=== PATIENT | female | born 1950 ===

== ENCOUNTER 2024-11-23 14:30 | Outpatient (REF) | payer SELFPAY ==
--- OUTSIDE RECORDS SUMMARY | 2024-11-23 16:49 | XMS_ITS | Encounter Summary ---
Author Organization [facility] Address [address] [place] [phone] Care Team Providers Care Field Project Manager Name Role Phone Gayathri Cannon MD Primary Care Provider [phone] Encounter Details Date Type Department Care Team (Late st Contact Info) Description 11/06/2024 Lab Requisition [facility] - Main Lab [address] [place] [address] Alvaro Rojas MD [address] [place] [address] MCFP (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 Social History Tobacco Use Types Packs/Day Years Used Date Smoking Tobacco: Never Smokeless Tobacco: Never Alcohol Use Standard Drinks/Week Comments Yes 0 (1 standard drink = 0.6 oz pur e alcohol) Sex and Gender Information Value Date Recorded Sex Assigned at Not on file Gender Identity Not on file Sexual Orientation Not on file documented as of this encounter Plan of Treatment Not on file documented as of this encounter Procedures Procedure Name Priority Date/Time Associated Diagnosis Comments PROTHROMBIN TIME WITH INR Routine 11/06/2024 6:30 AM EST 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 documented in this encounter Results * (ABNORMAL) Prothrombin time with INR (11/06/2024 6:30 AM EST) Protime 36.3(H) 10.6 - 13.9 sec LAB COAGULATION METHOD 11/06/2024 10:45 AM EST [facility] INR 2.9 LAB COAGULATION METHOD 11/06/2024 10:45 AM EST [facility] Blood Venous blood specimen / Unknown Venipuncture / Unknown 11/06/2024 6:30 AM EST 11/06/2024 9:56 AM EST Alvaro Rojas MD LAB BLOOD ORDERABLES [facility] [address] [place] [address], documented in this encounter Visit Diagnoses Diagnosis MCFP (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 Long-term (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 documented in this encounter Care Teams Field Project Manager Relationship Specialty Start Date End Date Gayathri Cannon MD [address] [place] [address] PCP - General 01/04/15 documented as of this encounter
--- OUTSIDE RECORDS SUMMARY | 2024-11-23 16:49 | XMS_ITS | Encounter Summary ---
Author Organization [facility] Address [address] [place] [phone] Care Team Providers Care Pharmacy Sales Assistant Name Role Phone Gayathri Cannon MD Primary Care Provider [phone] Encounter Details Date Type Department Care Team (Late st Contact Info) Description 11/14/2024 Lab Requisition [facility] - Main Lab [address] [facility] [place] [address] Alvaro Rojas MD [address] [place] [address] Other long term care administrator (current) drug therapy; Unspecified atrial fibrillation (CMS/HCC); Chronic kidney disease, stage 3 unspecified (CMS/HCC); Chronic diastolic (congestive) heart failure (CMS/HCC); Essential (primary) hypertension; Longstanding persistent atrial fibrillation (CMS/HCC); Type 2 diabetes mellitus without complications (CMS/HCC) Social History Tobacco Use Types Packs/Day Years [...] Diagnosis Comments PROTHROMBIN TIME WITH INR Routine 11/16/2024 5:13 AM EST Other detention (current) drug therapy Unspecified atrial fibrillation (CMS/HCC) Chronic kidney disease, stage 3 unspecified (CMS/HCC) Chronic diastolic (congestive) heart failure (CMS/HCC) Essential (primary) hypertension Longstanding persistent atrial fibrillation (CMS/HCC) Type 2 diabetes mellitus without complications (CMS/HCC) COMPLETE BLOOD COUNT Routine 11/16/2024 5:13 AM EST Other detention (current) drug therapy Unspecified atrial fibrillation (CMS/HCC) Chronic kidney disease, stage 3 unspecified (CMS/HCC) Chronic diastolic (congestive) heart failure (CMS/HCC) Essential (primary) hypertension Longstanding persistent atrial fibrillation (CMS/HCC) Type 2 diabetes mellitus without complications (CMS/HCC) MAGNESIUM Routine 11/16/2024 5:13 AM EST Other detention (current) drug therapy Unspecified atrial fibrillation (CMS/HCC) Chronic kidney disease, stage 3 unspecified (CMS/HCC) Chronic diastolic (congestive) heart failure (CMS/HCC) Essential (primary) hypertension Longstanding persistent atrial fibrillation (CMS/HCC) Type 2 diabetes mellitus without complications (CMS/HCC) BASIC METABOLIC PANEL Routine 11/16/2024 5:13 AM EST Other detention (current) drug therapy Unspecified atrial fibrillation (CMS/HCC) Chronic kidney disease, stage 3 unspecified (CMS/HCC) Chronic diastolic (congestive) heart failure (CMS/HCC) Essential (primary) hypertension Longstanding persistent atrial fibrillation (CMS/HCC) Type 2 diabetes mellitus without complications (CMS/HCC) documented in this encounter Results * (ABNORMAL) Prothrombin time with INR (11/16/2024 5:13 AM EST) Protime 47.5(H) 10.6 - 13.9 sec LAB COAGULATION METHOD 11/16/2024 12:39 PM EST [facility] INR 3.8 LAB COAGULATION METHOD 11/16/2024 12:39 PM EST [facility] Blood Venous blood specimen / Unknown Venipuncture / Unknown 11/16/2024 5:13 AM EST 11/16/2024 12:02 PM EST Alvaro Rojas MD LAB BLOOD ORDERABLES [facility] LAB [address] [place] [address], * (ABNORMAL) Magnesium (11/16/2024 5:13 AM EST) Magnesium 1.8(L) 1.9 - 2.6 mg/dL LAB CHEMISTRY METHOD 11/16/2024 2:[address] [facility] Blood Venous blood specimen / Unknown Venipuncture / Unknown 11/16/2024 5:13 AM EST 11/16/2024 12:02 PM EST Alvaro Rojas MD LAB BLOOD ORDERABLES [facility] LAB [address] [place] [address], * (ABNORMAL) Basic metabolic panel (11/16/2024 5:13 AM EST) Sodium 135 133 - 145 mmol/L LAB CHEMISTRY METHOD 11/16/2024 2:[address] [facility] Potassium 4.1 3.5 - 5.5 mmol/L LAB CHEMISTRY METHOD 11/16/2024 2:[address] [facility] Chloride 99 96 - 110 mmol/L LAB CHEMISTRY METHOD 11/16/2024 2:[address] [facility] CO2 28 21 - 32 mmol/L LAB CHEMISTRY METHOD 11/16/2024 2:[address] [facility] Anion Gap 8 3 - 11 LAB CHEMISTRY METHOD 11/16/2024 2:[address] [facility] Glucose 125(H) 70 - 100 mg/dL LAB CHEMISTRY METHOD 11/16/2024 2:[address] [facility] BUN 10 5 - 25 mg/dL LAB CHEMISTRY METHOD 11/16/2024 2:[address] [facility] Creatinine 0.85 0.50 - 1.10 mg/dL LAB CHEMISTRY METHOD 11/16/2024 2:[address] [facility] eGFR 72 >=60 mL/min/1. 73m2 LAB CHEMISTRY METHOD 11/16/2024 2:39 PM EST [facility] Comment:Calculation based on the??Chronic Kidney Disease Epidemiology Collaboration (CKD-EPI) equation refit??without adjustment for race. BUN/Creatinine Ratio 11.8 LAB CHEMISTRY METHOD 11/16/2024 2:[address] [facility] Calcium 8.7 8.5 - 10.5 mg/dL LAB CHEMISTRY METHOD 11/16/2024 2:[address] [facility] Blood Venous blood specimen / Unknown Venipuncture / Unknown 11/16/2024 5:13 AM EST 11/16/2024 12:02 PM EST Alvaro Rojas MD LAB BLOOD ORDERABLES [facility] [address] [place] [address], * (ABNORMAL) Complete blood count (11/16/2024 5:13 AM EST) WBC 7.9 4.8 - 10.8 K/mcL LAB HEMETOLOGY METHOD 11/16/2024 1:[address] [facility] RBC 3.40(L) 3.80 - 4.80 M/mcL LAB HEMETOLOGY METHOD 11/16/2024 1:[address] [facility] Hemoglobin 7.9(L) 11.5 - 16.0 g/dL LAB HEMETOLOGY METHOD 11/16/2024 1:[address] [facility] Hematocrit 26.7(L) 35.0 - 47.0 % LAB HEMETOLOGY METHOD 11/16/2024 1:[address] [facility] MCV 78.5(L) 79.0 - 98.0 FL LAB HEMETOLOGY METHOD 11/16/2024 1:[address] [facility] MCH 23.2(L) 27.0 - 32.0 pcg LAB HEMETOLOGY METHOD 11/16/2024 1:28 PM EST [facility] MCHC 29.6(L) 32.0 - 37.0 g/dL LAB HEMETOLOGY METHOD 11/16/2024 1:[address] [facility] RDW 24.9(H) 11.0 - 15.0 % LAB HEMETOLOGY METHOD 11/16/2024 1:[address] [facility] Platelets 586(H) 130 - 400 K/mcL LAB HEMETOLOGY METHOD 11/16/2024 1:28 PM EST [facility] MPV 9.6 7.0 - 11.0 FL LAB HEMETOLOGY METHOD 11/16/2024 1:[address] [facility] NRBC 0.3 <1.0 % LAB HEMETOLOGY METHOD 11/16/2024 1:[address] [facility] NRBC Absolute 0.02 <0.10 K/mcL LAB HEMETOLOGY METHOD 11/16/2024 1:[address] [facility] Blood Venous blood specimen / Unknown Venipuncture / Unknown 11/16/2024 5:13 AM EST 11/16/2024 12:02 PM EST Alvaro Rojas MD LAB BLOOD ORDERABLES [facility] [address] [place], [place] [address] [phone] documented in this encounter Visit Diagnoses Diagnosis Other detention (current) drug therapy Unspecified atrial fibrillation (CMS/HCC) Chronic kidney disease, stage 3 unspecified (CMS/HCC) Chronic diastolic (congestive) heart failure (CMS/HCC) Essential (primary) hypertension Unspecified essential hypertension Longstanding persistent atrial fibrillation (CMS/HCC) Type 2 diabetes mellitus without complications (CMS/HCC) documented in this encounter Care Teams Pharmacy Sales Assistant Relationship Specialty Start Date End Date Gayathri Cannon MD [address] [place] [id number] PCP - General 01/04/15 documented as of this encounter
--- OUTSIDE RECORDS SUMMARY | 2024-11-23 16:49 | XMS_ITS | Encounter Summary ---
Author Organization [facility] Address [address] [place] [phone] Care Team Providers Care Systems Management Consultant Name Role Phone Gayathri Cannon MD Primary Care Provider [phone] Encounter Details Date Type Department Care Team (Late st Contact Info) Description 11/10/2024 Lab Requisition [facility] - Main Lab [address] [facility] [place] [address] Alvaro Rojas MD [address] [place] [address] Unspecified atrial fibrillation (CMS/HCC) Social History Tobacco Use Types Packs/Day [...] Diagnosis Comments PROTHROMBIN TIME WITH INR Routine 11/10/2024 7:42 AM EST Unspecified atrial fibrillation (CMS/HCC) documented in this encounter Results * (ABNORMAL) Prothrombin time with INR (11/10/2024 7:42 AM EST) Protime 19.1(H) 10.6 - 13.9 sec LAB COAGULATION METHOD 11/10/2024 10:49 AM EST [facility] INR 1.5 LAB COAGULATION METHOD 11/10/2024 10:49 AM EST [facility] Blood Venous blood specimen / Unknown Venipuncture / Unknown 11/10/2024 7:42 AM EST 11/10/2024 9:15 AM EST Alvaro Rojas MD LAB BLOOD ORDERABLES [facility] [address] [place] [address], documented in this encounter Visit Diagnoses Diagnosis Unspecified atrial fibrillation (CMS/HCC) documented in this encounter Care Teams Systems Management Consultant Relationship Specialty Start Date End Date Gayathri Cannon MD [address] [place] [id number] PCP - General 01/04/15 documented as of this encounter
--- OUTSIDE RECORDS SUMMARY | 2024-11-23 16:49 | XMS_ITS | Encounter Summary ---
Author Organization [facility] Address [address] [place] [phone] Care Team Providers Care Security Investigator Name Role Phone Gayathri Cannon MD Primary Care Provider [phone] Encounter Details Date Type Department Care Team (Late st Contact Info) Description 11/20/2024 Lab Requisition [facility] - Main Lab [address] [facility] [place] [address] Alvaro Rojas MD [address] [place] [address] Unspecified atrial fibrillation (CMS/HCC); Chronic kidney disease, [...] on file documented as of this encounter Visit Diagnoses Diagnosis Unspecified atrial fibrillation (CMS/HCC) Chronic kidney disease, stage 3 unspecified (CMS/HCC) Chronic diastolic (congestive) heart failure (CMS/HCC) Essential (primary) hypertension Unspecified essential hypertension Longstanding persistent atrial fibrillation (CMS/HCC) Type 2 diabetes mellitus without complications (CMS/HCC) documented in this encounter Care Teams Security Investigator Relationship Specialty Start Date End Date Gayathri Cannon MD [address] [place] [address] PCP - General 01/04/15 documented as of this encounter
--- OUTSIDE RECORDS SUMMARY | 2024-11-23 16:49 | XMS_ITS | Encounter Summary ---
Author Organization [facility] Address [address] [place] [phone] Care Team Providers Care Logging Contractor Name Role Phone Gayathri Cannon MD Primary Care Provider [phone] Encounter Details Date Type Department Care Team (Late st Contact Info) Description 11/18/2024 Lab Requisition [facility] - Main Lab [address] [facility] [place] [address] Alvaro Rojas MD [address] [place] [address] Unspecified atrial fibrillation (CMS/HCC) Social History Tobacco [...] Diagnosis Comments PROTHROMBIN TIME WITH INR Routine 11/19/2024 5:14 AM EST Unspecified atrial fibrillation (CMS/HCC) documented in this encounter Results * (ABNORMAL) Prothrombin time with INR (11/19/2024 5:14 AM EST) Protime 36.4(H) 10.6 - 13.9 sec LAB COAGULATION METHOD 11/19/2024 11:03 AM EST [facility] INR 3.0 LAB COAGULATION METHOD 11/19/2024 11:03 AM EST [facility] Blood Venous blood specimen / Unknown Venipuncture / Unknown 11/19/2024 5:14 AM EST 11/19/2024 10:08 AM EST Alvaro Rojas MD LAB BLOOD ORDERABLES [facility] [address] [place] [address], documented in this encounter Visit Diagnoses Diagnosis Unspecified atrial fibrillation (CMS/HCC) documented in this encounter Care Teams Logging Contractor Relationship Specialty Start Date End Date Gayathri Cannon MD [address] [place] [id number] PCP - General 01/04/15 documented as of this encounter
--- OUTSIDE RECORDS SUMMARY | 2024-11-23 16:49 | XMS_ITS | Continuity of Care Document ---
Author Organization [facility] Lisa zainab Address [address] [place] [address] [place] [address]- Care Team Providers Care Campus Director Name Role Phone Davis SIEGEL, Gayathri Damian Primary Care Physician [phone] Encounter [facility] Date(s): 10/01/24 - 10/31/24 [facility] [address] [place] [address] Drive [address] [place], [place] [address] Attending Physician: AdmAparna root Admitting Physician: AdmtrAparna Referring Physician: Admtr, [id number] Encounter Type: Triage Allergies, Adverse Reactions, Alerts Substance Criticality Severity Reaction Reaction Severity Status furosemide hypomagnesemia Acti ve Immunizations Given and Recorded Vaccine Date Status Refusal Reason SARS-CoV-2 (COVID-19) mRNA BNT-162b2 vac 09/12/21 Given SARS-CoV-2 (COVID-19) mRNA BNT-162b2 vac 02/27/21 Given SARS-CoV-2 (COVID-19) mRNA BNT-162b2 vac 02/06/21 Given influenza virus vaccine, inactivated 08/15/21 Give n influenza virus vaccine, inactivated 07/22/20 Give n influenza virus vaccine, inactivated 12/08/19 Give n influenza virus vaccine, inactivated 11/20/18 Give n influenza virus vaccine, inactivated 1 07/17/17 Gi oleg influenza virus vaccine, inactivated 08/08/16 Give n influenza virus vaccine, inactivated 11/25/14 Give n tetanus/diphtheria/pertussis, acel(Tdap) 08/30/17 Given Zoster Vaccine Live 10/05/16 Given pneumococcal 13-valent vaccine 03/06/16 Given pneumococcal 23-valent vaccine 11/25/14 Given 1Admin Note: [facility] [id number] Medications 4 Pronged Cane 4 Pronged Cane, See Instructions, # 1 each, Refills 0, Tot. Refills 0, Maintenance, Dx: OA of Bilateral Knees (M17), Repeated Falls (R29.6), Reduced Mobility (Z74.0) Duration: Lifetime, 08/08/20 3:06:00 PM EDT, Supply Start Date: 08/08/20 Status: Ordered Quantity: 1.0 Unit: each Repeat number: 1 acetaminophen 325 mg oral capsule 2 capsule = 650 mg, By Mouth, 3 times a day, PRN Pain , Mild, LABEL IN SURINAMESE, # 540 capsule, 3 Refills, Maintenance, 04/02/23 2:21:00 PM EDT, Capsule, [facility] #[id number], Partial fill upon patient request if the prescription is for a schedule II opioid drug., 160, cm, 01/22/23 8:46:00 EDT, Height Start Date: 04/02/23 Status: Ordered Quantity: 540.0 Unit: capsule Repeat number: 4 atorvastatin 40 mg oral tablet 1 tablet, By Mouth, Daily, LABEL IN SURINAMESE, # 90 tablet, 3 Refills, Maintenance, 10/16/24 4:58:00 PM EST, [facility] #[id number], 160, cm, 10/16/24 12:37:00 EST, Height, 73.5, kg, 06/11/23 11:48:00 EDT, Dry Weight Start Date: 10/16/24 Status: Ordered Quantity: 90.0 Unit: tablet Repeat number: 4 dofetilide 250 mcg oral capsule 1 capsule = 250 mcg, By Mouth, 2 times a day, # 60 capsule, 0 Refills, Maintenance, 12/26/17 12:51:14PM EST, Capsule Start Date: 12/26/17 Status: Ordered Quantity: 60.0 Unit: capsule Repeat number: 1 furosemide 20 mg oral tablet 20 mg, 1, tablet, By Mouth, Daily, # 90 tablet, Refills 0, Maintenance, 06/15/24 3:15:00 PM EDT, Partial fill upon patient request if the prescription is for a schedule II opioid drug. Start Date: 06/15/24 Status: Ordered Quantity: 90.0 Unit: tablet Repeat number: 1 lisinopril 20 mg oral tablet 1, tablet, By Mouth, Daily, LABEL IN SURINAMESE, # 90 tablet, Refills 1, Tot. Refills 1, Maintenance, 09/01/24 9:36:00 AM EST, Route to Pharmacy Electronically, [facility] #[id number], 160, cm, 06/15/24 15:14:00 EDT, Height, 73.5, kg, 06/11/23 11:48:00 EDT, Dry Weight Start Date: 09/01/24 Status: Ordered Quantity: 90.0 Unit: tablet Repeat number: 2 loratadine 10 mg oral capsule 1 capsule = 10 mg, By Mouth, Daily, LABEL IN SURINAMESE, # 90 capsule, 3 Refills, Maintenance, :10:00 PM EDT, Capsule, [facility] #[id number], Partial fill upon patient request if the prescription is for a schedule II opioid drug., 160, cm, 06/04/24 15:45:00 EDT, Height, 73.5, kg, 06/11/23 11:48:00 EDT, Dry Weight Start Date: 06/04/24 Status: Ordered Quantity: 90.0 Unit: capsule Repeat number: 4 Lovenox 80 mg/0.8 mL injectable solution = 80 mg, Subcutaneous Infusion, Daily, Inject 1 syringe (80mg) SQ once daily in the morning as directed by coumadin clinic. Do not start until advised to do so by clinic before surgery., # 7 each, 0 Refills, Maintenance, 10/09/24 10:41:00 AM EST, [facility] #[id number], Partial fill upon patient request if the prescription is for a schedule II opioid drug., 160, cm, 10/01/24 14:29:00 EST, Height, 73.5, kg, 06/11/23 11:48:00 EDT, Dry Weight Start Date: 10/09/24 Status: Ordered Quantity: 7.0 Unit: each Repeat number: 1 magnesium oxide 400 mg oral tablet 1 tablet, By Mouth, 2 times a day, FOR LEG CRAMPS AND HYPOMAGNESIMIA; LABELINSPANISH, # 180 tablet,3 Refills, Maintenance, 08/17/24 1:26:00 PM EDT, [facility] #[id number], 160, cm, 06/15/24 15:14:00 EDT, Height, 73.5, kg, 06/11/23 11:48:00 EDT, Dry Weight Start Date: 08/17/24 Status: Ordered Quantity: 180.0 Unit: tablet Repeat number: 1 metFORMIN 1000 mg oral tablet 1 tablet = 1,000 mg, By Mouth, 2 times a day, LABEL IN SURINAMESE, # 180 tablet, 1 Refills, Maintenance, 06/15/24 3:58:00 PM EDT, [facility] #[id number], 160, cm, 06/15/24 15:14:00 EDT, Height, 73.5, kg, 06/11/23 11:48:00 EDT, Dry Weight Start Date: 06/15/24 Status: Ordered Quantity: 180.0 Unit: tablet Repeat number: 2 Metoprolol Tartrate 50 mg oral tablet 1 tablet, By Mouth, 2 times a day, LABELINSPANISH., # 180 tablet, 1 Refills, Maintenance, 07/16/24 12:50:00 PM EDT, [facility] #[id number], 160, cm, 06/15/24 15:14:00 EDT, Height, 73.5, kg, 06/11/23 11:48:00 EDT, Dry Weight Start Date: 07/16/24 Status: Ordered Quantity: 180.0 Unit: tablet Repeat number: 1 ONE TOUCH DELICA PLUS 30G LANCETS ONE TOUCH DELICA PLUS 30G LANCETS, CHECK BLOOD GLUCOSE DAILY AND NEEDED IF NEEDED FOR SWEATS/DIZZINESS/CONFUSION Start Date: 07/19/23 Status: Ordered Repeat number: 1 ONE TOUCH ULTRA 2 KIT ONE TOUCH ULTRA 2 KIT, TEST BLOOD SUGAR DAILY AND NEEDED SWEATS/DIZZINESS/CONFUSION Start Date: 07/19/23 Status: Ordered Repeat number: 1 ONE TOUCH ULTRA BLUE TESTST(NEW)100 ONE TOUCH ULTRA BLUE TESTST(NEW)100, TEST EVERY DAY AND NEEDED FOR SWEATS/DIZZINESS/CONFUSION Start Date: 07/19/23 Status: Ordered Repeat number: 1 pantoprazole 40 mg oral delayed release tablet 1 tablet, By Mouth, 2 times a day, PRN NEEDED FOR GERD, LABEL IN SURINAMESE, # 180 tablet, 3 Refills, Maintenance, 10/16/24 4:58:00 PM EST, 160, cm, 10/16/24 12:37:00 EST, Height, 73.5, kg, 06/11/23 11:48:00 EDT, Dry Weight Start Date: 10/16/24 Status: Ordered Quantity: 180.0 Unit: tablet Repeat number: 4 Ventolin HFA 108 mcg/inh inhalation aerosol with adapter 2 puffs, Inhalation, 4 times a day, PRN for wheezing, LABEL IN SURINAMESE, # 3 each, 3 Refills, Maintenance, 07/23/23 11:49:00 AM EDT, Aerosol, [facility] #[id number], Partial fill upon patient request if the prescription is for a schedule II opioid drug., 160, cm, 07/23/23 11:25:00 EDT, Height, 73.5, kg, 06/11/23 11:48:00 EDT, Dry Weight Start Date: 07/23/23 Status: Ordered Quantity: 3.0 Unit: each Repeat number: 4 warfarin 2.5 mg oral tablet 1 tablet, By Mouth, Daily, DIRECTED BY COUMADIN CLINIC., # 90 tablet, 0 Refills, Maintenance, 07/15/24 3:53:00 PM EDT, [facility] #[id number], 160, cm, 06/15/24 15:14:00 EDT, Height, 73.5, kg,06/11/23 11:48:00 EDT, Dry Weight Start Date: 07/15/24 Status: Ordered Quantity: 90.0 Unit: tablet Repeat number: 1 Problem List Condition Confirmation Course Effective Dates Status H ealth Status Informant Asthma/COPD - gold 2, PFT 12/2017 Confirmed Active Atopic dermatitis Confirmed Active Atrial fibrillation on coumadin (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) Confirmed Active Atypical chest pain - myoview normal 01/2019 - Go Try It On Confirmed Active Choking Confirmed Active COVID-19 virus infection Confirmed Active Leg cramps Confirmed Active Diabetes Confirmed Active Diastolic heart failure Confirmed Active GERD (gastroesophageal reflux disease) Confirmed Active On anticoagulant therapy with Coumadin Confirmed Active Hearing loss Confirmed Active (HFpEF) heart failure with preserved ejection fraction Confirmed Active Hyperlipidemia Confirmed Active Hypertension Confirmed Active Hypomagnesemia Confirmed Active Insomnia Confirmed Active Mitral valve stenosis rheumatologic - severe, dilated left atrium 01/2022 , [facility] Confirmed Active Osteopenia Confirmed Active *[id number] Taxation Economist Gaby Mcdonnell Confirmed Active Bilateral primary osteoarthritis of knee Confirmed Active Trigger finger Confirmed Active Tubular adenoma of colon - 2019 colon polyp x 2 1, 2 Confirmed 04/10/16 Active 1three polyps removed, repeat screening colonoscopy in 2021 2repeat colonoscopy in 2019 Social History Social History Type Response Smoking Status Never smoker; Tobacc o user in household: No entered on: 01/14/15 Sex Female Sex Representation Female (finding) Patient Care team information Care Team Personnel Name: Skylar Turner Position: [facility] Outreach Member Role: Lifetime Consulting Physician Name: Francis Georges RN Position: S RN Member Role: Primary Care Nurse Name: Michael Vega RN Position: [facility] RN Member Role: Primary Care Nurse Name: Anusha Guerra Position: [facility] RN Supefrain Member Role: Primary Care Nurse Name: Margot Valladares Position: [facility] AMB Nurse Member Role: Lifetime Consulting Physician Name: Gayathri Cannon MD Position: [facility] Physician - Primary Care Member Role: PCP Address: [address] [place] [address] Adult Medicine [address] Telecom: Name: Donald Jackson Jr, RN Position: [facility] ED RN W/OE and Tasks Member Role: Primary Care Nurse Name: Jerry Rivera MD Position: [facility] Renal MD Member Role: Lifetime Consulting Physician Address: [address] [place] [address] [address] [facility] [address] Telecom: Name: Alma Capps RN Position: [facility] RN Member Role: Primary Care Nurse Name: Massimo Glynn RN Position: [facility] ED RN W/OE and Tasks Member Role: Primary Care Nurse Name: Jarett Lopez Position: S RN Member Role: Primary Care Nurse Name: Farrah Skelton RN Position: [facility] RN Member Role: Primary Care Nurse Care Team Related Persons Name: LIDA SAUCEDO Insurance Providers Guarantor name: OCTAVIA RODRIGUEZ Health Plan Information #: 1 Payer: NA Member Number: NA Policy Number: NA Group Number: NA
--- OUTSIDE RECORDS SUMMARY | 2024-11-23 16:49 | XMS_ITS | Encounter Summary ---
Author Organization [facility] Address [address] [place] [id number] Care Team Providers Care Printing Film Stripper Name Role Phone Gayathri Cannon MD Primary Care Provider [phone] Encounter Details Date Type Department Care Team (Late st Contact Info) Description 11/05/2024 Lab Requisition [facility] - Main Lab [address] [facility] [place] [address] Alvaro Rojas MD [address] [place] [address] Iron deficiency anemia, unspecified; Hyperlipidemia, unspecified; Gastro-esophageal reflux disease without esophagitis; Essential (primary) hypertension; Chronic kidney disease, stage 3 unspecified (CMS/HCC); Type 2 diabetes mellitus without complications (CMS/HCC); Unspecified atrial fibrillation (CMS/HCC) Social History Tobacco [...] Procedure Name Priority Date/Time Associated Diagnosis Comments VITAMIN B12 AND FOLATE Routine 11/05/2024 5:14 AM EST Iron deficiency anemia, unspecified Hyperlipidemia, unspecified Gastro-esophageal reflux disease without esophagitis Essential (primary) hypertension Chronic kidney disease, stage 3 unspecified (CMS/HCC) Type 2 diabetes mellitus without complications (CMS/HCC) Unspecified atrial fibrillation (CMS/HCC) COMPLETE BLOOD COUNT Routine 11/05/2024 5:14 AM EST Iron deficiency anemia, unspecified Hyperlipidemia, unspecified Gastro-esophageal reflux disease without esophagitis Essential (primary) hypertension Chronic kidney disease, stage 3 unspecified (CMS/HCC) Type 2 diabetes mellitus without complications (CMS/HCC) Unspecified atrial fibrillation (CMS/HCC) THYROID STIMULATING HORMONE Routine 11/05/2024 5:14 AM EST Iron deficiency anemia, unspecified Hyperlipidemia, unspecified Gastro-esophageal reflux disease without esophagitis Essential (primary) hypertension Chronic kidney disease, stage 3 unspecified (CMS/HCC) Type 2 diabetes mellitus without complications (CMS/HCC) Unspecified atrial fibrillation (CMS/HCC) COMPREHENSIVE METABOLIC PANEL Routine 11/05/2024 5:14 AM EST Iron deficiency anemia, unspecified Hyperlipidemia, unspecified Gastro-esophageal reflux disease without esophagitis Essential (primary) hypertension Chronic kidney disease, stage 3 unspecified (CMS/HCC) Type 2 diabetes mellitus without complications (CMS/HCC) Unspecified atrial fibrillation (CMS/HCC) documented in this encounter Results * Vitamin B12 and folate (11/05/2024 5:14 AM EST) Vitamin B-12 282 250 - 900 pcg/mL LAB CHEMISTRY METHOD 11/05/2024 10:41 AM EST [facility] Folate 9.7 2.8 - 17.0 ng/ml LAB CHEMISTRY METHOD 11/05/2024 10:41 AM EST [facility] Blood Venous blood specimen / Unknown Venipuncture / Unknown 11/05/2024 5:14 AM EST 11/05/2024 8:56 AM EST Alvaro Rojas MD LAB BLOOD ORDERABLES [facility] [address] [place] [address], * Thyroid stimulating hormone (11/05/2024 5:14 AM EST) TSH 1.51 0.40 - 4.00 mcIU/mL LAB CHEMISTRY METHOD 11/05/2024 10:09 AM EST [facility] Blood Venous blood specimen / Unknown Venipuncture / Unknown 11/05/2024 5:14 AM EST 11/05/2024 8:56 AM EST Alvaro Rojas MD LAB BLOOD ORDERABLES [facility] [address] [place] [address], * (ABNORMAL) Comprehensive metabolic panel (11/05/2024 5:14 AM EST) Sodium 135 133 - 145 mmol/L LAB CHEMISTRY METHOD 11/05/2024 10:41 AM [facility] Potassium 3.9 3.5 - 5.5 mmol/L LAB CHEMISTRY METHOD 11/05/2024 10:41 AM [facility] Chloride 99 96 - 110 mmol/L LAB CHEMISTRY METHOD 11/05/2024 10:41 AM [facility] CO2 26 21 - 32 mmol/L LAB CHEMISTRY METHOD 11/05/2024 10:41 AM [facility] Anion Gap 10 3 - 11 LAB CHEMISTRY METHOD 11/05/2024 10:41 AM [facility] Glucose 121(H) 70 - 100 mg/dL LAB CHEMISTRY METHOD 11/05/2024 10:41 AM [facility] BUN 13 5 - 25 mg/dL LAB CHEMISTRY METHOD 11/05/2024 10:41 AM [facility] Creatinine 0.78 0.50 - 1.10 mg/dL LAB CHEMISTRY METHOD 11/05/2024 10:41 AM [facility] eGFR 79 >=60 mL/min/1. 73m2 LAB CHEMISTRY METHOD 11/05/2024 10:41 AM [facility] Comment:Calculation based on the??Chronic Kidney Disease Epidemiology Collaboration (CKD-EPI) equation refit??without adjustment for race. BUN/Creatinine Ratio 16.7 LAB CHEMISTRY METHOD 11/05/2024 10:41 AM [facility] Calcium 8.1(L) 8.5 - 10.5 mg/dL LAB CHEMISTRY METHOD 11/05/2024 10:41 AM [facility] AST (SGOT) 19 10 - 42 unit/L LAB CHEMISTRY METHOD 11/05/2024 10:41 AM [facility] ALT (SGPT) 16 10 - 60 unit/L LAB CHEMISTRY METHOD 11/05/2024 10:41 AM [facility] Alkaline Phosphatase 90 42 - 121 unit/L LAB CHEMISTRY METHOD 11/05/2024 10:41 AM [facility] Total Protein 5.0(L) 6.0 - 8.0 g/dL LAB CHEMISTRY METHOD 11/05/2024 10:41 AM [facility] Albumin 1.9(L) 3.2 - 5.0 g/dL LAB CHEMISTRY METHOD 11/05/2024 10:41 AM [facility] Total Bilirubin 0.4 0.0 - 1.4 mg/dL LAB CHEMISTRY METHOD 11/05/2024 10:41 AM [facility] Blood Venous blood specimen / Unknown Venipuncture / Unknown 11/05/2024 5:14 AM EST 11/05/2024 8:56 AM EST Alvaro Rojas MD LAB BLOOD ORDERABLES [facility] [address] [place] [address], * (ABNORMAL) Complete blood count (11/05/2024 5:14 AM EST) WBC 10.6 4.8 - 10.8 K/mcL LAB HEMETOLOGY METHOD 11/05/2024 10:04 AM [facility] RBC 3.20(L) 3.80 - 4.80 M/mcL LAB HEMETOLOGY METHOD 11/05/2024 10:04 AM [facility] Hemoglobin 7.2(L) 11.5 - 16.0 g/dL LAB HEMETOLOGY METHOD 11/05/2024 10:04 AM [facility] Hematocrit 24.1(L) 35.0 - 47.0 % LAB HEMETOLOGY METHOD 11/05/2024 10:04 AM [facility] MCV 75.3(L) 79.0 - 98.0 FL LAB HEMETOLOGY METHOD 11/05/2024 10:04 AM [facility] MCH 22.5(L) 27.0 - 32.0 pcg LAB HEMETOLOGY METHOD 11/05/2024 10:04 AM [facility] MCHC 29.9(L) 32.0 - 37.0 g/dL LAB HEMETOLOGY METHOD 11/05/2024 10:04 AM [facility] RDW 24.6(H) 11.0 - 15.0 % LAB HEMETOLOGY METHOD 11/05/2024 10:04 AM [facility] Platelets 411(H) 130 - 400 K/mcL LAB HEMETOLOGY METHOD 11/05/2024 10:04 AM [facility] MPV 9.9 7.0 - 11.0 FL LAB HEMETOLOGY METHOD 11/05/2024 10:04 AM [facility] NRBC 0.3 <1.0 % LAB HEMETOLOGY METHOD 11/05/2024 10:04 AM [facility] NRBC Absolute 0.03 <0.10 K/mcL LAB HEMETOLOGY METHOD 11/05/2024 10:04 AM [facility] Blood Venous blood specimen / Unknown Venipuncture / Unknown 11/05/2024 5:14 AM EST 11/05/2024 8:56 AM EST Alvaro Rojas MD LAB BLOOD ORDERABLES [facility] [address] [place] [address], documented in this encounter Visit Diagnoses Diagnosis Iron deficiency anemia, unspecified Hyperlipidemia, unspecified Gastro-esophageal reflux disease without esophagitis Essential (primary) hypertension Unspecified essential hypertension Chronic kidney disease, stage 3 unspecified (CMS/HCC) Type 2 diabetes mellitus without complications (CMS/HCC) Unspecified atrial fibrillation (CMS/HCC) documented in this encounter Care Teams Printing Film Stripper Relationship Specialty Start Date End Date Gayathri Cannon MD [address] [place] [address] PCP - General 01/04/15 documented as of this encounter
--- OUTSIDE RECORDS SUMMARY | 2024-11-23 16:49 | XMS_ITS | Encounter Summary ---
Author Organization [facility] Address [address] [place] [id number] Care Team Providers Care Claims Specialist Name Role Phone Gayathri Cannon MD Primary Care Provider [phone] Encounter Details Date Type Department Care Team (Late st Contact Info) Description 11/11/2024 Lab Requisition [facility] - Main Lab [address] [facility] [place] [address] Alvaro Rojas MD [address] [place] [address] Unspecified atrial fibrillation (CMS/HCC) Social History Tobacco [...] Diagnosis Comments PROTHROMBIN TIME WITH INR Routine 11/12/2024 5:29 AM EST Unspecified atrial fibrillation (CMS/HCC) documented in this encounter Results * (ABNORMAL) Prothrombin time with INR (11/12/2024 5:29 AM EST) Protime 27.0(H) 10.6 - 13.9 sec LAB COAGULATION METHOD 11/12/2024 10:30 AM EST [facility] INR 2.1 LAB COAGULATION METHOD 11/12/2024 10:30 AM EST [facility] Blood Venous blood specimen / Unknown Venipuncture / Unknown 11/12/2024 5:29 AM EST 11/12/2024 8:54 AM EST Alvaro Rojas MD LAB BLOOD ORDERABLES [facility] [address] [place] [address], documented in this encounter Visit Diagnoses Diagnosis Unspecified atrial fibrillation (CMS/HCC) documented in this encounter Care Teams Claims Specialist Relationship Specialty Start Date End Date Gayathri Cannon MD [address] [place] [id number] PCP - General 01/04/15 documented as of this encounter
--- OUTSIDE RECORDS SUMMARY | 2024-11-23 16:49 | XMS_ITS | Encounter Summary ---
Author Organization [facility] Address [id number] [place] [id number] Care Team Providers Care Compliance Representative Name Role Phone Gayathri Cannon MD Primary Care Provider [phone] Encounter Details Date Type Department Care Team (Late st Contact Info) Description 11/09/2024 Lab Requisition [facility] - Main Lab [address] [facility] [place] [address] Alvaro Rojas MD [address] [place] [address] Chronic kidney disease, stage 3 unspecified (CMS/HCC); [...] Procedure Name Priority Date/Time Associated Diagnosis Comments COMPLETE BLOOD COUNT Routine 11/09/2024 5:47 AM EST Chronic kidney disease, stage 3 unspecified (CMS/HCC) Chronic diastolic (congestive) heart failure (CMS/HCC) Essential (primary) hypertension Longstanding persistent atrial fibrillation (CMS/HCC) Type 2 diabetes mellitus without complications (CMS/HCC) MAGNESIUM Routine 11/09/2024 5:47 AM EST Chronic kidney disease, stage 3 unspecified (CMS/HCC) Chronic diastolic (congestive) heart failure (CMS/HCC) Essential (primary) hypertension Longstanding persistent atrial fibrillation (CMS/HCC) Type 2 diabetes mellitus without complications (CMS/HCC) BASIC METABOLIC PANEL Routine 11/09/2024 5:47 AM EST Chronic kidney disease, stage 3 unspecified (CMS/HCC) Chronic diastolic (congestive) heart failure (CMS/HCC) Essential (primary) hypertension Longstanding persistent atrial fibrillation (CMS/HCC) Type 2 diabetes mellitus without complications (CMS/HCC) documented in this encounter Results * (ABNORMAL) Magnesium (11/09/2024 5:47 AM EST) Magnesium 1.6(L) 1.9 - 2.6 mg/dL LAB CHEMISTRY METHOD 11/09/2024 3:00 PM [facility] Blood Venous blood specimen / Unknown Venipuncture / Unknown 11/09/2024 5:47 AM EST 11/09/2024 12:00 PM EST Alvaro Rojas MD LAB BLOOD ORDERABLES [facility] [address] [place] [address], * (ABNORMAL) Basic metabolic panel (11/09/2024 5:47 AM EST) Sodium 135 133 - 145 mmol/L LAB CHEMISTRY METHOD 11/09/2024 3:00 PM [facility] Potassium 3.8 3.5 - 5.5 mmol/L LAB CHEMISTRY METHOD 11/09/2024 3:00 PM [facility] Chloride 101 96 - 110 mmol/L LAB CHEMISTRY METHOD 11/09/2024 3:00 PM [facility] CO2 25 21 - 32 mmol/L LAB CHEMISTRY METHOD 11/09/2024 3:00 PM [facility] Anion Gap 9 3 - 11 LAB CHEMISTRY METHOD 11/09/2024 3:00 PM [facility] Glucose 106(H) 70 - 100 mg/dL LAB CHEMISTRY METHOD 11/09/2024 3:00 PM [facility] BUN 9 5 - 25 mg/dL LAB CHEMISTRY METHOD 11/09/2024 3:00 PM [facility] Creatinine 0.92 0.50 - 1.10 mg/dL LAB CHEMISTRY METHOD 11/09/2024 3:00 PM [facility] eGFR 65 >=60 mL/min/1. 73m2 LAB CHEMISTRY METHOD 11/09/2024 3:00 PM [facility] Comment:Calculation based on the??Chronic Kidney Disease Epidemiology Collaboration (CKD-EPI) equation refit??without adjustment for race. BUN/Creatinine Ratio 9.8 LAB CHEMISTRY METHOD 11/09/2024 3:00 PM [facility] Calcium 8.5 8.5 - 10.5 mg/dL LAB CHEMISTRY METHOD 11/09/2024 3:00 PM [facility] Blood Venous blood specimen / Unknown Venipuncture / Unknown 11/09/2024 5:47 AM EST 11/09/2024 12:00 PM EST Alvaro Rojas MD LAB BLOOD ORDERABLES [facility] [address] [place] [address], * (ABNORMAL) Complete blood count (11/09/2024 5:47 AM EST) WBC 9.2 4.8 - 10.8 K/mcL LAB HEMETOLOGY METHOD 11/09/2024 2:16 PM [facility] RBC 3.10(L) 3.80 - 4.80 M/mcL LAB HEMETOLOGY METHOD 11/09/2024 2:16 PM [facility] Hemoglobin 7.2(L) 11.5 - 16.0 g/dL LAB HEMETOLOGY METHOD 11/09/2024 2:16 PM EST [facility] Hematocrit 24.1(L) 35.0 - 47.0 % LAB HEMETOLOGY METHOD 11/09/2024 2:16 PM [facility] MCV 78.0(L) 79.0 - 98.0 FL LAB HEMETOLOGY METHOD 11/09/2024 2:16 PM [facility] MCH 23.3(L) 27.0 - 32.0 pcg LAB HEMETOLOGY METHOD 11/09/2024 2:16 PM EST [facility] MCHC 29.9(L) 32.0 - 37.0 g/dL LAB HEMETOLOGY METHOD 11/09/2024 2:16 PM [facility] RDW 25.2(H) 11.0 - 15.0 % LAB HEMETOLOGY METHOD 11/09/2024 2:16 PM [facility] Platelets 552(H) 130 - 400 K/mcL LAB HEMETOLOGY METHOD 11/09/2024 2:16 PM EST [facility] MPV 9.3 7.0 - 11.0 FL LAB HEMETOLOGY METHOD 11/09/2024 2:16 PM [facility] NRBC 0.0 <1.0 % LAB HEMETOLOGY METHOD 11/09/2024 2:16 PM EST [facility] NRBC Absolute 0.00 <0.10 K/mcL LAB HEMETOLOGY METHOD 11/09/2024 2:16 PM [facility] Blood Venous blood specimen / Unknown Venipuncture / Unknown 11/09/2024 5:47 AM EST 11/09/2024 12:00 PM EST Alvaro Rojas MD LAB BLOOD ORDERABLES [facility] [address] [place] [address], documented in this encounter Visit Diagnoses Diagnosis Chronic kidney disease, stage 3 unspecified (CMS/HCC) Chronic diastolic (congestive) heart failure (CMS/HCC) Essential (primary) hypertension Unspecified essential hypertension Longstanding persistent atrial fibrillation (CMS/HCC) Type 2 diabetes mellitus without complications (CMS/HCC) documented in this encounter Care Teams Compliance Representative Relationship Specialty Start Date End Date Gayathri Cannon MD [address] [place] [address] PCP - General 01/04/15 documented as of this encounter
--- OUTSIDE RECORDS SUMMARY | 2024-11-23 16:49 | XMS_ITS | Continuity of Care Document ---
Author Organization [facility] Cardiac Lisa zainab Address [address] [place] [address] [place] [address]- Care Team Providers Care Olericulture Teacher Name Role Phone Davis SIEGEL, Gayathri Damian Primary Care Physician Encounter [facility] Date(s): 11/13/24 - 11/20/24 [facility] Cardiac Surgery [address] [place] [address] Drive [address] [place], [place] [address] Encounter Diagnosis S/P MVR (mitral valve replacement)(Discharge Diagnosis) - 11/13/24 Attending Physician: Nicholas Saab MD Referring Physician: Esequiel Abbasi MD Encounter Type: Office Visit Allergies, Adverse Reactions, Alerts Substance Criticality Severity [...] 23-valent vaccine 11/25/14 Given 1Admin Note: [facility] [id number] Medications acetaminophen 325 mg oral capsule 2 capsule = 650 mg, By Mouth, 3 times a day, PRN Pain , Mild, LABEL IN KAZAKH, # 540 capsule, 3 Refills, Maintenance, 04/02/23 2:21:00 PM EDT, Capsule, [id number], Partial fill upon patient request if the prescription is for a schedule II opioid drug., 160, cm, 01/22/23 8:46:00 EDT, Height Start Date: 04/02/23 Status: Ordered Quantity: 540.0 Unit: capsule Repeat number: 4 albuterol-ipratropium 3 mg-0.5 mg/3 ml inhalation solution BAND Nebulizer, 4 times a day, PRN Wheezing/Shortness of Breath, 0 Refills, Maintenance, 11/04/24 4:50:00 PM EST, Inhalation Solution, Partial fill upon patient request if the prescription is for a schedule II opioid drug. Start Date: 11/04/24 Status: Ordered Repeat number: 1 amiodarone 200 mg oral tablet 200 mg, 1, tablet, By Mouth, 2 times a day, Take 1 tablet twice a day for 30 days. Once bottle is complete, stop taking medication., # 60 tablet, Refills 0, Maintenance, 11/04/24 4:48:00 PM EST, Partial fill upon patient request if the prescription is for a schedule II opioid drug. Start Date: 11/04/24 Status: Ordered Quantity: 60.0 Unit: tablet Repeat number: 1 amLODIPine 10 mg oral tablet 10 mg, 1, tablet, By Mouth, Daily, # 30 tablet, Refills 0, Maintenance, 11/13/24 11:34:00 AM EST, Partial fill upon patient request if the prescription is for a schedule II opioid drug. Start Date: 11/13/24 Status: Ordered Quantity: 30.0 Unit: tablet Repeat number: 1 Aspirin Tablet 81 mg, By Mouth, Daily, Refills 0, Maintenance, 11/04/24 4:49:00 PM EST, Partial fill upon patient request if the prescription is for a schedule II opioid drug. Start Date: 11/04/24 Status: Ordered Repeat number: 1 atorvastatin 40 mg oral tablet 1 tablet, By Mouth, Daily, LABEL IN KAZAKH, # 90 tablet, 3 Refills, Maintenance, 10/16/24 4:58:00 PM EST, [id number], 160, cm, 10/16/24 12:37:00 EST, Height, 73.5, kg, 06/11/23 11:48:00 EDT, Dry Weight Start Date: 10/16/24 Status: Ordered Quantity: 90.0 Unit: tablet Repeat number: 4 Ferrous Sulfate ER Refills 0, Maintenance, 11/13/24 11:34:00 AM EST, Partial fill upon patient request if the prescription is for a schedule II opioid drug. Start Date: 11/13/24 Status: Ordered Repeat number: 1 furosemide 20 mg oral tablet TAKE 1 TABLET BY MOUTH DAILY Start Date: 11/13/24 Status: Ordered Repeat number: 1 hydrALAZINE 25 mg oral tablet 25 mg, 1, tablet, By Mouth, Daily, # 30 tablet, Refills 0, Maintenance, 11/13/24 11:35:00 AM EST, Partial fill upon patient request if the prescription is for a schedule II opioid drug. Start Date: 11/13/24 Status: Ordered Quantity: 30.0 Unit: tablet Repeat number: 1 lisinopril 10 mg oral tablet 10 mg, By Mouth, Daily, Refills 0, Maintenance, 11/04/24 4:47:00 PM EST, Partial fill upon patient request if the prescription is for a schedule II opioid drug. Start Date: 11/04/24 Status: Ordered Repeat number: 1 loratadine 10 mg oral capsule 1 capsule = 10 mg, By Mouth, Daily, LABEL IN KAZAKH, # 90 capsule, 3 Refills, Maintenance, :10:00 PM EDT, Capsule, [facility] #[id number], Partial fill upon patient request if the prescription is for a schedule II opioid drug., 160, cm, 06/04/24 15:45:00 EDT, Height, 73.5, kg, 06/11/23 11:48:00 EDT, Dry Weight Start Date: 06/04/24 Status: Ordered Quantity: 90.0 Unit: capsule Repeat number: 4 Magnesium Carbonate = 54 mg, By Mouth, Daily, 0 Refills, Maintenance, 11/13/24 11:35:00 AM EST, Partial fill upon patient request if the prescription is for a schedule II opioid drug. Start Date: 11/13/24 Status: Ordered Repeat number: 1 metFORMIN 500 mg oral tablet 1 tablet = 500 mg, By Mouth, Daily, with meals, # 30 tablet, 0 Refills, Maintenance, 11/04/24 4:50:00 PM EST, Tablet, [facility], Partial fill upon patient request if the prescription isfor a schedule II opioid drug., 160, cm, 11/04/24 16:27:00 EST, Height, 74, kg, 10/28/24 14:57:00 EST, Dry Weight Start Date: 11/04/24 Status: Ordered Quantity: 30.0 Unit: tablet Repeat number: 1 Metoprolol Tartrate 50 mg oral tablet 1 tablet, By Mouth, 2 times a day, LABELINSPANISH., # 180 tablet, 1 Refills, Maintenance, 07/16/24 12:50:00 PM EDT, [facility] #[id number], 160, cm, 06/15/24 15:14:00 EDT, Height, 73.5, [...] 40 mg oral delayed release tablet 1 tablet = 40 mg, By Mouth, Daily, # 30 tablet, 0 Refills, Maintenance, 11/13/24 11:33:00 AM EST, ECTablet Start Date: 11/13/24 Status: Ordered Quantity: 30.0 Unit: tablet Repeat number: 1 Robitussin DM Liquid 10 mL, By Mouth, Every 4 hours, PRN Cough, 0 Refills, Maintenance, 11/04/24 4:50:00 PM EST, Syrup, Partial fill upon patient request if the prescription is for a schedule II opioid drug. Start Date: 11/04/24 Status: Ordered Repeat number: 1 Vashe Topical Solution 475 mL, Topically, Every 12 hours, 0 Refills, Maintenance, Solution Start Date: 11/04/24 Status: Ordered Repeat number: 1 Ventolin HFA 108 mcg/inh inhalation aerosol with adapter 2 puffs, Inhalation, 4 times a day, PRN for wheezing, LABEL IN KAZAKH, # 3 each, 3 Refills, Maintenance, 07/23/23 11:49:00 AM EDT, Aerosol, [id number], Partial fill upon patient request if the prescription is for a schedule II opioid drug., 160, cm, 07/23/23 11:25:00 EDT, Height, 73.5, kg, 06/11/23 11:48:00 EDT, Dry Weight Start Date: 07/23/23 Status: Ordered Quantity: 3.0 Unit: each Repeat number: 4 warfarin 3 mg oral tablet 1 tablet = 3 mg, By Mouth, Daily, # 30 tablet, 0 Refills, Maintenance, 11/13/24 11:34:00 AM EST, Tablet, Partial fill upon patient request if the prescription is for a schedule II opioid drug. Start Date: 11/13/24 Status: Ordered Quantity: 30.0 Unit: tablet Repeat number: 1 Problem List Condition Confirmation Course Effective Dates Status H ealth Status Informant Asthma/COPD - gold 2, PFT 12/2017 Confirmed Active Atopic dermatitis Confirmed Active Atrial fibrillation on coumadin (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) Confirmed Active Atypical chest pain - myoview normal 01/2019 - [facility] Confirmed Active Choking Confirmed Active COVID-19 virus infection Confirmed Active Leg cramps Confirmed Active Diabetes Confirmed Active Diastolic heart failure Confirmed Active GERD (gastroesophageal reflux disease) Confirmed Active On anticoagulant therapy with Coumadin Confirmed Active Hearing loss Confirmed Active (HFpEF) heart failure with preserved ejection fraction Confirmed Active S/P Maze operation for atrial fibrillation Confirmed Active S/P MVR (mitral valve replacement) Confirmed Active Mitral valve replaced Confirmed Active Hyperlipidemia Confirmed Active Hypertension Confirmed Active Hypomagnesemia Confirmed Active Insomnia Confirmed Active Mitral valve stenosis rheumatologic - severe, dilated left atrium 01/2022 , [facility] Confirmed Active Osteopenia Confirmed Active *[id number] Animal Eviscerator Gaby Mcdonnell Confirmed Active Bilateral primary osteoarthritis of knee Confirmed Active Trigger finger Confirmed Active Tubular adenoma of colon - 2018 colon polyp x 2 1, 2 Confirmed 04/10/16 Active 1three polyps removed, repeat screening colonoscopy in 2021 2repeat colonoscopy in 2018 Diagnosis Diagnosis Type Effective Dates Health Status Cl inical Service Informant S/P MVR (mitral valve replacement) Discharge Diagnosis 11/13/24 Procedures Procedure Date Related Diagnosis Body Site Status Left atrial maze 10/28/24 Complete d MV replacement 10/28/24 Completed Vital Signs Most recent to oldest [Reference Range]: 1 Height 160 cm (11/13/24 11:28 AM) Weight 70.00 kg (11/13/24 11:28 AM) Oxygen Saturation [94-100 %] 98 % (11/13/24 11:28 AM) Pulse Rate [55-90 bpm] 106 bpm *H* (11/13/24 11:28 AM) Body Mass Index [18.5-24.99 kg/m2] 27.34 kg/m2 *H* (11/13/24 11:28 AM) Blood Pressure [90-138/55-84 mm Hg] 124/ 70mm Hg (11/13/24 11:28 AM) Respiratory Rate [16-30 br/min] 14 br/mi n *L* (11/13/24 11:28 AM) Temperature [96.8-100.4 DegF] 97 DegF (11/13/24 11:28 AM) Mode of Delivery (Oxygen) Room air (11/13/24 11:28 AM) Blood pressure sites Arm, left (11/13/24 11:28 AM) Temperature Route Oral (11/13/24 11:28 AM) Weight Obtained Via Standing scale (11/13/24 11:28 AM) Social History Social History Type Response Smoking Status Never smoker; Tobacc o user in household: No entered on: 01/14/15 Sex Sex Representation Female (finding) EKG study * Event Display: ECG 12-Lead Authored Date: Please click on pdf link to open report * Event Display: ECG 12-Lead Authored Date: Ventricular Rate: 78 BPM Atrial Rate: 93 BPM P-R Interval: 166 ms QRS Duration: 108 ms Q-T Interval: 414 ms QTC Calculation(Bazett): 471 ms P Congers: 94 degrees R Congers: -43 degrees T Congers: 127 degrees Sinus rhythm with marked sinus arrhythmia Left axis deviation Inferior infarct , age undetermined Anteroseptal infarct (cited on or before 28-Oct-2024) ST and T wave abnormality, consider lateral ischemia Abnormal ECG When compared with ECG of 29-Oct-2024 07:24, Serial changes of evolving Anteroseptal infarct Present Confirmed by Carlos Bradley ([id number]) on 11/13/2024 11:13:18 AM [place]: Carlos Bradley Cardiac surgery Outpatient Note * Pascale GUDINO, Eufemia Joya: PERFORM Event Display: Cardiac Surgery Note Office Authored Date: [id number] Patient: ??OCTAVIA ESCOBAR ? Age:??74 Years?Sex:??Female?:??1950?? Chief Complaint Post op visit History of Present Illness PMI:??74-year-old female who is Tanzanian-speaking only with PMHx of atrial fibrillation on Coumadin,T2DM, CKD3 (baseline creatinine of 1.5), and arthritis. She has limited understanding of her healthissues, but it seems as though she has dyspnea on exertion. She has longstanding mitral stenosis, probably from rheumatic disease and we have been following her for getting her ready for mitral valvereplacement surgery.? OR: 10/28??Mitral valve replacement and left atrial maze by??Dr. Saab ?? Post operative hospital course: Started on Coumadin, therapeutic prior to??discharge.?? Afib??restarted??on Coumadin.?Pre-op A1c 7.1% Discharge home POD 7 with [facility] services.??Goal??INR 2.0-3.0 for MVR-t ?? Ms. Escobar presents to the office for her post op check.?? The evaluation today is using the video register of wills.?Octavia states things are ok at??the facility.?She states she is showering daily, then later during the evaluation she states they are sponge bathing her.?? She is using the vashe??and participating in therapy and walking around the halls.?? She is not sure of her recent weight, states she is being told her glucose levels are good, and states she takes whatever medications they are giving her.?? She states she has a lot of discomfort in her chest when she moves and she doesnot like wearing a bra, its too tight, on her chest.?? She is not aware of any anticipated discharge date from the rehab.?? Review of Systems Denies fever, chills, drainage from surgical sites, N/V, CP, SOB, palpitations, [place], dizziness or lightheadedness. All other systems reviewed and negative. Physical Exam Vitals & Measurements T:??97?F?? HR:??106??(Peripheral)?? RR:??14?? BP:??124/70?? SpO2:??98%?? HT:??160??cm?? WT:??70.00??kg?? BMI:??27.34?? General: NAD, WD, WN HEENT: NCAT, no scleral icterus, OP pink moist Lungs: CTAB, no wheezes, rales, rhonchi Heart: RRR, No M/G/R Ext: +3 edema??bilat.??No clubbing/cyanosis?? Neuro: AOx3, no unilateral deficits moves all extremities spontaneously Skin: warm, no rash ?? Wounds:?? Sternum: Stable, incision intact with glue.?? Chest tube suture removed.?? Assessment/Plan 1.??S/P MVR (mitral valve replacement) ??Per ACC/AHA guidelines: ??Aspirin 75 mg to 100 mg per day is reasonable in all patients with a bioprosthetic aortic or mitral valve. ?? Amiodarone started post-op for Afib prophylaxis. Finish as prescribed, then stop. No refills needed.? The following salient points were discussed during our visit ?? D/w with patient that after open chest surgery, it is common to start new medications and stop or adjust the doses of previous medications.?? Wound Care: Re-iterated with patients that??the sternum is reapproximated with stainless steel wires and can still shift until fully healed. * Continue to shower and let water run over surgical wounds.?? Use VASHE 2-3 times per day on incisions until bottle is empty * Recommend wearing compression stocking for the first month daily, remove at night.??Elevate legs (ankle higher than knees, knees higher than hip) to encourage fluid movement.? Wear surgical bra to relieve tension on the sternal incision.? After discharge from the hospital, the patient is usually given instructions about how to care for their chest and/or leg wounds. ?? Specifically, we discussed: Avoid heavy lifting and extremes of shoulder movement (eg, as in tennis, baseball, and golf) for six to eight weeks after surgery to allow for complete healing of the sternum. Prefer not to have patient laying completely on the side for 2 months. ?? It is not unusual to have a poor appetite after undergoing surgery. Proper nutrition is important in promoting healing and getting strength back. Encourage 100 grams of protein daily for healing.?? Goal glucose <180 daily to ensure healing.? Cont AC with Coumadin. Goal INR 2-3 ? PLAN: Return to clinic in 2 weeks for eval F/u with PCP and Cardiology when discharged from rehab Antibiotic prophylaxis 1 hour prior to dental cleaning was discussed 2.??S/P Maze operation for atrial fibrillation ??EKG today ST with PAC's VR 102 bpm SR with SA VR 78 bpm Cont AC with Coumadin.?? Total Time Spent I personally spent a total of??60 minutes, including both [id number] and rru-dijt-la-face time onthe date of the encounter, addressing the above diagnoses. Problem List/Past Medical History Ongoing (HFpEF) heart failure with preserved ejection fraction *[phone] Animal Eviscerator Gaby Mcdonnell Asthma/COPD - gold 2, PFT 12/2017 Atopic dermatitis Atrial fibrillation on coumadin (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) Atypical chest pain - myoview normal 01/2019 - [facility] Bilateral primary osteoarthritis of knee Choking COVID-19 virus infection Diabetes Diastolic heart failure GERD (gastroesophageal reflux disease) Hearing loss Hyperlipidemia Hypertension Hypomagnesemia Insomnia Leg cramps Mitral valve stenosis rheumatologic - severe, dilated left atrium 01/2022 , [facility] On anticoagulant therapy with Coumadin Osteopenia S/P Maze operation for atrial fibrillation S/P MVR (mitral valve replacement) Trigger finger Tubular adenoma of colon - 2019 colon polyp x 2 Procedure/Surgical History ???Left atrial maze (10/28/2024)???MV replacement (10/28/2024)???Colonoscopy (03/27/2019)???Colonoscopy, flexible, proximal to splenic flexure; diagnostic, with or without collection of specimen(s) by brushing or washing, with or without colon decompression (separate procedure) (04/09/2016) Medications acetaminophen 325 mg oral capsule, 650 mg= 2 capsule, By Mouth, 3 times a day, PRN, 3 refills albuterol-ipratropium 3 mg-0.5 mg/3 ml inhalation solution, BAND Nebulizer, 4 times a day, PRN amiodarone 200 mg oral tablet, 200 mg= 1 tablet, By Mouth, 2 times a day amLODIPine 10 mg oral tablet, 10 mg= 1 tablet, By Mouth, Daily Aspirin Tablet, 81 mg, By Mouth, Daily atorvastatin 40 mg oral tablet, 1 tablet, By Mouth, Daily, 3 refills Ferrous Sulfate ER furosemide 20 mg oral tablet hydrALAZINE 25 mg oral tablet, 25 mg= 1 tablet, By Mouth, Daily lisinopril 10 mg oral tablet, 10 mg, By Mouth, Daily loratadine 10 mg oral capsule, 10 mg= 1 capsule, By Mouth, Daily, 3 refills Magnesium Carbonate, 54 mg, By Mouth, Daily metFORMIN 500 mg oral tablet, 500 mg= 1 tablet, By Mouth, Daily Metoprolol Tartrate 50 mg oral tablet, 1 tablet, By Mouth, 2 times a day ONE TOUCH DELICA PLUS 30G LANCETS ONE TOUCH ULTRA 2 KIT ONE TOUCH ULTRA BLUE TESTST(NEW)100 pantoprazole 40 mg oral delayed release tablet, 40 mg= 1 tablet, By Mouth, Daily Robitussin DM Liquid, 10 mL, By Mouth, Every 4 hours, PRN Vashe Topical Solution, 475 mL, Topically, Every 12 hours Ventolin HFA 108 mcg/inh inhalation aerosol with adapter, 2 puffs, Inhalation, 4 times a day, PRN, 3 refills warfarin 3 mg oral tablet, 3 mg= 1 tablet, By Mouth, Daily Allergies furosemide??(hypomagnesemia) Social History Alcohol Use: Never. Employment/School Status: Retired. 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 Exercise Self assessment: Good condition. Other: walking 30 min per day. Home/Environment Living situation: Home/Independent. Lives with: Alone. Other: daughter close by. Nutrition/Health Diet: Diabetic. Other Details: Grandchildren in [place], [place], [facility], [place]; Prayer, [place]. Sexual Other sexual concerns: and divorsed 1974. Substance Abuse Use: Never. Tobacco Never smoker, Tobacco user in household: No. Family History Liver cancer: Mother. Patient Care team information Care Team Personnel Name: Skylar Turner Position: [facility] Outreach Member Role: Lifetime Consulting Physician Name: Francis Georges RN Position: [facility] RN Member Role: Primary Care Nurse Name: Michael Vega RN Position: [facility] RN Member Role: Primary Care Nurse Name: Anusha Guerra Position: [facility] RN Supv Member Role: Primary Care Nurse Name: Afia Rasheed RN Position: [facility] RN Member Role: Primary Care Nurse Name: Margot Valladares Position: [facility] AMB Nurse Member Role: Lifetime Consulting Physician Name: Gayathri Cannon MD Position: [facility] Physician - Primary Care Member Role: PCP Address: [address] [place] [address] Telecom: Name: Donald Jackson Jr, RN Position: [facility] KORI RN W/OE and Tasks Member Role: Primary Care Nurse Name: Jerry Rivera MD Position: [facility] Renal MD Member Role: Lifetime Consulting Physician Address: [address] [place] [address] [id number] [facility] [address] Telecom: Name: Alma Capps RN Position: [facility] RN Member Role: Primary Care Nurse Name: Massimo Glynn RN Position: [facility] ED RN W/OE and Tasks Member Role: Primary Care Nurse Name: Jarett Lopez Position: [facility] RN Member Role: Primary Care Nurse Name: Marilou Lozada RN Position: [facility] RN Member Role: Primary Care Nurse Name: Farrah Skelton RN Position: [facility] RN Member Role: Primary Care Nurse Care Team Related Persons Name: LIDA SAUCEDO Insurance Providers Guarantor name: OCTAVIA ESCOBAR Health Plan Information #: 1 Payer: NA Member Number: [id number] Policy Number: NA Group Number: [id number] Health Plan Information #: 2 Payer: NA Member Number: [id number] Policy Number: NA Group Number: NA
--- OUTSIDE RECORDS SUMMARY | 2024-11-23 16:49 | XMS_ITS | Continuity of Care Document ---
Author Organization [facility] Address [address] [place] [address]- Care Team Providers Care Ortho Nurse Name Role Phone Davis SIEGEL, Gayathri Damian Primary Care Physician [facility] Date(s[facility] 10/16/24 - 11/15/24 [facility] [address] [place], [place] [address] Attending Physician: Aparna Kamara Admitting Physician: AdmtrAparna Referring Physician: Admtr, Ar8 [...] pneumococcal 23-valent vaccine 11/25/14 Given 1Admin Note: [facility] [id number] Medications acetaminophen 325 mg oral capsule 2 capsule = 650 mg, By Mouth, 3 times a day, PRN Pain , Mild, LABEL IN [place], # 540 capsule, 3 Refills, Maintenance, 04/02/23 2:21:00 PM EDT, Capsule, [facility] #[id number], Partial fill upon patient request if the [...] 1 tablet, By Mouth, Daily, LABEL IN [place], # 90 tablet, 3 Refills, Maintenance, 10/16/24 4:58:00 PM EST, [facility] #[id number], 160, cm, 10/16/24 12:37:00 EST, Height, 73.5, [...] 10 mg, By Mouth, Daily, LABEL IN [place], # 90 capsule, 3 Refills, Maintenance, :10:00 PM EDT, Capsule, [facility] #[id number], Partial fill upon patient request if the [...] Refills, Maintenance, 11/04/24 4:50:00 PM EST, Tablet, [facility], Partial fill upon patient request [...] 1 Refills, Maintenance, 07/16/24 12:50:00 PM EDT, [id number], 160, cm, 06/15/24 15:14:00 EDT, Height, 73.5, [...] a day, PRN for wheezing, LABEL IN [place], # 3 each, 3 Refills, Maintenance, 07/23/23 11:49:00 AM EDT, Aerosol, [facility] #[id number], Partial fill upon patient request if the [...] chest pain - myoview normal 01/2019 - [facility] Confirmed Active Choking Confirmed Active COVID-19 virus [...] - severe, dilated left atrium 01/2022 , [facility] Confirmed Active Osteopenia Confirmed Active *[id number] 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 Chair Gaby Kankam Confirmed Active Bilateral primary osteoarthritis of knee Confirmed Active Trigger finger Confirmed Active Tubular adenoma of colon - 2019 colon polyp x 2 1, 2 Confirmed 04/10/16 Active 1three polyps removed, repeat screening colonoscopy in 2021 2repeat colonoscopy in 2018 Social History Social History Type Response Smoking Status Never smoker; Tobacc o user in household: No entered on: 01/14/15 Sex Sex Representation Female (finding) Cardiology * Event Display: Cardiology Office Note, Non-BH Authored Date: * Event Display: Cardiology Office Note, Non-BH Authored Date: * Event Display: Non BH Cardiovascular Results Authored Date: * Event Display: Cardiology Office Note, Non-BH Authored Date: * Event Display: Cardiovascular Result Scanned Authored Date: * Event Display: Non BH Cardiovascular Results Authored Date: Laboratory * Event Display: PT/INR Laboratory Results Scanned Authored Date: * Event Display: PT/INR Laboratory Results Scanned Authored Date: * Event Display: PT/INR Laboratory Results Scanned Authored Date: Radiology * Event Display: X-Ray Chest, Non- BH Authored Date: * Event Display: X-Ray Chest, Non- BH Authored Date: * Event Display: NM Nuclear Medicine, Non-BH Authored Date: Patient Care team information Care Team Personnel Name: Skylar Turner Position: [facility] Outreach Member Role: Lifetime Consulting Physician Name: Francis Georges RN Position: [facility] RN Member Role: Primary Care Nurse Name: Michael Vega RN Position: [facility] RN Member Role: Primary Care Nurse Name: Anusha Guerra Position: [facility] RN Agatha Member Role: Primary Care Nurse Name: Afia Rasheed RN Position: [facility] RN Member Role: Primary Care Nurse Name: Margot Valladares Position: [facility] AMB Nurse Member Role: Lifetime Consulting Physician Name: Gayathri Cannon MD Position: [facility] Physician - Primary Care Member Role: PCP Address: [address] [facility] [place] [address]- [place] Telecom: Name: Donald Jackson Jr, RN Position: [facility] ED RN W/OE and Tasks Member Role: Primary Care Nurse Name: Jerry Rivera MD Position: [facility] Renal MD Member Role: Lifetime Consulting Physician Address: [address] [place] [address] [address] [facility] [place] [address]- [place] Telecom: Name: Alma Capps RN Position: S RN Member Role: Primary Care Nurse Name: Massimo Glynn RN Position: [facility] ED RN W/OE and Tasks Member Role: Primary Care Nurse Name: Jarett Lopez Position: S RN Member Role: Primary Care Nurse Name: Marilou Lozada RN Position: S RN Member Role: Primary Care Nurse Name: Farrah Skelton RN Position: S RN Member Role: Primary Care Nurse Care Team Related Persons Name: LIDA SAUCEDO Insurance Providers Guarantor name: OCTAVIA RODRIGUEZ Health Plan Information #: 1 Payer: NA Member Number: NA Policy Number: NA Group Number: NA
--- OUTSIDE RECORDS SUMMARY | 2024-11-23 16:49 | XMS_ITS | Encounter Summary ---
Author Organization [facility] Address [address] [place] [id number] Care Team Providers Care Slot Floor Supervisor Name Role Phone Gayathri Cannon MD Primary Care Provider [phone] Encounter Details Date Type Department Care Team (Late st Contact Info) Description 11/17/2024 Lab Requisition [facility] [address] [place] [address] Alvaro Rojas MD [address] [place] [address] Unspecified atrial fibrillation (CMS/HCC) Social History Tobacco [...] Diagnosis Comments PROTHROMBIN TIME WITH INR Routine 11/17/2024 5:21 AM EST Unspecified atrial fibrillation (CMS/HCC) documented in this encounter Results * (ABNORMAL) Prothrombin time with INR (11/17/2024 5:21 AM EST) Protime 37.2(H) 10.6 - 13.9 sec LAB COAGULATION METHOD 11/17/2024 9:54 AM EST [facility] INR 2.9 LAB COAGULATION METHOD 11/17/2024 9:54 AM EST [facility] Blood Venous blood specimen / Unknown Venipuncture / Unknown 11/17/2024 5:21 AM EST 11/17/2024 8:46 AM EST Alvaro Rojas MD LAB BLOOD ORDERABLES [facility] ([facility] [address] [place] [address], documented in this encounter Visit Diagnoses Diagnosis Unspecified atrial fibrillation (CMS/HCC) documented in this encounter Care Teams Slot Floor Supervisor Relationship Specialty Start Date End Date Gayathri Cannon MD [address] [place] [id number] PCP - General 01/04/15 documented as of this encounter
--- OUTSIDE RECORDS SUMMARY | 2024-11-23 16:49 | XMS_ITS | Continuity of Care Document ---
Author Organization [facility] Lisa zainab Address [address] [place] [address] [place] [address]- Care Team Providers Care Assembler Unit Name Role Phone Davis SIEGEL, Gayathri Damian Primary Care Physician [facility] Date[facility]s): 10/12/24 - 11/11/24 [facility] [address] [place] [address] Drive [address] [place], [place] [address] Encounter Type: Triage Allergies, Adverse Reactions, Alerts [...] 11/25/14 Given 1Admin Note: [facility] [id number] Medications acetaminophen 325 mg oral capsule 2 capsule = 650 mg, By Mouth, 3 times a day, PRN Pain , Mild, LABEL IN [place], # 540 capsule, 3 Refills, Maintenance, 04/02/23 2:21:00 PM EDT, Capsule, [facility] #[id number], Partial fill upon patient request if the [...] Quantity: 60.0 Unit: tablet Repeat number: 1 Aspirin Tablet 81 mg, By Mouth, Daily, Refills 0, Maintenance, 11/04/24 4:49:00 PM EST, Partial fill upon patient request if the prescription is for a schedule II opioid drug. Start Date: 11/04/24 Status: Ordered Repeat number: 1 atorvastatin 40 mg oral tablet 1 tablet, By Mouth, Daily, LABEL IN [place], # 90 tablet, 3 Refills, Maintenance, 10/16/24 4:58:00 PM EST, [facility] #[id number], 160, cm, 10/16/24 12:37:00 EST, Height, 73.5, kg, 06/11/23 11:48:00 EDT, Dry Weight Start Date: 10/16/24 Status: Ordered Quantity: 90.0 Unit: tablet Repeat number: 4 lisinopril 10 mg oral tablet 10 mg, By Mouth, Daily, Refills 0, Maintenance, 11/04/24 4:47:00 PM EST, Partial fill upon patient request if the prescription is for a schedule II opioid drug. Start Date: 11/04/24 Status: Ordered Repeat number: 1 loratadine 10 mg oral capsule 1 capsule = 10 mg, By Mouth, Daily, LABEL IN [place], # 90 capsule, 3 Refills, Maintenance, :10:00 PM EDT, Capsule, [facility] #[id number], Partial fill upon patient request if the prescription is for a schedule II opioid drug., 160, cm, 06/04/24 15:45:00 EDT, Height, 73.5, kg, 06/11/23 11:48:00 EDT, Dry Weight Start Date: 06/04/24 Status: Ordered Quantity: 90.0 Unit: capsule Repeat number: 4 metFORMIN 500 mg oral tablet 1 tablet = 500 mg, By Mouth, Daily, with meals, # 30 tablet, 0 Refills, Maintenance, 11/04/24 4:50:00 PM EST, Tablet, [facility], Partial fill upon patient request if [...] 1 Refills, Maintenance, 07/16/24 12:50:00 PM EDT, [facility] #[id number], 160, cm, 06/15/24 15:14:00 EDT, Height, 73.5, [...] Date: 07/19/23 Status: Ordered Repeat number: 1 Robitussin DM Liquid 10 [...] Vashe Topical Solution 475 mL, Topically, Every 6 hours, PRN Other, 0 Refills, Maintenance, Solution Start Date: 11/04/24 Status: Ordered Repeat number: 1 Ventolin HFA 108 mcg/inh inhalation aerosol with adapter 2 puffs, Inhalation, 4 times a day, PRN for wheezing, LABEL IN [place], # 3 each, 3 Refills, Maintenance, 07/23/23 11:49:00 AM EDT, Aerosol, [facility] #[id number], Partial fill upon patient request if the prescription is for a schedule II opioid drug., 160, cm, 07/23/23 11:25:00 EDT, Height, 73.5, kg, 06/11/23 11:48:00 EDT, Dry Weight Start Date: 07/23/23 Status: Ordered Quantity: 3.0 Unit: each Repeat number: 4 Problem List Condition Confirmation Course Effective Dates Status H ealth Status Informant Asthma/COPD - gold 2, PFT 12/2017 Confirmed Active Atopic dermatitis Confirmed Active Atrial fibrillation on coumadin (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) Confirmed Active Atypical chest pain - myoview normal 01/2019 - [employer] Confirmed Active Choking Confirmed Active COVID-19 virus [...] - severe, dilated left atrium 01/2022 , [facility] Confirmed Active Osteopenia Confirmed Active *[phone] 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 Bilateral primary osteoarthritis [...] on: 01/14/15 Sex Sex Representation Female (finding) Patient Care team information Care Team Personnel Name: Skylar Turner Position: [facility] Outreach Member Role: Lifetime Consulting Physician Name: Francis Georges RN Position: [facility] RN Member Role: Primary Care Nurse Name: Michael Vega RN Position: [facility] RN Member Role: Primary Care Nurse Name: Anusha Guerra Position: [facility] RN Supv Member Role: Primary Care Nurse Name: Afia Rasheed RN Position: [facility] RN Member Role: Primary Care Nurse Name: Margot Valladares Position: [facility] AMB Nurse Member Role: Lifetime Consulting Physician Name: Gayathri Cannon MD Position: [facility] Physician - Primary Care Member Role: PCP Address: [address] [facility] [place] [address]- Telecom: Name: Donald Jackson Jr, RN Position: [facility] ED RN W/OE and Tasks Member Role: Primary Care Nurse Name: Jerry Rivera MD Position: [facility] Renal MD Member Role: Lifetime Consulting Physician Address: [address] [place] [address] [address] [facility] [address]- Telecom: Name: Alma Capps RN Position: [facility] RN Member Role: Primary Care Nurse Name: Massimo Glynn RN Position: [facility] ED RN W/OE and Tasks Member Role: Primary Care Nurse Name: Jarett Lopez Position: [facility] RN Member Role: Primary Care Nurse Name: Marilou Lozada RN Position: [facility] RN Member Role: Primary Care Nurse Name: Farrah Skelton RN Position: [facility] RN Member Role: Primary Care Nurse Care Team Related Persons Name: LIDA SAUCEDO Insurance Providers Guarantor name: OCTAVIA RODRIGUEZ Health Plan Information #: 1 Payer: NA Member Number: NA Policy Number: NA Group Number: NA
--- OUTSIDE RECORDS SUMMARY | 2024-11-23 16:50 | XMS_ITS | Continuity of Care Document ---
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 Name Role Phone Gayathri Cannon MD Primary Care Physician Encounter [facility] Date(s): 10/28/24 - 11/04/[address] [address]- Discharge Disposition: A-Transfer SNF Attending Physician: Nicholas Saba MD Admitting Physician: Nicholas Saab MD Referring Physician: Nicholas Saab MD Encounter Type: Disch IP Allergies, Adverse Reactions, Alerts Substance Criticality Severity [...] pneumococcal 23-valent vaccine 11/25/14 Given 1Admin Note: NDC [id number] Medications acetaminophen 325 mg oral capsule 2 capsule = 650 mg, By Mouth, 3 times a day, PRN Pain , Mild, LABEL IN ZIMBABWEAN, # 540 capsule, 3 Refills, Maintenance, 04/02/23 2:21:00 PM EDT, Capsule, [facility] #[id number], Partial fill upon patient request if the [...] 1 tablet, By Mouth, Daily, LABEL IN ZIMBABWEAN, # 90 tablet, 3 Refills, Maintenance, 10/16/24 4:58:00 PM EST, [facility] #[id number], 160, cm, 10/16/24 12:37:00 EST, Height, 73.5, [...] Date: 11/04/24 Status: Ordered Repeat number: 1 Lisinopril Tablet 10 mg, Tablet, By Mouth, 11/04/24 9:00:00 AM EST Start Date: 11/04/24 Stop Date: 11/04/24 Status: Completed Repeat number: 1 loratadine 10 mg oral capsule 1 capsule = 10 mg, By Mouth, Daily, LABEL IN ZIMBABWEAN, # 90 capsule, 3 Refills, Maintenance, :10:00 PM EDT, Capsule, [facility] #[id number], Partial fill upon patient request if the [...] Refills, Maintenance, 11/04/24 4:50:00 PM EST, Tablet, [facility] 3, Partial fill upon patient request if the prescription isfor a schedule II opioid drug., 160, cm, 11/04/24 16:27:00 EST, Height, 74, kg, 10/28/24 14:57:00 EST, Dry Weight Start Date: 11/04/24 Status: Ordered Quantity: 30.0 Unit: tablet Repeat number: 1 metoprolol 25 mg oral tablet 50 mg, Tablet, By Mouth, 11/04/24 9:00:00 AM EST Start Date: 11/04/24 Stop Date: 11/04/24 Status: Completed Repeat number: 1 Metoprolol Tartrate 50 mg oral tablet 1 tablet, By Mouth, 2 times a day, LABELINSPANISH., # 180 tablet, 1 Refills, Maintenance, 07/16/24 12:50:00 PM EDT, [facility] #[id number], 160, cm, 06/15/24 15:14:00 EDT, Height, 73.5, [...] a day, PRN for wheezing, LABEL IN ZIMBABWEAN, # 3 each, 3 Refills, Maintenance, 07/23/23 11:49:00 AM EDT, Aerosol, [facility] #[id number], Partial fill upon patient request if the [...] chest pain - myoview normal 01/2019 - [employer] cards Confirmed Active Choking Confirmed Active COVID-19 [...] - severe, dilated left atrium 01/2022 , [employer] Cards Confirmed Active Osteopenia Confirmed Active *[id number] 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 Confirmed Active Bilateral primary osteoarthritis of knee Confirmed Active Trigger finger Confirmed Active Tubular adenoma of colon - 2018 colon polyp x 2 1, 2 Confirmed 04/10/16 Active 1three polyps removed, repeat screening colonoscopy in 2021 2repeat colonoscopy in 2018 Results Radiology Reports * Exam Date Time Procedure Performing Provider Status 10/29/24 1:43 PM Abdomen AP Blake Serrano; Auth (Verif ied) Notes: (Abdomen AP) Reason For Exam: post op;Other: RESULT: XR Abdomen AP XR Abdomen AP 1 view INDICATION/CLINICAL QUESTION: Reason: Other: COMPARISON: None FINDINGS: Nonobstructed bowel gas pattern. The diaphragms are not included on this exam. Monitoring electrodes overlie the abdomen. Scott catheter at the midline pelvis. No acute bone findings. IMPRESSION: Nonobstructive bowel gas pattern. WSN: [id number] Ordering Physician: Hodan Black Dictated By: Nancy Mcqueen MD Dictated Date/Time: 10/29/24 2:08 pm Reviewed By: Nancy Mcqueen MD Signed By: Nancy Mcquene MD Signed Date/Time: 10/29/24 2:08 pm Transcribed By: DONATO Transcribed Date/Time: 10/29/24 2:07 pm * Exam Date Time Procedure Performing Provider Status 10/29/24 6:45 AM Chest Portable Shantanu Serna; Auth (Ve rified) Notes: (Chest Portable) Reason For Exam: S/P Cardiac Surgery RESULT: Chest Portable Chest Portable semiupright at 5:11 AM Reason: S P Cardiac Surgery; Clinical Question(s): Other:; Cardiac Tamponade; Special Instructions:Post Op Day 1 COMPARISON: 10/28/2024 and 10/13/2024 FINDINGS: LINES AND TUBES: Interval extubation and removal of enteric tube. Stable position of the right approach Merced-Selwyn catheter with tip in the right pulmonary artery. Mediastinal drain unchanged. LUNGS AND PLEURA: There has been some further increase in left lower lobe atelectasis with perhaps a small amount of pleural reaction on this side as well. Minor crowding of markings at the right base with overall satisfactory right lung aeration. Little if any right-sided pleural fluid. No pneumothorax. HEART, MEDIASTINUM AND LOGAN: Heart is normal in size. Prosthetic valve in place. Normal mediastinal and hilar contour. BONES AND SOFT TISSUES: No acute abnormality. IMPRESSION: Interval removal of endotracheal tube and enteric tube. Increased left lower lobe atelectasis with perhaps a small amount of pleural reaction at the base. Otherwise satisfactory postoperative chest. WSN: [id number] Ordering Physician: Blake Rocha Dictated By: Ben Zhao MD Dictated Date/Time: 10/29/24 12:45 p Reviewed By: Ben Zhao MD Signed By: Ben Zhao MD Signed Date/Time: 10/29/24 12:45 pm Transcribed By: DONATO Transcribed Date/Time: 10/29/24 12:42 pm * Exam Date Time Procedure Performing Provider Status 10/28/24 3:36 PM Chest Portable Charlie , Lexi; Auth ( Verified) Notes: (Chest Portable) Reason For Exam: S/P Cardiac Surgery RESULT: Chest Portable Chest Portable Reason: S P Cardiac Surgery; Clinical Question(s): Other:; Cardiac Tamponade; Special Instructions:On Admission to [facility] / Other: COMPARISON: 10/13/2014 FINDINGS: LINES AND TUBES: Endotracheal tube is 3.3 cm above the kori. Enteric tube courses below the diaphragm, tip not included in the [id number]. Right internal jugular approach Merced-Selwyn catheter with the tip projecting in the main pulmonary artery. Mediastinal drain in place. LUNGS AND PLEURA: Left basilar atelectasis. No pleural effusion. No pneumothorax. HEART, MEDIASTINUM AND LOGAN: Heart is normal in size. Prosthetic mitral valve in place. BONES AND SOFT TISSUES: Status post median sternotomy. IMPRESSION: Support structures as above. Expected postoperative appearance. WSN: [id number] Ordering Physician: Blake Rocha Dictated By: Jonnie Gaviria MD Dictated Date/Time: 10/28/24 4:50 pm Reviewed By: Jonnie Gaviria MD Signed By: Jonnie Gaviria MD Signed Date/Time: 10/28/24 4:50 pm Transcribed By: DONATO Transcribed Date/Time: 10/28/24 4:49 pm Vital Signs Most recent to oldest [Reference Range]: 1 2 3 4 Height 160 cm (11/04/24 4:27 PM) 160 cm (11/04/24 11:21 AM) 160 cm (11/04/24 7:47 AM) Weight 75.5 kg (11/04/24 3:48 AM) 76.5 kg (11/03/24 8:11 AM) 76.4 kg (11/02/24 2:51 AM) Oxygen Saturation [94-100 %] 99 % (11/04/24 4:27 PM) 99 % (11/04/24 11:21 AM) 100 % (11/04/24 7:47 AM) Pulse Rate [55-90 bpm] 88 bpm (11/04/24 4:27 PM) 80 bpm (11/04/24 11:21 AM) 105 bpm *H* (11/04/24 10:19 AM) Body Mass Index [18.5-24.99 kg/m2] 29.49 kg/m2 *H* (11/04/24 3:48 AM) 29.06 kg/m2 *H* (11/01/24 7:41 AM) 28.91 kg/m2 *H* (10/28/24 2:30 PM) Blood Pressure [90-138/55-84 mm Hg] 175/75mm Hg *H* (11/04/24 4:27 PM) 148/70mm Hg *H* (11/04/24 11:21 AM) 170/97mm Hg *H* (11/04/24 10:19 AM) 170/97mm Hg *H* (11/04/24 10:19 AM) Respiratory Rate [16-30 br/min] 17 br/min (11/04/24 4:27 PM) 17 br/min (11/04/24 11:21 AM) 17 br/min (11/04/24 7:47 AM) Temperature [96.8-100.4 DegF] 98.3 DegF (11/04/24 4:27 PM) 98.0 DegF (11/04/24 11:21 AM) 98.0 DegF (11/04/24 7:47 AM) Liters per Minute 2 L/min (10/30/24 11:41 PM) 4 L/min (10/30/24 7:41 PM) 18 L/min (10/30/24 11:37 AM) Mode of Delivery (Oxygen) Room air (11/04/24 4:27 PM) Room air (11/04/24 11:21 AM) Room air (11/04/24 7:47 AM) Blood pressure sites Arm, left (11/04/24 4:27 PM) Arm, right (11/04/24 11:21 AM) Arm, left (11/04/24 7:47 AM) Temperature Route Oral (11/04/24 4:27 PM) Oral (11/04/24 11:21 AM) Oral (11/04/24 7:47 AM) Dry Weight 74 kg (10/28/24 2:57 PM) 74 kg (10/28/24 2:30 PM) 74 kg (10/28/24 2:30 PM) Weight Obtained Via Bed scale (11/04/24 3:48 AM) Bed scale (11/03/24 8:11 AM) Bed scale (11/03/24 5:11 AM) Social History Social History Type Response Smoking Status Never smoker; Tobacc o user in household: No entered on: 01/14/15 Sex Female Sex Representation Female (finding) History and physical note * Event Display: History and Physical Hospital Authored Date: EKG study * Event Display: ECG 12-Lead Authored Date: Please click on pdf link to open report * Event Display: ECG 12-Lead Authored Date: Ventricular Rate: 77 BPM Atrial Rate: 77 BPM P-R Interval: 176 ms QRS Duration: 104 ms Q-T Interval: 422 ms QTC Calculation(Bazett): 477 ms P Evening Shade: 78 degrees R Evening Shade: 262 degrees T Evening Shade: 13 degrees Normal sinus rhythm Anterolateral infarct (cited on or before 28-Oct-2024) Abnormal ECG When compared with ECG of 28-Oct-2024 15:12, Sinus rhythm has replaced Electronic atrial pacemaker Vent. rate has increased by 28 bpm Confirmed by ELOISE MILLIGAN ([id number]) on 10/29/2024 9:30:12 AM [place]: ELOISE MILLIGAN * Event Display: ECG 12-Lead Authored Date: Please click on pdf link to open report * Event Display: ECG 12-Lead Authored Date: Ventricular Rate: 49 BPM Atrial Rate: 49 BPM P-R Interval: 216 ms QRS Duration: 120 ms Q-T Interval: 460 ms QTC Calculation(Bazett): 415 ms P Evening Shade: 85 degrees R Evening Shade: -68 degrees T Evening Shade: 74 degrees Normal sinus rhythm Left axis deviation Anterolateral infarct , age undetermined Abnormal ECG When compared with ECG of 28-Jan-2018 12:19, Incomplete right bundle branch block is no longer Present Anterior infarct is now Present Anterolateral infarct is now Present Confirmed by ADRIAN EATON MD ([id number]) on 10/28/2024 5:17:04 PM [place]: ADRIAN EATON MD Cardiology * Event Display: Cardiac Rhythm Strips Authored Date: * Event Display: Cardiac Rhythm Strips Authored Date: * Event Display: Cardiac Rhythm Strips Authored Date: Hospital Progress note * Viola Ashraf RN: PERFORM, SIGN, VERIFY Event Display: Progress Note Hospital Authored Date: Patient: OCTAVIA ESCOBAR Age: 74 years Sex: Female : 1950 Associated Diagnoses: None Author: Viola Ashraf RN Findings Problem Related to Alteration in Cardiac Function (new) : Alteration in Cardiac Function/new 11/04/2024 9:00 EST Alteration in Cardiac Status Related to Cardiac Surgery Goals & Outcomes, Cardiac Status Pt will resume/maintain adequate cardiac output, Pt will resume/maintain adequate hemodynamic status Cardiac Interventions Implemented Assess/monitor cardiac status, Assess/monitor neuro status, Assess/monitor respiratory status, Assess for tolerance of IV infusions; verify rate & dose, Call/Report variances in ECG to provider, Document & Monitor O2 Sats; Administer O2 as ordered, Ensure adequate caloric intake, If no bowel movement in 3 days activate bowel regime, Monitor & document daily weight, Monitor anticoagulation values, Monitor ECG w/administration of antiarrhythmics (CO 13.420), Obtain 12 Lead ECG and CXR as ordered, Prep pt for treatments & procedures, Teach/encourage deep breath & cough exercises, Teach/encourage use of incentive spirometer, Team conversation regarding appropriate level of care, Assess wound(s) for signs and symptoms of infection BH Goals/Interventions, Cardiac Yes Cardiac, Problem Start 10/28/2024 17:00 Reviewed Plan with, Cardiac Status Patient Patient Progression, Cardiac Status Patient progressing according to plan . Evaluation Pt is alert and oriented, mostly speaks upper sorbian, but able to make needs known in burkinan also. vss.Up in hallway with minimal assist and walker, steady gait, denies any chest pain or dizziness. Onlycomplaint of discomfort is her bra, unhooked for a time and gauze dressing used to cushion against incision. Midsternal incision open to air clean/dry/intact. Chest tube sites open to air, clean/dry/intact. Plan is to go to [facility] this evening, patient aware. See biophysical for full assessment. stockings on lower bilateral legs. Call [place] within reach and use demonstrated.. Discharge Information Functional Assessment Personal hygiene: assist. Feeding ability: self. Standing ability: with assist. Mobility assistance: ambulate, assist of 1. Chair transfer: with assist. Wheelchair: assist. Elimination: last bowel movement 11/04/2024 12:30:00, urinary elimination bathroom. Nutritional Assessment Appetite: good. Date and time of last meal 11/04/2024 17:45:00. Pain Assessment Level on transfer: 0. Interventions: medication, non-pharmaceutical, repositioning, rest. Acceptable pain relief: yes. Valuables/Belongings Transported with patient. Psycho-Social Assessment Affect/behavior: cooperative. Mental status: alert. Orientation: person, place, time. Case Management Discharge Plan : Case Management Discharge Plan Data 11/04/2024 16:06 EST Discharge Level of Care at Discharge [facility] facility Discharge Nursing Homes/Rehab Facilities [facility] Name of Agency #1 [facility] Service Categories #1 Occupational Therapy, Physical Therapy, Retirement Service Comments #1 We booked a chair van to get you for 6pm. Rehabilitation Discharge : Rehab Discharge Index 11/04/2024 9:40 EST Walker: distance 20-50 11/02/2024 8:41 EST Walker: distance 20-50 10/30/2024 14:52 EST Walker: distance 10-20 * Leyla Guillen: PERFORM, SIGN, VERIFY Event Display: Progress Note Hospital Authored Date: [id number] Patient: OCTAVIA ESCOBAR Age: 74 years Sex: Female : 1950 Associated Diagnoses: None Author: Leyla Guillen Referring Physician: [facility] SIEGEL, Nicholas Friend. Indication for Treatment Atrial Fibrillation MVR-tissue Expected Duration of Therapy Life Long Target Range for INR 2.0-3.0 ORAL ANTICOAGULATION FLOWSHEET 11/04/2024 10:19 EST Aspirin 81 mg mg 11/04/2024 8:16 EST Hct 24.8 % L Hgb 7.8 Gm/dL L Platelet Count 357 k/mm3 11/04/2024 0:21 EST Creatinine-Blood 0.82 mg/dL BUN 16 mg/dL Estimated GFR Creatinine 75 ML/MIN/1.73 M2 11/04/2024 0:19 EST INR 3.8 H 11/03/2024 8:05 EST Aspirin 81 mg mg 11/03/2024 1:19 EST INR 4.6 H Creatinine-Blood 0.87 mg/dL BUN 17 mg/dL Estimated GFR Creatinine 69 ML/MIN/1.73 M2 Hct 23.0 % L Hgb 7.4 Gm/dL L Platelet Count 247 k/mm3 11/02/2024 9:20 EST Aspirin 81 mg mg 11/02/2024 3:09 EST INR 2.9 H Creatinine-Blood 0.84 mg/dL BUN 18 mg/dL Estimated GFR Creatinine 72 ML/MIN/1.73 M2 Hct 24.2 % L Hgb 7.6 Gm/dL L Platelet Count 221 k/mm3 11/01/2024 18:32 EST Warfarin 5 mg mg 11/01/2024 9:08 EST Aspirin 81 mg mg 11/01/2024 0:45 EST INR 1.2 H Creatinine-Blood 1.00 mg/dL BUN 24 mg/dL H Estimated GFR Creatinine 59 ML/MIN/1.73 M2 Hct 22.0 % L Hgb 7.0 Gm/dL L Platelet Count 156 k/mm3 10/31/2024 17:52 EST Warfarin 5 mg mg 10/31/2024 8:20 EST Aspirin 81 mg mg 10/31/2024 0:05 EST INR 1.2 H Creatinine-Blood 1.05 mg/dL H BUN 24 mg/dL H Estimated GFR Creatinine 55 ML/MIN/1.73 M2 Hct 22.4 % L Hgb 7.1 Gm/dL L Platelet Count 134 k/mm3 L 10/30/2024 8:11 EST Aspirin 81 mg mg 10/30/2024 1:55 EST INR 1.3 H Creatinine-Blood 1.43 mg/dL H BUN 25 mg/dL H Estimated GFR Creatinine 38 ML/MIN/1.73 M2 Hct 23.8 % L Hgb 7.7 Gm/dL L Platelet Count 142 k/mm3 L 10/29/2024 8:08 EST Aspirin 81 mg mg 10/29/2024 3:28 EST Hematocrit (POC) POC Cartridge 28 % L 10/29/2024 3:14 EST Hematocrit (POC) POC Cartridge 25 % L 10/29/2024 3:07 EST Creatinine-Blood 1.03 mg/dL H BUN 18 mg/dL Estimated GFR Creatinine 57 ML/MIN/1.73 M2 Hct 24.5 % L Hgb 7.8 Gm/dL L Platelet Count 162 k/mm3 10/29/2024 1:28 EST Hematocrit (POC) POC Cartridge 26 % L 10/29/2024 0:34 EST Hematocrit (POC) POC Cartridge 29 % L 10/29/2024 0:28 EST Hematocrit (POC) POC Cartridge 30 % L 10/28/2024 22:58 EST Hct 28.0 % L Hgb 9.0 Gm/dL L 10/28/2024 22:35 EST Hematocrit (POC) POC Cartridge 28 % L 10/28/2024 22:30 EST Hematocrit (POC) POC Cartridge 22 % L 10/28/2024 21:27 EST Hematocrit (POC) POC Cartridge 28 % L 10/28/2024 21:17 EST Hematocrit (POC) POC Cartridge 29 % L 10/28/2024 18:57 EST Hematocrit (POC) POC Cartridge 30 % L 10/28/2024 18:43 EST Hematocrit (POC) POC Cartridge 30 % L 10/28/2024 18:37 EST Hct 29.7 % L Hgb 9.4 Gm/dL L 10/28/2024 16:36 EST Hematocrit (POC) POC Cartridge 29 % L 10/28/2024 15:20 EST Hematocrit (POC) POC Cartridge 28 % L 10/28/2024 14:55 EST Hematocrit (POC) POC Cartridge 27 % L 10/28/2024 14:35 EST INR 1.4 H Hct 29.2 % L Hgb 9.2 Gm/dL L Platelet Count 203 k/mm3 10/28/2024 13:15 EST Hematocrit (POC) POC Cartridge 20 % L 10/28/2024 13:09 EST Hematocrit (POC) POC Cartridge 20 % L 10/28/2024 12:16 EST Hematocrit (POC) POC Cartridge 18 % C 10/28/2024 12:10 EST Hct 16.8 % C Platelet Count 229 k/mm3 10/28/2024 11:44 EST Hematocrit (POC) POC Cartridge 20 % L 10/28/2024 11:16 EST Hematocrit (POC) POC Cartridge 23 % L 10/28/2024 10:49 EST Hematocrit (POC) POC Cartridge 23 % L 10/28/2024 10:14 EST Hematocrit (POC) POC Cartridge 22 % L 10/28/2024 9:46 EST Hematocrit (POC) POC Cartridge 19 % C 10/28/2024 9:29 EST Hematocrit (POC) POC Cartridge 21 % L 10/28/2024 8:28 EST Hematocrit (POC) POC Cartridge 24 % L 10/28/2024 8:21 EST Hematocrit (POC) POC Cartridge 25 % L 10/28/2024 6:08 EST INR 1.2 H Creatinine-Blood 1.22 mg/dL H Estimated GFR Creatinine 46 ML/MIN/1.73 M2 Discharge Status Discharged Dosing Instructions Warfarin (Coumadin) Holding dose for tonight. Daily dosing based on Coumadin Clinic recommendations. * Anusha Jim RN: PERFORM, SIGN, VERIFY Event Display: Progress Note Hospital Authored Date: Patient: OCTAVIA ESCOBAR Age: 74 years Sex: Female : 1950 Associated Diagnoses: None Author: Hernán BOURGEOIS, Anusha Findings Problem Related to Alteration in Cardiac Function (new) : Alteration in Cardiac Function/new 11/04/2024 0:11 EST Alteration in Cardiac Status Related to Cardiac Surgery Goals & Outcomes, Cardiac Status Pt will resume/maintain adequate cardiac output, Pt will resume/maintain adequate hemodynamic status Cardiac Interventions Implemented Assess/monitor cardiac status, Teach/encourage deep breath & cough exercises, Teach/encourage use of incentive spirometer BH Goals/Interventions, Cardiac Yes Cardiac, Problem Start 10/28/2024 17:00 Reviewed Plan with, Cardiac Status Patient Patient Progression, Cardiac Status Patient progressing according to plan . Evaluation Pt. underwent a tissue MVR, MAZE, and LAAL POD7 today. Pt. A+Ox4, on RA, complains of 4/10 surgicalsite pain managed with scheduled tylenol. This RN cleaned surgical sites with vashe around 20:30. Pt. on PO lasix 40mg daily. Pt. on coumadin, however held during day for INR of 4.6. Pt. one assist with rolling walker. Bed alarm on. Call [place] within reach. See biophysical for further assessment.. Discharge Information Rehabilitation Discharge : Rehab Discharge Index 11/02/2024 8:41 EST Walker: distance 20-50 10/30/2024 14:52 EST Walker: distance 10-20 Note * Den Khan RN: PERFORM, SIGN, VERIFY Event Display: Cardiac Rehab Note Authored Date: Patient: OCTAVIA ESCOBAR Age: 74 years Sex: Female : 1950 Associated Diagnoses: None Author: Dne Khan RN Attended Cardiac Surgery rounds - see progress note for updated plan of care. * Viola Ashraf RN: PERFORM Event Display: Discharge/Transfer Note Hospital Authored Date: Nursing Discharge Note Entered On: 11/04/2024 20:07 EST Performed On: 11/04/2024 20:07 EST by Viola Ashraf RN Nursing Discharge Note 2 Discharge Time : 11/04/2024 20:03 EST Discharge Level of Care at Discharge : [facility] facility Discharge Nursing Homes/Rehab Facilities : [facility] Patient Left Unit Via : Wheelchair Patient Accompanied Off Unit with : Ambulance/Chair Van Personnel Handover Given to Transport Personnel : Yes DC Instructions Provided & Signed by Pt : Yes Patient Understands D/C Instructions : Yes Patient Instructions Discharge Signed : Yes Did Pt have Specialty Bed or Wound Vac : No Viola Ashraf RN - 11/04/2024 20:07 EST * Leyla Guillen: PERFORM Event Display: Discharge/Transfer Note Hospital Authored Date: [id number] Patient: ??MICHAEL, OCTAVIA ? Age:??74 Years?Sex:??Female?:??1950?? 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) Osteopenia (M85.80) Fe deficiency anemia - 2016, tubular adenoma on coumadin (D50.9) Hyperlipidemia (E78.5) Hypertension (I10) GERD (gastroesophageal reflux disease) (K21.9) Atopic dermatitis (L20.9) Mitral valve stenosis, rheumatic (I05.0) S/P mitral valve replacement (Z95.2) S/P Maze operation for atrial fibrillation (Z98.890) S/P left atrial appendage ligation (Z98.890) _ Discharge Medications Acetaminophen (acetaminophen 325 mg oral capsule)?2?capsule?650?Milligram?By Mouth?3 times a day?as needed?Pain , Mild?LABEL IN ZIMBABWEAN Albuterol (Ventolin HFA 108 mcg/inh inhalation aerosol with adapter)?2?puff(s)?Inhalation?4 times a day?as needed?for wheezing?LABEL IN ZIMBABWEAN Albuterol/Ipratropium (albuterol-ipratropium 3 mg-0.5 mg/3 ml inhalation solution)?BAND Nebulizer?4 times a day?as needed?Wheezing/Shortness of Breath amiODARONE (amiodarone 200 mg oral tablet)?200?Milligram?1?tablet?By Mouth?2 times a day?Take 1 tablet twice a day for 30 days. Once bottle is complete, stop taking medication. Aspirin (Aspirin Tablet)?81?Milligram?By Mouth?Daily Atorvastatin (atorvastatin 40 mg oral tablet)?1?tab(s)?By Mouth?Daily?LABEL IN ZIMBABWEAN Emollients, Topical (Vashe Topical Solution)?475?Milliliter?Topically?Every 12 hours Emollients, Topical (Vashe Topical Solution)?475?Milliliter?Topically?Every 6 hours?as needed?Other Guaifenesin/Dextromethorphan (Robitussin DM Liquid)?10?Milliliter?By Mouth?Every 4 hours?as needed?Cough Lisinopril (lisinopril 10 mg oral tablet)?10?Milligram?By Mouth?Daily Loratadine (loratadine 10 mg oral capsule)?1?capsule?10?Milligram?By Mouth?Daily?LABEL IN ZIMBABWEAN Metformin (metFORMIN 500 mg oral tablet)?1?tab(s)?500?Milligram?By Mouth?Daily?with meals Metoprolol (Metoprolol Tartrate 50 mg oral tablet)?1?tab(s)?By Mouth?2 times a day?LABELINSPANISH. Miscellaneous Rx (ONE TOUCH DELICA PLUS 30G LANCETS)?CHECK BLOOD GLUCOSE DAILY AND NEEDED IF NEEDED FOR SWEATS/DIZZINESS/CONFUSION Miscellaneous Rx (ONE TOUCH ULTRA BLUE TESTST(NEW)100)?TEST EVERY DAY AND NEEDED FOR SWEATS/DIZZINESS/CONFUSION Miscellaneous Rx (ONE TOUCH ULTRA 2 KIT)?TEST BLOOD SUGAR DAILY AND NEEDED SWEATS/DIZZINESS/CONFUSION ? Vaccinations and Immunoprophylaxis influenza virus vaccine, inactivated: 0.7 mL (08/15/21 10:23:00) influenza virus vaccine, inactivated: 0.5 mL (07/22/20 14:05:00) influenza virus vaccine, inactivated: 0.5 mL (12/08/19 12:56:00) influenza virus vaccine, inactivated: 0.5 mL (11/20/18 14:01:00) influenza virus vaccine, inactivated: 0.5 mL (07/17/17 11:14:00) influenza virus vaccine, inactivated: 0.5 mL (08/08/16 11:03:00) influenza virus vaccine, inactivated: 0.5 mL (11/25/14 13:17:00) pneumococcal 13-valent vaccine: 0.5 mL (03/06/16 09:34:00) pneumococcal 23-valent vaccine: 0.5 mL (11/25/14 13:13:00) SARS-CoV-2 (COVID-19) mRNA BNT-162b2 vac: 0.3 mL (09/12/21 14:37:00) SARS-CoV-2 (COVID-19) mRNA BNT-162b2 vac: 0.3 mL (02/27/21 13:02:00) SARS-CoV-2 (COVID-19) mRNA BNT-162b2 vac: 0.3 mL (02/06/21 13:29:00) tetanus/diphtheria/pertussis, acel(Tdap): 0.5 mL (08/30/17 11:08:00) Zoster Vaccine Live: 0.65 mL (10/05/16 15:20:00) ?? Future Appointments Saturday 11:00 AM EST ?? With: Gayathri Cannon MD Where: [facility] [address] [place] [address]- Status: Pending Hospital Course Octavia Escobar is a 74-year-old female who is Chadian-speaking only with PMHx of atrial fibrillation onCoumadin, T2DM, CKD3 (baseline creatinine of 1.5), and arthritis. She has limited understanding of her health issues, but it seems as though she has dyspnea on exertion. She has longstanding mitral stenosis, probably from rheumatic disease and we have been following her for getting her ready for mitral valve replacement surgery. She had dental issues, and she was in need of dental work, which hasbeen accomplished and she is now ready for her surgery. She presented electively for tissue Mitral Valve Replacement, left atrial MAZE and left atrial appendage ligation with Dr. Saab on 10/28/2024. ?? Patient was started on Aspirin, statin, betablocker and Amiodarone per cardiac surgery protocol. Her home Lisinopril was resumed for hypertension.??She was started on Coumadin for her tissue mitral valve. She remained inpatient due to supratherapeutic INR which peaked at 4.6. On discharge INR was down trending at a valve of 3.8.??Patient was on Coumadin preoperatively for Atrial fibrillation at the [facility].??She will follow-up with her outpatient provider, who will continue to dose adjust coumadin and follow INR for gal 2-3 for tissue MVR. ?? BIDs evaluated her while inpatient for Pre-operative A1c of 7.1%. They recommended resuming Metformin on discharge which could be adjusted by outpatient provider. ?? She was progressing well on the floors and physical therapy initially recommended discharge to rehab. Patient declined rehab at this time and would rather discharge home with services. She was stablefor discharge on 11/04/2024. ? Objective Assessment and Plan Assessment:??Octavia Escobar is a 74-year-old female who is Chadian-speaking only with PMHx of atrial fibrillation on Coumadin, T2DM, CKD3 (baseline creatinine of 1.5), and arthritis. She has limited understanding of her health issues, but it seems as though she has dyspnea on exertion. She has longstanding mitral stenosis, probably from rheumatic disease and we have been following her for getting herready for mitral valve replacement surgery. She had dental issues, and she was in need of dental work, which has been accomplished and she is now ready for her surgery. She presented electively for tissue Mitral Valve Replacement, left atrial MAZE and left atrial appendage ligation with Dr. Saab on 10/28/2024. ?? Date of Procedure:??10/28/2024 Procedure:??Mitral valve replacement and left atrial maze. Epiaortic echo evaluation of the ascending aorta. Cardiac Surgeon:??Nicholas Saab MD ?? Acute Post-Operative Pain?? - Tylenol PRN on discharge?? - Physical therapy recommended rehab on 11/04 -??Accepted at[facility]??with??Occupational Therapy, Physical Therapy, Retirement. Case coordination arranged chair van for transportation.? S/p??MVR-t, LA??Maze, LAAL Hx Afib on Coumadin, HTN, HLD - Core measures:?- ASA 81mg qd ?- Metoprolol 50 mg Po BID?- Atorvastatin 40mg nightly?? - Amiodarone 200mg twice daily x30 days for atrial fibrillation ppx per cardiac surgery protocol?? - Lisinopril 10 mg PO daily started on day of discharge for HTN in the 160s (patient??previously??taking 20 mg at home)? Hx COPD, asthma, seasonal allergies, atopic dermatitis - On room air - Continue home??Albuterol as ordered? Volume Overload, non-CHF?? Hx CKD3b (follows with [facility] outpatient)?? - Baseline creatinine 1.2-1.4 - Creatinine 0.82 today?? - Lasix discontinued today, at dry weight? Acute post-op anemia Anticoagulation for MVR?? - INR 2.9 -> 4.6 -> 3.8 today?? - Coumadin was started on 10/31. She received 5 mg on 10/31 and 5mg on 11/01?? - Doses held since 11/01. Will hold dose again today.?? - Resumed Coumadin based on Coumadin clinic recommendations - Of note, patient takes 2.5 mg PO daily at home?? - Goal??INR 2.0-3.0 for MVR-t - Daily INR x7 days - Patient will follow-up with outpatient provider for Coumadin (as she was on Coumadin preoperatively for Afib)? Stress hyperglycemia Hx T2DM Pre-op A1c 7.1% - BIDs final recommendations for discharge (on 11/01/2024):?-??Patient is not requiring??a lot of insulin,??0.06 units/kg/day??currently.??Would recommend discharging on low-dose metformin??500 mg once daily.??If needed, it can be titrated up in the outpatient setting.??Patient can follow-up with her PCP for diabetes??care. Measurements?? Height: 160 cm (11/04/24) Weight: 75.5 kg (11/04/24) Dry Weight: 74 kg (10/28/24) Body Mass Index:??29.49 kg/m2??High (11/04/24) ? Vital Signs?? Temperature: 98.3 DegF (11/04/24 16:27:00) Temperature Route: Oral (11/04/24 16:27:00) Pulse Rate: 88 bpm (11/04/24 16:27:00) Respiratory Rate: 17 br/min (11/04/24 16:27:00) Systolic Blood Pressure:??175 mm Hg??High (11/04/24 16:27:00) Diastolic Blood Pressure: 75 mm Hg (11/04/24 16:27:00) Blood pressure sites: Arm, left (11/04/24 16:27:00) Mean Arterial Pressure: 108 mm Hg (11/04/24 16:27:00) Pulse Pressure: 100 mm Hg (11/04/24 16:27:00) Oxygen Saturation: 99 % (11/04/24 16:27:00) Mode of Delivery (Oxygen): Room air (11/04/24 16:27:00) Early Warning Score: 1 (11/04/24 16:27:49) ? Intake/Output? 10/28 05:05 11/04 07:00 11/03 07:00 11/02 07:00 11/01 07:00 ?? 11/04 16:44 11/04 16:44 11/04 06:59 11/03 06:59 11/02 06:59 Intake ? 9462.0 ?0 ? 1070 ?720 ?290 Output ? 7308 ?700 ? 1300 ?600 ? 1175 Net Total ? 2154.0 ? -700 ? -230 ?120 ? -885 ? Urine Count ?4 ?0 ?1 ?1 ?0 ? . Physical Exam General: Sitting comfortably in cardiac chair, NAD Neuro: Alert and Oriented,??nonfocal on exam, KENYON CV: NSR on tele,, no murmurs/rubs/gallops?? Pulm:??Equal rise and chest fall, lung sounds diminished at the bases bilaterally,??on RA GI: Abdomen soft, nontender, nondistended, LBM 11/03 : Scott in place, draining yellow urine EXT: warm and well perfused, no??peripheral edema ?? Sternal incision:??CHRISTINA, c/d/i Surgical Procedures Maze Procedure 10/28/2024 08:40 Replacement Mitral Valve 10/28/2024 08:40 Patient Education Titles WebMD Ignite Patient Education - Cardiac Surgery Discharge Instructions?? Web[employer] Ignite Patient Education - What to Know When Taking??Warfarin?? WebMD Ignite Patient Education - Warfarin?? Web[employer] Ignite Patient Education - Cardiac Surgery Discharge Instructions?? Web[employer] Ignite Patient Education - Consistent Vitamin K Diet for Warfarin Use?? Web[employer] Ignite Patient Education - Cardiac Surgery Nutrition?? Follow-Up Appointments Added Follow Up ?Time Frame ?Comments Elroy SIEGEL, Esequiel?2 to 5 weeks?call office for follow up appointment and bring discharge instructions with you.?? [facility] SIEGEL, Nicholas Friend?1 to 2 weeks?office will call with follow up appointment Gayathri Cannon MD?2 to 5 weeks?call office for follow up appointment and bring discharge instructions with you.?? Patient Instructions -May take shower. do not apply lotions or perfumed soap to surgical wounds; Pat dry, do not rub wounds. -Call Cardiac Surgery Office ([phone]) for signs of infection which include fever, chills, redness, pus like drainage or wound separation. -Call Cardiac Surgery Office at any time for questions or concerns ([phone]). ?? -Weigh yourself daily at the same time of day, preferably in the morning, and record. ??If you gainor lose more than 3 pounds in 1 day or 5 pounds in one week, call the Cardiac Surgery office ([phone]). Results Discharge Labs BLOOD BANK Blood Type O Positive ()?? 11/03/2024 19:07 Antibody Screen Negative ()?? 11/03/2024 19:07 RBC Unit ID [id number] ()?? 10/28/2024 10:12 RBC Available PT ()?? 10/28/2024 10:12 ?? BLOOD COUNT & DIFF WBC 9.1 k/mm3 ()?? 11/04/2024 08:16 RBC 3.42 m/mm3 (Low)?? 11/04/2024 08:16 Hgb 7.8 Gm/dL (Low)?? 11/04/2024 08:16 Hct 24.8 % (Low)?? 11/04/2024 08:16 MCV 72.5 femtoliters (Low)?? 11/04/2024 08:16 MCH 22.8 pg (Low)?? 11/04/2024 08:16 MCHC 31.5 Gm/dL (Low)?? 11/04/2024 08:16 Platelet Count 357 k/mm3 ()?? 11/04/2024 08:16 RDW-SD 64.1 femtoliters (High)?? 11/04/2024 08:16 MPV 9.8 femtoliters ()?? 11/04/2024 08:16 Nucleated RBC (Automated) 0.2 #/100 WBC'S ()?? 11/04/2024 08:16 Abs. NRBC 0.0 k/mm3 ()?? 11/04/2024 08:16 Abs. Neut 6.1 k/mm3 ()?? 11/03/2024 01:19 Abs. Lymph 1.7 k/mm3 ()?? 11/03/2024 01:19 Abs. Jasper 1.2 k/mm3 (High)?? 11/03/2024 01:19 Abs. Eo 0.2 k/mm3 ()?? 11/03/2024 01:19 Abs. Baso 0.0 k/mm3 ()?? 11/03/2024 01:19 Neut % 64.9 % ()?? 11/03/2024 01:19 Lymph % 18.2 % ()?? 11/03/2024 01:19 Jasper % 12.8 % (High)?? 11/03/2024 01:19 Eos % 2.5 % ()?? 11/03/2024 01:19 Baso % 0.2 % ()?? 11/03/2024 01:19 RBC Morphology MODERATE ()?? 10/30/2024 01:55 Platelet Estimate DECREASED ()?? 10/30/2024 01:55 Hemoglobin (POC) POC Cartridge 9.5 Gm/dL (Low)?? 10/29/2024 03:28 Hematocrit (POC) POC Cartridge 28 % (Low)?? 10/29/2024 03:28 Imm Gran 1.4 % ()?? 11/03/2024 01:19 Abs. Imm Gran 0.1 k/mm3 ()?? 11/03/2024 01:19 ?? BLOOD GAS pH (POC) POC Cartridge 7.38 ()?? 10/29/2024 03:14 pCO2 (POC) POC Cartridge 39.9 mm Hg ()?? 10/29/2024 03:14 pO2 (POC) POC Cartridge 120 mm Hg (High)?? 10/29/2024 03:14 Estimated Bicarbonate (POC) POC Cart 23.4 mmol/L ()?? 10/29/2024 03:14 % O2 Sat Arterial (POC) POC Cartridge 99 % ()?? 10/29/2024 03:14 pH Venous (POC) POC Cartridge 7.35 ()?? 10/29/2024 03:28 pCO2 Venous (POC) POC Cartridge 41.0 mm Hg ()?? 10/29/2024 03:28 pO2 Venous (POC) POC Cartridge 34 mm Hg (Low)?? 10/29/2024 03:28 Est Bicarbonate (POC) POC Cartridge 22.6 mmol/L ()?? 10/29/2024 03:28 % O2 Sat Venous (POC) POC Cartridge 63 ()?? 10/29/2024 03:28 Base Excess (POC) POC Cartridge NEGATIVE 3 ()?? 10/29/2024 03:28 Specimen Type - Blood Gas MIXED VENOUS ()?? 10/29/2024 03:28 ?? CHEM GENERAL Sodium 135 mmol/L ()?? 11/04/2024 00:21 Potassium 3.8 mmol/L ()?? 11/04/2024 00:21 Chloride 97 mmol/L (Low)?? 11/04/2024 00:21 Bicarbonate Level 23 mmol/L ()?? 11/04/2024 00:21 Anion Gap 11 ()?? 11/03/2024 01:19 Sodium (POC) POC Cartridge 138 mmol/L ()?? 10/29/2024 03:28 Potassium (POC) POC Cartridge 4.4 mmol/L ()?? 10/29/2024 03:28 Glucose Level 145 mg/dL (High)?? 11/04/2024 00:21 Glucose (POC) POC Cartridge 162 (High)?? 10/29/2024 03:28 Glucose, POC 232 mg/dL (High)?? 11/04/2024 11:20 BUN 16 mg/dL ()?? 11/04/2024 00:21 Creatinine-Blood 0.82 mg/dL ()?? 11/04/2024 00:21 Estimated GFR Creatinine 75 ML/MIN/1.73 M2 ()?? 11/04/2024 00:21 Calcium 8.3 mg/dL (Low)?? 11/04/2024 00:21 Calcium, Ionized pH Corrected 1.30 mmol/L ()?? 10/28/2024 14:35 Ionized Calcium (POC) POC Cartridge 1.16 mmol/L ()?? 10/29/2024 03:28 Magnesium 1.7 mg/dL ()?? 11/03/2024 01:19 ? COAG INR 3.8 (High)?? 11/04/2024 00:19 Protime (PT) 35.6 seconds (High)?? 11/04/2024 00:19 APTT 28.7 seconds ()?? 10/28/2024 14:35 Fibrinogen 169 mg/dL ()?? 10/28/2024 12:10 POC ACT-Plus 107.0 seconds ()?? 10/28/2024 13:14 ? MISC. CHEMISTRY Acute Kidney Injury Risk Score 0.65 ()?? 10/29/2024 03:21 ? URINE OTHER Est Creatinine Clearance 49.02 mL/min ()?? 11/04/2024 00:56 ? VIROLOGY COVID-19 PCR Specimen Source NASAL ()?? 10/28/2024 16:00 COVID-19 PCR Result NEGATIVE ()?? 10/28/2024 16:00 ? Post-Acute Cardiac Surgery Care Guidelines *Please refer to discharge summary for patient specific care needs Vital signs with O2 Sat: ?? -?Done on admission and every shift x 72 hours, then daily & PRN -?Blood pressure and heart rate measured pre and post-administration of cardiac medications -?Daily weight check Activity:?? -?OOB for meals, ambulate 4 x per day?? -?May shower (no tub baths)?? -?PT/OT: evaluation and treatment (done on admission), no lifting greater than 10 pounds x 12 weeks -?Use incentive spirometer 3-4x per day?? -?Apply TEDS before OOB for breakfast and remove at night Diet:?? -?Emphasize vegetables, fruits, and whole grains; including low-fat dairy products, poultry, fish, legumes, non-tropical vegetable oils, and nuts -?Limit/eliminate sweets, sugar-sweetened beverages, and red meats ?? -?Limit dietary sodium to??3000??mg/day??from all food sources -?Protein intake goal: 80-110 grams daily. -?Supplements if indicated or poor appetite noticed Laboratory test: -?Per facility protocol & appropriate per patient condition ? -?Daily INR x7 days for Coumadin patients (or as directed in D/C summary) -?See discharge summary for specific tests requested?? Medications:?? -?As per discharge summary?? Wound care:?? -?Incisions open to air unless draining -?If incisions are draining: Cleanse with chlorhexidine & apply DSD twice daily and PRN -?If dressing is dry, remove and leave wound open to air -?No creams, ointments, or lotions to incisional area -?Women should wear a bra with sterile gauze between bra and incision Assessments (All done every shift): -?OVER CV Assessment; Edema, Heart sounds, peripheral pulses?? -?Pulmonary; Lung sounds, Incentive spirometer use, Cough & Deep Breathe -?Neuro; Mental status, orientation, gait & muscle movement ? Warning signs to call facility physician & Cardiac Surgeon? s Office ([phone]) ? -?Temperature of 101 or above, WBC >12, chills or sweating ? -?Bradycardia <50 / Tachycardia >110 -?Systolic blood pressure < 90 mmHg on repeated measurements or (+) orthostatic vs; check BOTH arms and record always -?If medications are held for two or more doses -?Patient requiring oxygen or increasing dose of oxygen, (O2 Sat <92% on room air)?? -?Crackles, rales, diminished breath sounds, worsening shortness of breath, changes in breathingor increased edema?? -?Chest pain (non-incisional), abdominal pain, dizziness, fainting, change in pulse, i.e. increase in pulse rate or irregular heart rate, nausea or vomiting -?Change in level of consciousness or sudden confusion -?Any bleeding or swelling at the incision site or if a hard lump forms -?Any new drainage, redness, tenderness or edges pulling apart at surgical incision site-CALL ! -?A weight gain of more than 2-3 pounds in one day or 5 pounds in 1 week -?New rash, cough dizziness, leg cramps, frequent urination, or blurred vision -?Abnormal laboratory tests, INR > 4, INR < 2, OR sub therapeutic for 3 consecutive days; or need for blood transfusion Follow-up appointments:?? Ensure follow-up appointments are made with the following providers and services. Please send the following items with patient to appointments:??current & comprehensive medication list, recent vital signs,??recent lab results, and??a??family member. ? -?Cardiac Surgeon 7-10 days from discharge from hospital, Phone #: [phone] -?Primary Care Provider 2-5 weeks -?Primary Weight Control Engineer??2-5??weeks -?Outpatient Cardiac Rehab (Cardiac Surgery Office will arrange) or visiting nurse referral for home care evaluation?? -?Call??[facility] when patient is transitioned to home on Coumadin. Provide the Anticoagulation Clinic with the following information:?? -??Notification of current Coumadin dose -??Fax last 3-4 INR test results (trends) to??Fax #: [phone] -??Inform clinic of D/C date from facility and arrange for an INR check the day after discharge ?from long term [facility] with results sent to [facility] -??See discharge Summary for other required follow-up appointments ? Call [facility] when patient is transitioned to home on Coumadin. Provide the Anticoagulation Clinic with the following information: 1. Current Coumadin dose 2. Fax last 3-4 INR test results (trends) to 3. Inform clinic of D/C date from facility and arrange for an INR check the day after discharge from long term facility with results sent to [facility] ?? 45 minutes spent on discharge * Rober BOURGEOIS, Paola Hurley: PERFORM, SIGN, VERIFY Event Display: Case Management Discharge Plan Authored Date: [id number] Patient: OCTAVIA ESCOBAR Age: 74 years Sex: Female : 1950 Associated Diagnoses: None Author: Rober BOURGEOIS, Paola Hurley Discharge Plan Case Management Discharge Plan : Case Management Discharge Plan Data 11/04/2024 16:06 EST Discharge Level of Care at Discharge [facility] facility Discharge Nursing Homes/Rehab Facilities [facility] Name of Agency #1 [facility] Service Categories #1 Occupational Therapy, Physical Therapy, Retirement Service Comments #1 We booked a chair van to get you for 6pm. * Viola Ashraf RN: PERFORM Event Display: Patient Education/Instruction Authored Date: [id number] Inpatient Adult Discharge Instructions. [address] [address] Name: OCTAVIA ESCOBAR : 1950?? Visit: 10/28/2024 05:05?? Current Date: 11/04/2024 19:35 ?? Account: [id number]?? Inpatient Adult Discharge Instructions We would like to thank you for allowing us to assist you with your healthcare needs. The following includes patient education materials and information regarding your injury/illness. Our entire staffstrives to provide an excellent experience for our patients and their families. PLEASE ENSURE YOU FOLLOW-UP PER THE INSTRUCTIONS BELOW! ?? YOUR OPINION IS IMPORTANT TO US! Please complete the survey you may receive by mail or email. Your feedback will be used to make improvements to the healthcare experiences of our patients and their families. Surveys are administered by [employer] ?? If further treatment with your primary care physician or another doctor is recommended, it is important for you to keep the appointment. Call your primary care physician or return to the Emergency Department immediately if your condition worsens, fails to improve, or new symptoms develop. If you need to find a doctor, you can call [facility] for a referral at [phone] or toll free at [phone] or log in to [email or web address].. ?? [facility], in keeping with [facility] guidance, no longer requires face masks for staff, patientsor visitors in most situations. Similiar to time spent indoors at other locations, there is the chance that you were exposed to repiratory viruses during your time with us (such as flu or COVID-19). If you develop symptoms concerning for a viral respiratory infection, please seek testing (and treatment if indicated) from your medical provider or home test kit. ?? You can view and manage your care through the patient portal or by using a health care skip of your choosing. [employer] is a website that allows you to securely view your medical information including your hospital discharge summary, office visit summaries, medications and follow-up visits. You can also request appointments, renew medications, and request access to your medical information using a health care skip of your choosing, or just ask a question. You can enroll at [email or web address] or register during your next office visit. You have been discharged from [facility], Patient Care Unit: M6??. If you have any questions regarding these instructions, including results of studies pending, afteryou leave, please call us and we will be happy to assist you 13/05. [facility] Your Care Team Attending Physician Nicholas Saab MD?? Consulting Providers Nicholas Saab MD?? Discharging Providers Leyla Guillen Your Diagnosis (HFpEF) heart failure with preserved ejection fraction Asthma/COPD - gold 2, PFT 12/2017 Atopic dermatitis Atrial fibrillation on coumadin (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) Chronic kidney disease stage 3 Diabetes Fe deficiency anemia - 2015, tubular adenoma on coumadin GERD (gastroesophageal reflux disease) Hyperlipidemia Hypertension Mitral stenosis Mitral valve stenosis, rheumatic Osteopenia S/P left atrial appendage ligation S/P Maze operation for atrial fibrillation S/P mitral valve replacement Tests Performed Below is a partial list of the tests performed during your hospitalization. You may have had other tests and procedures not included in this list. Please discuss all test results with your provider. [id number] ABG POC CARTRIDGE BASE EXCESS POC CARTRIDGE BICARBONATE BUN CALCIUM CALCIUM IONIZED POC CART CBC w/ Differential CHLORIDE COVID-19 (2019 Novel Coronavirus) PCR Creatinine Electrolytes FIBRINOGEN Glucose Level GLUCOSE POC GLUCOSE POC CARTRIDGE HEMATOCRIT ONLY HEMATOCRIT POC CARTRIDGE HEMOCHRON ACT-PLUS HEMOGLOBIN POC CARTRIDGE Hgb + Hct INR Ionized Calcium K Level Lytes Nephro Check Platelet Count POTASSIUM POTASSIUM POC CARTRIDGE PTT SODIUM SODIUM POC CARTRIDGE Type and Screen VBG POC CARTRIDGE KUB XR Chest Portable ABG (Lab) POC Cartridge (ABG POC CARTRIDGE)?? Add On Lab Order?? BUN?? Base Excess (Lab) POC Cartridge (BASE EXCESS POC CARTRIDGE)?? Basic Metabolic Panel?? Bicarbonate Level (BICARBONATE)?? CBC?? CBC w/ Differential?? COVID-19 (2019 Novel Coronavirus) PCR?? Calcium Level (CALCIUM)?? Chloride Level (CHLORIDE)?? Creatinine?? Electrolytes?? Fibrinogen?? Glucose (Lab) POC Cartridge (GLUCOSE POC CARTRIDGE)?? Glucose Level?? Glucose POC?? Hematocrit (HEMATOCRIT ONLY)?? Hematocrit (Lab) POC Cartridge (HEMATOCRIT POC CARTRIDGE)?? Hemoglobin (Lab) POC Cartridge (HEMOGLOBIN POC CARTRIDGE)?? Hgb + Hct?? INR?? Ionized Calcium?? Ionized Calcium(POC) POC Cartridge (CALCIUM IONIZED POC CART)?? Magnesium Level?? Nephro Check?? POC ACT-Plus (HEMOCHRON ACT-PLUS)?? PTT?? Pathology Tissue Request ()?? Platelet Count?? Potassium (Lab) POC Cartridge (POTASSIUM POC CARTRIDGE)?? Potassium Level (POTASSIUM)?? Sodium (Lab) POC Cartridge (SODIUM POC CARTRIDGE)?? Sodium Level (SODIUM)?? Type and Screen?? VBG (Lab) POC Cartridge (VBG POC CARTRIDGE)?? XR Abdomen AP (KUB)?? Chest Portable (XR Chest Portable)?? Primary Care Provider Davis SIEGEL, Gayathri Damian? Advance Directive Health Care Proxy on File Yes - Health Care Proxy Discharge Vitals Temperature: 98.3 DegF Height: 160 cm Pulse Rate: 88 bpm Weight: 75.5 kg Respiratory Rate: 17 br/min Body Mass Index:??29.49 kg/m2??High Systolic Blood Pressure:??175 mm Hg??High Body surface area: 1.83 Diastolic Blood Pressure: 75 mm Hg ?? Oxygen Saturation: 99 % ?? Studies Pending All studies ordered during this hospital stay have been completed unless listed below. Please discuss all pending results with your provider listed above in these instructions. ?? Add On Lab Order?? Basic Metabolic Panel?? CBC?? Creatinine?? Glucose Level?? INR?? Magnesium Level?? Type and Screen?? What to do next Instructions From Your Doctor -May take shower. do not apply lotions or perfumed soap to surgical wounds; Pat dry, do not rub wounds. -Call Cardiac Surgery Office ([phone]) for signs of infection which include fever, chills, redness, pus like drainage or wound separation. -Call Cardiac Surgery Office at any time for questions or concerns ([phone]). ?? -Weigh yourself daily at the same time of day, preferably in the morning, and record. ??If you gainor lose more than 3 pounds in 1 day or 5 pounds in one week, call the Cardiac Surgery office ([phone]). ?? Orders? 11/04/24 17:34:00 EST?? Scheduled Follow-Up Appointments Saturday. 2024 11:00 AM EST ?? With: Gayathri Cannon MD Where: [address] [address]- Status: Pending You Need to Schedule the Following Appointments Follow Up with??Esequiel Abbasi MD When:??Within 2 to 5 weeks Why: call office for follow up appointment and bring discharge instructions with you.?? Follow Up with??Nicholas Saab MD When:??Within 1 to 2 weeks Why: office will call with follow up appointment Where: [address] [place] [address] [place] [address]- Follow Up with??Gayathri Cannon MD When:??Within 2 to 5 weeks Why: call office for follow up appointment and bring discharge instructions with you.?? Discharge Medications OCTAVIA ESCOBAR :1950 Visit Date:10/28/2024 Medications: Please continue your medications until treatment is completed or stopped by your provider. Medications not listed below should be discontinued. Discuss any questions related to medications with your provider. What How Much When Instructions Next Dose New Albuterol/ Ipratropium (albuterol- ipratropium 3 mg-0.5 mg/ 3 ml inhalation solution) BAND Nebulizer 4 times a day as needed for Wheezing/Shortness of Breath as needed New amiODARONE (amiodarone 200 mg oral tablet) 1 tab(s) Oral Twice a day Take 1 tablet twice a day for 30 days. Once bottle is complete, stop taking medication. ?? tonight New Aspirin (Aspirin Tablet) 81 Milligram Oral Daily tomorrow New Emollients, Topical (Vashe Topical Solution) 475 Milliliter Topically Every 6 hours as needed for Other tonight New Emollients, Topical (Vashe Topical Solution) 475 Milliliter Topically Every 12 hours New Guaifenesin/ Dextromethorphan (Robitussin DM Liquid) 10 Milliliter Oral Every 4 hours as needed for Cough as needed. last dose 1729 Changed Lisinopril (lisinopril 10 mg oral tablet) 10 Milligram Oral Daily tomorrow Changed Metformin (metFORMIN 500 mg oral tablet) 1 tab(s) Oral Daily with meals ?? [facility] tomorrow Unchanged Acetaminophen (acetaminophen 325 mg oral capsule) 2 capsule Oral 3 times a day as needed for Pain , Mild LABEL IN [place] ?? as needed Unchanged Albuterol (Ventolin HFA 108 mcg/ inh inhalation aerosol with adapter) 2 puff(s) Inhalation 4 times a day as needed for for wheezing LABEL IN [place] ?? as needed Unchanged Atorvastatin (atorvastatin 40 mg oral tablet) 1 tab(s) Oral Daily LABEL IN [place] ?? tomorrow Unchanged Loratadine (loratadine 10 mg oral capsule) 1 capsule Oral Daily LABEL IN [place] ?? tomorrow Unchanged Metoprolol (Metoprolol Tartrate 50 mg oral tablet) 1 tab(s) Oral Twice a day LABELINSPANISH. ?? tonight Unchanged Miscellaneous Rx (ONE TOUCH DELICA PLUS 30G LANCETS) CHECK BLOOD GLUCOSE DAILY AND NEEDED IF NEEDED FOR SWEATS/ DIZZINESS/ CONFUSION ?? Unchanged Miscellaneous Rx (ONE TOUCH ULTRA 2 KIT) TEST BLOOD SUGAR DAILY AND NEEDED SWEATS/ DIZZINESS/ CONFUSION ?? Unchanged Miscellaneous Rx (ONE TOUCH ULTRA BLUE TESTST(NEW)100) TEST EVERY DAY AND NEEDED FOR SWEATS/ DIZZINESS/ CONFUSION ?? [facility] Information [facility]: [address], [place] [id number] [phone] ?? What How Much When Comments Stop Taking Dofetilide (dofetilide 250 mcg oral capsule) 1 capsule Oral Twice a day Stop Taking Durable Medical Equipment (4 Pronged Cane) See instructions Dx: ??OA of Bilateral Knees (M17), Repeated Falls (R29.6), Reduced Mobility (Z74.0) Duration: ??Lifetime ?? Stop Taking Enoxaparin (Lovenox 80 mg/ 0.8 mL injectable solution) 80 Milligram Subcutaneous Infusion Daily Inject 1 syringe (80mg) SQ once daily in the morning as directed by coumadin clinic. Do not start until advised to do so by clinic before surgery. ?? Stop Taking Furosemide (furosemide 20 mg oral tablet) 1 tab(s) Oral Daily Stop Taking Magnesium Oxide (magnesium oxide 400 mg oral tablet) 1 tab(s) Oral Twice a day FOR LEG CRAMPS AND HYPOMAGNESIMIA; LABELINSPANISH ?? Stop Taking Pantoprazole (pantoprazole 40 mg oral delayed release tablet) 1 tab(s) Oral Twice a day as needed for NEEDED FOR GERD LABEL IN [place] ?? Stop Taking Warfarin (warfarin 2.5 mg oral tablet) 1 tab(s) Oral Daily DIRECTED BY COUMADIN CLINIC. ?? Prescription Given During Visit Metformin (metFORMIN 500 mg oral tablet) - 1 tablet = 500 mg, By Mouth, Daily, # 30 tablet, 0 Refills, with meals, [facility] [place] [address] [phone]?? Laboratory Results Below is a partial list of the most recent Laboratory test results done prior to this discharge. You may have had other tests and procedures not included in this list. Please discuss all test resultswith your provider. Est Creatinine Clearance - 49.02 mL/min (11/04/2024) RBC Available - PT (10/28/2024) RBC Unit ID - [id number] (10/28/2024) [id number] (10/28/2024) ? ?Surgical Pathology - Patient Name: OCTAVIA ESCOBAR
Lab Acc ession #: [id number]
Patient : 1950 (Age: 74)
Collection Date: 10/28/2024
Accession Date: 10/28/2024
Sign Out Date: 11/03/2024

Tissue Source:
1:LEFT ATRIAL APPENDAGE
2:MITRAL VALVE LEAFLETS

Final Marta gnosis:
1. Left atrial appendage, excision:
- A trial appendage, without significant change.

2. Mitral valve leaflets, excision:
- Heart valve tissue with fibromyxoid degenerative change.

Primary Pathologist:Mikki Cervantes M.D.
electronically signed out by: Mikki Cervantes M.D. / SAKSHI

Gross Description:
Part 1. Labeled left atrial appendage . Received in formalin is a 5 x 2.8 x 1.4 cm portion of cardiac muscle with attached adipose. The external surface is smooth with focal petechia and the inner surface is hirsch-white and smooth to trabeculated. Upon sectioning the atrial appendage ranges in thickness from 0.3 to0.1 cm with focal pinpoint areas of congestion noted within the cardiac muscle. Checkout Operator sections to include petechial hemorrhage and focal thinning are submitted in 1 cassette.
1&ndash;3 pieces. (MN)*
Part 2. Labeled mitral valve leaflets . Received in formalin are 2 mitral valve fragments with attached chordae tendon a measuring 2.5 x 2.4 x 0.6 cm and 3 x 1.5 x 0.6 cm. Both fragments display diffuse yellow atheromatous deposits with thickened, fibrotic areas. No calcification or vegetations are identified. A personal banking representative section from each valve leaflet is submitted in 1 cassette.
1&ndash;2 pieces. (MN)*

As of December 28, 2023, the specimen processing and staining is performed at [facility], [address] [place] [address] (CLIA#[id number]). Its performance characteristics determined by [facility]. Luis Alfredo Ramirez M.D. Metal Fabricator of Surgical Pathology, Kayce De Leon M.D. Metal Fabricator Cy topathology

Phone #: [phone], On-Call Pathologist: [phone] ABG POC CARTRIDGE (10/29/2024) ???pH (POC) POC Cartridge - 7.38???pCO2 (POC) POC Cartridge - 39.9 mm Hg???pO2 (POC) POC Cartridge - 120 mm Hg???Estimated Bicarbonate (POC) POC Cart - 23.4 mmol/L???% O2 Sat Arterial (POC) POC Cartridge - 99 %???Specimen Type - Blood Gas - ARTERIAL BASE EXCESS POC CARTRIDGE (10/29/2024) ???Base Excess (POC) POC Cartridge - NEGATIVE 3 BICARBONATE (11/04/2024) ???Bicarbonate Level - 23 mmol/L BUN (11/04/2024) ???BUN - 16 mg/dL CALCIUM (11/04/2024) ???Calcium - 8.3 mg/dL CALCIUM IONIZED POC CART (10/29/2024) ???Ionized Calcium (POC) POC Cartridge - 1.16 mmol/L CBC w/ Differential (11/03/2024) ???WBC - 9.4 k/mm3???RBC - 3.17 m/mm3???Hgb - 7.4 Gm/dL???Hct - 23.0 %???MCV - 72.6 femtoliters???MCH - 23.3 pg???MCHC - 32.2 Gm/dL???Platelet Count - 247 k/mm3???RDW-SD - 61.6 femtoliters???MPV - 9.8 femtoliters???Nucleated RBC (Automated) - 0.4 #/100 WBC'S???Abs. NRBC - 0.0 k/mm3???Abs. Neut - 6.1 k/mm3???Abs. Lymph - 1.7 k/mm3???Abs. Jasper - 1.2 k/mm3???Abs. Eo - 0.2 k/mm3???Abs. Baso - 0.0 k/mm3???Neut % - 64.9 %???Lymph % - 18.2 %???Jasper % - 12.8 %???Eos % - 2.5 %???Baso % - 0.2 %???Imm Gran - 1.4 %???Abs. Imm Gran - 0.1 k/mm3 CHLORIDE (11/04/2024) ???Chloride - 97 mmol/L COVID-19 (2019 Novel Coronavirus) PCR (10/28/2024) ???COVID-19 PCR Specimen Source - NASAL???COVID-19 PCR Result - NEGATIVE Creatinine (11/04/2024) ???Creatinine-Blood - 0.82 mg/dL???Estimated GFR Creatinine - 75 ML/MIN/1.73 M2 Electrolytes (11/03/2024) ???Sodium - 134 mmol/L???Potassium - 3.6 mmol/L???Chloride - 97 mmol/L???Bicarbonate Level - 26 mmol/L???Anion Gap - 11 FIBRINOGEN (10/28/2024) ???Fibrinogen - 169 mg/dL Glucose Level (11/04/2024) ???Glucose Level - 145 mg/dL GLUCOSE POC (11/04/2024) ???Glucose, POC - 144 mg/dL GLUCOSE POC CARTRIDGE (10/29/2024) ???Glucose (POC) POC Cartridge - 162 HEMATOCRIT ONLY (10/28/2024) ???Hct - 16.8 % HEMATOCRIT POC CARTRIDGE (10/29/2024) ???Hematocrit (POC) POC Cartridge - 28 % HEMOCHRON ACT-PLUS (10/28/2024) ???POC ACT-Plus - 107.0 seconds HEMOGLOBIN POC CARTRIDGE (10/29/2024) ???Hemoglobin (POC) POC Cartridge - 9.5 Gm/dL Hgb + Hct (10/28/2024) ???Hgb - 9.0 Gm/dL???Hct - 28.0 % INR (11/04/2024) ???INR - 3.8???Protime (PT) - 35.6 seconds Ionized Calcium (10/28/2024) ???Calcium, Ionized pH Corrected - 1.30 mmol/L K Level (10/29/2024) ???Potassium - 4.6 mmol/L Lytes (10/29/2024) ???Sodium - 132 mmol/L???Potassium - 4.3 mmol/L???Chloride - 100 mmol/L???Bicarbonate Level - 21 mmol/L???Anion Gap - 11 Nephro Check (10/29/2024) ???Acute Kidney Injury Risk Score - 0.65 Platelet Count (10/28/2024) ???Platelet Count - 203 k/mm3 POTASSIUM (11/04/2024) ???Potassium - 3.8 mmol/L POTASSIUM POC CARTRIDGE (10/29/2024) ???Potassium (POC) POC Cartridge - 4.4 mmol/L PTT (10/28/2024) ???APTT - 28.7 seconds SODIUM (11/04/2024) ???Sodium - 135 mmol/L SODIUM POC CARTRIDGE (10/29/2024) ???Sodium (POC) POC Cartridge - 138 mmol/L Type and Screen (11/03/2024) ???Blood Type - O Positive???Antibody Screen - Negative VBG POC CARTRIDGE (10/29/2024) ???pH Venous (POC) POC Cartridge - 7.35???pCO2 Venous (POC) POC Cartridge - 41.0 mm Hg???pO2 Venous(POC) POC Cartridge - 34 mm Hg???Est Bicarbonate (POC) POC Cartridge - 22.6 mmol/L???% O2 Sat Venous (POC) POC Cartridge - 63???Specimen Type - Blood Gas - MIXED VENOUS You will be contacted within 72 hours with your results. Allergies (NKA means No Known Allergies) furosemide??(hypomagnesemia) Problems Active Problems??(23) (HFpEF) heart failure with preserved ejection fraction?? 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 Asthma/COPD - gold 2, PFT 12/2017?? Atopic dermatitis?? Atrial fibrillation on coumadin (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)?? Atypical chest pain - myoview normal 01/2019 - [facility]?? Bilateral primary osteoarthritis of knee?? Choking?? COVID-19 virus infection?? Diabetes?? Diastolic heart failure?? GERD (gastroesophageal reflux disease)?? Hearing loss?? Hyperlipidemia?? Hypertension?? Hypomagnesemia?? Insomnia?? Leg cramps?? Mitral valve stenosis rheumatologic - severe, dilated left atrium 01/2022 , [facility]?? On anticoagulant therapy with Coumadin?? Osteopenia?? Trigger finger?? Tubular adenoma of colon - 2019 colon polyp x 2?? Education Materials Below is the list of Educational Leaflet Providered with your Discharge Instructions. WebMD Ignite Patient Education - Cardiac Surgery Discharge Instructions?? Web[employer] Ignite Patient Education - What to Know When Taking??Warfarin?? WebMD Ignite Patient Education - Warfarin?? WebMD Ignite Patient Education - Cardiac Surgery Discharge Instructions?? WebMD Ignite Patient Education - Consistent Vitamin K Diet for Warfarin Use?? WebMD Ignite Patient Education - Cardiac Surgery Nutrition?? Valuables and Belongings I fully understand and agree that [facility] accepts no responsibility for all my personal property including clothing, toilet articles, radios, jewelry, dentures, hearing aids, rings, money, or any other property that is in my possession or is brought to me after admission. I understand certain valuables may be placed in a hospital safe for a short period of time. I understand that the hospital is not liable for loss or damage due to accident, fire, or other natural occurrence while said property is in the safe. I accept full responsibility for any personal property that I keep with me, and will not hold the hospital responsible in case of loss or disappearance. I acknowledge that i have been encouraged to send valuables and belongings home. ?? Review of Valuable and Belonging List: With patient, With family Date for Pt to Sign Valuables/Belongings: 10/29/24 22:51:00 ?? Other Discharge Information ? Case Management Discharge Plan?? Discharge Plan?? Discharge Agency Information?? Discharge Level of Care at Discharge: [facility] facility Name of Agency #1: [facility] Discharge Nursing Homes/Rehab Facilities: [facility] Service Categories #1: Occupational Therapy, Physical Therapy, Retirement ?? Service Comments #1: We booked a chair van to get you for 6pm. ?? Pulmonary Rehab Status?? Pulmonary Rehab Discharge Status?? CPAP/BiPAP Mask Type: Full CPAP/BiPAP Mask Size: Medium Respiratory Rate: 17 br/min PEEP: 5 ?? Psychiatric Discharge Plan?? Other Agency?? Other Comments: IDDM ?? Cardiac Rehab Assessment?? Cardiac Rehab Inpatient Assessment?? Comments-Education: post op guidelines, MITT education Comments-Exercise Activity: activity recommendations and restrictions Comments-Other plan of care: recommend phase 2 cardiac rehab Common Emergency Awareness Tips IS IT A STROKE? Act FAST and Check for these signs: FACE Does the face look uneven? ARM Does one arm drift down? SPEECH Does their speech sound strange? TIME Call at any sign of stroke ?? Heart Attack Signs Chest discomfort: Most heart attacks involve discomfort in the center of the chest and lasts more than a few minutes, or goes away and comes back. It can feel like uncomfortable pressure, squeezing, fullness or pain. Discomfort in upper body: Symptoms can include pain or discomfort in one or both arms, back, neck, jaw or stomach. Shortness of breath: With or without discomfort. Other signs: Breaking out in a cold sweat, nausea, or lightheaded. Remember, MINUTES DO MATTER. If you experience any of these heart attack warning signs, call to get immediate medical attention! ?? Smoking can increase your chances of developing chronic health problems and can cause harmful effects to other family members in your house. If you smoke, you are strongly encouraged to quit. Please call [facility] [employer] Link at [phone] or [phone] ([phone]) or log in to [email or web address] for referrals to smoking cessation programs. ?? 383 Suicide & Crisis Lifeline is available 13/05 if you or someone you know needs to find a reason to keep living. By calling 233 you'll be connected to a skilled, trained counselor at a crisis center in your area. INPATIENT DISCHARGE INSTRUCTIONS SIGNATURE OCTAVIA JOYNER Location:[facility] Registration Date and Time:10/28/2024 05:05 EST Primary Care Physician: Davis SIEGEL, Gayathri Damian, Attending Physician: Nicholas Saab MD, OCTAVIA PISANO, have received the above patient education materials/instructions and have verbalizedunderstanding. If ambulance or transport services are being used I further acknowledge being given a choice of service. ?? If you need to contact me, please call me at this number: . Patient/Checkout Operator Name: Patient/Checkout Operator Signature: Relationship to Patient: Witness Name/Signature: Date: * Leyla Guillen: PERFORM Event Display: Patient Education Leaflets Authored Date: [id number] Cardiac Surgery Discharge Instructions ?? 605 Patient Education Materials Cardiac Surgery Discharge Instructions ?? Here is information related to your condition to help you when you get home. ?? Call the Cardiac Surgery office if you experience any of the following: ??? Temperature of 101?? or above, chills, and or sweating. ??? Low grade fever of 99?? - 100?? lasting for a week. ??? Changes in breathing, chest pain, abnormal pain, dizziness, change in pulse, pulse rate or palpitations. ??? Worsening shortness of breath. ??? New onset nausea, vomiting or diarrhea. ??? New rash, cough, dizziness, leg cramps, or blurred vision. ??? Any bleeding or swelling at the incision site or if a hard lump forms. ??? Any drainage, redness, tenderness, or edges pulling apart at your surgical incision site. ??? A weight gain of more than 2-3 pounds in one day or 5 pounds in 1 week. ??? Worsening ankle swelling or leg pain ??? Pain in calf that becomes worse when pointing toe up to head ??? Sharp pain when taking a deep breath ??? Urinary tract infection: frequent urination, burning with urination, or urgency to urinate. ??? Extreme Fatigue ?? Call 911 if: ??? You develop a new onset of weakness, numbness, loss of vision, slurred speech or any concern for a stroke or mini stroke. ??? If you develop numbness, tingling, loss of sensation, and or coolnessto your arms or legs. ??? Fainting, confusion, or disorientation. ??? Sudden, severe headache. ??? If you develop chest pain or discomfort that is not relieved with rest ??? If profuse bleeding (doesnot stop in 30 minutes) occurs, hold pressure to the site and call 911, do not drive yourself to the nearest hospital. ??? Bright red color in your stool. ??? Coughing or vomiting up bright red blood. ??? Heart rate faster than 150 beasts/minute with shortness of breath or new palpitations. ??? Severe abdominal pain ? ? Extreme weakness and/or chills often associated with fever >101??. ?? Follow Up: ?? A follow up appointment should be made with your doctors. If you do not have appointments scheduled, make them when you get home from the hospital. Follow up care is important; it is strongly encouraged that you to keep your appointments. ??? Cardiac Surgery Health Care Provider in 7 to 14 days or as directed. ??? Primary Care Provider in 2-5 weeks or as directed. ??? Primary Weight Control Engineer in 2-5 weeks or as directed. ??? Cardiac Rehabilitation: Arrangements for cardiac rehabilitation enrollment will be made during your 1???2-week follow-up appointment with your cardiac surgery health care provider if an appointment was not made for you prior to discharge. If you have any questions, please call the Cardiac Surgery office at [phone]. ? Bathing: ??? Shower daily with a gentle soap allowing shower water to rinse soap off. ??? Gently pat incisions dry with a clean towel. ??? You may need assistance with showering the first few days. ??? If youare unsteady on your feet use a shower chair. ??? Do not take a tub bath until all scabs have healed on all incisions. ??? Do not use creams, lotions, or ointments on your incisions. ??? Wear clean clothing every day. ??? Avoid holding pets and children close to your bare chest. ??? Women: Wear a clean bra daily that you can put on without reaching your arms behind your back. ?? Incision Care: It is normal to see bruising and areas of hardness in your leg incisions (a camera was used to remove the vein there); you can elevate the leg, wear the compression stockings given to you or ОЛЕГ bandages to help reduce swelling. ? ? Look at your incision sites (chest wall, legs, arms & groins) every day until they are completely healed. ??? Check your incisions daily for drainage, redness, increased tenderness, or edges pulling apart. ??? Keep your incisions clean and dry. ?? Activity ??? Imagine there is a tube around your upper body. You can lift, push, and raise your arms if you remain in the tube. ??? Move arms freely if not holding items. ??? Use both arms, keeping them closeto the body with elbows in when lifting pushing, pulling, getting out of bed, or standing from a chair. ??? Stop an activity if you experience discomfort or hear a clicking/popping sound. ??? When reaching behind with one arm for self-care such as toileting rotate from the waist keeping elbows close to the body. ??? Hug your chest with a clean pillow when coughing, laughing, or sneezing. ??? Gradually increase your activity. This will promote wound healing. Remember to alternate periods of activity with periods of rest. ??? It is important to continue to do the coughing and deep breathing exercises to help prevent breathing complications. ??? Use incentive spirometer 8 to 10 times hourly while awake for the first two weeks you are home. ??? Take your temperature every day. ??? Weigh yourself at the same time every morning. ??? Wear elastic stockings for four weeks after you return home.??? Put elastic stocking on in the morning and remove them at bedtime. ??? Female patients should wear a soft supportive bra without under wires to prevent breast from pulling on incision. ?? Driving ??? Do not drive for at least 3 weeks after surgery or until your surgeon approves driving during the postoperative visit. ??? Once approved to drive, start with short distances, and have a passengerwith you. ??? Do not drive if you are still taking any prescribed medication for pain or a muscle relaxer. ??? 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 ??? DO NOT disable airbags. ??? Position the passenger seat as far back as possible.?Diet ??? Use healthy cooking methods: Bake, Boil, Steam, Broil. ??? Eat mostly plant- based diet; fruits and vegetables, whole grains and legumes (beans, peas and lentils). Include nuts and seeds in moderation. ??? Choose lean meats: skinless chicken/turkey breast, red meats with minimal marbling, greater than 90% lean ground meats. ??? Enjoy fish and seafood prepared healthfully twice a week or more. ??? Choose low fat dairy products. ??? Enjoy sweets in moderation. ??? Reduce sodium and salt intake: Avoid adding salt and choose products with less than 140 mg sodium per serving. Use herbs and spices to flavor your food. Daily sodium intake should be less than 3000mg. ??? Avoid processed foods, fried foods and foods that contain trans-fat. ??? Daily protein intake goal is 80-110 grams. ?? Smoking If you have a history of smoking , it is advised that you quit. smoking is a major risk factor for coronary artery disease and heart attack. Smoking cessation is essential for recovery and long-term health . ?? We can offer smoking cessation resources, including nicotine replacement therapy, medication therapy, and referral to behavioral counseling or support groups. ?? Lowering your cholesterol Diet and exercise may not lower your cholesterol enough. Cholesterol medicines may help prevent further cholesterol build up in the arteries. Talk to your healthcare provider about taking medicine for high cholesterol. ? High blood pressure and diabetes ?? If you have high blood pressure or diabetes, continue with your prescribed treatments. These healthproblems, if not controlled can put you at risk for having a heart attack, stroke, or other vascular events. ?? Stress Learn to manage stress with ways that fit your needs. Some stress relieving activities include meditation, deep breathing techniques and exercise. Stress that isn???t managed can prolong healing and cause other health problems. Talk to your healthcare provider if you need additional resources to manage stress. ?? Feelings?? You may also be impatient to return to your regular activities and may feel frustrated with your recovery. Remember that your body needs time to heal. In fact, healing takes energy and depletes your strength. You will have good days and bad days, and you may feel depressed and angry about how long your recovery seems to take. Talk to your family or friends about your feelings and try to remember that you will get better. As you get stronger and more rested, you will feel more positive about your progress. One way to avoid feeling depressed is to maintain as normal a routine as possible. Get up at your usual time and bathe or shower. Get dressed; don???t stay in your nightclothes all day. Take a rest in the morning and afternoon, and when you feel tired. Get a good night???s sleep. If yourdepression doesn???t improve, talk to your doctor. Feelings ?? Valve Surgery Instructions ?? You will receive a booklet and card specific to the valve you received. This card should be always carried with you. Your doctor may prescribe an anticoagulant medication to prevent blood clots that could lead to a stroke. Your doctor may prescribe an antibiotic.?? This helps prevent infection that could scar and destroy your heart valve. Your will be instructed when to take this medication, suchas before dental work, surgery, or medical procedures. ?? Please refer to the Understanding & Preparing for Heart Surgery booklet. ?? If you are being discharged on Coumadin ??/warfarin, please refer to the H&V Anticoagulation Patient Education booklet. ?? Discharge Instruction Video ? * Den Khan RN: VERIFY, PERFORM, SIGN Event Display: Cardiac Rehab Note Authored Date: Patient: OCTAVIA ESCOBAR Age: 74 years Sex: Female : 1950 Associated Diagnoses: None Author: Den Khan RN Attended Cardiac Surgery rounds - see progress note for updated plan of care. * Bev Michel: VERIFY, PERFORM, SIGN Event Display: Cardiac Rehab Note Authored Date: Patient: OCTAVIA ESCOBAR Age: 74 years Sex: Female : 1950 Associated Diagnoses: None Author: Bev Michel Diagnosis Cardiac Rehab Diagnosis: s/p MVR. Seen with certified orthotist/pedorthist. Pre-exercise Vitals Vital Signs Comment: Reviewed in [facility]. Pre-exercise Physical Examination Neurologic: alert & oriented. Activity Symptoms with Cardiac Rehab Symptoms: sternal soreness. Activity Transfers: independent. Ambulate: assist x 1 , assistive device, distance ambulated 160 feet, stand by assist. Assistive Devices Assistive Device: Walker. Post-exercise Vitals Vital Signs: post efforts VSS. Patient Education Education: Patient alone, Delivery Driver/Customer Service present. Education topic Teachback comprehension 75% Topic: Pathophysiology, Medication education, Role of exercise, Home activity guidelines/limits, Post operative recovery guidelines. Recommendation and Plan Ambulate: 4-6 times/day. Outpatient follow up recommended: [facility]. Cardiac Rehab: Will sign off at this time, Plan is home tomorrow. * Deidra MONTOYA, Merle Hurley: PERFORM Event Display: Patient Education Leaflets Authored Date: What to Know When Taking??Warfarin ?? 12376 Lo que debe saber cuando natalie warfarina La warfarina es un medicamento que controla la coagulaci??n de la montez. Se utiliza para prevenir los co??gulos de montez que pueden causar problemas de shawna graves. Es posible que tome warfarina para reducir el riesgo de derrame cerebral o ataque al coraz??n. O puede tomarla para evitar que un co??gulo de montez llegue al pulm??n. Joleen la warfarina tambi??n puede aumentar el riesgo de sufrir hemorragias. [place] puede ser peligroso. Debido a esto, deber?? robina medidas importantes cuando tome warfarina. Antes de comenzar a robina warfarina Inf??rmele a tejada proveedor de atenci??n m??dica si alguna vez tuvo algo de lo siguiente: ?lcera estomacal ??? V??mitos con montez o heces de color cassidy o martin ??? Cualquier enfermedad del coraz??n o los vasos sangu??neos ??? Un trastorno de la montez ??? Un derrame cerebral o un ataque isqu??volodymyr transitorio (AIT) ??? Enfermedad renal o hep??zaina ??? Lupus u otra enfermedad vascular del col??becky Adem??s, avise al proveedor de atenci??n m??dica si le sucede algo de lo siguiente: ??? Si est?? embarazada o amantando ??? Si tiene menos de 18??a??os de edad ??? Si se realiz?? un procedimiento dental o cirug??a recientemente ??? Si le realizar??n un procedimiento dental o maira cirug??a pr??ximamente ??? Si le realizaron maira punci??n en la m??dula huang o maira cirug??a huang osi le administraron anestesia huang recientemente Muchos medicamentos causan problemas si los natalie mientras est?? en tratamiento con warfarina. Informe a tejada proveedor de atenci??n m??dica sobre todos los medicamentos que natalie. Puede resultar peligroso para usted robina algunos medicamentos y suplementos lino los siguientes: ??? Medicamentos que diluyen la montez, lino aspirina, clopidogrel, ticagrelor o prasugrel ??? Antibi??ticos ??? Medicamentos para el coraz??n ??? Cimetidina ??? Ibuprofeno ??? Naproxeno, ketoprofenou otros medicamentos para la artritis ??? Medicamentos antidepresivos, para tratamiento del c??ncer, el VIH, la diabetes, las convulsiones, la gota, el colesterol alto, o la tiroides ??? Vitaminas que contengan vitamina K ??? Productos a base de hierbas, lino ginkgo, Q10, ajo o hierba de [place] Esta lista no incluye todos los medicamentos y los suplementos que pueden afectar el funcionamientodel medicamento. Hable con tejada proveedor de atenci??n m??dica y farmac??utico. Es posible que tejada proveedor de atenci??n m??dica le indique que cambie o deje de robina algunos de estos medicamentos antes de robina warfarina. ?? Jenkins la warfarina seg??n las indicaciones Deber?? hacerlo exactamente lino se lo indique el proveedor de atenci??n m??dica. Marybel lo siguiente: ??? T??dusty a la misma hora todos los d??as. ??? T??dusty con un vaso lleno de agua. Puede tomarla junto con la comida o no. ??? Use un pastillero para ayudarlo a recordar las dosis que debe robina. ??? Si se saltea maira dosis, llame a tejada proveedor de atenci??n m??dica de inmediato para saber cu??ntodebe robina. ??? Nunca tome maira dosis doble. Si natalie demasiada cantidad junta, puede producirse maira hemorragia tanto dentro lino fuera del cuerpo. ?? C??mo mantener determinados alimentos constantes en tejada dieta Algunos alimentos pueden afectar el funcionamiento de la warfarina. Muchos alimentos contienen vitamina K. Esta es maira sustancia que ayuda en la coagulaci??n del cuerpo. Por lo tanto, consumir alimentos con vitamina K puede afectar el funcionamiento de la warfarina. No es necesario que evite los alimentos que tienen vitamina??K. Joleen s?? debe ser norm la cantidad que come de esos alimentos (alrededor de la misma cantidad d??a tras d??a). Los alimentos que contienen vitamina K incluyen los siguientes: ??? Marck??rragos ??? Aguac[place] ??? Br??coli ??? Repollo ??? Col rizada ??? Espinaca ??? Algunas otras verduras de hojas verdes ??? Aceites tales lino el de soja, canola y yeh. Otros alimentos y bebidas que pueden afectar la coagulaci??n de la montez. Tambi??n deber?? mantener maira cantidad norm de estos alimentos en tejada dieta. Por ejemplo: ??? Ar??ndanos y jugo de ar??ndano ??? Suplementos con aceite de pescado ??? [place], jengibre, regalizy c??rcuma ??? Hierbas que se usan en t??s o suplementos a base de hierbas ??? Alcohol Si cambia tejada dieta por la kim??n que fuese, por ejemplo, debido a maira enfermedad o para bajar de peso, inf??rmeselo al proveedor de atenci??n m??dica. ?? Prevenga lesiones Maira vez que comienza a robina warfarina, deber?? tener cuidado adicional. Dado que hace que montez m??s, deber?? protegerse para no lastimarse la piel. C??mo hacerlo: ??? No myrna descalzo. Siempre use calzado. ??? No se recorte los callos usted mismo. ??? Use maira rasuradora el??ctrica en lugar de usar maira manual. ??? Use un cepillo de dientes suave e hilo dental encerado. Tambi??n deber?? evitar cualquier tipo de actividad que pueda causarle alguna lesi??n. Si tiene unaca??da o maira lesi??n de importancia, llame a tejada proveedor de atenci??n m??dica de inmediato. Podr??a tener maira hemorragia interna y ni siquiera notarlo. Aseg??rese de buscar atenci??n m??dica de inmediato si tiene lo siguiente: ??? Maira ca??da grave ??? Un golpe en la jenna ??? Cualquier otro tipo de lesi??n ?? H??gase an??lisis de montez Deber?? realizarse an??lisis de montez de manera regular. Tejada proveedor de atenci??n m??dica le indicar?? con qu?? frecuencia deber?? hacerlo. [place] se hace para asegurarse de que natalie la cantidad correcta de warfarina. Maira cantidad muy helio puede causar maira hemorragia excesiva, lo que puede ser muy grave. Maira cantidad muy baja puede ser insuficiente para prevenir los da??os por co??gulos. Los an??lisis de montez controlan el ??ndice internacional normalizado (INR, por tejada sigla en ingl??s) y el tiempo de protrombina (TP). Estos determinan la rapidez con la que coagula la montez. El conjunto de ambos an??lisis se denomina TP/INR. Quiz??s deba ir a un hospital o a maira cl??maryellen para que le mary lou los an??lisis de montez. O un enfermero puede ir hasta tejada casa y hacerle el an??lisis de montez en tejada domicilio. En algunos casos, es posible que usted mismo pueda analizarse la montez en tejada casa con maira m??quina orestes??a. Hable con tejada proveedor de atenci??n m??dica para saber cu??l es la mejor opci??n para usted. No omita las citasen las que le analizan la montez. Si se hace un an??lisis de montez fuera del consultorio del proveedor de atenci??n m??dica, aseg??rese de llamarlo apenas tenga los resultados. Despu??s del an??lisis de montez, tejada proveedor de atenci??n m??dica puede indicarle que cambie la dosis de warfarina. Jenkins el medicamento exactamente lino le indicaron. No deje de tomarlo, a menos que tejada proveedor de atenci??n m??dica se lo indique. ?? Recomendaciones importantes Mientras tome warfarina, marybel lo siguiente: ??? Aseg??rese de informar al equipo que administra tejada warfarina todo medicamento nuevo recetado por cualquiera de josephine proveedores. Deber??n hacerle controles con mayor frecuencia luego de comenzar a robina un medicamento nuevo, cambiar maira dosis o dejar de robina un medicamento. ??? No deje de robina los medicamentos sin antes consultar con tejada proveedor de atenci??n m??dica. Si tiene maira cirug??a o un procedimiento programado, el cirujano y el proveedorde atenci??n m??dica le jordan??n instrucciones espec??ficas sobre c??mo cambiar la dosis para prevenir un sangrado excesivo noemi el procedimiento o la cirug??a. ??? Informe a todos josephine proveedores de atenci??n m??dica que natalie warfarina. [place] incluye odont??logos, quiropr??cticos, enfermeros, fisioterapeutas, y enfermeros domiciliarios. ??? Utilice tejada brazalete de alerta m??dica o lleve maira tarjeta de identificaci??n en tejada billetera que diga que natalie warfarina. ??? Asista a todas josephine citas m??dicas para los an??lisis de montez. ??? Hable con tejada proveedor de atenci??n m??dica antes de robina cualquier medicamento nuevo. [place] incluye cualquier medicamento de venta rosie. Tambi??n incluye suplementos, medicamentos a base de hierbas o vitaminas. ??? Informe al proveedor de atenci??n m??dica que le administra la warfarina si cambia tejada informaci??n de contacto. ?? Cu??ndo llamar al?? 911 La warfarina aumenta el riesgo de sangrado. Llame al 911 y al proveedor de atenci??n m??dica de inmediato antes de robina la pr??xima dosis de warfarina si tiene cualquiera de los siguientes problemas: ??? Sangrado que no se detiene ??? Tos con montez ??? V??akin con montez o un material similar al caf?? molido ??? N??useas, hinchaz??n o diarrea ??? Orina de color martin oscuro o michael??n ??? Heces alquitranadas de color martin o cassidy ??? Mareos, dolor de jenna, confusi??n, debilidad o fatiga ??? Dolor de pecho o dificultad para respirar ??? Maira ca??da grave o un golpe en la jenna ??? Signos os??ntomas de un ataque cerebral (ca??da facial, dificultades para hablar, debilidad en un solo ladodel cuerpo) ??? Signos de maira reacci??n al??rgica, lino hinchaz??n de la boca, los labios, la garganta, la lengua o la phu; sarpullido; ronquera o dificultad para respirar o hablar ??? Dolor intenso, p??rdida de la sensibilidad, cambios de color en la piel y cambios de temperatura en maira parte de la piel o en maira extremidad, lino el brazo o la pierna; esto puede indicar un efecto secundario de la warfarina poco frecuente joleen grave, en el que la piel y los tejidos no reciben la circulaci??n joel montez ?? Cu??ndo llamar al proveedor de atenci??n m??dica Otros signos urgentes o importantes por los cuales debe llamar a tejada proveedor incluyen los siguientes: ??? Hinchaz??n o dolor despu??s de maira lesi??n ??? Inflamaci??n o dolor en el lugar de la inyecci??n ??? Sangrado de las enc??as despu??s de cepillarse los dientes ??? Fiebre o maira enfermedad que empeora ??? Sangrado de hemorroides ??? Per??odo menstrual m??s abundante que lo normal o sangrado entre per??odo y per??odo ??? Marcas de color rojizo o cassidy azulado en la piel (moretones), que aumentan de vincent??o [NOTA: Es posible que cate sara informativo no contenga todas las indicaciones, las precauciones, las afecciones m??dicas, las interacciones con medicamentos/alimentos y las advertencias relacionadascon el medicamento. Consulte al proveedor de atenci??n m??dica, al enfermero o al farmac??utico si t iene alguna pregunta]. ?? Last Reviewed Date: 2022 ?? [id number] [employer]. Todos los derechos reservados. Esta informaci??n no pretende sustituir la atenci??n m??dica profesional. S??lo tejada m??dico puede diagnosticar y tratar un problema de shawna. ?? * Ieraci Merle MONTOYA: PERFORM Event Display: Patient Education Leaflets Authored Date: [id number] Warfarin ?? [id number] Warfarina Nombres comercial(es): Coumadin??, Jantoven??; tambi??n disponibles gen??ricamente ?? ADVERTENCIA: La warfarina puede causar sangrado profuso que puede ser potencialmente mortal e incluso causar la muerte. Informe a tejada m??dico si sufre o herzog sufrido un trastorno de la montez o sangrado; problemas de sangrado, especialmente en el est??mikel o es??fago (tubo que va desde la garganta hacia el est??mikel), intestinos, tracto urinario o vejiga, o pulmones; presi??n arterial helio; infarto; angina (dolor o presi??n en el pecho); enfermedad del coraz??n; pericarditis (inflamaci??n del recubrimiento (saco) alrededor del coraz??n); endocarditis (infecci??n de maira o m??s v??lvulas del coraz??n); un derrame cerebral o mini derrame cerebral; aneurisma (debilitamiento o desgarre de maira arteria o vena); anemia (conteo bajo de gl??bulos rojos en la montez); c??ncer; diarrea cr??maryellen o enfermedad renal o del h??gado. Tambi??n informe a tejada m??dico si se con frecuencia o si tiene alguna lesi??n o cirug??a reciente. El sangrado es m??s probable noemi el tratamiento con warfarina en personas de m??distribution analyst 65 a??os, y tambi??n es m??s probable noemi el primer mes del tratamiento con warfarina. El sangrado tambi??n es m??s probable en personas que carlita dosis altas de warfarina, o que la carlita por un tiempo prolongado. El riesgo de sangrado noemi el tratamiento con warfarina tambi??n es m??s alto para las personas que participan en maira actividad o deporte que puede ocasionar lesiones graves. Informe a tejada m??dico y farmac??utico si est?? tomando o piensa robina cualquier medicamento con o sinreceta m??dica, vitaminas, suplementos nutricionales y productos de hierbas (consulte PRECAUCIONES ESPECIALES), pues algunos de estos productos pueden aumentar el riesgo de sangrado el tiempo que tome warfarina. Si experimenta alguno de los s??ntomas siguientes, llame a tejada m??dico inmediatamente: dolor, hinchaz??n o incomodidad, sangrado de maira cortada que no se detiene en la cantidad de tiempo usual, sangrado de nariz o de las enc??as, toser o vomitar montez o material que se ve lino caf?? molido, moretones o sangrado inusuales, sangrado vaginal o flujo menstrual m??s que lo normal, orina decolor ruiz, martin o caf?? oscuro, evacuaciones de color martin o cassidy alquitranado, dolor de jenna, mareos o debilidad. Algunas personas pueden responder de manera diferente al warfarina bas??ndose en tejada herencia o composici??n gen??zaina. Tejada m??dico puede ordenar un an??lisis de montez para ayudarle a determinar la dosis de warfarina que se adapte mejor a lo que usted necesita. La warfarina hope que la montez se coagule normalmente, por lo que puede tardar m??s de lo habitual en detener el sangrado si se corta o se lesiona. Evite realizar actividades o practicar deportes que tienen un alto riesgo de provocar maira lesi??n. Llame a tejada m??dico si el sangrado es inusual o si se y lastima, especialmente si se golpea la jenna. Asista a todas las citas con tejada m??dico y a las de laboratorio. El m??dico ordenar?? un an??lisis de montez (PT [examen de protrombina] expresado lino un valor de INR [kim??n internacional normalizada]) regularmente para controlar la respuesta de tejada cuerpo a la warfarina. Si el m??dico le dice que debe dejar de robina la warfarina, los efectos de cate medicamento pueden durar de 2 a 5 d??as despu??s de que deje de tomarla. Tejada m??dico o farmac??utico le jordan?? la hoja de informaci??n del fabricante para el paciente (Gu??a del medicamento) cuando inicie tejada tratamiento con warfarina y cada vez que vuelva a surtir tejada recetam??dica. Lexi detenidamente la informaci??n y p??dales a tejada m??dico o a tejada farmac??utico que le aclaren cualquier gin. Tambi??n puede visitar el sitio web de la Administraci??n de Alimentos y Medicamentos (FDA) (https://www.fda.gov/downloads/Drugs/DrugSafety/mfi445652.pdf), o el sitio web del fabricante para obtener la Gu??a del medicamento. Consulte a tejada m??dico sobre el(los) riesgo(s) de robina warfarina. ??PARA CU? LES condiciones o enfermedades se prescribe cate medicamento? La warfarina se utiliza para prevenir que se formen co??gulos de montez o que crezcan m??s grandes en la montez o los vasos sangu??neos. Se receta para personas con ciertos tipos de ritmo card??aco irregular, personas con v??lvulas cardiacas artificiales (de reemplazo o mec??nicas) y personas que atkinson sufrido un infarto. La warfarina tambi??n se usa para tratar o prevenir la trombosis venosa (hinchaz??n y co??gulo de montez en maira vena) y embolia pulmonar (un co??gulo de montez en el pulm??n). La warfarina pertenece a maira clase de medicamentos llamados anticoagulantes ('diluyentes de la montez'). Act??a al disminuir la capacidad de coagulaci??n de la montez. ??C??MO se debe usar cate medicamento? La presentaci??n de la warfarina es en tabletas para robina por v??a oral. Por lo general, se natalie maira vez al d??a con o sin alimentos. Jenkins la warfarina aproximadamente a la misma hora todos los d??as. Siga cuidadosamente las instrucciones en la etiqueta del medicamento y preg??ntele a tejada m??dico o farmac??utico cualquier cosa que no comprenda. Jenkins la warfarina exactamente lino se lo indicaron. No tome maira cantidad mayor ni gudelia del medicamento ni lo tome con m??s frecuencia de lo que indica la receta de tejada m??dico. Llame a tejada m??dico inmediatamente si natalie m??s de tejada dosis recetada de warfarina. Tejada m??dico probablemente le indicar?? que inicie con maira dosis baja de warfarina y que la aumente gradualmente con base en los resultados de los an??lisis de montez. Aseg??rese de entender cualquier instrucci??n nueva de dosificaci??n de tejada m??dico. Contin??e pipe??ndola aunque se sienta pretty. No deje de robina cate medicamento sin consultarlo antescon tejada m??dico. ??Qu?? OTRO USO se le da a cate medicamento? A veces se receta cate medicamento para otros usos; p??dales m??s informaci??n a tejada m??dico o a tejada farmac??utico. ??Cu??les son las PRECAUCIONES ESPECIALES que nick seguir? Antes de robina warfarina, ??? informe a tejada m??dico y farmac??utico si es al??rgico a la warfarina, a cualquier otro medicamento o a alguno de los ingredientes de las tabletas de warfarina. Preg??ntele a tejada farmac??utico o consulte la Gu??a del medicamento para obtener maira lista de los ingredientes. ??? no tome al mismo tiempo dos o m??s medicamentos que contengan warfarina. Aseg??rese de consultar a tejada m??dico o farmac??utico si no est?? seguro de si un medicamento contiene warfarina o warfarina s??dica. ??? informe a tejada m??dico y farmac??utico qu?? medicamentos con y sin receta m??dica, vitaminas y suplementos nutricionales natalie o tiene planificado robina mientras est?? en tratamiento con warfarina. Es posible que tejada m??dico deba cambiar la dosis de josephine medicamentos o mantenerlo bajo maira cuidadosa supervisi??n en belen de que presente efectos secundarios. ??? los siguientes productos de venta rosie o a base de plantas pueden interactuar con la warfarina: coenzima Q10 (Ubidecarenona), Equin??cea, ajo, Ginkgo biloba, ginseng, sello dorado y hierba de [place]; omeprazol (Prilosec); famotidina (Pepcid AC); aspirina y medicamentos antiinflamatorios no esteroideos (CHRISTINA) lino ibuprofeno (Advil, Motrin, otros) y naproxeno (Aleve). Aseg??rese de informar a tejada m??dico y farmac??utico que est?? tomando estos medicamentos antes de empezar a robina warfarina. No empiece a robina ninguno de estos medicamentos mientras est?? tomando warfarina sin consultarlo antes con tejada m??dico. ??? Informe a tejada m??dico si padece oalguna vez herzog padecido diabetes, Informe tambi??n a tejada m??dico si padece maira infecci??n, maira enfermedad gastrointestinal lino diarrea o espr??e (maira reacci??n al??rgica a maira prote??na presente en los cereales que provoca diarrea), o si tiene un cat??ter permanente (un tubo de pl??stico flexible que se coloca en la vejiga para permitir la salida de la orina). ??? Informe a tejada m??dico si est?? embarazada, kendrick que podr??a estarlo o planea quedar embarazada mientras natalie warfarina. Las mujeres embarazadas no deben robina warfarina a menos que tengan maira v??lvula card??tanya mec??maryellen. Hable con sum??dico sobre el uso de anticonceptivos mientras natalie warfarina. Llame a tejada m??dico de inmediato siqueda embarazada mientras natalie warfarina . La warfarina puede da??ar al feto. ??? informe a tejada m??dico si est?? amamantando. ??? si se someter?? a maira cirug??a, incluida maira cirug??a dental, o a cualquier tipo de procedimiento m??dico o dental, informe a tejada m??dico o dentista de que est?? tomando warfarina. Tejada m??dico puede indicarle que deje de robina warfarina antes de la cirug??a o que cambie la dosis de cate medicamento antes del procedimiento o cirug??a. Siga atentamente las instrucciones de tejada m??dico y acuda a todas las citas con el laboratorio si tejada m??dico le ordena an??lisis de montez para encontrar la mejor dosis de warfarina para usted. ??? preg??ntele a tejada m??dico acerca del consumo seguro de bebidas alcoh??licas mientras est?? tomando warfarina. ??? informe a tejada m??dico si usa productos de tabaco. Fumar cigarrillos puede reducir la eficacia de cate medicamento. ??Qu?? DIETA ESPECIAL nick seguir mientras martin cate medicamento? Siga maira dieta normal y saludable. Algunos alimentos y bebidas, particularmente aquellos que contienen vitamina K, pueden afectar la forma en que la warfarina funciona para usted. Pida a tejada m??dico ofarmac??utico maira lista de los alimentos que contienen vitamina K. Consuma cantidades adecuadas de alimentos que contienen vitamina K cada semana. No coma grandes cantidades de hortalizas de hojas verdes ni ciertos aceites vegetales que contienen grandes cantidades de vitamina K. Aseg??rese de hablar con tejada m??dico antes de hacer cualquier cambio en tejada dieta. Preg??ntele a tejada m??dico si puede comer toronja (pomelo) o beber jugo de toronja mientras est?? tomando cate medicamento. ??Qu?? tengo que hacer SI ME OLVIDO de robina maira dosis? Jenkins la dosis que omiti?? hirsch pronto lino lo recuerde, si es el mismo d??a en el que deber??a habertomado la dosis. No tome maira dosis doble al d??a siguiente para compensar la que omiti??. Llame a tejada m??dico si olvida maira dosis de warfarina. ??Cu??les son los EFECTOS SECUNDARIOS que podr??a provocar cate medicamento? Si experimenta alguno de los s??ntomas siguientes, o de los enumerados en la secci??n ADVERTENCIA IMPORTANTE, llame a tejada m??dico inmediatamente: ??? urticaria ??? sarpullido ??? picaz??n ??? dificultad para respirar o tragar ??? inflamaci??n del fannie, garganta, lengua, labios u ojos ??? ronquera ??? dolor o presi??n en el pecho ??? hinchaz??n de las vickie, pies, tobillos o pantorrillas ??? fiebre ??? infecciones ??? n??useas ??? v??mitos ??? diarrea ??? cansancio extremo ??? falta de energ??a ??? p??rdida de apetito ??? dolor en la parte superior derecha del est??mikel ??? coloraci??n amarillenta en la piel y los ojos ??? s??ntomas similares a los de la gripe Es importante que sepa que la warfarina puede provocar necrosis o gangrena (muerte de la piel o de otros tejidos del cuerpo). Llame a tejada m??dico de inmediato si observa un color bella u oscuro en supiel, cambios en la piel, ??lceras o un problema inusual en cualquier ??josefina de la piel o el cuerpo,o si tiene un dolor repentino muy jeanie, o cambio de color o temperatura en cualquier jes del cuerpo. Llame a tejada m??dico de inmediato si le duelen los dedos de los pies o si cambian a un color bella u oscuro. Es posible que necesite atenci??n m??dica inmediata para prevenir la amputaci??n (extirpaci??n) de la parte afectada del cuerpo. La warfarina puede ocasionar otros efectos secundarios. Llame a tejada m??dico si experimenta alg??n problema inusual mientras natalie cate medicamento. ??C??mo nick ALMACENAR o DISPONER de acte medicamento? Mantenga cate medicamento en tejada empaque original, pretty cerrado y fuera del alcance de los ni??os. Gu??rdelo a temperatura ambiente y lejos del calor excesivo y la humedad (no en el cuarto de ba??o) yde la roxanne. Los medicamentos que ya no son necesarios se deben desechar de maira manera apropiada para asegurarsede que las mascotas, los ni??os y otras personas no puedan consumirlos. Sin embargo, no debe desechar estos medicamentos por el inodoro. En tejada lugar, la mejor manera de deshacerse de josephine medicamentoses a fern??s de un programa de devoluci??n de medicamentos. Hable con tejada farmac??utico o p??ngase en contacto con tejada departamento de basura/reciclaje local para conocer acerca de los programas de devoluci??n de medicamentos de tejada comunidad. Consulte el sitio web de la Administraci??n de Medicamentos y Alimentos (FDA), (https://goo.gl/xRXbPn) para obtener m??s informaci??n de c??mo desechar de forma giles los medicamentos, si no tiene acceso al programa de devoluci??n de medicamentos. Es importante que mantenga todos los medicamentos fuera de la vista y el alcance de los ni??os, debido a que muchos envases (tales lino los pastilleros de uso semanal, y aquellos que contienen gotas oft??lmicas, cremas, parches e inhaladores) no son a prueba de ni??os orestes??os, quienes pueden abrirlos f??cilmente. Con el fin de protegerlos de maira intoxicaci??n, siempre use tapaderas de seguridade inmediatamente coloque los medicamentos en un lugar seguro, vivi que se encuentre arriba y lejos de tejada vista y alcance. https://www.upandaway.org/es/ ??Qu?? nick hacer en belen de maira SOBREDOSIS? En belen de sobredosis, llame a la l??mile de ayuda de control de envenenamiento al . La informaci??n tambi??n est?? disponible en l??mile en https://www.poisonhelp.org/help. Si la v??ctima se herzog derrumbado, herzog tenido maira convulsi??n, tiene dificultad para respirar, o no puede despertarse, llame inmediamente a los servicios de emergencia al 911. Los s??ntomas de maira sobredosis pueden incluir los siguientes: ??? evacuaciones con montez o le, o negras alquitranadas ??? escupir o toser montez ??? sangradoprofuso con el per??odo menstrual ??? orina de color ruiz, martin o caf?? oscuro ??? toser o vomitar material que se ve lino caf?? molido ??? manchas le, orestes??as, etelvina, redondas debajo de la piel ??? sangrado o moretones inusuales ??? exudaci??n o sangrado continuos de heridas leves ??Qu?? OTRA INFORMACI??N de importancia deber??a saber? Lleve consigo maira tarjeta de identificaci??n o un brazalete que indique que usted natalie warfarina. Pregunte a tejada farmac??utico o m??dico c??mo obtener esta tarjeta o brazalete. Indique en la tarjeta tejada nombre, problemas m??dicos, medicamentos y dosis, as?? lino el nombre y n??diana de tel??fono del m??dico. Informe a los proveedores de atenci??n m??dica que usted natalie warfarina. No deje que otras personas usen tejada medicamento. Preg??ntele a tejada farmac??utico cualquier gin que tenga sobre c??mo volver a surtir tejada receta m??dica. Es importante que Ud. mantenga maira lista escrita de todas las medicinas que Ud. est?? tomando, incluyendo las que recibi?? con receta m??dica y las que Ud. compr?? sin receta, incluyendo vitaminas y suplementos de dieta. Ud. debe tener la lista cada vez que visita tejada m??dico o cuando es admitido a un hospital. Tambi??n es maira informaci??n importante en casos de emergencia. Cate informe sobre medicamentos es solo para tejada informaci??n, y no se considera lino un consejo para el paciente. Debido a la naturaleza de informaci??n sobre drogas, por favor consulte tejada medico o farmac??utico sobre el uso cl??jazmin espec??fico. La Sociedad Americana de Farmac??uticos Instit[employer]ionales SA., afirma que la informaci??n proporcionada a continuaci??n fue formulada con razonable est??ndar de asistencia, y en conformidad con el iqugmiut profesional. La Sociedad Americana de Farmac??uticos Institucionales, SA. no provee representaciones o garant??as, expresas o implicadas, incluyendo, joleen no limitado a, cualquiera garant??a de comercializaci??n y/o apropiado para maira funci??n particular, con respecto a alessio informaci??n y niega espec??ficamente tales garant??as. Se avisa a los usuarios que las decisiones con respecto a terapia de drogas son decisiones m??dicas complejas requiriendo decisiones independientes e informadas de un profesional de shawna y que la informaci??n se da para prop??sitos de informaci??n solamente. La entera monograf??a de maira droga debe ser revisada considerando un comprensivo entendimiento de las acciones, usos, y efectos secundarios de la droga. La [employer]iedad Americana de Farm[employer]ut[employer]ionales, [place]. no endosa o recomienda el uso de ninguna medicina. La informaci??n no es un sustituto de asistencia m??dica. AHFS?? Patient Medication Information???. ?? Derechos reservados, 2023. Documento actualizado 15 Dicie2022, [place] [employer]System [employer]?? [address] [facility], [address], [address] Todos los derechos reservados. La duplicaci??n de cate documento para tejada uso comercial, deber?? ser autorizada por ASHP. AHFS?? Patient Medication Information???. ?? Copyright, 2024 ?? Consult note * Hosea GUDINO, Rebekah Delgado: PERFORM Event Display: Consultation Note Authored Date: [id number] Patient: ??OCTAVIA ESCOBAR ? Age:??74 Years?Sex:??Female?:??1950?? History of Present Illness 74 y.o. 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 Saab. BIDS consulted to assist with glycemic management. ?? General DM hx ?? Type??2??DM Follow up with??PCP??. ?? A1c: Sep 2024 A1C 7.1% H/o DKA? HHS? ICU admission:??none. ?? Home DM Regimen: metformin 1000 mg twice daily ?? Inpatient DM Regimen:?? Insulin drip ordered per CTS protocol Diet: NPO. Card, 60 gm CHO once extubated. ?? Steroid, D5 fluid, D5 containing fluid: none currently. ?? Hypoglycemia risks: CKD, NPO. ?? BG Review:??since admission, blood sugars ranged between 102 to 176 mg/dL. AM??blood sugar 176 mg/dL. ?? Assessment/Plan Diabetes (E11.9):??Sep 2024 A1C 7.1% DM Outpatient Management: PCP ?? Patient s/p cardiac surgery today. We will do full consult tomorrow.??Per cardiac surgery protocol,patient to remain on the insulin drip postop 48 hours.??As long as he remains extubated, hemodynamically stable off vasopressors and tolerating oral intake he will be??due for transition 10/30. ?? Plan: - Insulin drip, per CTS protocol ?? BIDS will continue to monitor glycemic trends. ?? 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 Asthma/COPD - gold 2, PFT 12/2017 Atopic dermatitis Atrial fibrillation on coumadin (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) Atypical chest pain - myoview normal 01/2019 - [facility] Bilateral primary osteoarthritis of knee Choking COVID-19 virus infection Diabetes Diastolic heart failure GERD (gastroesophageal reflux disease) Hearing loss Hyperlipidemia Hypertension Hypomagnesemia Insomnia Leg cramps Mitral valve stenosis rheumatologic - severe, dilated left atrium 01/2022 , [employer] On anticoagulant therapy with Coumadin Osteopenia Trigger finger Tubular adenoma of colon - 2018 colon polyp x 2 Procedure/Surgical History ???Colonoscopy (03/27/2019)???Colonoscopy, flexible, proximal to splenic flexure; diagnostic, with or without collection of specimen(s) by brushing or washing, with or without colon decompression (separate procedure) (04/09/2016) Medications Inpatient Acetaminophen IVPB, 1000 mg= 100 mL, IVPB, Every 6 hours Acetaminophen Tablet, 975 mg, By Mouth, Every 6 hours amiODARONE Tablet, 200 mg, By Mouth, 2 times a day Aspirin Tablet, 81 mg, By Mouth, Daily atorvastatin 40 mg oral tablet, 40 mg, By Mouth, Daily Bisacodyl Supp, 10 mg= 1 supp, Rectally, Daily, PRN Bisacodyl Tablet, 10 mg, By Mouth, Daily, PRN Calcium Gluconate 9.2mEq/100mLNaCL (2Gm), 9.2 mEq= 100 mL, IVPB, Every hour, PRN Calcium Gluconate 9.2mEq/100mLNaCL (2Gm), 9.2 mEq= 100 mL, IVPB, Every 2 hours, PRN ceFAZolin Inj, 1 Gm, IV Push, Every 8 hours Dextrose 50% Inj Syringe (25Gm), 12.5 Gm, IV Push Slowly, Every hour, PRN Dextrose 50% Inj Syringe (25Gm), 25 Gm, IV Push Slowly, Every hour, PRN Docusate Sodium Capsule, 200 mg= 2 capsule, By Mouth, Daily Enoxaparin Inj, 40 mg= 0.4 mL, Subcutaneous Injection, Daily EPINEPHrine 2 mg / D5W 250 mL 2 mg, 2 mg= 250 mL, IV Infusion FENTanyl Inj, 50 mcg= 1 mL, IV Push Slowly, Every 5 minutes, PRN Flush NaCl 0.9%, 3 mL, IV Push, Every 8 hours, PRN Flush NaCl 0.9%, 3 mL, IV Push, Every 8 hours, PRN HYDROmorphone Inj, 0.5 mg= 0.5 mL, IV Push Slowly, Every hour, PRN Insulin R 100 units in 100 mL Premix 100 units [1 units/hr] + NaCL 0.9% Premixed IV 100 mL Insulin REGULAR Human Sliding Scale, 2-8 units, IV Push, Every hour, PRN Insulin REGULAR Inj, 10 units= 0.1 mL, IV Push Slowly, Every hour, PRN Insulin REGULAR Inj, 20 units= 0.2 mL, IV Push Slowly, Every hour, PRN Lactulose Syrup, 20 Gm= 30 mL, By Mouth, Daily Levophed 4 mg / D5W 250 mL 4 mg, 4 mg= 250 mL, IV Infusion LR Bolus 500 mL, 500 mL, IV Infusion, Once LR Bolus 500 mL, 500 mL, IV Infusion, Once LR Bolus 500 mL, 500 mL, IV Infusion, Once LR Bolus 500 mL, 500 mL, IV Infusion, Once Magnesium Sulfate IVPB, 2 Gm= 50 mL, IVPB, Every 4 hours, PRN MiraLax Powder, 17 Gm= 1 pack/packet, By Mouth, Daily NaCL 0.45% 1,000 mL, 1000 mL, IV Infusion NaCL 0.45% 1,000 mL, 1000 mL, IV Infusion NaCL 0.45% 500 mL, 500 mL, IV Infusion NaCL 0.45% 500 mL, 500 mL, IV Infusion NaCL 0.9% 500 mL, 500 mL, Intra-arterial NaCL 0.9% 500 mL, 500 mL, IV Infusion Ondansetron Inj, 4 mg, IV Push, Every 6 hours, PRN OxyCODONE IR Tablet, 2.5 mg, By Mouth, Every 4 hours, PRN OxyCODONE IR Tablet, 5 mg, By Mouth, Every 4 hours, PRN Pantoprazole Tablet, 40 mg, By Mouth, Daily PHENYLephrine Syringe, 100 mcg= 1.25 mL, IV Push, Once, PRN Potassium Chloride 40 mEq/100 mL IVPB, 40 mEq= 100 mL, IVPB, Every 4 hours, PRN Potassium Chloride Packet, 40 mEq, By Mouth, Every 4 hours, PRN Potassium Chloride Tablet, 40 mEq, By Mouth, Every 4 hours, PRN Precedex 400 mcg / 100 mL NaCl (Titrate) 400 mcg, 400 mcg= 100 mL, IV Infusion Senna Tablet, 17.2 mg= 2 tablet, By Mouth, Daily Sodium Bicarb 8.4% Syringe 50 mL, 50 mEq= 50 mL, IV Push, Every 15 minutes, PRN Sodium Bicarb 8.4% Syringe 50 mL, 50 mEq= 50 mL, IV Push, Every hour, PRN Vashe Topical Solution, 475 mL, Topically, Every 12 hours Vashe Topical Solution, 475 mL, Topically, Every 6 hours, PRN Vasopressin 20 units / NaCL 100 mL 20 units, 20 units= 100 mL, IV Infusion Home 4 Pronged Cane, See Instructions acetaminophen 325 mg oral capsule, 650 mg= 2 capsule, By Mouth, 3 times a day, PRN, 3 refills atorvastatin 40 mg oral tablet, 1 tablet, By Mouth, Daily, 3 refills dofetilide 250 mcg oral capsule, 250 mcg= 1 capsule, By Mouth, 2 times a day furosemide 20 mg oral tablet, 20 mg= 1 tablet, By Mouth, Daily lisinopril 20 mg oral tablet, 1 tablet, By Mouth, Daily, 1 refills loratadine 10 mg oral capsule, 10 mg= 1 capsule, By Mouth, Daily, 3 refills Lovenox 80 mg/0.8 mL injectable solution, 80 mg, Subcutaneous Infusion, Daily magnesium oxide 400 mg oral tablet, 1 tablet, By Mouth, 2 times a day metFORMIN 1000 mg oral tablet, 1000 mg= 1 tablet, By Mouth, 2 times a day, 1 refills Metoprolol Tartrate 50 mg oral tablet, 1 tablet, By Mouth, 2 times a day ONE TOUCH DELICA PLUS 30G LANCETS ONE TOUCH ULTRA 2 KIT ONE TOUCH ULTRA BLUE TESTST(NEW)100 pantoprazole 40 mg oral delayed release tablet, 1 tablet, By Mouth, 2 times a day, PRN, 3 refills Ventolin HFA 108 mcg/inh inhalation aerosol with adapter, 2 puffs, Inhalation, 4 times a day, PRN, 3 refills warfarin 2.5 mg oral tablet, 1 tablet, By Mouth, Daily Allergies furosemide??(hypomagnesemia) Social History Alcohol Use: Never. Employment/School Status: Retired. 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 Exercise Self assessment: Good condition. Other: walking 30 min per day. Home/Environment Living situation: Home/Independent. Lives with: Alone. Other: daughter close by. Nutrition/Health Diet: Diabetic. Other Details: Grandchildren in [place], [place], [place], [place]; Prayer, [employer]. Sexual Other sexual concerns: and divorsed 1974. Substance Abuse Use: Never. Tobacco Never smoker, Tobacco user in household: No. Family History Liver cancer: Mother. Immunizations Vaccine Date Status SARS-CoV-2 (COVID-19) mRNA BNT-162b2 vac 09/12/2021 Given influenza virus vaccine, inactivated 08/15/2021 Given SARS-CoV-2 (COVID-19) mRNA BNT-162b2 vac 02/27/2021 Given SARS-CoV-2 (COVID-19) mRNA BNT-162b2 vac 02/06/2021 Given influenza virus vaccine, inactivated 07/22/2020 Given influenza virus vaccine, inactivated 12/08/2019 Given influenza virus vaccine, inactivated 11/20/2018 Given tetanus/diphtheria/pertussis, acel(Tdap) 08/30/2017 Given influenza virus vaccine, inactivated 07/17/2017 Given Comments : [facility] [id number] Zoster Vaccine Live 10/05/2016 Given influenza virus vaccine, inactivated 08/08/2016 Given pneumococcal 13-valent vaccine 03/06/2016 Given influenza virus vaccine, inactivated 11/25/2014 Given pneumococcal 23-valent vaccine 11/25/2014 Given Patient Care team information Care Team Personnel Name: Skylar Turner Position: [facility] Outreach Member Role: Lifetime Consulting Physician Name: Francis Georges RN Position: [facility] RN Member Role: Primary Care Nurse Name: Michael Vega RN Position: [facility] RN Member Role: Primary Care Nurse Name: Anusha Guerra Position: [facility] RN Supv Member Role: Primary Care Nurse Name: Afia Rasheed RN Position: [facility] RN Member Role: Primary Care Nurse Name: Margot Valladares Position: [facility] AMB Nurse Member Role: Lifetime Consulting Physician Name: Gayathri Cannon MD Position: [facility] Physician - Primary Care Member Role: PCP Address: [address] [place] [address] Adult Medicine [address] Telecom: Name: Donald Jackson Jr, RN Position: [facility] ED RN W/OE and Tasks Member Role: Primary Care Nurse Name: Jerry Rivera MD Position: [facility] Renal MD Member Role: Lifetime Consulting Physician Address: [address] [facility] [address] [facility] [address] Telecom: Name: Alma Capps RN Position: S RN Member Role: Primary Care Nurse Name: Massimo Glynn RN Position: [facility] ED RN W/OE and Tasks Member Role: Primary Care Nurse Name: Jaertt Lopez Position: S RN Member Role: Primary Care Nurse Name: Marilou Lozada RN Position: [facility] RN Member Role: Primary Care Nurse Name: Farrah Skelton RN Position: [facility] RN Member Role: Primary Care Nurse Care Team Related Persons Name: LIDA SAUCEDO Insurance Providers Guarantor name: OCTAVIA ESCOBAR Health Plan Information #: 1 Payer: NA Member Number: [id number] Policy Number: NA [place] [facility] [place] #: 2 Payer: NA Member Number: [id number] Policy Number: NA Group Number: NA
--- OUTSIDE RECORDS SUMMARY | 2024-11-23 16:50 | XMS_ITS | Continuity of Care Document ---
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 Name Role Phone Davis SIEGEL, Gayathri Damian Primary Care Physician [phone] Encounter [facility] Date(s): 10/07/24 - 11/06/24 [facility] [address] [place] [address] Drive [address] [place], [place] [address] Encounter Type: Triage Allergies, Adverse Reactions, [...] Note: [facility] 94199-496-39 Medications acetaminophen 325 mg oral capsule 2 capsule = 650 mg, By Mouth, 3 times a day, PRN Pain , Mild, LABEL IN IVORIAN, # 540 capsule, 3 Refills, Maintenance, 04/02/23 2:21:00 PM EDT, Capsule, [facility] #[id number], Partial fill upon patient request if the [...] 1 tablet, By Mouth, Daily, LABEL IN IVORIAN, # 90 tablet, 3 Refills, Maintenance, 10/16/24 4:58:00 PM EST, [facility] #[id number], 160, cm, 10/16/24 12:37:00 EST, Height, 73.5, [...] 10 mg, By Mouth, Daily, LABEL IN IVORIAN, # 90 capsule, 3 Refills, Maintenance, :10:00 PM EDT, Capsule, [facility] #[id number], Partial fill upon patient request if the [...] Refills, Maintenance, 11/04/24 4:50:00 PM EST, Tablet, [facility], Partial fill upon patient request [...] 1 Refills, Maintenance, 07/16/24 12:50:00 PM EDT, [facility] #[id number], 160, cm, 06/15/24 15:14:00 EDT, Height, 73.5, [...] a day, PRN for wheezing, LABEL IN IVORIAN, # 3 each, 3 Refills, Maintenance, 07/23/23 11:49:00 AM EDT, Aerosol, [facility] #[id number], Partial fill upon patient request if the [...] chest pain - myoview normal 01/2019 - [facility] [facility] Confirmed Active Choking Confirmed Active COVID-19 [...] - severe, dilated left atrium 01/2022 , [employer] [facility] Confirmed Active Osteopenia Confirmed Active *[id number] 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 Confirmed Active Bilateral primary osteoarthritis [...] Care Team Personnel Name: Skylar Turner Position: [facility] Outreach Member Role: Lifetime Consulting Physician Name: Francis Georges RN Position: [facility] RN Member Role: Primary Care Nurse Name: Michael Vega RN Position: [facility] RN Member Role: Primary Care Nurse Name: Anusha Guerra Position: [facility] RN Supv Member Role: Primary Care Nurse Name: Afia Rasheed RN Position: [facility] RN Member Role: Primary Care Nurse Name: Margot Valladares Position: [facility] AMB Nurse Member Role: Lifetime Consulting Physician Name: Gayathri Cannon MD Position: [facility] Physician - Primary Care Member Role: PCP Address: [address] [facility] [place] [address]- Telecom: Name: Donald Jackson Jr, RN Position: [facility] ED RN W/OE and Tasks Member Role: Primary Care Nurse Name: Jerry Rivera MD Position: [facility] Renal MD Member Role: Lifetime Consulting Physician Address: [address] [place] [address] [address] [facility] [place] [address]- Telecom: Name: Alma Capps RN Position: [facility] RN Member Role: Primary Care Nurse Name: Massimo Glynn RN Position: [facility] ED RN W/OE and Tasks Member Role: Primary Care Nurse Name: Jarett Lopez Position: [facility] RN Member Role: Primary Care Nurse Name: Marilou Lozada RN Position: [facility] RN Member Role: Primary Care Nurse Name: Farrah Skelton RN Position: [facility] RN Member Role: Primary Care Nurse Care Team Related Persons Name: LIDA SAUCEDO Insurance Providers Guarantor name: OCTAVIA RODRIGUEZ Health Plan Information #: 1 Payer: NA Member Number: NA Policy Number: NA Group Number: NA
--- OUTSIDE RECORDS SUMMARY | 2024-11-23 16:50 | XMS_ITS | Clinical Summary ---
Author Organization [address] Address [address] [place] [phone] Phone Care Team Providers Care Quality Checker Name Role Phone Gayathri Cannon MD Primary Care Provider [phone] Encounters Date Type Department Care Team Description 11/20/2024 Lab Requisition [facility] [address] [place] [phone] Alvaro Rojas MD Unspecified atrial fibrillation (CMS/HCC); Chronic kidney disease, stage 3 unspecified (CMS/HCC); Chronic diastolic (congestive) heart failure (CMS/HCC); Essential (primary) hypertension; Longstanding persistent atrial fibrillation (CMS/HCC); Type 2 diabetes mellitus without complications (CMS/HCC) 11/18/2024 Lab Requisition [facility] Lab [address] [place] [phone] Alvaro Rojas MD Unspecified atrial fibrillation (CMS/HCC) 11/17/2024 Lab Requisition [facility] [address] [place] [phone] Alvaro Rojas MD Unspecified atrial fibrillation (CMS/HCC) 11/14/2024 Lab Requisition [facility] [address] [place] [phone] Alvaro Rojas MD 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 [employer] (current) drug therapy; Unspecified atrial fibrillation (CMS/HCC); Chronic kidney disease, stage 3 unspecified (CMS/HCC); Chronic diastolic (congestive) heart failure (CMS/HCC); Essential (primary) hypertension; Longstanding persistent atrial fibrillation (CMS/HCC); Type 2 diabetes mellitus without complications (CMS/HCC) 11/11/2024 Lab Requisition [facility] [address] [place] [phone] Alvaro Rojas MD Unspecified atrial fibrillation (CMS/HCC) 11/10/2024 Lab Requisition [facility] [address] [place] [phone] Alvaro Rojas MD Unspecified atrial fibrillation (CMS/HCC) 11/09/2024 Lab Requisition [facility] [address] [place] [phone] Alvaro Rojas MD Chronic kidney disease, stage 3 unspecified (CMS/HCC); Chronic diastolic (congestive) heart failure (CMS/HCC); Essential (primary) hypertension; Longstanding persistent atrial fibrillation (CMS/HCC); Type 2 diabetes mellitus without complications (CMS/HCC) 11/06/2024 Lab Requisition [facility] [address] [place] [phone] Alvaro Rojas MD FDC (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 11/05/2024 Lab Requisition [facility] [address] [place] [phone] Alvaro Rojas MD Iron deficiency anemia, unspecified; Hyperlipidemia, unspecified; Gastro-esophageal reflux disease without esophagitis; Essential (primary) hypertension; Chronic kidney disease, stage 3 unspecified (CMS/HCC); Type 2 diabetes mellitus without complications ([facility]/HCC); Unspecified atrial fibrillation ([facility]/HCC) from Last 3 Months Social History Tobacco Use Types Packs/Day Years Used Date Smoking Tobacco: Never Smokeless Tobacco: Never Alcohol Use Standard Drinks/Week Comments Yes 0 (1 standard drink = 0.6 oz pur e alcohol) Sex and Gender Information Value Date Recorded Sex Assigned at Not on file Gender Identity Not on file Sexual Orientation Not on file Obstetrics History Last Filed Vital Signs Vital Sign Reading Time Taken Comments Blood Pressure 140/60 03/24/2024 11:29 AM EDT Pulse 68 03/24/2024 11:29 AM EDT Temperature - - Respiratory Rate - - Oxygen Saturation - - Inhaled Oxygen Concentration - - Weight 73 kg (161 lb) 03/24/2024 11:29 AM EDT Height 157.5 cm (5' 2 ) 03/24/2024 11:29 AM EDT Body Mass Index 29.45 03/24/2024 11:29 AM EDT Plan of Treatment Health Maintenance Due Date Last Done Comments Diabetes: Annual Foot Exam 1959 Diabetes: Annual Retina Eye Exam 1959 Zoster Vaccines (2 of 3) 11/30/2016 10/05/2016 Cholesterol Screening (Lipid Panel) 09/22/2022 Depression Screening 09/22/2022 Falls Risk Assessment 09/22/2022 Hepatitis C Screening 09/22/2022 Osteoporosis Screening (Bone Density Screening) 09/22/2022 Social Influencers of Health Screening 09/22/2022 RSV Immunization Patients 60+ Years Old (1 - 1-dose 75+ series) 2024 COVID-19 Vaccine ( season) 2024 09/12/2021, 02/27/2021, 02/06/2021 Influenza Vaccine (#1) 2024 , 07/22/2020, 12/08/2019, Additional history exists Diabetes: Blood Sugar Control Test (HGBA1C) 11/05/2024 12/11/2018 Diabetes: Annual Urine Albumin-Creatinine Ratio (uACR) 08/19/2025 08/19/2024 Diabetes: Annual GFR (Glomerular Filtration Rate) 11/16/2025 11/16/2024, 11/09/2024, 11/05/2024, Additional history exists Hypertension/CHF/CAD Annual BMP Blood Test 11/16/2025 11/16/2024, 11/09/2024, 11/05/2024, Additional history exists Colorectal Cancer Screening: FIT-DNA (Cologuard) 08/06/2026 08/06/2023, 08/06/2023 DTaP,Tdap,and Td Vaccines (2 - Td or Tdap) 08/30/2027 08/30/2017 Pneumococcal Vaccine: 65+ Years Completed 03/06/2016, 11/25/2014 HIB Vaccines Aged Out No longer eligi ble based on patient's age to complete this topic HPV Vaccines Aged Out No longer eligi ble based on patient's age to complete this topic Hepatitis A Vaccines Aged Out No long er eligible based on patient's age to complete this topic Hepatitis B Vaccines Aged Out No long er eligible based on patient's age to complete this topic IPV Vaccines Aged Out No longer eligi ble based on patient's age to complete this topic MMR Vaccines Aged Out No longer eligi ble based on patient's age to complete this topic Meningococcal ACWY Vaccine Aged Out N o longer eligible based on patient's age to complete this topic RSV Immunization Patients Under 20 months Aged Out No longer eligible based on patient's age to complete this topic Varicella Vaccines Aged Out No longer eligible based on patient's age to complete this topic Procedures Procedure Name Priority Date/Time Associated Diagnosis Comments PROTHROMBIN TIME WITH INR Routine 11/19/2024 5:14 AM EST Unspecified atrial fibrillation (CMS/HCC) PROTHROMBIN TIME WITH INR Routine 11/17/2024 5:21 AM EST Unspecified atrial fibrillation (CMS/HCC) PROTHROMBIN TIME WITH INR Routine 11/16/2024 5:13 AM EST 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 [employer] goods (current) drug therapy Unspecified atrial fibrillation (CMS/HCC) Chronic kidney disease, stage 3 unspecified (CMS/HCC) Chronic diastolic (congestive) heart failure (CMS/HCC) Essential (primary) hypertension Longstanding persistent atrial fibrillation (CMS/HCC) Type 2 diabetes mellitus without complications (CMS/HCC) MAGNESIUM Routine 11/16/2024 5:13 AM EST 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 [employer] (current) drug therapy Unspecified atrial fibrillation (CMS/HCC) Chronic kidney disease, stage 3 unspecified (CMS/HCC) Chronic diastolic (congestive) heart failure (CMS/HCC) Essential (primary) hypertension Longstanding persistent atrial fibrillation (CMS/HCC) Type 2 diabetes mellitus without complications (CMS/HCC) BASIC METABOLIC PANEL Routine 11/16/2024 5:13 AM EST Other custodial (current) drug therapy Unspecified atrial fibrillation (CMS/HCC) Chronic kidney disease, stage 3 unspecified (CMS/HCC) Chronic diastolic (congestive) heart failure (CMS/HCC) Essential (primary) hypertension Longstanding persistent atrial fibrillation (CMS/HCC) Type 2 diabetes mellitus without complications (CMS/HCC) COMPLETE BLOOD COUNT Routine 11/16/2024 5:13 AM EST 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 [employer] (current) drug therapy Unspecified atrial fibrillation (CMS/HCC) Chronic kidney disease, stage 3 unspecified (CMS/HCC) Chronic diastolic (congestive) heart failure (CMS/HCC) Essential (primary) hypertension Longstanding persistent atrial fibrillation (CMS/HCC) Type 2 diabetes mellitus without complications (CMS/HCC) PROTHROMBIN TIME WITH INR Routine 11/12/2024 5:29 AM EST Unspecified atrial fibrillation (CMS/HCC) PROTHROMBIN TIME WITH INR Routine 11/10/2024 7:42 AM EST Unspecified atrial fibrillation (CMS/HCC) MAGNESIUM Routine 11/09/2024 5:47 AM EST [...] without complications (CMS/HCC) COMPLETE BLOOD COUNT Routine 11/09/2024 5:47 AM EST Chronic kidney disease, stage 3 unspecified (CMS/HCC) Chronic diastolic (congestive) heart failure (CMS/HCC) Essential (primary) hypertension Longstanding persistent atrial fibrillation (CMS/HCC) Type 2 diabetes mellitus without complications (CMS/HCC) PROTHROMBIN TIME WITH INR Routine 11/06/2024 6:30 AM EST FDC (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 VITAMIN B12 AND FOLATE Routine 11/05/2024 5:14 [...] without complications (CMS/HCC) Unspecified atrial fibrillation (CMS/HCC) from Last 3 Months Results * (ABNORMAL) Prothrombin time with INR (11/19/2024 5:14 AM EST) Only the most recent of6 resultswithin the time period is included. Protime 36.4(H) 10.6 - 13.9 sec LAB COAGULATION METHOD 11/19/2024 11:03 AM EST [facility] INR 3.0 LAB COAGULATION METHOD 11/19/2024 11:03 AM EST [facility] Blood Venous blood specimen / Unknown Venipuncture / Unknown 11/19/2024 5:14 AM EST 11/19/2024 10:08 AM EST Alvaro Rojas MD LAB BLOOD ORDERABLES [facility] [address] [place] [address], [place] [phone] * (ABNORMAL) Complete blood count (11/16/2024 5:13 AM EST) Only the most recent of3 resultswithin the time period is included. WBC 7.9 4.8 - 10.8 K/mcL LAB HEMETOLOGY METHOD 11/16/2024 1:28 PM [facility] RBC 3.40(L) 3.80 - 4.80 M/mcL LAB HEMETOLOGY METHOD 11/16/2024 1:28 PM [facility] Hemoglobin 7.9(L) 11.5 - 16.0 g/dL LAB HEMETOLOGY METHOD 11/16/2024 1:28 PM [facility] Hematocrit 26.7(L) 35.0 - 47.0 % LAB HEMETOLOGY METHOD 11/16/2024 1:28 PM [facility] MCV 78.5(L) 79.0 - 98.0 FL LAB HEMETOLOGY METHOD 11/16/2024 1:28 PM [facility] MCH 23.2(L) 27.0 - 32.0 pcg LAB HEMETOLOGY METHOD 11/16/2024 1:28 PM [facility] MCHC 29.6(L) 32.0 - 37.0 g/dL LAB HEMETOLOGY METHOD 11/16/2024 1:28 PM [facility] RDW 24.9(H) 11.0 - 15.0 % LAB HEMETOLOGY METHOD 11/16/2024 1:28 PM [facility] Platelets 586(H) 130 - 400 K/mcL LAB HEMETOLOGY METHOD 11/16/2024 1:28 PM [facility] MPV 9.6 7.0 - 11.0 FL LAB HEMETOLOGY METHOD 11/16/2024 1:28 PM [facility] NRBC 0.3 <1.0 % LAB HEMETOLOGY METHOD 11/16/2024 1:28 PM EST [facility] NRBC Absolute 0.02 <0.10 K/mcL LAB HEMETOLOGY METHOD 11/16/2024 1:28 PM EST [facility] Blood Venous blood specimen / Unknown Venipuncture / Unknown 11/16/2024 5:13 AM EST 11/16/2024 12:02 PM EST Alvaro Rojas MD LAB BLOOD ORDERABLES Performing Organization Address City/[facility]/ZIP Co de Phone Number [facility] [address] [place] [address], [place] [phone] * (ABNORMAL) Magnesium (11/16/2024 5:13 AM EST) Only the most recent of2 resultswithin the time period is included. Magnesium 1.8(L) 1.9 - 2.6 mg/dL LAB CHEMISTRY METHOD 11/16/2024 2:39 PM EST [facility] Blood Venous blood specimen / Unknown Venipuncture / Unknown 11/16/2024 5:13 AM EST 11/16/2024 12:02 PM EST Alvaro Rojas MD LAB BLOOD ORDERABLES Performing Organization Address City/[facility]/ZIP Co de Phone Number [facility] [address] [place] [address], [place] [phone] * (ABNORMAL) Basic metabolic panel (11/16/2024 5:13 AM EST) Only the most recent of2 resultswithin the time period is included. Sodium 135 133 - 145 mmol/L LAB CHEMISTRY METHOD 11/16/2024 2:39 PM EST [facility] Potassium 4.1 3.5 - 5.5 mmol/L LAB CHEMISTRY METHOD 11/16/2024 2:39 PM EST [facility] Chloride 99 96 - 110 mmol/L LAB CHEMISTRY METHOD 11/16/2024 2:39 PM [facility] CO2 28 21 - 32 mmol/L LAB CHEMISTRY METHOD 11/16/2024 2:39 PM [facility] Anion Gap 8 3 - 11 LAB CHEMISTRY METHOD 11/16/2024 2:39 PM [facility] Glucose 125(H) 70 - 100 mg/dL LAB CHEMISTRY METHOD 11/16/2024 2:39 PM [facility] BUN 10 5 - 25 mg/dL LAB CHEMISTRY METHOD 11/16/2024 2:39 PM [facility] Creatinine 0.85 0.50 - 1.10 mg/dL LAB CHEMISTRY METHOD 11/16/2024 2:39 PM [facility] eGFR 72 >=60 mL/min/1. 73m2 LAB CHEMISTRY METHOD 11/16/2024 2:39 PM [facility] Comment:Calculation based on the??Chronic Kidney Disease Epidemiology Collaboration (CKD-EPI) equation refit??without adjustment for race. BUN/Creatinine Ratio 11.8 LAB CHEMISTRY METHOD 11/16/2024 2:39 PM [facility] Calcium 8.7 8.5 - 10.5 mg/dL LAB CHEMISTRY METHOD 11/16/2024 2:39 PM [facility] Blood Venous blood specimen / Unknown Venipuncture / Unknown 11/16/2024 5:13 AM EST 11/16/2024 12:02 PM EST Alvaro Rojas MD LAB BLOOD ORDERABLES [facility] [address] [place] [address], * Vitamin B12 and folate (11/05/2024 5:14 AM EST) Pathologist [facility] Vitamin B-12 282 250 - 900 pcg/mL LAB CHEMISTRY METHOD 11/05/2024 10:41 AM EST [facility] Folate 9.7 2.8 - 17.0 ng/ml LAB CHEMISTRY METHOD 11/05/2024 10:41 AM EST [facility] Blood Venous blood specimen / Unknown Venipuncture / Unknown 11/05/2024 5:14 AM EST 11/05/2024 8:56 AM EST Alvaro Rojas MD LAB BLOOD ORDERABLES Performing Organization Address City/[facility]/ZIP Co de Phone Number [facility] [address] [place] [address], [place] [phone] * Thyroid stimulating hormone (11/05/2024 5:14 AM EST) TSH 1.51 0.40 - 4.00 mcIU/mL LAB CHEMISTRY METHOD 11/05/2024 10:09 AM EST [facility] Blood Venous blood specimen / Unknown Venipuncture / Unknown 11/05/2024 5:14 AM EST 11/05/2024 8:56 AM EST Alvaro Rojas MD LAB BLOOD ORDERABLES Performing Organization Address City/[facility]/ZIP Co de Phone Number [facility] [address] [place] [address], [place] [phone] * (ABNORMAL) Comprehensive metabolic panel (11/05/2024 5:14 AM EST) Sodium 135 133 - 145 mmol/L LAB CHEMISTRY METHOD 11/05/2024 10:41 AM EST [facility] Potassium 3.9 3.5 - 5.5 mmol/L LAB CHEMISTRY METHOD 11/05/2024 10:41 AM EST [facility] Chloride 99 96 - 110 mmol/L LAB CHEMISTRY METHOD 11/05/2024 10:41 AM EST [facility] CO2 26 21 - 32 mmol/L LAB CHEMISTRY METHOD 11/05/2024 10:41 AM [facility] Anion Gap 10 3 - 11 LAB CHEMISTRY METHOD 11/05/2024 10:41 AM [facility] Glucose 121(H) 70 - 100 mg/dL LAB CHEMISTRY METHOD 11/05/2024 10:41 AM [facility] BUN 13 5 - 25 mg/dL LAB CHEMISTRY METHOD 11/05/2024 10:41 AM [facility] Creatinine 0.78 0.50 - 1.10 mg/dL LAB CHEMISTRY METHOD 11/05/2024 10:41 AM [facility] eGFR 79 >=60 mL/min/1. 73m2 LAB CHEMISTRY METHOD 11/05/2024 10:41 AM [facility] Comment:Calculation based on the??Chronic Kidney Disease Epidemiology Collaboration (CKD-EPI) equation refit??without adjustment for race. BUN/Creatinine Ratio 16.7 LAB CHEMISTRY METHOD 11/05/2024 10:41 AM [facility] Calcium 8.1(L) 8.5 - 10.5 mg/dL LAB CHEMISTRY METHOD 11/05/2024 10:41 AM [facility] AST (SGOT) 19 10 - 42 unit/L LAB CHEMISTRY METHOD 11/05/2024 10:41 AM [facility] ALT (SGPT) 16 10 - 60 unit/L LAB CHEMISTRY METHOD 11/05/2024 10:41 AM [facility] Alkaline Phosphatase 90 42 - 121 unit/L LAB CHEMISTRY METHOD 11/05/2024 10:41 AM [facility] Total Protein 5.0(L) 6.0 - 8.0 g/dL LAB CHEMISTRY METHOD 11/05/2024 10:41 AM [facility] Albumin 1.9(L) 3.2 - 5.0 g/dL LAB CHEMISTRY METHOD 11/05/2024 10:41 AM [facility] Total Bilirubin 0.4 0.0 - 1.4 mg/dL LAB CHEMISTRY METHOD 11/05/2024 10:41 AM EST [facility] Blood Venous blood specimen / Unknown Venipuncture / Unknown 11/05/2024 5:14 AM EST 11/05/2024 8:56 AM EST Alvaro Rojas MD LAB BLOOD ORDERABLES [facility] [address] [place] [address], from Last 3 Months Care Teams Quality Checker Relationship Specialty Start Date End Date Gayathri Cannon MD [address] [place] [address] PCP - General 01/04/15
--- OUTSIDE RECORDS SUMMARY | 2024-11-23 16:50 | XMS_ITS | Clinical Summary ---
Author Organization [facility] Address [address] [place] [phone] Phone Care Team Providers Care Ditch Tender Name Role Phone Gayathri Cannon MD Primary Care Provider [phone] Allergies No known active allergies Medications acetaminophen (PHARBETOL) 325 MG tablet Comments: Filled Date: May 08 2017 12:00AM Patient Notes: TK 1 T PO QID Duration: 05/08/2017 Active atorvastatin (LIPITOR) 40 MG tablet Comments: Filled Date: May 02 2017 12:00AM Patient Notes: TK 1 T PO D Duration: 12/31/2016 Active cyclobenzaprine (FLEXERIL) 5 MG tablet Comments: Filled Date: May 14 2017 12:00AM Patient Notes: TK 1 T PO TID Duration: 05/10/2017 Active dofetilide (TIKOSYN) 250 MCG capsule Take 250 mcg by mouth in the morning and 250 mcg in the evening. 10/01/2016 Active furosemide (LASIX) 20 MG tablet Comments: Filled Date: Apr 27 2017 12:00AM Patient Notes: TK 1 T PO D Duration: 08/07/2016 Active lisinopril (PRINIVIL,ZESTR IL) 10 MG tablet Comments: Filled Date: Apr 27 2017 12:00AM Patient Notes: TK 1 T PO D Duration: 11/07/2016 Active loratadine (CLARITIN) 10 MG tablet Comments: Filled Date: May 02 2017 12:00AM Patient Notes: TK 1 T PO D Duration: 03/05/2017 Active metFORMIN (GLUCOPHAGE) 1000 MG tablet Comments: Filled Date: Apr 27 2017 12:00AM Patient Notes: TK 1 T PO BID Duration: 12/31/2016 Active warfarin (COUMADIN) 2.5 MG tablet Comments: Filled Date: Mar 28 2017 12:00AM Patient Notes: TK 2 TS PO ON SATURDAY AND 1 T PO ALL OTHER DAYS. Duration: 07/13/2016 Active Omeprazole 20 MG tablet delayed-release Take 20 mg by mouth in the morning and 20 mg in the evening. 05/08/2017 Active Magnesium 250 MG tablet Comments: Filled Date: Apr 27 2017 12:00AM Patient Notes: TK 1 T PO QD Duration: 12/26/2016 Active Calcium-Vitamin A-Vitamin D 200-275-60 MG-UNT-UNT capsule Comments: Filled Date: Apr 27 2017 12:00AM Patient Notes: TK 1 T PO BID Duration: 01/28/2017 Active metoprolol tartrate (LOPRESSOR) 50 MG tablet Comments: Filled Date: Apr 27 2017 12:00AM Patient Notes: TK 1 T PO BID Duration: 10/30/2016 Active albuterol HFA (ProAir HFA) 108 (90 Base) MCG/ACT inhaler Inhale 2 puffs Active pantoprazole (PROTONIX) 40 MG EC tablet Take 40 mg by mouth in the morning and 40 mg in the evening. Active Active Problems Problem Noted Date Diagnosed Date Hearing loss 08/11/2024 Insomnia 08/11/2024 Osteopenia 08/11/2024 Gastroesophageal reflux disease 08/11/2024 Stage 3b chronic kidney disease 08/11/2024 Renal osteodystrophy 08/11/2024 Atrial fibrillation 10/07/2019 Chronic kidney disease stage 3 10/07/2019 Diabetes mellitus 10/07/2019 Diastolic heart failure 10/07/2019 Diverticular disease 10/07/2019 Essential hypertension 10/07/2019 Hyperlipidemia 10/07/2019 Hypertensive heart disease without congestive he art failure 10/07/2019 Migraine 10/07/2019 Osteoarthritis 10/07/2019 Palpitations 10/07/2019 Renal disorder due to type 2 diabetes mellitus 1 12/08/2018 Tubular adenoma of colon 04/10/2016 Overview (08/11/2024): three polyps removed, repeat screening colonoscopy in 2021 repeat colonoscopy in 2019 Encounters Date Type Department Care Team Description 08/25/2024 Orders Only [facility] [address] [phone] Jerry Rivera MD Renal disorder due to type 2 diabetes mellitus <Diabetic nephropathy> (HCC); Stage 3b chronic kidney disease (HCC); Renal osteodystrophy; Essential hypertension from Last 3 Months Family History Medical History Relation Comments Cancer Mother Liver, uterine C A Relation Status Comments Father Mother Social History Tobacco Use Types Packs/Day Years Used Date Smoking Tobacco: Never Smokeless Tobacco: Never Tobacco Cessation:Counseling Given: No Alcohol Use Standard Drinks/Week Comments Yes 0 (1 standard drink = 0.6 oz pur e alcohol) wine occasinally Comments Unknown Sex and Gender Information Value Date Recorded Sex Assigned at Not on file Legal Sex Female 4:35 PM EST Gender Identity Not on file Sexual Orientation Not on file Last Filed Vital Signs Vital Sign Reading Time Taken Comments Blood Pressure 124/60 08/11/2024 1:12 PM EDT Pulse 68 08/11/2024 1:12 PM EDT Temperature - - Respiratory Rate 16 10/08/2019 1:51 PM EST Oxygen Saturation 98% 08/11/2024 1:12 PM EDT Inhaled Oxygen Concentration - - Weight 69.9 kg (154 lb) 08/11/2024 1:12 PM EDT Height 154.9 cm (5' 1 ) 10/08/2019 1:51 PM EST Body Mass Index 29.1 10/08/2019 1:51 PM EST Plan of Treatment Health Maintenance Due Date Last Done Comments Breast Cancer Screening 1950 Colorectal Cancer Screening: Annual FOBT 1998 Colorectal Cancer Screening: Colonoscopy 1998 Colorectal Cancer Screening: Sigmoidoscopy 1998 Diabetes: Hemoglobin A1C 10/07/201912/11/ 019, 02/27/2018 Diabetes: Ophthalmology Exam 10/07/2019 Diabetes: Pedal Pulse Checked 10/07/2019 Diabetes: Sensory Foot Exam 10/07/2019 Diabetes: Visual Foot Exam 10/07/2019 Influenza Vaccine (#1) 2024 0, 12/08/2019, 07/05/2015 Pneumococcal Vaccine: 65+ Years Completed 03/06/2016, 11/25/2014 Hepatitis B Vaccine Aged Out No longe r eligible based on patient's age to complete this topic Procedures Procedure Name Priority Date/Time Associated Diagnosis Comments HEMOGLOBIN A1C Routine 12/11/2018 2:07 PM EST from Last 3 Months or Most Recently Relevant to Health Maintenance Results * (ABNORMAL) Hemoglobin A1c (12/11/2018 2:07 PM EST) Hemoglobin A1C 7.6(H) (4-6) % [place] [id number] Comment: HEMOGLOBIN A1C(%) ?? GLUCOSE CONTROL INDEX ?<6% ? EXCELLENT ?6-7% ?VERY GOOD ?7-8% ?GOOD ?8-10% ? FAIR ?>10% ?POOR Hemoglobin (Hb) A1c testing is performed by David Nilsa-quant immunoassay. Any cause of shortened erythrocyte survival will reduce exposure of erythrocytes to glucose with a consequent decrease in Hb A1c (%). Testing performed or reported by ~[facility], ~a Service of [facility], ~[address] [place] [id number]~ 12/11/2018 2:07 PM EST us John Spicer MD LAB BLOOD ORDERABLES Final Resul t Performing Organization Address City/State/[facility] Co de Phone Number [facility] from Last 3 Months or Most Recently Relevant to Health Maintenance Insurance [facility] [id number] Care Teams Ditch Tender Relationship Specialty Start Date End Date Gayathri Cannon MD [address] [place] [id number] PCP - General Internal Medicine 06/17/24
--- OUTSIDE RECORDS SUMMARY | 2024-11-23 16:50 | XMS_ITS | Continuity of Care Document ---
Author Organization [facility] Cardiac Lisa zainab Address [address] [place] [address] [place] [address]- Care Team Providers Care Pharmacy General Manager Name Role Phone Davis SIEGEL, Gayathri Damian Primary Care Physician [phone] Encounter [facility] Date(s): 10/19/24 - 11/18/24 [facility] Cardiac Surgery [address] [place] [address] Drive [address] [place], [place] [address] Encounter Type: Triage Allergies, Adverse Reactions, Alerts [...] pneumococcal 23-valent vaccine 11/25/14 Given 1Admin Note: [facility] [place] 10225-806-28 Medications acetaminophen 325 mg oral capsule 2 capsule = 650 mg, By Mouth, 3 times a day, PRN Pain , Mild, LABEL IN [place], # 540 capsule, 3 Refills, Maintenance, 04/02/23 2:21:00 PM EDT, Capsule, [facility] #[id number], Partial fill upon patient request if the [...] 3 Refills, Maintenance, 10/16/24 4:58:00 PM EST, [facility] #[id number], 160, cm, 10/16/24 12:37:00 EST, Height, 73.5, [...] 3 Refills, Maintenance, :10:00 PM EDT, Capsule, [facility] #[id number], Partial fill upon patient request if the [...] Refills, Maintenance, 11/04/24 4:50:00 PM EST, Tablet, [facility], Partial fill upon patient request [...] 1 Refills, Maintenance, 07/16/24 12:50:00 PM EDT, [facility] #[id number], 160, cm, 06/15/24 15:14:00 EDT, Height, 73.5, [...] Refills, Maintenance, 07/23/23 11:49:00 AM EDT, Aerosol, [facility] #[id number], Partial fill upon patient request if the [...] chest pain - myoview normal 01/2019 - [facility] Confirmed Active Choking Confirmed Active COVID-19 virus [...] - severe, dilated left atrium 01/2022 , [employer] Confirmed Active Osteopenia Confirmed Active [phone] 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 Confirmed Active Bilateral primary [...] Care Team Personnel Name: Skylar Turner Position: [facility] Outreach Member Role: Lifetime Consulting Physician Name: Francis Georges RN Position: [facility] RN Member Role: Primary Care Nurse Name: Michael Vega RN Position: [facility] RN Member Role: Primary Care Nurse Name: Anusha Guerra Position: [facility] RN Supv Member Role: Primary Care Nurse Name: Afia Rasheed RN Position: [facility] RN Member Role: Primary Care Nurse Name: Margot Valladares Position: [facility] AMB Nurse Member Role: Lifetime Consulting Physician Name: Gayathri Cannon MD Position: [facility] Physician - Primary Care Member Role: PCP Address: [address] [place] [address] Adult Medicine [place], [place] [address] Telecom: Name: Donald Jackson Jr, RN Position: [facility] ED RN W/OE and Tasks Member Role: Primary Care Nurse Name: Jerry Rivera MD Position: [facility] Renal MD Member Role: Lifetime Consulting Physician Address: [address] [place] [address] [address] [facility] [place], [place] [address] Telecom: Name: Alma Capps RN Position: [facility] RN Member Role: Primary Care Nurse Name: Massimo Glynn RN Position: [facility] ED RN W/OE and Tasks Member Role: Primary Care Nurse Name: Jarett Lopez Position: [facility] RN Member Role: Primary Care Nurse Name: Marilou Lozada RN Position: [facility] RN Member Role: Primary Care Nurse Name: Farrah Skelton RN Position: [facility] RN Member Role: Primary Care Nurse Care Team Related Persons Name: LIDA SAUCEDO Insurance Providers Guarantor name: OCTAVIA RODRIGUEZ Health Plan Information #: 1 Payer: NA Member Number: NA Policy Number: NA Group Number: NA
== END 2024-11-23 14:31 | disposition home or self-care (01) ==
LOC: HO.HVNA 14:30
PROVIDERS: Visit Provider Internal Medicine
DX: Z13.89 Encounter for screening for other disorder (principal)
CPT/HCPCS: 85610

== ENCOUNTER 2024-11-24 13:30 | Outpatient (REF) | payer SELFPAY ==
--- OUTSIDE RECORDS SUMMARY | 2024-11-24 14:12 | XMS_ITS | Encounter Summary ---
Author Organization [facility] Address [address] [place] [phone] Care Team Providers Care Middle School Counselor Name Role Phone Gayathri Cannon MD Primary Care Provider [phone] Encounter Details Date Type Department Care Team (Late st Contact Info) Description 11/11/2024 Lab Requisition [facility] - Main Lab 299 [facility] [place] [address] Alvaro Rojas MD [address] [place] [address] Unspecified atrial fibrillation (CMS/HCC) Social History Tobacco [...] LAB COAGULATION METHOD 11/12/2024 10:[address] [facility] INR 2.1 LAB COAGULATION METHOD 11/12/2024 10:[address] [facility] Blood Venous blood specimen / Unknown Venipuncture / Unknown 11/12/2024 5:29 AM EST 11/12/2024 8:54 AM EST Alvaro Rojas MD LAB BLOOD ORDERABLES [facility] ([facility]) [facility] [address] [place] [address], documented in this encounter Visit Diagnoses Diagnosis Unspecified atrial fibrillation (CMS/HCC) documented in this encounter Care Teams Middle School Counselor Relationship Specialty Start Date End Date Gayathri Cannon MD [address] [place] [id number] PCP - General 01/04/15 documented as of this encounter
--- OUTSIDE RECORDS SUMMARY | 2024-11-24 14:12 | XMS_ITS | Encounter Summary ---
Author Organization [facility] Address [address] [place] [phone] Care Team Providers Care Merchandise Manager Name Role Phone Gayathri Cannon MD Primary Care Provider Encounter Details Date Type Department Care Team (Late st Contact Info) Description 11/17/2024 Lab Requisition [facility] - Main Lab 299 [facility] [place] [address] Alvaro Rojas MD [address] [place] [address] Unspecified atrial fibrillation (CMS/HCC) Social History Tobacco [...] LAB COAGULATION METHOD 11/17/2024 9:54 AM EST [facility] INR 2.9 LAB COAGULATION METHOD 11/17/2024 9:54 AM EST [facility] Blood Venous blood specimen / Unknown Venipuncture / Unknown 11/17/2024 5:21 AM EST 11/17/2024 8:46 AM EST Alvaro Rojas MD LAB BLOOD ORDERABLES [facility] ([facility]) [facility] [address] [place] [address], documented in this encounter Visit Diagnoses Diagnosis Unspecified atrial fibrillation (CMS/HCC) documented in this encounter Care Teams Merchandise Manager Relationship Specialty Start Date End Date Gayathri Cannon MD [address] [place] [id number] PCP - General 01/04/15 documented as of this encounter
--- OUTSIDE RECORDS SUMMARY | 2024-11-24 14:12 | XMS_ITS | Encounter Summary ---
Author Organization [facility] Address [address] [place] [phone] Care Team Providers Care Entry Level Installation Technician Name Role Phone Gayathri Cannon MD Primary Care Provider [phone] Encounter Details Date Type Department Care Team (Late st Contact Info) Description 11/14/2024 Lab Requisition [facility] - Main Lab 299 [facility] [place] [address] Alvaro Rojas MD [address] [place] [address] Other long term care pharmacist (current) drug therapy; Unspecified atrial fibrillation (CMS/HCC); [...] INR Routine 11/16/2024 5:13 AM EST Other snf (current) drug therapy Unspecified atrial fibrillation (CMS/HCC) Chronic kidney disease, stage 3 unspecified (CMS/HCC) Chronic diastolic (congestive) heart failure (CMS/HCC) Essential (primary) hypertension Longstanding persistent atrial fibrillation (CMS/HCC) Type 2 diabetes mellitus without complications (CMS/HCC) COMPLETE BLOOD COUNT Routine 11/16/2024 5:13 AM EST Other snf (current) drug therapy Unspecified atrial fibrillation (CMS/HCC) Chronic kidney disease, stage 3 unspecified (CMS/HCC) Chronic diastolic (congestive) heart failure (CMS/HCC) Essential (primary) hypertension Longstanding persistent atrial fibrillation (CMS/HCC) Type 2 diabetes mellitus without complications (CMS/HCC) MAGNESIUM Routine 11/16/2024 5:13 AM EST Other snf (current) drug therapy Unspecified atrial fibrillation (CMS/HCC) Chronic kidney disease, stage 3 unspecified (CMS/HCC) Chronic diastolic (congestive) heart failure (CMS/HCC) Essential (primary) hypertension Longstanding persistent atrial fibrillation (CMS/HCC) Type 2 diabetes mellitus without complications (CMS/HCC) BASIC METABOLIC PANEL Routine 11/16/2024 5:13 AM EST Other snf (current) drug therapy Unspecified atrial fibrillation (CMS/HCC) Chronic kidney disease, stage 3 unspecified (CMS/HCC) Chronic diastolic (congestive) heart failure (CMS/HCC) Essential (primary) hypertension Longstanding persistent atrial fibrillation (CMS/HCC) Type 2 diabetes mellitus without complications (CMS/HCC) documented in this encounter Results * (ABNORMAL) Prothrombin time with INR (11/16/2024 5:13 AM EST) Protime 47.5(H) 10.6 - 13.9 sec LAB COAGULATION METHOD 11/16/2024 12:39 PM EST [facility] INR 3.8 LAB COAGULATION METHOD 11/16/2024 12:39 PM EST [facility] Blood Venous blood specimen / Unknown Venipuncture / Unknown 11/16/2024 5:13 AM EST 11/16/2024 12:02 PM EST Alvaro Rojas MD LAB BLOOD ORDERABLES [facility] [address] [place] [address], * (ABNORMAL) Magnesium (11/16/2024 5:13 AM EST) Magnesium 1.8(L) 1.9 - 2.6 mg/dL LAB CHEMISTRY METHOD 11/16/2024 2:39 PM [facility] Blood Venous blood specimen / Unknown Venipuncture / Unknown 11/16/2024 5:13 AM EST 11/16/2024 12:02 PM EST Alvaro Rojas MD LAB BLOOD ORDERABLES [facility] [address] [place] [address], * (ABNORMAL) Basic metabolic panel (11/16/2024 5:13 AM EST) Sodium 135 133 - 145 mmol/L LAB CHEMISTRY METHOD 11/16/2024 2:39 PM [facility] Potassium 4.1 3.5 - 5.5 mmol/L LAB CHEMISTRY METHOD 11/16/2024 2:39 PM [facility] Chloride 99 96 - 110 mmol/L LAB CHEMISTRY METHOD 11/16/2024 2:39 PM [facility] CO2 28 21 - 32 mmol/L LAB CHEMISTRY METHOD 11/16/2024 2:39 PM [facility] Anion Gap 8 3 - 11 LAB CHEMISTRY METHOD 11/16/2024 2:39 PM [facility] Glucose 125(H) 70 - 100 mg/dL LAB CHEMISTRY METHOD 11/16/2024 2:39 PM [facility] BUN 10 5 - 25 mg/dL LAB CHEMISTRY METHOD 11/16/2024 2:39 PM [facility] Creatinine 0.85 0.50 - 1.10 mg/dL LAB CHEMISTRY METHOD 11/16/2024 2:39 PM [facility] eGFR 72 >=60 mL/min/1. 73m2 LAB CHEMISTRY METHOD 11/16/2024 2:39 PM EST [facility] Comment:Calculation based on the??Chronic Kidney Disease Epidemiology Collaboration (CKD-EPI) equation refit??without adjustment for race. BUN/Creatinine Ratio 11.8 LAB CHEMISTRY METHOD 11/16/2024 2:39 PM [facility] Calcium 8.7 8.5 - 10.5 mg/dL LAB CHEMISTRY METHOD 11/16/2024 2:39 PM [facility] Blood Venous blood specimen / Unknown Venipuncture / Unknown 11/16/2024 5:13 AM EST 11/16/2024 12:02 PM EST Alvaro Rojas MD LAB BLOOD ORDERABLES [facility] [address] [place] [address], * (ABNORMAL) Complete blood count (11/16/2024 5:13 AM EST) WBC 7.9 4.8 - 10.8 K/mcL LAB HEMETOLOGY METHOD 11/16/2024 1:28 PM [facility] RBC 3.40(L) 3.80 - 4.80 M/mcL LAB HEMETOLOGY METHOD 11/16/2024 1:28 PM [facility] Hemoglobin 7.9(L) 11.5 - 16.0 g/dL LAB HEMETOLOGY METHOD 11/16/2024 1:28 PM [facility] Hematocrit 26.7(L) 35.0 - 47.0 % LAB HEMETOLOGY METHOD 11/16/2024 1:28 PM [facility] MCV 78.5(L) 79.0 - 98.0 FL LAB HEMETOLOGY METHOD 11/16/2024 1:28 PM [facility] MCH 23.2(L) 27.0 - 32.0 pcg LAB HEMETOLOGY METHOD 11/16/2024 1:28 PM EST [facility] MCHC 29.6(L) 32.0 - 37.0 g/dL LAB HEMETOLOGY METHOD 11/16/2024 1:28 PM [facility] RDW 24.9(H) 11.0 - 15.0 % LAB HEMETOLOGY METHOD 11/16/2024 1:28 PM [facility] Platelets 586(H) 130 - 400 K/mcL LAB HEMETOLOGY METHOD 11/16/2024 1:28 PM EST [facility] MPV 9.6 7.0 - 11.0 FL LAB HEMETOLOGY METHOD 11/16/2024 1:28 PM [facility] NRBC 0.3 <1.0 % LAB HEMETOLOGY METHOD 11/16/2024 1:28 PM [facility] NRBC Absolute 0.02 <0.10 K/mcL LAB HEMETOLOGY METHOD 11/16/2024 1:28 PM [facility] Blood Venous blood specimen / Unknown Venipuncture / Unknown 11/16/2024 5:13 AM EST 11/16/2024 12:02 PM EST Alvaro Rojas MD LAB BLOOD ORDERABLES [facility] [address] [place], [place] [address] [phone] documented in this encounter Visit Diagnoses Diagnosis Other snf (current) drug therapy Unspecified atrial fibrillation (CMS/HCC) Chronic kidney disease, stage 3 unspecified (CMS/HCC) Chronic diastolic (congestive) heart failure (CMS/HCC) Essential (primary) hypertension Unspecified essential hypertension Longstanding persistent atrial fibrillation (CMS/HCC) Type 2 diabetes mellitus without complications (CMS/HCC) documented in this encounter Care Teams Entry Level Installation Technician Relationship Specialty Start Date End Date Gayathri Cannon MD [address] [place] [id number] PCP - General 01/04/15 documented as of this encounter
--- OUTSIDE RECORDS SUMMARY | 2024-11-24 14:12 | XMS_ITS | Encounter Summary ---
Author Organization [facility] Address [address] [place] [phone] Care Team Providers Care Cst Name Role Phone Gayathri Cannon MD Primary Care Provider [phone] Encounter Details Date Type Department Care Team (Late st Contact Info) Description 11/18/[address] [facility] - Main Lab 299 [facility] [place] [address] Alvaro Rojas MD [address] [place] [address] Unspecified atrial fibrillation (CMS/HCC) Social History Tobacco [...] LAB COAGULATION METHOD 11/19/2024 11:03 AM EST [facility] INR 3.0 LAB COAGULATION METHOD 11/19/2024 11:03 AM EST [facility] Blood Venous blood specimen / Unknown Venipuncture / Unknown 11/19/2024 5:14 AM EST 11/19/2024 10:08 AM EST Alvaro Rojas MD LAB BLOOD ORDERABLES [facility] LAB [address] [place] [address], documented in this encounter Visit Diagnoses Diagnosis Unspecified atrial fibrillation (CMS/HCC) documented in this encounter Care Teams Cst Relationship Specialty Start Date End Date Gayathri Cannon MD [address] [place] [address] PCP - General 01/04/15 documented as of this encounter
--- OUTSIDE RECORDS SUMMARY | 2024-11-24 14:12 | XMS_ITS | Encounter Summary ---
Author Organization [facility] Address [address] [place] [phone] Care Team Providers Care Hot Plate Plywood Press Laborer Name Role Phone Gayathri Cannon MD Primary Care Provider [phone] Encounter Details Date Type Department Care Team (Late st Contact Info) Description 11/05/2024 Lab Requisition [facility] - Main Lab 299 [facility] [place] [address] Alvaro Rojas MD [address] [place] [address] Iron deficiency anemia, unspecified; Hyperlipidemia, unspecified; Gastro-esophageal [...] LAB CHEMISTRY METHOD 11/05/2024 10:41 AM EST [facility] Folate 9.7 2.8 - 17.0 ng/ml LAB CHEMISTRY METHOD 11/05/2024 10:41 AM EST [facility] Blood Venous blood specimen / Unknown Venipuncture / Unknown 11/05/2024 5:14 AM EST 11/05/2024 8:56 AM EST Alvaro Rojas MD LAB BLOOD ORDERABLES [facility] [address] [place] [address], * Thyroid stimulating hormone (11/05/2024 5:14 AM EST) TSH 1.51 0.40 - 4.00 mcIU/mL LAB CHEMISTRY METHOD 11/05/2024 10:09 AM EST [facility] Blood Venous blood specimen / Unknown Venipuncture / Unknown 11/05/2024 5:14 AM EST 11/05/2024 8:56 AM EST Alvaro Rojas MD LAB BLOOD ORDERABLES [facility] [address] [place] [address], * (ABNORMAL) Comprehensive metabolic panel (11/05/2024 5:14 AM EST) Sodium 135 133 - 145 mmol/L LAB CHEMISTRY METHOD 11/05/2024 10:41 AM [facility] Potassium 3.9 3.5 - 5.5 mmol/L LAB CHEMISTRY METHOD 11/05/2024 10:41 AM [facility] Chloride 99 96 - 110 mmol/L LAB CHEMISTRY METHOD 11/05/2024 10:41 AM [facility] CO2 26 21 - 32 mmol/L LAB CHEMISTRY METHOD 11/05/2024 10:41 AM [facility] Anion Gap 10 3 - 11 LAB CHEMISTRY METHOD 11/05/2024 10:41 AM [facility] Glucose 121(H) 70 - 100 mg/dL LAB CHEMISTRY METHOD 11/05/2024 10:41 AM [facility] BUN 13 5 - 25 mg/dL LAB CHEMISTRY METHOD 11/05/2024 10:41 AM [facility] Creatinine 0.78 0.50 - 1.10 mg/dL LAB CHEMISTRY METHOD 11/05/2024 10:41 AM [facility] eGFR 79 >=60 mL/min/1. 73m2 LAB CHEMISTRY METHOD 11/05/2024 10:41 AM [facility] Comment:Calculation based on the??Chronic Kidney Disease Epidemiology Collaboration (CKD-EPI) equation refit??without adjustment for race. BUN/Creatinine Ratio 16.7 LAB CHEMISTRY METHOD 11/05/2024 10:41 AM [facility] Calcium 8.1(L) 8.5 - 10.5 mg/dL LAB CHEMISTRY METHOD 11/05/2024 10:41 AM [facility] AST (SGOT) 19 10 - 42 unit/L LAB CHEMISTRY METHOD 11/05/2024 10:41 AM [facility] ALT (SGPT) 16 10 - 60 unit/L LAB CHEMISTRY METHOD 11/05/2024 10:41 AM [facility] Alkaline Phosphatase 90 42 - 121 unit/L LAB CHEMISTRY METHOD 11/05/2024 10:41 AM [facility] Total Protein 5.0(L) 6.0 - 8.0 g/dL LAB CHEMISTRY METHOD 11/05/2024 10:41 AM [facility] Albumin 1.9(L) 3.2 - 5.0 g/dL LAB CHEMISTRY METHOD 11/05/2024 10:41 AM [facility] Total Bilirubin 0.4 0.0 - 1.4 mg/dL LAB CHEMISTRY METHOD 11/05/2024 10:41 AM [facility] Blood Venous blood specimen / Unknown Venipuncture / Unknown 11/05/2024 5:14 AM EST 11/05/2024 8:56 AM EST Alvaro Rojas MD LAB BLOOD ORDERABLES [facility] [address] [place] [address], * (ABNORMAL) Complete blood count (11/05/2024 5:14 AM EST) WBC 10.6 4.8 - 10.8 K/mcL LAB HEMETOLOGY METHOD 11/05/2024 10:04 AM [facility] RBC 3.20(L) 3.80 - 4.80 M/mcL LAB HEMETOLOGY METHOD 11/05/2024 10:04 AM [facility] Hemoglobin 7.2(L) 11.5 - 16.0 g/dL LAB HEMETOLOGY METHOD 11/05/2024 10:04 AM [facility] Hematocrit 24.1(L) 35.0 - 47.0 % LAB HEMETOLOGY METHOD 11/05/2024 10:04 AM [facility] MCV 75.3(L) 79.0 - 98.0 FL LAB HEMETOLOGY METHOD 11/05/2024 10:04 AM [facility] MCH 22.5(L) 27.0 - 32.0 pcg LAB HEMETOLOGY METHOD 11/05/2024 10:04 AM [facility] MCHC 29.9(L) 32.0 - 37.0 g/dL LAB HEMETOLOGY METHOD 11/05/2024 10:04 AM [facility] RDW 24.6(H) 11.0 - 15.0 % LAB HEMETOLOGY METHOD 11/05/2024 10:04 AM [facility] Platelets 411(H) 130 - 400 K/mcL LAB HEMETOLOGY METHOD 11/05/2024 10:04 AM [facility] MPV 9.9 7.0 - 11.0 FL LAB HEMETOLOGY METHOD 11/05/2024 10:04 AM [facility] NRBC 0.3 <1.0 % LAB HEMETOLOGY METHOD 11/05/2024 10:04 AM [facility] NRBC Absolute 0.03 <0.10 K/mcL LAB HEMETOLOGY METHOD 11/05/2024 10:04 AM [facility] Blood Venous blood specimen / Unknown Venipuncture / Unknown 11/05/2024 5:14 AM EST 11/05/2024 8:56 AM EST Alvaro Rojas MD LAB BLOOD ORDERABLES [facility] HOSPITAL LAB [address] [place] [address], documented in this encounter Visit Diagnoses Diagnosis Iron deficiency anemia, unspecified Hyperlipidemia, unspecified Gastro-esophageal reflux disease without esophagitis Essential (primary) hypertension Unspecified essential hypertension Chronic kidney disease, stage 3 unspecified (CMS/HCC) Type 2 diabetes mellitus without complications (CMS/HCC) Unspecified atrial fibrillation (CMS/HCC) documented in this encounter Care Teams Hot Plate Plywood Press Laborer Relationship Specialty Start Date End Date Gayathri Cannon MD [address] [place] [address] PCP - General 01/04/15 documented as of this encounter
--- OUTSIDE RECORDS SUMMARY | 2024-11-24 14:12 | XMS_ITS | Clinical Summary ---
Author Organization [address] Address [address] [place] [phone] Phone Care Team Providers Care Blood Bank Technologist Name Role Phone Gayathri Cannon MD Primary Care Provider [phone] Encounters Date Type Department Care Team Description 11/20/2024 Lab Requisition [facility] Lab [address] [place] [phone] Alvaro Rojas MD Unspecified atrial fibrillation (CMS/HCC); Chronic kidney disease, stage 3 unspecified (CMS/HCC); Chronic diastolic (congestive) heart failure (CMS/HCC); Essential (primary) hypertension; Longstanding persistent atrial fibrillation (CMS/HCC); Type 2 diabetes mellitus without complications (CMS/HCC) 11/18/2024 Lab Requisition [facility] - Main Lab [address] [place] [phone] Alvaro Rojas MD Unspecified atrial fibrillation (CMS/HCC) 11/17/2024 Lab Requisition [facility] Lab [address] [place] [phone] Alvaro Rojas MD Unspecified atrial fibrillation (CMS/HCC) 11/14/2024 Lab Requisition [facility] Lab [address] [place] [phone] Alvaro Rojas MD 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; Unspecified atrial fibrillation (CMS/HCC); Chronic kidney disease, stage 3 unspecified (CMS/HCC); Chronic diastolic (congestive) heart failure (CMS/HCC); Essential (primary) hypertension; Longstanding persistent atrial fibrillation (CMS/HCC); Type 2 diabetes mellitus without complications (CMS/HCC) 11/11/2024 Lab Requisition [facility] Lab [address] [place] [phone] Alvaro Rojas MD Unspecified atrial fibrillation (CMS/HCC) 11/10/2024 Lab Requisition [facility] [address] [place] [phone] Alvaro Rojas MD Unspecified atrial fibrillation (CMS/HCC) 11/09/2024 Lab Requisition [facility] [address] [place] [phone] Alvaro Rojas MD Chronic kidney disease, stage 3 unspecified (CMS/HCC); Chronic diastolic (congestive) heart failure (CMS/HCC); Essential (primary) hypertension; Longstanding persistent atrial fibrillation (CMS/HCC); Type 2 diabetes mellitus without complications (CMS/HCC) 11/06/2024 Lab Requisition [facility] Lab [address] [place] [phone] Alvaro Rojas MD prison (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 11/05/2024 Lab Requisition [facility] Lab [address] [place] [phone] Alvaro Rojas MD Iron deficiency anemia, unspecified; Hyperlipidemia, unspecified; Gastro-esophageal reflux disease without esophagitis; Essential (primary) hypertension; Chronic kidney disease, stage 3 unspecified (CMS/HCC); Type 2 diabetes mellitus without complications ([facility]/HCC); Unspecified atrial fibrillation ([facility]/HCC) from Last 3 Months Social History [...] INR Routine 11/16/2024 5:13 AM EST 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 Unspecified atrial fibrillation (CMS/HCC) Chronic kidney disease, stage 3 unspecified (CMS/HCC) Chronic diastolic (congestive) heart failure (CMS/HCC) Essential (primary) hypertension Longstanding persistent atrial fibrillation (CMS/HCC) Type 2 diabetes mellitus without complications (CMS/HCC) MAGNESIUM Routine 11/16/2024 5:13 AM EST 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 Unspecified atrial fibrillation (CMS/HCC) Chronic kidney disease, stage 3 unspecified (CMS/HCC) Chronic diastolic (congestive) heart failure (CMS/HCC) Essential (primary) hypertension Longstanding persistent atrial fibrillation (CMS/HCC) Type 2 diabetes mellitus without complications (CMS/HCC) BASIC METABOLIC PANEL Routine 11/16/2024 5:13 AM EST Other nursing home (current) drug therapy Unspecified atrial fibrillation (CMS/HCC) Chronic kidney disease, stage 3 unspecified (CMS/HCC) Chronic diastolic (congestive) heart failure (CMS/HCC) Essential (primary) hypertension Longstanding persistent atrial fibrillation (CMS/HCC) Type 2 diabetes mellitus without complications (CMS/HCC) COMPLETE BLOOD COUNT Routine 11/16/2024 5:13 AM EST 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 Unspecified atrial fibrillation (CMS/HCC) [...] WITH INR Routine 11/06/2024 6:30 AM EST prison (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 VITAMIN B12 AND [...] LAB COAGULATION METHOD 11/19/2024 11:03 AM EST [facility] INR 3.0 LAB COAGULATION METHOD 11/19/2024 11:03 AM EST [facility] Blood Venous blood specimen / Unknown Venipuncture / Unknown 11/19/2024 5:14 AM EST 11/19/2024 10:08 AM EST Alvaro Rojas MD LAB BLOOD ORDERABLES [facility] [address] [place] [address], [place] [phone] * (ABNORMAL) Complete blood count (11/16/2024 5:13 AM EST) Only the most recent of3 resultswithin the time period is included. WBC 7.9 4.8 - 10.8 K/mcL LAB HEMETOLOGY METHOD 11/16/2024 1:28 PM [facility] RBC 3.40(L) 3.80 - 4.80 M/mcL LAB HEMETOLOGY METHOD 11/16/2024 1:28 PM [facility] Hemoglobin 7.9(L) 11.5 - 16.0 g/dL LAB HEMETOLOGY METHOD 11/16/2024 1:28 PM [facility] Hematocrit 26.7(L) 35.0 - 47.0 % LAB HEMETOLOGY METHOD 11/16/2024 1:28 PM [facility] MCV 78.5(L) 79.0 - 98.0 FL LAB HEMETOLOGY METHOD 11/16/2024 1:28 PM [facility] MCH 23.2(L) 27.0 - 32.0 pcg LAB HEMETOLOGY METHOD 11/16/2024 1:28 PM [facility] MCHC 29.6(L) 32.0 - 37.0 g/dL LAB HEMETOLOGY METHOD 11/16/2024 1:28 PM [facility] RDW 24.9(H) 11.0 - 15.0 % LAB HEMETOLOGY METHOD 11/16/2024 1:28 PM [facility] Platelets 586(H) 130 - 400 K/mcL LAB HEMETOLOGY METHOD 11/16/2024 1:28 PM [facility] MPV 9.6 7.0 - 11.0 FL LAB HEMETOLOGY METHOD 11/16/2024 1:28 PM [facility] NRBC 0.3 <1.0 % LAB HEMETOLOGY METHOD 11/16/2024 1:28 PM EST [facility] NRBC Absolute 0.02 <0.10 K/mcL LAB HEMETOLOGY METHOD 11/16/2024 1:28 PM EST [facility] Blood Venous blood specimen / Unknown Venipuncture / Unknown 11/16/2024 5:13 AM EST 11/16/2024 12:02 PM EST Alvaro Rojas MD LAB BLOOD ORDERABLES Performing Organization Address City/[facility]/ZIP Co de Phone Number [facility] [address] [place] [address], [place] [phone] * (ABNORMAL) Magnesium (11/16/2024 5:13 AM EST) Only the most recent of2 resultswithin the time period is included. Magnesium 1.8(L) 1.9 - 2.6 mg/dL LAB CHEMISTRY METHOD 11/16/2024 2:39 PM EST [facility] Blood Venous blood specimen / Unknown Venipuncture / Unknown 11/16/2024 5:13 AM EST 11/16/2024 12:02 PM EST Alvaro Rojas MD LAB BLOOD ORDERABLES Performing Organization Address City/[facility]/ZIP Co de Phone Number [facility] [address] [place] [address], [place] [phone] * (ABNORMAL) Basic metabolic panel (11/16/2024 5:13 AM EST) Only the most recent of2 resultswithin the time period is included. Sodium 135 133 - 145 mmol/L LAB CHEMISTRY METHOD 11/16/2024 2:39 PM EST [facility] Potassium 4.1 3.5 - 5.5 mmol/L LAB CHEMISTRY METHOD 11/16/2024 2:39 PM EST [facility] Chloride 99 96 - 110 mmol/L LAB CHEMISTRY METHOD 11/16/2024 2:39 PM [facility] CO2 28 21 - 32 mmol/L LAB CHEMISTRY METHOD 11/16/2024 2:39 PM [facility] Anion Gap 8 3 - 11 LAB CHEMISTRY METHOD 11/16/2024 2:39 PM [facility] Glucose 125(H) 70 - 100 mg/dL LAB CHEMISTRY METHOD 11/16/2024 2:39 PM [facility] BUN 10 5 - 25 mg/dL LAB CHEMISTRY METHOD 11/16/2024 2:39 PM [facility] Creatinine 0.85 0.50 - 1.10 mg/dL LAB CHEMISTRY METHOD 11/16/2024 2:39 PM [facility] eGFR 72 >=60 mL/min/1. 73m2 LAB CHEMISTRY METHOD 11/16/2024 2:39 PM [facility] Comment:Calculation based on the??Chronic Kidney Disease Epidemiology Collaboration (CKD-EPI) equation refit??without adjustment for race. BUN/Creatinine Ratio 11.8 LAB CHEMISTRY METHOD 11/16/2024 2:39 PM [facility] Calcium 8.7 8.5 - 10.5 mg/dL LAB CHEMISTRY METHOD 11/16/2024 2:39 PM [facility] Blood Venous blood specimen / Unknown Venipuncture / Unknown 11/16/2024 5:13 AM EST 11/16/2024 12:02 PM EST Alvaro Rojas MD LAB BLOOD ORDERABLES [facility] [address] [place] [address], * Vitamin B12 and folate (11/05/2024 5:14 AM EST) Pathologist [facility] Vitamin B-12 282 250 - 900 pcg/mL LAB CHEMISTRY METHOD 11/05/2024 10:41 AM EST [facility] Folate 9.7 2.8 - 17.0 ng/ml LAB CHEMISTRY METHOD 11/05/2024 10:41 AM EST [facility] Blood Venous blood specimen / Unknown Venipuncture / Unknown 11/05/2024 5:14 AM EST 11/05/2024 8:56 AM EST Alvaro Rojas MD LAB BLOOD ORDERABLES Performing Organization Address City/[facility]/ZIP Co de Phone Number [facility] [address] [place] [address], [place] [phone] * Thyroid stimulating hormone (11/05/2024 5:14 AM EST) TSH 1.51 0.40 - 4.00 mcIU/mL LAB CHEMISTRY METHOD 11/05/2024 10:09 AM EST [facility] Blood Venous blood specimen / Unknown Venipuncture / Unknown 11/05/2024 5:14 AM EST 11/05/2024 8:56 AM EST Alvaro Rojas MD LAB BLOOD ORDERABLES Performing Organization Address City/[facility]/ZIP Co de Phone Number [facility] [address] [place] [address], [place] [phone] * (ABNORMAL) Comprehensive metabolic panel (11/05/2024 5:14 AM EST) Sodium 135 133 - 145 mmol/L LAB CHEMISTRY METHOD 11/05/2024 10:41 AM EST [facility] Potassium 3.9 3.5 - 5.5 mmol/L LAB CHEMISTRY METHOD 11/05/2024 10:41 AM EST [facility] Chloride 99 96 - 110 mmol/L LAB CHEMISTRY METHOD 11/05/2024 10:41 AM EST [facility] CO2 26 21 - 32 mmol/L LAB CHEMISTRY METHOD 11/05/2024 10:41 AM [facility] Anion Gap 10 3 - 11 LAB CHEMISTRY METHOD 11/05/2024 10:41 AM [facility] Glucose 121(H) 70 - 100 mg/dL LAB CHEMISTRY METHOD 11/05/2024 10:41 AM [facility] BUN 13 5 - 25 mg/dL LAB CHEMISTRY METHOD 11/05/2024 10:41 AM [facility] Creatinine 0.78 0.50 - 1.10 mg/dL LAB CHEMISTRY METHOD 11/05/2024 10:41 AM [facility] eGFR 79 >=60 mL/min/1. 73m2 LAB CHEMISTRY METHOD 11/05/2024 10:41 AM [facility] Comment:Calculation based on the??Chronic Kidney Disease Epidemiology Collaboration (CKD-EPI) equation refit??without adjustment for race. BUN/Creatinine Ratio 16.7 LAB CHEMISTRY METHOD 11/05/2024 10:41 AM [facility] Calcium 8.1(L) 8.5 - 10.5 mg/dL LAB CHEMISTRY METHOD 11/05/2024 10:41 AM [facility] AST (SGOT) 19 10 - 42 unit/L LAB CHEMISTRY METHOD 11/05/2024 10:41 AM [facility] ALT (SGPT) 16 10 - 60 unit/L LAB CHEMISTRY METHOD 11/05/2024 10:41 AM [facility] Alkaline Phosphatase 90 42 - 121 unit/L LAB CHEMISTRY METHOD 11/05/2024 10:41 AM [facility] Total Protein 5.0(L) 6.0 - 8.0 g/dL LAB CHEMISTRY METHOD 11/05/2024 10:41 AM [facility] Albumin 1.9(L) 3.2 - 5.0 g/dL LAB CHEMISTRY METHOD 11/05/2024 10:41 AM [facility] Total Bilirubin 0.4 0.0 - 1.4 mg/dL LAB CHEMISTRY METHOD 11/05/2024 10:41 AM EST [facility] Blood Venous blood specimen / Unknown Venipuncture / Unknown 11/05/2024 5:14 AM EST 11/05/2024 8:56 AM EST Alvaro Rojas MD LAB BLOOD ORDERABLES [facility] [address] [place] [address], from Last 3 Months Care Teams Blood Bank Technologist Relationship Specialty Start Date End Date Gayathri Cannon MD [address] [place] [address] PCP - General 01/04/15
--- OUTSIDE RECORDS SUMMARY | 2024-11-24 14:12 | XMS_ITS | Encounter Summary ---
Author Organization [facility] Address [address] [place] [phone] Care Team Providers Care Automotive Glazier Name Role Phone Gayathri Cannon MD Primary Care Provider [phone] Encounter Details Date Type Department Care Team (Late st Contact Info) Description 11/10/2024 Lab Requisition [facility] - Main Lab [address] [facility] [place] [place] [address] Alvaro Rojas MD [address] [place] [address] Unspecified atrial fibrillation (CMS/HCC) Social History Tobacco [...] LAB COAGULATION METHOD 11/10/2024 10:49 AM EST [facility] INR 1.5 LAB COAGULATION METHOD 11/10/2024 10:49 AM EST [facility] Blood Venous blood specimen / Unknown Venipuncture / Unknown 11/10/2024 7:42 AM EST 11/10/2024 9:15 AM EST Alvaro Rojas MD LAB BLOOD ORDERABLES [facility] [address] [place] [address], documented in this encounter Visit Diagnoses Diagnosis Unspecified atrial fibrillation (CMS/HCC) documented in this encounter Care Teams Automotive Glazier Relationship Specialty Start Date End Date Gayathri Cannon MD [address] [place] [id number] PCP - General 01/04/15 documented as of this encounter
--- OUTSIDE RECORDS SUMMARY | 2024-11-24 14:12 | XMS_ITS | Encounter Summary ---
Author Organization [facility] Address [address] [place] [phone] Care Team Providers Care Construction Job Titles Name Role Phone Gayathri Cannon MD Primary Care Provider [phone] Encounter Details Date Type Department Care Team (Late st Contact Info) Description 11/09/2024 Lab Requisition [facility] - Main Lab 299 [facility] [place] [address] Alvaro Rojas MD [address] [place] [address] Chronic kidney disease, stage 3 unspecified (CMS/HCC); [...] mg/dL LAB CHEMISTRY METHOD 11/09/2024 3:00 PM [facility] LAB Blood Venous blood specimen / Unknown Venipuncture / Unknown 11/09/2024 5:47 AM EST 11/09/2024 12:00 PM EST Alvaro Rojas MD LAB BLOOD ORDERABLES [facility] [address] [place] [address], * (ABNORMAL) Basic metabolic panel (11/09/2024 5:47 AM EST) Sodium 135 133 - 145 mmol/L LAB CHEMISTRY METHOD 11/09/2024 3:00 PM [facility] Potassium 3.8 3.5 - 5.5 mmol/L LAB CHEMISTRY METHOD 11/09/2024 3:00 PM [facility] Chloride 101 96 - 110 mmol/L LAB CHEMISTRY METHOD 11/09/2024 3:00 PM [facility] LAB CO2 25 21 - 32 mmol/L LAB CHEMISTRY METHOD 11/09/2024 3:00 PM [facility] LAB Anion Gap 9 3 - 11 LAB CHEMISTRY METHOD 11/09/2024 3:00 PM [facility] LAB Glucose 106(H) 70 - 100 mg/dL LAB CHEMISTRY METHOD 11/09/2024 3:00 PM [facility] BUN 9 5 - 25 mg/dL LAB CHEMISTRY METHOD 11/09/2024 3:00 PM [facility] Creatinine 0.92 0.50 - 1.10 mg/dL LAB CHEMISTRY METHOD 11/09/2024 3:00 PM [facility] LAB eGFR 65 >=60 mL/min/1. 73m2 LAB CHEMISTRY METHOD 11/09/2024 3:00 PM [facility] Comment:Calculation based on the??Chronic Kidney Disease Epidemiology Collaboration (CKD-EPI) equation refit??without adjustment for race. BUN/Creatinine Ratio 9.8 LAB CHEMISTRY METHOD 11/09/2024 3:00 PM [facility] Calcium 8.5 8.5 - 10.5 mg/dL LAB CHEMISTRY METHOD 11/09/2024 3:00 PM [facility] Blood Venous blood specimen / Unknown Venipuncture / Unknown 11/09/2024 5:47 AM EST 11/09/2024 12:00 PM EST Alvaro Rojas MD LAB BLOOD ORDERABLES [facility] [address] [place] [address], * (ABNORMAL) Complete blood count (11/09/2024 5:47 AM EST) WBC 9.2 4.8 - 10.8 K/mcL LAB HEMETOLOGY METHOD 11/09/2024 2:16 PM [facility] RBC 3.10(L) 3.80 - 4.80 M/mcL LAB HEMETOLOGY METHOD 11/09/2024 2:16 PM [facility] Hemoglobin 7.2(L) 11.5 - 16.0 g/dL LAB HEMETOLOGY METHOD 11/09/2024 2:16 PM EST [facility] Hematocrit 24.1(L) 35.0 - 47.0 % LAB HEMETOLOGY METHOD 11/09/2024 2:16 PM [facility] LAB MCV 78.0(L) 79.0 - 98.0 FL LAB HEMETOLOGY METHOD 11/09/2024 2:16 PM [facility] LAB MCH 23.3(L) 27.0 - 32.0 pcg LAB HEMETOLOGY METHOD 11/09/2024 2:16 PM EST [facility] MCHC 29.9(L) 32.0 - 37.0 g/dL LAB HEMETOLOGY METHOD 11/09/2024 2:16 PM [facility] LAB RDW 25.2(H) 11.0 - 15.0 % LAB HEMETOLOGY METHOD 11/09/2024 2:16 PM [facility] LAB Platelets 552(H) 130 - 400 K/mcL LAB HEMETOLOGY METHOD 11/09/2024 2:16 PM EST [facility] MPV 9.3 7.0 - 11.0 FL LAB HEMETOLOGY METHOD 11/09/2024 2:16 PM [facility] LAB NRBC 0.0 <1.0 % LAB HEMETOLOGY METHOD 11/09/2024 2:16 PM EST [facility] NRBC Absolute 0.00 <0.10 K/mcL LAB HEMETOLOGY METHOD 11/09/2024 2:16 PM [facility] LAB Blood Venous blood specimen / Unknown Venipuncture / Unknown 11/09/2024 5:47 AM EST 11/09/2024 12:00 PM EST Alvaro Rojas MD LAB BLOOD ORDERABLES [facility] [address] [place] [address], documented in this encounter Visit Diagnoses Diagnosis Chronic kidney disease, stage 3 unspecified (CMS/HCC) Chronic diastolic (congestive) heart failure (CMS/HCC) Essential (primary) hypertension Unspecified essential hypertension Longstanding persistent atrial fibrillation (CMS/HCC) Type 2 diabetes mellitus without complications (CMS/HCC) documented in this encounter Care Teams Construction Job Titles Relationship Specialty Start Date End Date Gayathri Cannon MD [address] [place] [address] PCP - General 01/04/15 documented as of this encounter
--- OUTSIDE RECORDS SUMMARY | 2024-11-24 14:12 | XMS_ITS | Encounter Summary ---
Author Organization [facility] Address [address] [place] [phone] Care Team Providers Care Hardwood Floor Refinisher Name Role Phone Gayathri Cannon MD Primary Care Provider [phone] Encounter Details Date Type Department Care Team (Late st Contact Info) Description 11/20/2024 Lab Requisition [facility] - Main Lab 299 [facility] [place] [address] Alvaro Rojas MD [address] [place] [address] Unspecified atrial fibrillation (CMS/HCC); Chronic kidney disease, [...] (CMS/HCC) documented in this encounter Care Teams Hardwood Floor Refinisher Relationship Specialty Start Date End Date Gayathri Cannon MD [address] [place] [address] PCP - General 01/04/15 documented as of this encounter
--- OUTSIDE RECORDS SUMMARY | 2024-11-24 14:12 | XMS_ITS | Encounter Summary ---
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 documented in this encounter Results * (ABNORMAL) Prothrombin time with INR (11/06/2024 6:30 AM EST) Protime 36.3(H) 10.6 - 13.9 sec LAB COAGULATION METHOD 11/06/2024 10:45 AM EST [facility] INR 2.9 LAB COAGULATION METHOD 11/06/2024 10:45 AM EST [facility] LAB Blood Venous blood specimen / Unknown Venipuncture / Unknown 11/06/2024 6:30 AM EST 11/06/2024 9:56 AM EST Alvaro Rojas MD LAB BLOOD ORDERABLES [facility] ([facility] [address] [place] [address], documented in this encounter Visit Diagnoses Diagnosis penitentiary (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 Long-term (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 documented in this encounter Care Teams Caterpillar Driver Relationship Specialty Start Date End Date Gayathri Cannon MD [address] [place] [address] PCP - General 01/04/15 documented as of this encounter
--- OUTSIDE RECORDS SUMMARY | 2024-11-24 14:12 | XMS_ITS | Clinical Summary ---
Author Organization [facility] Address [address] [place] [phone] Phone Care Team Providers Care Glue Maker Bone Name Role Phone Gayathri Cannon MD Primary Care Provider [phone] Allergies No known active allergies Medications acetaminophen [...] Only [facility] [address] [phone] Jerry Rivera MD Renal disorder due to [...] PM EST) Hemoglobin A1C 7.6(H) (4-6) % [place] [address] Comment: HEMOGLOBIN A1C(%) ?? GLUCOSE CONTROL INDEX ?<6% ? EXCELLENT ?6-7% ?VERY GOOD ?7-8% ?GOOD ?8-10% ? FAIR ?>10% ?POOR Hemoglobin (Hb) A1c testing is performed by David Nilsa-quant immunoassay. Any cause of shortened erythrocyte survival will reduce exposure of erythrocytes to glucose with a consequent decrease in Hb A1c (%). Testing performed or reported by ~[facility], ~a Service of [facility], ~[address] [place] [id number]~ 12/11/2018 2:07 PM EST us John Spicer MD LAB BLOOD ORDERABLES Final Resul t Performing Organization Address City/State/[facility] Co de Phone Number [facility] from Last 3 Months or Most Recently Relevant to Health Maintenance Insurance [facility] [id number] Care Teams Glue Maker Bone Relationship Specialty Start Date End Date Gayathri Cannon MD [address] [place] [id number] PCP - General Internal Medicine 06/17/24
[2024-11-24 14:33] LABS: Prothrombin Time 131.5 SEC (10.9-12.4)
[2024-11-24 14:45] LABS: INTERNATIONAL NORM RATIO 11.2 (0.9-1.1)
== END 2024-11-24 13:31 | disposition home or self-care (01) ==
LOC: HO.HVNA 13:30
PROVIDERS: Visit Provider Internal Medicine
DX: Z79.01 Long term (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 (principal)
CPT/HCPCS: 36415; 85610

== ENCOUNTER 2024-11-29 18:53 | Outpatient (REF) | payer SELFPAY ==
[2024-11-29 19:15] LABS: Anion Gap 16 (12-20); Blood Urea Nitrogen 15 mg/dL (9-16); Calcium 8.7 mg/dL (8.4-10.2); Carbon Dioxide 25 mmol/L (22-29); Chloride 103 mmol/L (96-108); Estimated Glomerular Filt Rate 53; Glucose Random 116 mg/dL (60-115); Potassium 3.9 mmol/L (3.3-5.1); Sodium 140 mmol/L (135-145)
== END 2024-11-29 18:54 | disposition home or self-care (01) ==
LOC: HO.HVNA 18:53
PROVIDERS: Visit Provider Internal Medicine
DX: Z48.812 Encounter for surgical aftercare following surgery on the circulatory system (principal)
CPT/HCPCS: 36415; 80048

== ENCOUNTER 2025-03-08 15:03 | Outpatient (REF) | payer OTHER, SELFPAY ==
--- OUTSIDE RECORDS SUMMARY | 2025-03-08 15:07 | XMS_ITS | Encounter Summary ---
Author Organization [facility] Address [address] [place] [phone] Care Team Providers Care Top Lift Cutter Name Role Phone Gayathri Cannon MD Primary Care Provider [phone] Encounter Details Date Type Department Care Team (Late st Contact Info) Description 11/05/2024 Lab Requisition [facility] - Main Lab 299 [facility] [place] [address] Alvaro Rojas MD [address] [place], [place] [id number] Iron deficiency anemia, unspecified; Hyperlipidemia, unspecified; Gastro-esophageal reflux disease without esophagitis; Essential (primary) hypertension; Chronic kidney disease, stage 3 unspecified ([facility]/HCC V24, CMS/HCC V28); Type 2 diabetes mellitus without complications (CMS/HCC V24, CMS/HCC V28); Unspecified atrial fibrillation ([facility] V24, [facility] V28) Social History Tobacco Use Types Packs/Day Years Used Date Smoking Tobacco: Never Smokeless Tobacco: Never Alcohol Use Standard Drinks/Week Comments Yes 0 (1 standard drink = 0.6 oz pur e alcohol) Comments Unknown Sex and Gender Information Value Date Recorded Sex Assigned at Not on file Legal Sex Female 5:41 PM EST Gender Identity Not on file Sexual Orientation Not on file documented as of this encounter Plan of Treatment Upcoming Encounters Date Type Department Care Team (Late st Contact Info) Description 03/24/2025 2:10 PM EDT Office Visit [facility] - [address] 300 [facility] [address] [place] [phone] Abby Link NP [address] [place] [address] documented as of this encounter Procedures Procedure [...] LAB CHEMISTRY METHOD 11/05/2024 10:41 AM EST [facility] Folate 9.7 2.8 - 17.0 ng/ml LAB CHEMISTRY METHOD 11/05/2024 10:41 AM EST [facility] Blood Venous blood specimen / Unknown Venipuncture / Unknown 11/05/2024 5:14 AM EST 11/05/2024 8:56 AM EST us Alvaro Rojas MD LAB BLOOD ORDERABLES Final Resul t Performing Organization Address City/[facility]/ZIP Co de Phone Number [facility] [address] [place] [address], [place] [phone] * Thyroid stimulating hormone (11/05/2024 5:14 AM EST) Pathologist [facility] TSH 1.51 0.40 - 4.00 mcIU/mL LAB CHEMISTRY METHOD 11/05/2024 10:09 AM EST [facility] Blood Venous blood specimen / Unknown Venipuncture / Unknown 11/05/2024 5:14 AM EST 11/05/2024 8:56 AM EST us Alvaro Rojas MD LAB BLOOD ORDERABLES Final Resul t Performing Organization Address [facility] Co de Phone Number [facility] [address] [place] [address], [place] [phone] * (ABNORMAL) Comprehensive metabolic panel (11/05/2024 5:14 AM EST) [facility] Sodium 135 133 - 145 mmol/L LAB CHEMISTRY METHOD 11/05/2024 10:41 AM [facility] Potassium 3.9 3.5 - 5.5 mmol/L LAB CHEMISTRY METHOD 11/05/2024 10:41 AM [facility] Chloride 99 96 - 110 mmol/L LAB CHEMISTRY METHOD 11/05/2024 10:41 AM [facility] CO2 26 21 - 32 mmol/L LAB CHEMISTRY METHOD 11/05/2024 10:41 AM [facility] Anion Gap 10 3 - 11 LAB CHEMISTRY METHOD 11/05/2024 10:41 AM [facility] Glucose 121(H) 70 - 100 mg/dL LAB CHEMISTRY METHOD 11/05/2024 10:41 AM [facility] BUN 13 5 - 25 mg/dL LAB CHEMISTRY METHOD 11/05/2024 10:41 AM [facility] Creatinine 0.78 0.50 - 1.10 mg/dL LAB CHEMISTRY METHOD 11/05/2024 10:41 AM [facility] eGFR 79 >=60 mL/min/1. 73m2 LAB CHEMISTRY METHOD 11/05/2024 10:41 AM [facility] Comment:Calculation based on the??Chronic Kidney Disease Epidemiology Collaboration (CKD-EPI) equation refit??without adjustment for race. BUN/Creatinine Ratio 16.7 LAB CHEMISTRY METHOD 11/05/2024 10:41 AM [facility] Calcium 8.1(L) 8.5 - 10.5 mg/dL LAB CHEMISTRY METHOD 11/05/2024 10:41 AM [facility] AST (SGOT) 19 10 - 42 unit/L LAB CHEMISTRY METHOD 11/05/2024 10:41 AM [facility] ALT (SGPT) 16 10 - 60 unit/L LAB CHEMISTRY METHOD 11/05/2024 10:41 AM [facility] Alkaline Phosphatase 90 42 - 121 unit/L LAB CHEMISTRY METHOD 11/05/2024 10:41 AM [facility] Total Protein 5.0(L) 6.0 - 8.0 g/dL LAB CHEMISTRY METHOD 11/05/2024 10:41 AM [facility] Albumin 1.9(L) 3.2 - 5.0 g/dL LAB CHEMISTRY METHOD 11/05/2024 10:41 AM [facility] Total Bilirubin 0.4 0.0 - 1.4 mg/dL LAB CHEMISTRY METHOD 11/05/2024 10:41 AM [facility] Blood Venous blood specimen / Unknown Venipuncture / Unknown 11/05/2024 5:14 AM EST 11/05/2024 8:56 AM EST us Fahim A Crystal MD LAB BLOOD ORDERABLES Final Resul t [facility] [address] [place] [address], * (ABNORMAL) Complete blood count (11/05/2024 5:14 AM EST) WBC 10.6 4.8 - 10.8 K/mcL LAB HEMETOLOGY METHOD 11/05/2024 10:04 AM [facility] RBC 3.20(L) 3.80 - 4.80 M/mcL LAB HEMETOLOGY METHOD 11/05/2024 10:04 AM [facility] Hemoglobin 7.2(L) 11.5 - 16.0 g/dL LAB HEMETOLOGY METHOD 11/05/2024 10:04 AM [facility] Hematocrit 24.1(L) 35.0 - 47.0 % LAB HEMETOLOGY METHOD 11/05/2024 10:04 AM [facility] MCV 75.3(L) 79.0 - 98.0 FL LAB HEMETOLOGY METHOD 11/05/2024 10:04 AM [facility] MCH 22.5(L) 27.0 - 32.0 pcg LAB HEMETOLOGY METHOD 11/05/2024 10:04 AM [facility] MCHC 29.9(L) 32.0 - 37.0 g/dL LAB HEMETOLOGY METHOD 11/05/2024 10:04 AM [facility] RDW 24.6(H) 11.0 - 15.0 % LAB HEMETOLOGY METHOD 11/05/2024 10:04 AM [facility] Platelets 411(H) 130 - 400 K/mcL LAB HEMETOLOGY METHOD 11/05/2024 10:04 AM [facility] MPV 9.9 7.0 - 11.0 FL LAB HEMETOLOGY METHOD 11/05/2024 10:04 AM EST [facility] NRBC 0.3 <1.0 % LAB HEMETOLOGY METHOD 11/05/2024 10:04 AM EST [facility] NRBC Absolute 0.03 <0.10 K/mcL LAB HEMETOLOGY METHOD 11/05/2024 10:04 AM EST [facility] Blood Venous blood specimen / Unknown Venipuncture / Unknown 11/05/2024 5:14 AM EST 11/05/2024 8:56 AM EST Alvaro Rojas MD LAB BLOOD ORDERABLES Final Resul t [facility] [address] [place] [address], documented in this encounter Visit Diagnoses Diagnosis Iron deficiency anemia, unspecified Hyperlipidemia, unspecified Gastro-esophageal reflux disease without esophagitis Essential (primary) hypertension Unspecified essential hypertension Chronic kidney disease, stage 3 unspecified (CMS/HCC V24, CMS/HCC V28) Type 2 diabetes mellitus without complications (CMS/HCC V24, CMS/HCC V28) Unspecified atrial fibrillation ([facility]/HCC V24, [facility]/HCC V28) documented in this encounter Care Teams Top Lift Cutter Relationship Specialty Start Date End Date Gayathri Cannon MD PCP - General 01/04/15 documented as of this encounter
--- OUTSIDE RECORDS SUMMARY | 2025-03-08 15:07 | XMS_ITS | Encounter Summary ---
Author Organization [facility] Address [address] [place] [phone] Care Team Providers Care Mental Health Tech Name Role Phone Gayathri Cannon MD Primary Care Provider [phone] Encounter Details Date Type Department Care Team (Late st Contact Info) Description 12/21/2024 Lab Requisition [facility] - Main Lab 299 [facility] [place] [address] Avlaro Rojas MD [address] [place] [address] 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; FCI (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 Social History Tobacco [...] Description 03/24/2025 2:10 PM EDT Office Visit [facility] - [facility] [address] [facility] [address] [place] [phone] Abby Link NP [address] [place] [address] documented as of this encounter Procedures Procedure Name Priority Date/Time Associated Diagnosis Comments PROTHROMBIN TIME WITH INR Routine 12/21/2024 7:40 AM EST 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 COMPLETE BLOOD COUNT Routine 12/21/2024 7:40 AM EST 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 [facility]CI (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 MAGNESIUM Routine 12/21/2024 7:40 AM EST 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 BASIC METABOLIC PANEL Routine 12/21/2024 7:40 AM EST 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 documented in this encounter Results * (ABNORMAL) Magnesium (12/21/2024 7:40 AM EST) Magnesium 1.7(L) 1.9 - 2.6 mg/dL LAB CHEMISTRY METHOD 12/21/2024 12:16 PM [facility] Blood Venous blood specimen / Unknown Venipuncture / Unknown 12/21/2024 7:40 AM EST 12/21/2024 11:19 AM EST Alvaro Rojas MD LAB BLOOD ORDERABLES Final Resul t [facility] [address] [place] [address], * (ABNORMAL) Basic metabolic panel (12/21/2024 7:40 AM EST) Sodium 136 133 - 145 mmol/L LAB CHEMISTRY METHOD 12/21/2024 12:16 PM [facility] Potassium 3.8 3.5 - 5.5 mmol/L LAB CHEMISTRY METHOD 12/21/2024 12:16 PM [facility] Chloride 100 96 - 110 mmol/L LAB CHEMISTRY METHOD 12/21/2024 12:16 PM [facility] CO2 28 21 - 32 mmol/L LAB CHEMISTRY METHOD 12/21/2024 12:16 PM [facility] Anion Gap 8 3 - 11 LAB CHEMISTRY METHOD 12/21/2024 12:16 PM EST [facility] Glucose 109(H) 70 - 100 mg/dL LAB CHEMISTRY METHOD 12/21/2024 12:16 PM EST [facility] BUN 14 5 - 25 mg/dL LAB CHEMISTRY METHOD 12/21/2024 12:16 PM [facility] Creatinine 0.72 0.50 - 1.10 mg/dL LAB CHEMISTRY METHOD 12/21/2024 12:16 PM EST [facility] eGFR 87 >=60 mL/min/1. 73m2 LAB CHEMISTRY METHOD 12/21/2024 12:16 PM EST [facility] Comment:Calculation based on the??Chronic Kidney Disease Epidemiology Collaboration (CKD-EPI) equation refit??without adjustment for race. BUN/Creatinine Ratio 19.4 LAB CHEMISTRY METHOD 12/21/2024 12:16 PM [facility] Calcium 8.3(L) 8.5 - 10.5 mg/dL LAB CHEMISTRY METHOD 12/21/2024 12:16 PM EST [facility] Blood Venous blood specimen / Unknown Venipuncture / Unknown 12/21/2024 7:40 AM EST 12/21/2024 11:19 AM EST us Alvaro Rojas MD LAB BLOOD ORDERABLES Final Resul t [facility] [address] [place] [address], * (ABNORMAL) Prothrombin time with INR (12/21/2024 7:40 AM EST) Protime 36.4(H) 10.6 - 13.9 sec LAB COAGULATION METHOD 12/21/2024 11:47 AM EST [facility] INR 3.0 LAB COAGULATION METHOD 12/21/2024 11:47 AM EST [facility] Blood Venous blood specimen / Unknown Venipuncture / Unknown 12/21/2024 7:40 AM EST 12/21/2024 11:19 AM EST us Alvrao Rojas MD LAB BLOOD ORDERABLES Final Resul t [facility] [address] [place] [address], [place] [phone] * (ABNORMAL) Complete blood count (12/21/2024 7:40 AM EST) WBC 10.0 4.8 - 10.8 K/mcL LAB HEMETOLOGY METHOD 12/21/2024 12:44 PM [facility] RBC 3.00(L) 3.80 - 4.80 M/mcL LAB HEMETOLOGY METHOD 12/21/2024 12:44 PM [facility] Hemoglobin 7.0(L) 11.5 - 16.0 g/dL LAB HEMETOLOGY METHOD 12/21/2024 12:44 PM [facility] Hematocrit 23.5(L) 35.0 - 47.0 % LAB HEMETOLOGY METHOD 12/21/2024 12:44 PM [facility] MCV 77.8(L) 79.0 - 98.0 FL LAB HEMETOLOGY METHOD 12/21/2024 12:44 PM [facility] MCH 23.2(L) 27.0 - 32.0 pcg LAB HEMETOLOGY METHOD 12/21/2024 12:44 PM [facility] MCHC 29.8(L) 32.0 - 37.0 g/dL LAB HEMETOLOGY METHOD 12/21/2024 12:44 PM [facility] RDW 23.3(H) 11.0 - 15.0 % LAB HEMETOLOGY METHOD 12/21/2024 12:44 PM [facility] Platelets 463(H) 130 - 400 K/mcL LAB HEMETOLOGY METHOD 12/21/2024 12:44 PM [facility] MPV 9.7 7.0 - 11.0 FL LAB HEMETOLOGY METHOD 12/21/2024 12:44 PM EST [facility] NRBC 0.2 <1.0 % LAB HEMETOLOG METHOD 12/21/2024 12:44 PM EST [facility] NRBC Absolute 0.02 <0.10 K/mcL LAB HEMETOLOGY METHOD 12/21/2024 12:44 PM EST [facility] Blood Venous blood specimen / Unknown Venipuncture / Unknown 12/21/2024 7:40 AM EST 12/21/2024 11:19 AM EST Alvaro Rojas MD LAB BLOOD ORDERABLES Final Resul t [facility] [address] [place] [address], documented in this encounter Visit Diagnoses Diagnosis 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
--- OUTSIDE RECORDS SUMMARY | 2025-03-08 15:07 | XMS_ITS | Encounter Summary ---
Author Organization [facility] Address [address] [place] [phone] Care Team Providers Care Manager Resort Name Role Phone Gayathri Canonn MD Primary Care Provider [phone] Encounter Details Date Type Department Care Team (Late st Contact Info) Description 11/18/2024 Lab Requisition [facility] - Main Lab 299 [facility] [place] [address] Alvaro Rojas MD [address] [place] [address] Unspecified atrial fibrillation (CMS/HCC V24, CMS/HCC V28) Social History Tobacco Use Types Packs/Day [...] Description 03/24/2025 2:10 PM EDT Office Visit [facility] - [address] 300 [facility] [address] [place] [address] Abby Link NP [address] [place] [address] documented as of this encounter Procedures Procedure Name Priority Date/Time Associated Diagnosis Comments PROTHROMBIN TIME WITH INR Routine 11/19/2024 5:14 AM EST Unspecified atrial fibrillation (CMS/HCC) documented in this encounter Results * (ABNORMAL) Prothrombin time with INR (11/19/2024 5:14 AM EST) Protime 36.4(H) 10.6 - 13.9 sec LAB COAGULATION METHOD 11/19/2024 11:03 AM EST [facility] INR 3.0 LAB COAGULATION METHOD 11/19/2024 11:03 AM EST [facility] Blood Venous blood specimen / Unknown Venipuncture / Unknown 11/19/2024 5:14 AM EST 11/19/2024 10:08 AM EST us Alvaro Rojas MD LAB BLOOD ORDERABLES Final Resul t [facility] [address] [place] [address], documented in this encounter Visit Diagnoses Diagnosis Unspecified atrial fibrillation (CMS/HCC V24, CMS/HCC V28) documented in this encounter Care Teams Manager Resort Relationship Specialty Start Date End Date Gayathri Cannon MD PCP - General 01/04/15 documented as of this encounter
--- OUTSIDE RECORDS SUMMARY | 2025-03-08 15:07 | XMS_ITS | Encounter Summary ---
Author Organization [facility] Address [address] [place] [phone] Care Team Providers Care Technical Clerk Name Role Phone Gayathri Cannon MD Primary Care Provider [phone] Encounter Details Date Type Department Care Team (Late st Contact Info) Description 12/22/2024 Lab Requisition [facility] - Main Lab 299 [facility] [place] [address] Alvaro Rojas MD [address] [place] [address] Unspecified atrial fibrillation (CMS/HCC V24, CMS/HCC V28) [...] Description 03/24/2025 2:10 PM EDT Office Visit [facility] - [facility] [address] [facility] [address] [place] [phone] Abby Link NP [address] [place] [address] documented as of this encounter Visit Diagnoses Diagnosis Unspecified atrial fibrillation (CMS/HCC V24, CMS/HCC V28) documented in this encounter Care Teams Technical Clerk Relationship Specialty Start Date End Date Gayathri Cannon MD PCP - General 01/04/15 documented as of this encounter
--- OUTSIDE RECORDS SUMMARY | 2025-03-08 15:07 | XMS_ITS | Encounter Summary ---
Author Organization [facility] Address [address] [place] [phone] Care Team Providers Care Air Hammer Stripper Name Role Phone Gayathri Cannon MD Primary Care Provider [phone] Encounter Details Date Type Department Care Team (Late st Contact Info) Description 11/10/2024 Lab Requisition [facility] - Main Lab 299 [facility] [place] [address] Alvaro Rojas MD [address] [place] [address] Unspecified atrial fibrillation (CMS/HCC V24, CMS/HCC V28) [...] Description 03/24/2025 2:10 PM EDT Office Visit [facility] - [address] [facility] [address] [place] [address] Abby Link NP [address] [place] [address] documented as of this encounter Procedures Procedure Name Priority Date/Time Associated Diagnosis Comments PROTHROMBIN TIME WITH INR Routine 11/10/2024 7:42 AM EST Unspecified atrial fibrillation (CMS/HCC) documented in this encounter Results * (ABNORMAL) Prothrombin time with INR (11/10/2024 7:42 AM EST) Protime 19.1(H) 10.6 - 13.9 sec LAB COAGULATION METHOD 11/10/2024 10:49 AM EST [facility] INR 1.5 LAB COAGULATION METHOD 11/10/2024 10:49 AM EST [facility] Blood Venous blood specimen / Unknown Venipuncture / Unknown 11/10/2024 7:42 AM EST 11/10/2024 9:15 AM EST us Alvaro Rojas MD LAB BLOOD ORDERABLES Final Resul t [facility] [address] [place] [address], documented in this encounter Visit Diagnoses Diagnosis Unspecified atrial fibrillation (CMS/HCC V24, CMS/HCC V28) documented in this encounter Care Teams Air Hammer Stripper Relationship Specialty Start Date End Date Gayathri Cannon MD PCP - General 01/04/15 documented as of this encounter
--- OUTSIDE RECORDS SUMMARY | 2025-03-08 15:07 | XMS_ITS | Clinical Summary ---
Author Organization [address] Address [address] [place] [phone] Phone Care Team Providers Care Project Engineering Manager Name Role Phone Gayathri Cannon MD Primary Care Provider [phone] Encounters Date Type Department Care Team Description 03/02/2025 Telephone [facility] - [address] [place] [address] Melony Madrid NP Hospital Follow-up 01/17/2025 Lab Requisition [facility] [address] [place] [phone] Alvaro Rojas MD Unspecified atrial fibrillation (CMS/HCC V24, CMS/HCC V28); 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; 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 01/13/2025 Lab Requisition [facility] [address] [place] [phone] Alvaro Rojas MD Unspecified atrial fibrillation (CMS/HCC V24, CMS/HCC V28) 01/10/2025 Lab Requisition [facility] [address] [place] [phone] Alvaro Rojas MD Unspecified atrial fibrillation (CMS/HCC V24, CMS/HCC V28); 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; 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 01/10/2025 Lab Requisition [facility] [address] [place] [phone] Alvaro Rojas MD Unspecified atrial fibrillation (CMS/HCC V24, CMS/HCC V28); 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; 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 01/06/2025 Lab Requisition [facility] [address] [place] [phone] Alvaro Rojas MD Unspecified atrial fibrillation ([facility] V24, [facility] V28) 01/01/2025 Lab Requisition [facility] [address] [place] [phone] Alvaro Rojas MD Unspecified atrial fibrillation ([facility] V24, CMS/[facility] V28); 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; 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 12/30/2024 Lab Requisition [facility] [address] [place] [phone] Alvaro Rojas MD Unspecified atrial fibrillation ([facility]/HCC V24, CMS/[facility] V28) 12/29/2024 Lab Requisition [facility] [address] [place] [phone] Alvaro Rojas MD Unspecified atrial fibrillation ([facility] V24, [facility] V28) 12/27/2024 Lab Requisition [facility] [address] [place] [phone] Alvaro Rojas MD 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; 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; Unspecified atrial fibrillation ([facility] V24, [facility] V28) 12/23/2024 Lab Requisition [facility] [address] [place] [phone] Alvaro Rojas MD Essential (primary) hypertension; 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 12/23/2024 Lab Requisition [facility] [address] [place] [phone] 12/22/2024 Lab Requisition [facility] [address] [place] [phone] Alvaro Rojas MD Unspecified atrial fibrillation ([facility] V24, [facility] V28) 12/21/2024 Lab Requisition [facility] [address] [place] [phone] Alvaro Rojas MD 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; 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 12/20/2024 Lab Requisition [facility] [address] [place] [phone] Alvaro Rojas MD Unspecified atrial fibrillation ([facility] V24, [facility] V28) 12/19/2024 Lab Requisition [facility] [address] [place] [phone] Jere Pollack PA Unspecified atrial fibrillation ([facility] V24, [facility] V28) 12/18/2024 Lab Requisition [facility] [address] [place] [phone] Alvaro Rojas MD Type 2 diabetes mellitus without complications ([facility] V24, [facility] V28); Heart failure, unspecified ([facility] V24, [facility] V28) from Last 3 Months Social History Tobacco [...] 03/24/2024 11:29 AM EDT Plan of Treatment Upcoming Encounters Date Type Department Care Team (Late st Contact Info) Description 03/24/2025 2:10 PM EDT Office Visit [facility] - [facility] [address] [facility] [address] [place] [address] Abby Link NP [address] [place] [address] Health Maintenance Due Date Last Done Comments Diabetes: Annual Foot Exam 1960 Diabetes: Annual Retina Eye Exam 1960 Zoster Vaccines (2 of 3) 11/30/2016 10/05/2016 Cholesterol Screening (Lipid Panel) 09/22/2022 Depression Screening 09/22/2022 Falls Risk Assessment 09/22/2022 Hepatitis C Screening 09/22/2022 Medicare Annual Wellness Visit 09/22/2022 Osteoporosis Screening (Bone Density Screening) 09/22/2022 Social Influencers of Health Screening 09/22/2022 RSV Immunization Adult Patients (1 - 1-dose 75+ series) 2024 COVID-19 Vaccine ( season) 2024 09/12/2021, 02/27/2021, 02/06/2021 Diabetes: Blood Sugar Control Test (HGBA1C) 11/05/2024 12/11/2018 Influenza Vaccine (Season Ended) 2025 08/15/2021, 07/22/2020, 12/08/2019, Additional history exists Diabetes: Annual Urine Albumin-Creatinine Ratio (uACR) 08/19/2025 08/19/2024 Diabetes: Annual GFR (Glomerular Filtration Rate) 01/11/2026 01/11/2025, 01/04/2025, 12/28/2024, Additional history exists Hypertension/CHF/CAD Annual BMP Blood Test 01/11/2026 01/11/2025, 01/04/2025, 12/28/2024, Additional history exists Colorectal Cancer Screening: FIT-DNA (Cologuard) 08/06/2026 08/06/2023, 08/06/2023 DTaP,Tdap,and Td Vaccines (2 - Td or Tdap) 08/30/2027 08/30/2017 Pneumococcal Vaccine: 50+ Years Completed 03/06/2016, 11/25/2014 HIB Vaccines Aged [...] patient's age to complete this topic Meningococcal B Vaccine Aged Out No l onger eligible based on patient's age to complete this topic RSV Immunization Patients Under 20 months Aged Out No longer eligible based on patient's age to complete this topic Varicella Vaccines Aged Out No longer eligible based on patient's age to complete this topic Procedures Procedure Name Priority Date/Time Associated Diagnosis Comments PROTHROMBIN TIME WITH INR Routine 01/14/2025 9:58 AM EDT Unspecified atrial fibrillation (CMS/HCC) CBC WITH AUTO DIFFERENTIAL Routine 01/11/2025 6:57 AM EDT Unspecified atrial fibrillation (CMS/HCC) 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 BASIC METABOLIC PANEL Routine 01/11/2025 6:57 AM EDT Unspecified atrial fibrillation (CMS/HCC) 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 CBC AND DIFFERENTIAL Routine 01/11/2025 6:57 AM EDT Unspecified atrial fibrillation (CMS/HCC) 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 PROTHROMBIN TIME WITH INR Routine 01/11/2025 6:57 AM EDT Unspecified atrial fibrillation (CMS/HCC) 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 PROTHROMBIN TIME WITH INR Routine 01/07/2025 6:18 AM EDT Unspecified atrial fibrillation (CMS/HCC) BASIC METABOLIC PANEL Routine 01/04/2025 7:46 AM EDT Unspecified atrial fibrillation (CMS/HCC) 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 COMPLETE BLOOD COUNT Routine 01/04/2025 7:46 AM EDT Unspecified atrial fibrillation (CMS/HCC) 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 PROTHROMBIN TIME WITH INR Routine 01/04/2025 7:46 AM EDT Unspecified atrial fibrillation (CMS/HCC) 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 PROTHROMBIN TIME WITH INR Routine 12/31/2024 6:37 AM EDT Unspecified atrial fibrillation (CMS/HCC) PROTHROMBIN TIME WITH INR Routine 12/29/2024 5:49 AM EDT Unspecified atrial fibrillation (CMS/HCC) PROTHROMBIN TIME WITH INR Routine 12/28/2024 7:34 AM EDT 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 Unspecified atrial fibrillation (CMS/HCC) BASIC METABOLIC PANEL Routine 12/28/2024 7:34 AM EDT 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 Unspecified atrial fibrillation (CMS/HCC) COMPLETE BLOOD COUNT Routine 12/28/2024 7:34 AM EDT 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 Unspecified atrial fibrillation (CMS/HCC) PROTHROMBIN TIME WITH INR Routine 12/24/2024 6:27 AM EST Essential (primary) hypertension 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 COMPLETE BLOOD COUNT Routine 12/24/2024 6:27 AM EST Essential (primary) hypertension 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 MAGNESIUM Routine 12/21/2024 7:40 AM EST 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 BASIC METABOLIC PANEL Routine 12/21/2024 7:40 AM EST 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 PROTHROMBIN TIME WITH INR Routine 12/21/2024 7:40 AM EST 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 COMPLETE BLOOD COUNT Routine 12/21/2024 7:40 AM EST 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 PROTHROMBIN TIME WITH INR Routine 12/20/2024 7:41 AM EST Unspecified atrial fibrillation (CMS/HCC) PROTHROMBIN TIME WITH INR Routine 12/19/2024 9:35 AM EST Unspecified atrial fibrillation (CMS/HCC) PROTHROMBIN TIME WITH INR Routine 12/18/2024 8:37 AM EST Type 2 diabetes mellitus without complications (CMS/HCC) Heart failure, unspecified (CMS/HCC) COMPREHENSIVE METABOLIC PANEL Routine 12/18/2024 8:37 AM EST Type 2 diabetes mellitus without complications (CMS/HCC) Heart failure, unspecified (CMS/HCC) COMPLETE BLOOD COUNT Routine 12/18/2024 8:37 AM EST Type 2 diabetes mellitus without complications (CMS/HCC) Heart failure, unspecified (CMS/HCC) from Last 3 Months Results * (ABNORMAL) Prothrombin time with INR (01/14/2025 9:58 AM EDT) Only the most recent of12 resultswithin the time period is included. Protime 15.5(H) 10.6 - 13.9 sec LAB COAGULATION METHOD 01/14/2025 11:10 AM EDT [facility] INR 1.2 LAB COAGULATION METHOD 01/14/2025 11:10 AM EDT [facility] Blood Venous blood specimen / Unknown Venipuncture / Unknown 01/14/2025 9:58 AM EDT 01/14/2025 10:58 AM EDT Alvaro Rojas MD LAB BLOOD ORDERABLES Final Resul t [facility] [address] [place] [address], * (ABNORMAL) CBC auto differential (01/11/2025 6:57 AM EDT) WBC 4.6(L) 4.8 - 10.8 K/mcL LAB HEMETOLOGY METHOD 01/11/2025 11:51 AM EDT [facility] RBC 3.30(L) 3.80 - 4.80 M/mcL LAB HEMETOLOGY METHOD 01/11/2025 11:51 AM [facility] Hemoglobin 8.2(L) 11.5 - 16.0 g/dL LAB HEMETOLOGY METHOD 01/11/2025 11:51 AM [facility] Hematocrit 26.5(L) 35.0 - 47.0 % LAB HEMETOLOGY METHOD 01/11/2025 11:51 AM [facility] MCV 79.3 79.0 - 98.0 FL LAB HEMETOLOGY METHOD 01/11/2025 11:51 AM [facility] MCH 24.6(L) 27.0 - 32.0 pcg LAB HEMETOLOGY METHOD 01/11/2025 11:51 AM [facility] MCHC 30.9(L) 32.0 - 37.0 g/dL LAB HEMETOLOGY METHOD 01/11/2025 11:51 AM [facility] RDW 23.6(H) 11.0 - 15.0 % LAB HEMETOLOGY METHOD 01/11/2025 11:51 AM [facility] Platelets 399 130 - 400 K/mcL LAB HEMETOLOGY METHOD 01/11/2025 11:51 AM [facility] MPV 9.5 7.0 - 11.0 FL LAB HEMETOLOGY METHOD 01/11/2025 11:51 AM [facility] NRBC 0.0 <1.0 % LAB HEMETOLOGY METHOD 01/11/2025 11:51 AM [facility] NRBC Absolute 0.00 <0.10 K/mcL LAB HEMETOLOGY METHOD 01/11/2025 11:51 AM [facility] Neutrophils Relative 55.3 % LAB HEMETOLOGY METHOD 01/11/2025 11:51 AM [facility] Lymphocytes Relative 29.4 % LAB HEMETOLOGY METHOD 01/11/2025 11:51 AM [facility] Monocytes Relative 12.1 % LAB HEMETOLOGY METHOD 01/11/2025 11:51 AM [facility] Eosinophils Relative 2.4 % LAB HEMETOLOGY METHOD 01/11/2025 11:51 AM [facility] Basophils Relative 0.6 % LAB HEMETOLOGY METHOD 01/11/2025 11:51 AM [facility] Immature Granulocytes Relative 0.2 % LAB HEMETOLOGY METHOD 01/11/2025 11:51 AM [facility] Neutrophils Absolute 2.56 1.50 - 7.00 K/mcL LAB HEMETOLOGY METHOD 01/11/2025 11:51 AM [facility] Lymphocytes Absolute 1.36 1.00 - 5.00 K/mcL LAB HEMETOLOGY METHOD 01/11/2025 11:51 AM [facility] Monocytes Absolute 0.56 0.20 - 1.00 K/mcL LAB HEMETOLOGY METHOD 01/11/2025 11:51 AM [facility] Eosinophils Absolute 0.11 0.00 - 0.50 K/mcL LAB HEMETOLOGY METHOD 01/11/2025 11:51 AM [facility] Basophils Absolute 0.03 0.00 - 0.20 K/mcL LAB HEMETOLOGY METHOD 01/11/2025 11:51 AM EDT [facility] Immature Granulocytes Absolute 0.01 0.00 - 0.03 K/[facility] LAB HEMETOLOGY METHOD 01/11/2025 11:51 AM EDT [facility] Blood Venous blood specimen / Unknown Venipuncture / Unknown 01/11/2025 6:57 AM EDT 01/11/2025 10:41 AM EDT us Alvaro Rojas MD LAB BLOOD ORDERABLES Final Resul t [facility] [address] [place] [address], [place] [phone] * (ABNORMAL) Basic metabolic panel (01/11/2025 6:57 AM EDT) Only the most recent of4 resultswithin the time period is included. Sodium 138 133 - 145 mmol/L LAB CHEMISTRY METHOD 01/11/2025 12:13 PM [facility] Potassium 3.6 3.5 - 5.5 mmol/L LAB CHEMISTRY METHOD 01/11/2025 12:13 PM [facility] Chloride 103 96 - 110 mmol/L LAB CHEMISTRY METHOD 01/11/2025 12:13 PM [facility] CO2 27 21 - 32 mmol/L LAB CHEMISTRY METHOD 01/11/2025 12:13 PM [facility] Anion Gap 8 3 - 11 LAB CHEMISTRY METHOD 01/11/2025 12:13 PM [facility] Glucose 90 70 - 100 mg/dL LAB CHEMISTRY METHOD 01/11/2025 12:13 PM [facility] BUN 9 5 - 25 mg/dL LAB CHEMISTRY METHOD 01/11/2025 12:13 PM [facility] Creatinine 0.69 0.50 - 1.10 mg/dL LAB CHEMISTRY METHOD 01/11/2025 12:13 PM EDT [facility] eGFR 91 >=60 mL/min/1. 73m2 LAB CHEMISTRY METHOD 01/11/2025 12:13 PM EDT [facility] Comment:Calculation based on the??Chronic Kidney Disease Epidemiology Collaboration (CKD-EPI) equation refit??without adjustment for race. BUN/Creatinine Ratio 13.0 LAB CHEMISTRY METHOD 01/11/2025 12:13 PM EDT [facility] Calcium 8.4(L) 8.5 - 10.5 mg/dL LAB CHEMISTRY METHOD 01/11/2025 12:13 PM EDT [facility] Blood Venous blood specimen / Unknown Venipuncture / Unknown 01/11/2025 6:57 AM EDT 01/11/2025 10:41 AM EDT us Alvaro Rojas MD LAB BLOOD ORDERABLES Final Resul t [facility] [address] [place] [address], * (ABNORMAL) Complete blood count (01/04/2025 7:46 AM EDT) Only the most recent of5 resultswithin the time period is included. WBC 5.4 4.8 - 10.8 K/mcL LAB HEMETOLOGY METHOD 01/04/2025 10:37 AM EDT [facility] RBC 3.20(L) 3.80 - 4.80 M/mcL LAB HEMETOLOGY METHOD 01/04/2025 10:37 AM EDT [facility] Hemoglobin 7.8(L) 11.5 - 16.0 g/dL LAB HEMETOLOGY METHOD 01/04/2025 10:37 AM EDT [facility] Hematocrit 25.6(L) 35.0 - 47.0 % LAB HEMETOLOGY METHOD 01/04/2025 10:37 AM EDT [facility] MCV 80.8 79.0 - 98.0 FL LAB HEMETOLOGY METHOD 01/04/2025 10:37 AM EDT [facility] MCH 24.6(L) 27.0 - 32.0 pcg LAB HEMETOLOGY METHOD 01/04/2025 10:37 AM EDT [facility] MCHC 30.5(L) 32.0 - 37.0 g/dL LAB HEMETOLOGY METHOD 01/04/2025 10:37 AM EDT [facility] RDW 23.9(H) 11.0 - 15.0 % LAB HEMETOLOGY METHOD 01/04/2025 10:37 AM EDT [facility] Platelets 418(H) 130 - 400 K/mcL LAB HEMETOLOGY METHOD 01/04/2025 10:37 AM EDT [facility] MPV 9.4 7.0 - 11.0 FL LAB HEMETOLOGY METHOD 01/04/2025 10:37 AM EDT [facility] NRBC 0.0 <1.0 % LAB HEMETOLOGY METHOD 01/04/2025 10:37 AM EDT [facility] NRBC Absolute 0.00 <0.10 K/mcL LAB HEMETOLOGY METHOD 01/04/2025 10:37 AM EDT [facility] Blood Venous blood specimen / Unknown Venipuncture / Unknown 01/04/2025 7:46 AM EDT 01/04/2025 10:13 AM EDT us Alvaro Rojas MD LAB BLOOD ORDERABLES Final Resul t [facility] [address] [place] [address], * (ABNORMAL) Magnesium (12/21/2024 7:40 AM EST) Magnesium 1.7(L) 1.9 - 2.6 mg/dL LAB CHEMISTRY METHOD 12/21/2024 12:16 PM [facility] Blood Venous blood specimen / Unknown Venipuncture / Unknown 12/21/2024 7:40 AM EST 12/21/2024 11:19 AM EST us Alvaro Rojas MD LAB BLOOD ORDERABLES Final Resul t [facility] [address] [place] [address], * (ABNORMAL) Comprehensive metabolic panel (12/18/2024 8:37 AM EST) Pathologist [facility] Sodium 137 133 - 145 mmol/L LAB CHEMISTRY METHOD 12/18/2024 11:32 AM [facility] Potassium 4.3 3.5 - 5.5 mmol/L LAB CHEMISTRY METHOD 12/18/2024 11:32 AM [facility] Chloride 101 96 - 110 mmol/L LAB CHEMISTRY METHOD 12/18/2024 11:32 AM [facility] CO2 27 21 - 32 mmol/L LAB CHEMISTRY METHOD 12/18/2024 11:32 AM [facility] Anion Gap 9 3 - 11 LAB CHEMISTRY METHOD 12/18/2024 11:32 AM [facility] Glucose 134(H) 70 - 100 mg/dL LAB CHEMISTRY METHOD 12/18/2024 11:32 AM [facility] BUN 19 5 - 25 mg/dL LAB CHEMISTRY METHOD 12/18/2024 11:32 AM [facility] Creatinine 0.83 0.50 - 1.10 mg/dL LAB CHEMISTRY METHOD 12/18/2024 11:32 AM [facility] eGFR 74 >=60 mL/min/1. 73m2 LAB CHEMISTRY METHOD 12/18/2024 11:32 AM [facility] Comment:Calculation based on the??Chronic Kidney Disease Epidemiology Collaboration (CKD-EPI) equation refit??without adjustment for race. BUN/Creatinine Ratio 22.9 LAB CHEMISTRY METHOD 12/18/2024 11:32 AM [facility] Calcium 8.4(L) 8.5 - 10.5 mg/dL LAB CHEMISTRY METHOD 12/18/2024 11:32 AM [facility] AST (SGOT) 32 10 - 42 unit/L LAB CHEMISTRY METHOD 12/18/2024 11:32 AM [facility] ALT (SGPT) 14 10 - 60 unit/L LAB CHEMISTRY METHOD 12/18/2024 11:32 AM [facility] Alkaline Phosphatase 155(H) 42 - 121 unit/L LAB CHEMISTRY METHOD 12/18/2024 11:32 AM [facility] Total Protein 5.6(L) 6.0 - 8.0 g/dL LAB CHEMISTRY METHOD 12/18/2024 11:32 AM [facility] Albumin 1.9(L) 3.2 - 5.0 g/dL LAB CHEMISTRY METHOD 12/18/2024 11:32 AM [facility] Total Bilirubin 0.5 0.0 - 1.4 mg/dL LAB CHEMISTRY METHOD 12/18/2024 11:32 AM [facility] Blood Venous blood specimen / Unknown Venipuncture / Unknown 12/18/2024 8:37 AM EST 12/18/2024 10:08 AM EST us Alvaro Rojas MD LAB BLOOD ORDERABLES Final Resul t [facility] [address] [place] [address], [place] [phone] from Last 3 Months Insurance [employer] Member Subscriber Plan / Payer (Ef fective 2015-Present) Name:Magi Escobar Ector Relation to Subscriber:Self Name:Shawn Magi Barney Payer ID:[id number] Group ID:[id number] Type:Not on file Address: [place] [address] [address] [phone] Care Teams Project Engineering Manager Relationship Specialty Start Date End Date Gayathri Cannon MD PCP - General 01/04/15
--- OUTSIDE RECORDS SUMMARY | 2025-03-08 15:07 | XMS_ITS | Encounter Summary ---
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 - [address] [place] [address] Abby Link NP [address] [place] [address] documented as of this encounter Procedures Procedure Name Priority Date/Time Associated Diagnosis Comments PROTHROMBIN TIME WITH INR Routine 11/16/2024 5:13 AM EST Other usp (current) drug therapy Unspecified atrial fibrillation (CMS/HCC) Chronic kidney disease, stage 3 unspecified (CMS/HCC) Chronic diastolic (congestive) heart failure (CMS/HCC) Essential (primary) hypertension Longstanding persistent atrial fibrillation (CMS/HCC) Type 2 diabetes mellitus without complications (CMS/HCC) COMPLETE BLOOD COUNT Routine 11/16/2024 5:13 AM EST Other usp (current) drug therapy Unspecified atrial fibrillation (CMS/HCC) Chronic kidney disease, stage 3 unspecified (CMS/HCC) Chronic diastolic (congestive) heart failure (CMS/HCC) Essential (primary) hypertension Longstanding persistent atrial fibrillation (CMS/HCC) Type 2 diabetes mellitus without complications (CMS/HCC) MAGNESIUM Routine 11/16/2024 5:13 AM EST Other usp (current) drug therapy Unspecified atrial fibrillation (CMS/HCC) Chronic kidney disease, stage 3 unspecified (CMS/HCC) Chronic diastolic (congestive) heart failure (CMS/HCC) Essential (primary) hypertension Longstanding persistent atrial fibrillation (CMS/HCC) Type 2 diabetes mellitus without complications (CMS/HCC) BASIC METABOLIC PANEL Routine 11/16/2024 5:13 AM EST 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 Unspecified atrial fibrillation (CMS/HCC) Chronic kidney disease, stage 3 unspecified (CMS/HCC) Chronic diastolic (congestive) heart failure (CMS/HCC) Essential (primary) hypertension Longstanding persistent atrial fibrillation (CMS/HCC) Type 2 diabetes mellitus without complications (CMS/HCC) documented in this encounter Results * (ABNORMAL) Prothrombin time with INR (11/16/2024 5:13 AM EST) Protime 47.5(H) 10.6 - 13.9 sec LAB COAGULATION METHOD 11/16/2024 12:39 PM EST [facility] INR 3.8 LAB COAGULATION METHOD 11/16/2024 12:39 PM EST [facility] Blood Venous blood specimen / Unknown Venipuncture / Unknown 11/16/2024 5:13 AM EST 11/16/2024 12:02 PM EST us Alvaro Rojas MD LAB BLOOD ORDERABLES Final Resul t Performing Organization Address City/[facility]/ZIP Co de Phone Number [facility] [address] [place] [address], [place] [phone] * (ABNORMAL) Magnesium (11/16/2024 5:13 AM EST) Magnesium 1.8(L) 1.9 - 2.6 mg/dL LAB CHEMISTRY METHOD 11/16/2024 2:39 PM EST [facility] Blood Venous blood specimen / Unknown Venipuncture / Unknown 11/16/2024 5:13 AM EST 11/16/2024 12:02 PM EST us Alvaro Rojas MD LAB BLOOD ORDERABLES Final Resul t Performing Organization Address [facility] Co de Phone Number [facility] [address] [place] [address], [place] [phone] * (ABNORMAL) Basic metabolic panel (11/16/2024 5:13 AM EST) Sodium 135 133 - 145 mmol/L LAB CHEMISTRY METHOD 11/16/2024 2:39 PM EST [facility] Potassium 4.1 3.5 - 5.5 mmol/L LAB CHEMISTRY METHOD 11/16/2024 2:39 PM [facility] Chloride 99 96 - 110 mmol/L LAB CHEMISTRY METHOD 11/16/2024 2:39 PM EST [facility] CO2 28 21 - [...] 73m2 LAB CHEMISTRY METHOD 11/16/2024 2:39 PM [facility] Comment:Calculation based on the??Chronic Kidney Disease Epidemiology Collaboration (CKD-EPI) equation refit??without adjustment for race. BUN/Creatinine Ratio 11.8 LAB CHEMISTRY METHOD 11/16/2024 2:39 PM [facility] Calcium 8.7 8.5 - 10.5 mg/dL LAB CHEMISTRY METHOD 11/16/2024 2:39 PM [facility] Blood Venous blood specimen / Unknown Venipuncture / Unknown 11/16/2024 5:13 AM EST 11/16/2024 12:02 PM EST us Alvaro Rojas MD LAB BLOOD ORDERABLES Final Resul t [facility] [address] [place] [address], [place] [phone] * (ABNORMAL) Complete blood count (11/16/2024 5:13 [...] pcg LAB HEMETOLOGY METHOD 11/16/2024 1:28 PM [facility] MCHC 29.6(L) 32.0 - 37.0 g/dL LAB HEMETOLOGY METHOD 11/16/2024 1:28 PM [facility] RDW 24.9(H) 11.0 - 15.0 % LAB HEMETOLOGY METHOD 11/16/2024 1:28 PM [facility] Platelets 586(H) 130 - 400 K/mcL LAB HEMETOLOGY METHOD 11/16/2024 1:28 PM [facility] MPV 9.6 7.0 - 11.0 FL LAB HEMETOLOGY METHOD 11/16/2024 1:28 PM [facility] NRBC 0.3 <1.0 % LAB HEMETOLOGY METHOD 11/16/2024 1:28 PM [facility] NRBC Absolute 0.02 <0.10 K/mcL LAB HEMETOLOGY METHOD 11/16/2024 1:28 PM [facility] Blood Venous blood specimen / Unknown Venipuncture / Unknown 11/16/2024 5:13 AM EST 11/16/2024 12:02 PM EST us Fahim A Crystal MD LAB BLOOD ORDERABLES Final Resul t [facility] ([facility] H[facility] [address] [place] [address], documented in this encounter Visit Diagnoses Diagnosis Other usp (current) drug therapy Unspecified atrial fibrillation ([facility] V24, [facility] V28) Chronic kidney disease, stage 3 unspecified ([facility] [place], [facility] V28) Chronic diastolic (congestive) heart failure ([facility] [place]24, [facility] V28) Essential (primary) hypertension Unspecified essential hypertension Longstanding persistent atrial fibrillation ([facility] [place], [facility] V28) Type 2 diabetes mellitus without complications ([facility] [place]24, [facility] V28) documented in this encounter Care Teams Business Division Chair Relationship Specialty Start Date End Date Gayathri Cannon MD PCP - General 01/04/15 documented as of this encounter
--- OUTSIDE RECORDS SUMMARY | 2025-03-08 15:07 | XMS_ITS | Encounter Summary ---
Author Organization [facility] Address [address] [place] [address] Care Team Providers Care Front Man Name Role Phone Gayathri Cannon MD Primary Care Provider Reason for Visit * Reason Onset Date Comments Hospital Follow-up 03/02/2025 Encounter Details Date Type Department Care Team (Late st Contact Info) Description 03/02/2025 Telephone [facility] - [facility] [address] [facility] [address] [place] [phone] Melony Madrid NP [address] [phone] Hospital Follow-up Social History Tobacco Use Types Packs/Day Years [...] on file documented as of this encounter Progress Notes * Janette Solomon - 03/05/2025 1:47 PM EDT Spoke with the patient daughter and scheduled for 03/24/25 with Abby Link. * Janette Solomon - 03/03/2025 10:53 AM EDT The patient did not need end up being discharged on 03/02/25. I will continue to monitor. * Turner Zaragoza - 03/02/2025 1:21 PM EDT Hospital Follow Up Diagnosis: HFpEF Hospital: [facility] Consulted by: REYNALDO 03/01/25 Discharged on: 03/02/25 Care team: SHERYL/ABBY SAUCEDO 03/24/24 dx diastolic CHF Patient is french speaking I can call to book for you if you need. * Melony Madrid NP - 03/02/2025 1:14 PM EDT Pls arrange HFU with Abby SAUCEDO or Melony in 2ish weeks (3 weeks at most). OK to use 11 or 11:20 forLC if no other spots S/p [facility], prolonged QT, CHF, s/p MVR in 10/2024 Home today Pls call pt to make apt. Mostly french speaking Thank you BMP ordered to follow her lytes documented in this encounter Plan of Treatment Upcoming Encounters Date Type Department Care Team (Late st Contact Info) Description 03/24/2025 2:10 PM EDT Office Visit [facility] - [address] [place] [phone] Abby Link NP [address] [place] [address] Scheduled Orders Name Type Priority Associated Diagnoses Orde r Schedule Basic metabolic panel Lab Routine Congestive heart failure, unspecified HF chronicity, unspecified heart failure type (CMS/HCC V24, CMS/HCC V28) 1 Occurrences starting 03/02/2025 until 03/02/2026 documented as of this encounter Visit Diagnoses Diagnosis Congestive heart failure, unspecified HF chronicity, unspecified heart failure type (CMS/HCC V24, CMS/HCC V28)- Primary documented in this encounter Care Teams Front Man Relationship Specialty Start Date End Date Gayathri Cannon MD PCP - General 01/04/15 documented as of this encounter
--- OUTSIDE RECORDS SUMMARY | 2025-03-08 15:07 | XMS_ITS | Encounter Summary ---
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 documented in this encounter Results * (ABNORMAL) Prothrombin time with INR (11/06/2024 6:30 AM EST) Protime 36.3(H) 10.6 - 13.9 sec LAB COAGULATION METHOD 11/06/2024 10:45 AM EST [facility] INR 2.9 LAB COAGULATION METHOD 11/06/2024 10:45 AM EST [facility] Blood Venous blood specimen / Unknown Venipuncture / Unknown 11/06/2024 6:30 AM EST 11/06/2024 9:56 AM EST us Alvaro Rojas MD LAB BLOOD ORDERABLES Final Resul t [facility]) [facility] [address] [place] [address], documented in this encounter Visit Diagnoses Diagnosis 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
--- OUTSIDE RECORDS SUMMARY | 2025-03-08 15:07 | XMS_ITS | Encounter Summary ---
Author Organization [facility] Address [address] [place] [phone] Care Team Providers Care Applications Project Manager Name Role Phone Gayathri Cannon MD Primary Care Provider [phone] Encounter Details Date Type Department Care Team (Late st Contact Info) Description 11/17/2024 Lab Requisition [facility] - Main Lab [address] [facility] [place] [address] Alvaro Rojas MD [address] [place] [address] Unspecified atrial fibrillation (CMS/HCC V24, CMS/HCC V28) [...] Description 03/24/2025 2:10 PM EDT Office Visit [facility] - [address] [facility] [address] [place] [address] Abby Link NP [address] [place] [address] documented as of this encounter Procedures Procedure Name Priority Date/Time Associated Diagnosis Comments PROTHROMBIN TIME WITH INR Routine 11/17/2024 5:21 AM EST Unspecified atrial fibrillation (CMS/HCC) documented in this encounter Results * (ABNORMAL) Prothrombin time with INR (11/17/2024 5:21 AM EST) Protime 37.2(H) 10.6 - 13.9 sec LAB COAGULATION METHOD 11/17/2024 9:54 AM EST [facility] INR 2.9 LAB COAGULATION METHOD 11/17/2024 9:54 AM EST [facility] Blood Venous blood specimen / Unknown Venipuncture / Unknown 11/17/2024 5:21 AM EST 11/17/2024 8:46 AM EST us Alvaro Rojas MD LAB BLOOD ORDERABLES Final Resul t [facility] ([facility]) [facility] [address] [place] [address], documented in this encounter Visit Diagnoses Diagnosis Unspecified atrial fibrillation (CMS/HCC V24, CMS/HCC V28) documented in this encounter Care Teams Applications Project Manager Relationship Specialty Start Date End Date Gayathri Cannon MD PCP - General 01/04/15 documented as of this encounter
--- OUTSIDE RECORDS SUMMARY | 2025-03-08 15:07 | XMS_ITS | Encounter Summary ---
Author Organization [facility] Address [address] [place] [phone] Care Team Providers Care Assistant At Surgery Name Role Phone Gayathri Cannon MD Primary Care Provider [phone] Encounter Details Date Type Department Care Team (Late st Contact Info) Description 01/13/2025 Lab Requisition [facility] - Main Lab [address] [facility] [place] [address] Alvaro Rojas MD [address] [place] [address] Unspecified atrial fibrillation (CMS/HCC V24, CMS/HCC V28) [...] Description 03/24/2025 2:10 PM EDT Office Visit [facility] - [facility] [address] [facility] [address] [place] [address] Abby Link NP [address] [place] [address] documented as of this encounter Procedures Procedure Name Priority Date/Time Associated Diagnosis Comments PROTHROMBIN TIME WITH INR Routine 01/14/2025 9:58 AM EDT Unspecified atrial fibrillation (CMS/HCC) documented in this encounter Results * (ABNORMAL) Prothrombin time with INR (01/14/2025 9:58 AM EDT) Protime 15.5(H) 10.6 - 13.9 sec LAB COAGULATION METHOD 01/14/2025 11:10 AM EDT [facility] INR 1.2 LAB COAGULATION METHOD 01/14/2025 11:10 AM EDT [facility] Blood Venous blood specimen / Unknown Venipuncture / Unknown 01/14/2025 9:58 AM EDT 01/14/2025 10:58 AM EDT us Alvaro Rojas MD LAB BLOOD ORDERABLES Final Resul t [facility] [address] [place] [address], documented in this encounter Visit Diagnoses Diagnosis Unspecified atrial fibrillation (CMS/HCC V24, CMS/HCC V28) documented in this encounter Care Teams Assistant At Surgery Relationship Specialty Start Date End Date Gayathri Cannon MD PCP - General 01/04/15 documented as of this encounter
--- OUTSIDE RECORDS SUMMARY | 2025-03-08 15:07 | XMS_ITS | Encounter Summary ---
Author Organization [facility] Address [address] [place] [phone] Care Team Providers Care Bingo Checker Name Role Phone Gayathri Cannon MD Primary Care Provider [phone] Encounter Details Date Type Department Care Team (Late st Contact Info) Description 11/11/2024 Lab Requisition [facility] - Main Lab [address] [facility] [place] [address] Alvaro Rojas MD [address] [place] [address] Unspecified atrial fibrillation (CMS/HCC V24, CMS/HCC V28) [...] Description 03/24/2025 2:10 PM EDT Office Visit [facility] - [address] [facility] [address] [place] [address] Abby Link NP [address] [place] [address] documented as of this encounter Procedures Procedure Name Priority Date/Time Associated Diagnosis Comments PROTHROMBIN TIME WITH INR Routine 11/12/2024 5:29 AM EST Unspecified atrial fibrillation (CMS/HCC) documented in this encounter Results * (ABNORMAL) Prothrombin time with INR (11/12/2024 5:29 AM EST) Protime 27.0(H) 10.6 - 13.9 sec LAB COAGULATION METHOD 11/12/2024 10:30 AM EST [facility] INR 2.1 LAB COAGULATION METHOD 11/12/2024 10:30 AM EST [facility] Blood Venous blood specimen / Unknown Venipuncture / Unknown 11/12/2024 5:29 AM EST 11/12/2024 8:54 AM EST us Alvaro Rojas MD LAB BLOOD ORDERABLES Final Resul t [facility] ([facility] [address] [place] [address], documented in this encounter Visit Diagnoses Diagnosis Unspecified atrial fibrillation (CMS/HCC V24, CMS/HCC V28) documented in this encounter Care Teams Bingo Checker Relationship Specialty Start Date End Date Gayathri Cannon MD PCP - General 01/04/15 documented as of this encounter
--- OUTSIDE RECORDS SUMMARY | 2025-03-08 15:07 | XMS_ITS | Encounter Summary ---
Author Organization [facility] Address [address] [place] [phone] Care Team Providers Care Intern Name Role Phone Gayathri Cannon MD Primary Care Provider [phone] Encounter Details Date Type Department Care Team (Late st Contact Info) Description 11/09/2024 Lab Requisition [facility] - Main Lab [address] [facility] [place] [address] Alvaro Rojas MD [address] [place], [place] [phone] Chronic kidney disease, stage 3 unspecified (CMS/HCC [...] Description 03/24/2025 2:10 PM EDT Office Visit [facility] - [address] [place] [phone] Abby Link NP [address] [place] [address] documented as of this encounter Procedures Procedure [...] * (ABNORMAL) Magnesium (11/09/2024 5:47 AM EST) Pathologist [facility] Magnesium 1.6(L) 1.9 - 2.6 mg/dL LAB CHEMISTRY METHOD 11/09/2024 3:00 PM EST [facility] Blood Venous blood specimen / Unknown Venipuncture / Unknown 11/09/2024 5:47 AM EST 11/09/2024 12:00 PM EST us Alvaro Rojas MD LAB BLOOD ORDERABLES Final Resul t [facility] [address] [place] [address], * (ABNORMAL) Basic metabolic panel (11/09/2024 5:47 AM EST) Sodium 135 133 - 145 mmol/L LAB CHEMISTRY METHOD 11/09/2024 3:00 PM [facility] Potassium 3.8 3.5 - 5.5 mmol/L LAB CHEMISTRY METHOD 11/09/2024 3:00 PM [facility] Chloride 101 96 - 110 mmol/L LAB CHEMISTRY METHOD 11/09/2024 3:00 PM [facility] CO2 25 21 - 32 mmol/L LAB CHEMISTRY METHOD 11/09/2024 3:00 PM [facility] Anion Gap 9 3 - 11 LAB CHEMISTRY METHOD 11/09/2024 3:00 PM [facility] Glucose 106(H) 70 - 100 mg/dL LAB CHEMISTRY METHOD 11/09/2024 3:00 PM [facility] BUN 9 5 - 25 mg/dL LAB CHEMISTRY METHOD 11/09/2024 3:00 PM [facility] Creatinine 0.92 0.50 - 1.10 mg/dL LAB CHEMISTRY METHOD 11/09/2024 3:00 PM [facility] eGFR 65 >=60 mL/min/1. 73m2 LAB CHEMISTRY METHOD 11/09/2024 3:00 PM [facility] Comment:Calculation based on the??Chronic Kidney Disease Epidemiology Collaboration (CKD-EPI) equation refit??without adjustment for race. BUN/Creatinine Ratio 9.8 LAB CHEMISTRY METHOD 11/09/2024 3:00 PM [facility] Calcium 8.5 8.5 - 10.5 mg/dL LAB CHEMISTRY METHOD 11/09/2024 3:00 PM [facility] Blood Venous blood specimen / Unknown Venipuncture / Unknown 11/09/2024 5:47 AM EST 11/09/2024 12:00 PM EST us Alvaro Rojas MD LAB BLOOD ORDERABLES Final Resul t [facility] [address] [place] [address], [place] [phone] * (ABNORMAL) Complete blood count (11/09/2024 5:47 AM EST) [facility] WBC 9.2 4.8 - 10.8 K/mcL LAB HEMETOLOGY METHOD 11/09/2024 2:16 PM [facility] RBC 3.10(L) 3.80 - 4.80 M/mcL LAB HEMETOLOGY METHOD 11/09/2024 2:16 PM [facility] Hemoglobin 7.2(L) 11.5 - 16.0 g/dL LAB HEMETOLOGY METHOD 11/09/2024 2:16 PM [facility] Hematocrit 24.1(L) 35.0 - 47.0 % LAB HEMETOLOGY METHOD 11/09/2024 2:16 PM [facility] MCV 78.0(L) 79.0 - 98.0 FL LAB HEMETOLOGY METHOD 11/09/2024 2:16 PM [facility] MCH 23.3(L) 27.0 - 32.0 pcg LAB HEMETOLOGY METHOD 11/09/2024 2:16 PM [facility] MCHC 29.9(L) 32.0 - 37.0 g/dL LAB HEMETOLOGY METHOD 11/09/2024 2:16 PM [facility] RDW 25.2(H) 11.0 - 15.0 % LAB HEMETOLOGY METHOD 11/09/2024 2:16 PM [facility] Platelets 552(H) 130 - 400 K/mcL LAB HEMETOLOGY METHOD 11/09/2024 2:16 PM [facility] MPV 9.3 7.0 - 11.0 FL LAB HEMETOLOGY METHOD 11/09/2024 2:16 PM [facility] NRBC 0.0 <1.0 % LAB HEMETOLOGY METHOD 11/09/2024 2:16 PM EST [facility] NRBC Absolute 0.00 <0.10 K/[facility] LAB HEMETOLOGY METHOD 11/09/2024 2:16 PM EST [facility] Blood Venous blood specimen / Unknown Venipuncture / Unknown 11/09/2024 5:47 AM EST 11/09/2024 12:00 PM EST us Alvaro Rojas MD LAB BLOOD ORDERABLES Final Resul t [facility] [address] [place] [address], documented in this encounter Visit Diagnoses Diagnosis Chronic kidney disease, stage 3 unspecified ([facility] V24, [facility] V28) Chronic diastolic (congestive) heart failure ([facility] V24, [facility] V28) Essential (primary) hypertension Unspecified essential hypertension Longstanding persistent atrial fibrillation ([facility] V24, [facility] V28) Type 2 diabetes mellitus without complications ([facility] V24, [facility] V28) documented in this encounter Care Teams Intern Relationship Specialty Start Date End Date Gayathri Cannon MD PCP - General 01/04/15 documented as of this encounter
--- OUTSIDE RECORDS SUMMARY | 2025-03-08 15:07 | XMS_ITS | Continuity of Care Document ---
Author Organization [facility] ter Address [address] [place] [id number]- Care Team Providers Care Urgent Care Physician Name Role Phone Davis SIEGEL, Gayathri Damian Primary Care Physician Encounter [facility] Date(s): 02/26/25 - 03/04/[address] [address] Encounter Diagnosis Dizziness(Final) - 02/26/25 Shortness of breath(Final) - 02/26/25 Asthma(Final) - 02/26/25 Pleural effusion(Final) - 02/26/25 Pneumonia(Final) - 02/26/25 Discharge Disposition: A-Transfer VNA/Home Health Attending Physician: Melyssa Partida MD Admitting Physician: Tomy Savage MD Referring Physician: Not on Staff, Referring MD Encounter Type: Disch IP Allergies, Adverse [...] pneumococcal 23-valent vaccine 11/25/14 Given 1Admin Note: [facility] [id number] Medications acetaminophen 325 mg oral tablet 650 mg, 2, tablet, By Mouth, 3 times a day, # 540 tablet, Refills 3, Tot. Refills 3, Maintenance, 02/25/25 8:30:00 PM EDT, Route to Pharmacy Electronically, [facility]/pharmacy #[id number], Partial fill upon patient request if the prescription is for a schedule II opioid drug., 158, cm, 12/17/24 6:35:00 EST, Height, 65.7, kg, 12/12/24 12:41:00 EST, Dry Weight Start Date: 02/25/25 Status: Ordered Quantity: 540.0 Unit: tablet Repeat number: 4 amiodarone 200 mg oral tablet See Instructions, Take 400 mg By Mouth 2 times a day x 7 days then 400 mg daily x 7 days then 200 mg daily thereafter, # 60 tablet, Refills 0, Tot. Refills 0, Maintenance, 03/02/25 1:33:00 PM EDT, Instructions Replace Required Details, Route to Pharmacy Electronically, [facility], Partial fill upon patient request if the prescription is for a schedule II opioid drug., 158, cm, 03/02/25 7:18:00 EDT, Height, 63.5, kg, 02/26/25 14:43:00 EDT, Dry Weight Start Date: 03/02/25 Status: Ordered Quantity: 60.0 Unit: tablet Repeat number: 1 amLODIPine 10 mg oral tablet 10 mg, Tablet, By Mouth, 03/04/25 9:00:00 AM EDT Start Date: 03/04/25 Stop Date: 03/04/25 Status: Completed Repeat number: 1 amLODIPine 10 mg oral tablet 10 mg, 1, tablet, By Mouth, Daily, # 90 tablet, Refills 3, Tot. Refills 3, Maintenance, 02/25/25 8:26:00 PM EDT, Route to Pharmacy Electronically, [facility]/pharmacy #[id number], Partial fill upon patient request if the prescription is for a schedule II opioid drug., 158, cm, 12/17/24 6:35:00 EST, Height, 65.7, kg, 12/12/24 12:41:00 EST, Dry Weight Start Date: 02/25/25 Status: Ordered Quantity: 90.0 Unit: tablet Repeat number: 4 atorvastatin 40 mg oral tablet 1 tablet, By Mouth, Daily, LABEL IN RWANDAN, # 90 tablet, 3 Refills, Maintenance, 10/16/24 4:58:00 PM EST, [facility] #[id number], 160, cm, 10/16/24 12:37:00 EST, Height, 73.5, kg, 06/11/23 11:48:00 EDT, Dry Weight Start Date: 10/16/24 Status: Ordered Quantity: 90.0 Unit: tablet Repeat number: 4 budesonide-formoterol 80 mcg-4.5 mcg/inh inhalation aerosol with adapter 2, inhalation, Inhalation, 2 times a day, in the morning and the evening, # 3 each, Refills 3, Tot.Refills 3, Maintenance, 02/25/25 8:26:00 PM EDT, Inhaler, Route to Pharmacy Electronically, [id number], [facility]/pharmacy #[id number], 158, cm, 12/17/24 6:35:00 EST, Height, 65.7, kg, 12/12/24 12:41:00 EST, Dry Weight Start Date: 02/25/25 Status: Ordered Quantity: 3.0 Unit: each Repeat number: 4 enoxaparin 100 mg/mL injectable solution = 100 mg, Subcutaneous Injection, Every 24 hours, for 2 days, to discontinue once INR > 2, # 2 each, 0 Refills, Acute 03/06/25 9:32:00 AM EDT, 03/04/25 9:32:00 AM EDT, Injection, [facility], Partial fill upon patient request if the prescription is for a schedule II opioid drug., 158,cm, 03/04/25 7:23:00 EDT, Height, 63.5, kg, 02/26/25 14:43:00 EDT, Dry Weight Start Date: 03/04/25 Stop Date: 03/06/25 Status: Ordered Quantity: 2.0 Unit: each Repeat number: 1 furosemide 20 mg oral tablet 20 mg, 1, tablet, By Mouth, Daily, # 30 tablet, Refills 4, Tot. Refills 4, Maintenance, 02/25/25 8:27:00 PM EDT, Route to Pharmacy Electronically, [facility]/pharmacy #[id number], Partial fill upon patient request if the prescription is for a schedule II opioid drug., 158, cm, 12/17/24 6:35:00 EST, Height, 65.7, kg, 12/12/24 12:41:00 EST, Dry Weight Start Date: 02/25/25 Status: Ordered Quantity: 30.0 Unit: tablet Repeat number: 5 Home Blood Pressure Monitor with Cuff Home Blood Pressure Monitor with Cuff, See Instructions, # 1 each, Refills 0, Tot. Refills 0, Maintenance, Directions: Use as needed to monitor BP at home. Dx: I10 Duration Lifetime, 11/24/24 12:49:00 PM EST, Supply Start Date: 11/24/24 Status: Ordered Quantity: 1.0 Unit: each Repeat number: 1 loratadine 10 mg oral capsule 1 capsule = 10 mg, By Mouth, Daily, LABEL IN RWANDAN, # 90 capsule, 3 Refills, Maintenance, 02/25/25 8:33:00 PM EDT, Capsule, [facility]/pharmacy #[id number], Partial fill upon patient request if the prescription is for a schedule II opioid drug., 158, cm, 12/17/24 6:35:00 EST, Height, 65.7, kg, 12/12/24 12:41:00EST, Dry Weight Start Date: 02/25/25 Status: Ordered Quantity: 90.0 Unit: capsule Repeat number: 4 magnesium oxide 400 mg oral capsule 1 capsule = 400 mg, By Mouth, Daily, for 3 days, # 3 capsule, 0 Refills, Acute 03/05/25 1:38:00 PM EDT, 03/02/25 1:38:00 PM EDT, Capsule, [facility], Partial fill upon patient request if the prescription is for a schedule II opioid drug., 158, cm, 03/02/25 13:37:00 EDT, Height, 63.5, kg, 02/26/25 14:43:00 EDT, Dry Weight Start Date: 03/02/25 Stop Date: 03/05/25 Status: Ordered Quantity: 3.0 Unit: capsule Repeat number: 1 magnesium oxide 400 mg oral tablet 1 tablet = 400 mg, By Mouth, 2 times a day, FOR LEG CRAMPS AND LOW MAGNESIUM, # 180 tablet, 3 Refills, Maintenance, 02/25/25 8:27:00 PM EDT, Tablet, [facility]/pharmacy #[id number], Partial fill upon patient request if the prescription is for a schedule II opioid drug., 158, cm, 12/17/24 6:35:00 EST, Height, 65.7, kg, 12/12/24 12:41:00 EST, Dry Weight Start Date: 02/25/25 Status: Ordered Quantity: 180.0 Unit: tablet Repeat number: 4 melatonin 3 mg oral tablet = 3 mg, By Mouth, Daily at bedtime, PRN Insomnia, # 90 tablet, 3 Refills, Maintenance, 02/25/25 8:27:00 PM EDT, Tablet, [facility]/pharmacy #[id number], Partial fill upon patient request if the prescription is for a schedule II opioid drug., 158, cm, 12/17/24 6:35:00 EST, Height, 65.7, kg, 12/12/24 12:41:00 EST, Dry Weight Start Date: 02/25/25 Stop Date: 02/20/26 Status: Ordered Quantity: 90.0 Unit: tablet Repeat number: 4 metFORMIN 500 mg oral tablet 1 tablet = 500 mg, By Mouth, Daily, with meals, # 30 tablet, 0 Refills, Maintenance, 11/04/24 4:50:00 PM EST, Tablet, [facility], Partial fill upon patient request [...] 1 Refills, Maintenance, 07/16/24 12:50:00 PM EDT, [facility] #[id number], 160, cm, 06/15/24 15:14:00 EDT, Height, 73.5, [...] 1 tablet = 40 mg, By Mouth, 2 times a day, # 180 tablet, 3 Refills, Maintenance, 02/25/25 8:27:00 PM EDT, EC Tablet, 158, cm, 12/17/24 6:35:00 EST, Height, 65.7, kg, 12/12/24 12:41:00 EST, Dry Weight Start Date: 02/25/25 Status: Ordered Quantity: 180.0 Unit: tablet Repeat number: 4 senna 187 mg oral tablet 1 tablet = 8.6 mg, By Mouth, 2 times a day, PRN Constipation, # 180 tablet, 3 Refills, Maintenance,02/25/25 8:27:00 PM EDT, Tablet, [facility]/pharmacy #[id number], Partial fill upon patient request if the prescription is for a schedule II opioid drug., 158, cm, 12/17/24 6:35:00 EST, Height, 65.7, kg, 12/12/24 12:41:00 EST, Dry Weight Start Date: 02/25/25 Status: Ordered Quantity: 180.0 Unit: tablet Repeat number: 4 Vashe Topical Solution 475 mL, Topically, Every 12 hours, 0 Refills, Maintenance, Solution Start Date: 11/04/24 Status: Ordered Repeat number: 1 Ventolin HFA 108 mcg/inh inhalation aerosol with adapter 2 puffs, Inhalation, 4 times a day, PRN for wheezing, LABEL IN RWANDAN, # 3 each, 3 Refills, Maintenance, 07/23/23 11:49:00 AM EDT, Aerosol, [facility] #[id number], Partial fill upon patient request if the prescription is for a schedule II opioid drug., 160, cm, 07/23/23 11:25:00 EDT, Height, 73.5, kg, 06/11/23 11:48:00 EDT, Dry Weight Start Date: 07/23/23 Status: Ordered Quantity: 3.0 Unit: each Repeat number: 4 warfarin 1 mg oral tablet See Instructions, 2.5 tablet ( 2.5mg ) - tonight and then 2 tabs daily - to be adjusted based on INR, # 100 tablet, 1 Refills, Maintenance, 03/04/25 10:22:00 AM EDT, Tablet, [facility], Partial fill upon patient request if the prescription is for a schedule II opioid drug., 158, cm, 03/04/25 7:23:00 EDT, Height, 63.5, kg, 02/26/25 14:43:00 EDT, Dry Weight Start Date: 03/04/25 Status: Ordered Quantity: 100.0 Unit: tablet Repeat number: 2 Problem List Condition Confirmation Course Effective Dates Status H ealth Status Informant Asthma/COPD - gold 2, PFT 12/2017 Confirmed Active Atopic dermatitis Confirmed Active Atrial fibrillation on coumadin (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) Confirmed Active Atypical chest pain - myoview normal 01/2019 - [place] Confirmed Active Choking Confirmed Active COVID-19 virus infection Confirmed Active Leg cramps Confirmed Active Diabetes Confirmed Active Diastolic heart failure Confirmed Active Hip fracture, right; ORIF, 11/2024 Confirmed Active GERD (gastroesophageal reflux disease) Confirmed Active On anticoagulant therapy with Coumadin Confirmed Active Hearing loss Confirmed Active (HFpEF) heart failure with preserved ejection fraction Confirmed Active S/P Maze operation for atrial fibrillation Confirmed Active S/P MVR (mitral valve replacement) Confirmed Active Mitral valve replaced Confirmed Active Hyperlipidemia Confirmed Active Hypertension Confirmed Active Hypomagnesemia Confirmed Active Insomnia Confirmed Active Supratherapeutic INR Confirmed Active Mitral valve stenosis rheumatologic - severe, dilated left atrium 01/2022 , [facility] Confirmed Active Osteopenia Confirmed Active *[id number] 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 SOB, to evaluate for PNA/pleural effusion;Other: RESULT: CT Chest W/O Contrast CT Chest W/O Contrast INDICATION: Reason: Other:; Pt with mitral valve replacement. SOB, to evaluate for PNA pleural effusion; Clinical Question(s): Other:; Order Comment: TECHNIQUE: Helical CT scan of the chest without IV contrast, formatted in 3 planes. Weight-based protocol was performed using automatic exposure control. CTDIvol Body: 4.60 mGy, DLP Body: 172 mGy*cm. COMPARISON: CTA chest 11/25/2024. FINDINGS: Manager Assurance view findings, lines and tubes: None. Trachea and airways: Patent without evidence of tracheal or endobronchial lesion. Lungs and pleura: Unchanged mosaic attenuation of the lungs with relative lucency of the periphery,right more so than left, possibly related to air trapping there. Ill-defined tree-in-bud opacity ofthe superolateral right upper lobe is unchanged and likely chronic. The largest nodule measures up to 5 mm (29/201). There are small bilateral pleural effusions, right greater than left. The volume of the right pleural effusion is slightly increased from 11/25/2024 with decreased volume of the left pleural effusion. There is associated passive atelectasis of both lower lobes. Trace fluid in the right major fissure. Dependent right middle lobe atelectasis. No pneumothorax. Mediastinum and renetta: Postsurgical changes in the anterior mediastinum. Mediastinal lymph nodes areprominent in number, though not enlarged by size criteria. No esophageal abnormality. Unchanged thyroid nodules. Heart: Heart is normal in size. No pericardial effusion. Mild coronary artery calcification. Patient is status post mitral valve replacement. Aorta: Mild vascular calcification but no aneurysm. Pulmonary arteries: Normal caliber. Chest wall soft tissues: No acute abnormality. Diaphragm: Intact. Upper abdomen: No acute process. No adrenal nodule. Bones: No acute abnormality. Status post recent median sternotomy with ongoing healing. Unchanged sclerotic focus at T8, likely a bone island. IMPRESSION: Small bilateral pleural effusions with adjacent passive atelectasis of both lower lobes. The volumeof the right pleural effusion is slightly increased from the prior examination on 11/25/2024 with slight interval decrease in volume of the left pleural effusion. Ill-defined tree-in-bud opacities in the periphery of the right upper lobe are unchanged and likelychronic. No significant interval change in appearance of bilateral thyroid nodules. These would be better assessed with ultrasound. WSN: [id number] Ordering Physician: Brown Jackson Dictated By: Juan Rodrigues MD Dictated Date/Time: 02/26/25 1:01 pm Reviewed By: Juan Rodrigues MD Signed By: Juan Rodrigues MD Signed Date/Time: 02/26/25 1:01 pm Transcribed By: DONATO Transcribed Date/Time: 02/26/25 12:50 pm * Exam Date Time Procedure Performing Provider Status 02/26/25 3:[address] Angio Neck Stupak , Derrick; Auth (Veri fied) Notes: (CT Angio Neck) Reason For Exam: Aneurysm, neck vessel(s);Other: RESULT: CT Angio Neck CT Angio Head, CT Angio Neck Hx of Present Illness: Dizziness x 1 day and feels like the room is spinning. Pt is on blood thinners for hx of valve replacement. Denies any trauma, falls or headstrikes. Pt also wants to get burn checked out to [facility] Reason: Other:; Neuro deficit, acute, stroke suspected; Clinical Question(s):Other:; Hematoma Aneurysm; Order Comment: / Other: TECHNIQUE: CT angiogram of the head and neck was performed after bolus administration of intravenous contrast. 100 mL of Isovue 300 was administered intravenously. Coronal and sagittal MIP reformatted images were obtained. Additional 3-D images were created on a separate workstation under concurrent supervision by the attending radiologist. All stenoses are measured using NASCET criteria. Weight-based protocol using automatic tube modulation was used to optimize exposure parameters. RADIATION DOSE PARAMETERS: CTDIvol Body: 11.73 mGy, DLP Body: 296 mGy*cm. CTDIvol Head: 47.00 mGy, DLP Head: 773 mGy*cm. COMPARISON: Noncontrast CT head performed concurrently. CT scan of the chest 11/25/2024. FINDINGS: CTA OF THE NECK: Arch: There is a four vessel aortic arch, with direct origin of the left vertebral artery from the aorta. There is mild atherosclerotic plaque of the aortic arch, but origins of the supra aortic vessels are patent. Right carotid system: The common carotid and cervical internal carotid arteries are patent. There is calcified atherosclerotic plaque at the carotid bifurcation, but no ICA stenosis (0%) by NASCET criteria. Left carotid system: The common carotid and cervical internal carotid arteries are patent. There iscalcified atherosclerotic plaque at the carotid bifurcation, but no ICA stenosis (0%) by NASCET criteria. There is a right-dominant vertebral artery system. Right vertebral: Patent. Left vertebral: Patent. Other: Soft tissues and bones: No evidence of lymphadenopathy or mass. The right lobe of the thyroid glandis asymmetrically enlarged. Nodular foci are present within both lobes with right-sided nodules measuring up to at least mm in size. Sternotomy wires are present. Bilateral pleural effusions are partially within the [id number]. A cluster of nodules within the right upper lobe in association withfocal bronchiectasis is similar. Degenerative changes of the cervical spine. CTA OF THE HEAD: Anterior circulation: The intracranial internal carotid arteries are patent. ICA calcifications arepresent, and there is mild stenosis of the paraclinoid right ICA. Left posterior communicating artery is present. The ICA termini are maintained. The A1 and A2 segments of the anterior cerebral arteries are patent. The M1 segments of the middle cerebral arteries and M2 branch origins are patent. Posterior circulation: Bilateral intracranial vertebral arteries, the basilar artery, and bilateralsuperior cerebellar and posterior cerebral artery branches are patent. The basilar artery is partially duplicated or fenestrated. Veins: Major dural venous sinuses are patent. Other: Soft tissues and bones: No midline shift or effacement of the basal cisterns. No space-occupying hemorrhage. No acute territorial loss of llanes-white matter differentiation. There have been lens extractions bilaterally. No significant opacification in the paranasal sinusesor mastoid air cells. IMPRESSION: 1. No acute intracranial large vessel occlusion. 2. No hemodynamically-significant stenoses of the extracranial internal carotid and vertebral arteries. 3. A cluster of nodules within the right upper lobe is similar in size and distribution. This couldrepresent the sequela of an inflammatory process, but no significant change is noted from the CT scan of the chest at 11/25/2024. A 3 month interval follow-up CT scan of the chest and pulmonary consultation are recommended. A Critical Result message will be sent. A preliminary report was issued to the emergency room by the [facility] service 02/26/2025 at 3:54 AM. An actionable message ([place]) has been communicated via the [employer] system on 02/26/2025 10:03 AM, Message ID [id number]. WSN: [id number] Ordering Physician: Gabby Richter Dictated By: Familia Trinidad MD Dictated Date/Time: 02/26/25 10:04 a Reviewed By: Familia Trinidad MD Signed By: Familia Trinidad MD Signed Date/Time: 02/26/25 10:04 am Transcribed By: DONATO Transcribed Date/Time: 02/26/25 9:48 am * Exam Date Time Procedure Performing Provider Status 02/26/25 3:[address] Angio Head Stupak , Derrick; Auth (Veri fijuliane) Notes: (CT Angio Head) Reason For Exam: Neuro deficit, acute, stroke suspected;Other: RESULT: CT Angio Head CT Angio Head, CT Angio Neck Hx of Present Illness: Dizziness x 1 day and feels like the room is spinning. Pt is on blood thinners for hx of valve replacement. Denies any trauma, falls or headstrikes. Pt also wants to get burn checked out to [facility] Reason: Other:; Neuro deficit, acute, stroke suspected; Clinical Question(s):Other:; Hematoma Aneurysm; Order Comment: / Other: TECHNIQUE: CT angiogram of the head and neck was performed after bolus administration of intravenous contrast. 100 mL of Isovue 300 was administered intravenously. Coronal and sagittal MIP reformatted images were obtained. Additional 3-D images were created on a separate workstation under concurrent supervision by the attending radiologist. All stenoses are measured using NASCET criteria. Weight-based protocol using automatic tube modulation was used to optimize exposure parameters. RADIATION DOSE PARAMETERS: CTDIvol Body: 11.73 mGy, DLP Body: 296 mGy*cm. CTDIvol Head: 47.00 mGy, DLP Head: 773 mGy*cm. COMPARISON: Noncontrast CT head performed concurrently. CT scan of the chest 11/25/2024. FINDINGS: CTA OF THE NECK: Arch: There is a four vessel aortic arch, with direct origin of the left vertebral artery from the aorta. There is mild atherosclerotic plaque of the aortic arch, but origins of the supra aortic vessels are patent. Right carotid system: The common carotid and cervical internal carotid arteries are patent. There is calcified atherosclerotic plaque at the carotid bifurcation, but no ICA stenosis (0%) by NASCET criteria. Left carotid system: The common carotid and cervical internal carotid arteries are patent. There iscalcified atherosclerotic plaque at the carotid bifurcation, but no ICA stenosis (0%) by NASCET criteria. There is a right-dominant vertebral artery system. Right vertebral: Patent. Left vertebral: Patent. Other: Soft tissues and bones: No evidence of lymphadenopathy or mass. The right lobe of the thyroid glandis asymmetrically enlarged. Nodular foci are present within both lobes with right-sided nodules measuring up to at least mm in size. Sternotomy wires are present. Bilateral pleural effusions are partially within the [id number]. A cluster of nodules within the right upper lobe in association withfocal bronchiectasis is similar. Degenerative changes of the cervical spine. CTA OF THE HEAD: Anterior circulation: The intracranial internal carotid arteries are patent. ICA calcifications arepresent, and there is mild stenosis of the paraclinoid right ICA. Left posterior communicating artery is present. The ICA termini are maintained. The A1 and A2 segments of the anterior cerebral arteries are patent. The M1 segments of the middle cerebral arteries and M2 branch origins are patent. Posterior circulation: Bilateral intracranial vertebral arteries, the basilar artery, and bilateralsuperior cerebellar and posterior cerebral artery branches are patent. The basilar artery is partially duplicated or fenestrated. Veins: Major dural venous sinuses are patent. Other: Soft tissues and bones: No midline shift or effacement of the basal cisterns. No space-occupying hemorrhage. No acute territorial loss of lalnes-white matter differentiation. There have been lens extractions bilaterally. No significant opacification in the paranasal sinusesor mastoid air cells. IMPRESSION: 1. No acute intracranial large vessel occlusion. 2. No hemodynamically-significant stenoses of the extracranial internal carotid and vertebral arteries. 3. A cluster of nodules within the right upper lobe is similar in size and distribution. This couldrepresent the sequela of an inflammatory process, but no significant change is noted from the CT scan of the chest at 11/25/2024. A 3 month interval follow-up CT scan of the chest and pulmonary consultation are recommended. A Critical Result message will be sent. A preliminary report was issued to the emergency room by the [facility] service 02/26/2025 at 3:54 AM. An actionable message ([place]) has been communicated via the [employer] system on 02/26/2025 10:03 AM, Message ID [id number]. WSN: [id number] Ordering Physician: Gabby Richter Dictated By: Familia Trinidad MD Dictated Date/Time: 02/26/25 10:04 a Reviewed By: Familia Trinidad MD Signed By: Familia Trinidad MD Signed Date/Time: 02/26/25 10:04 am Transcribed By: DONATO Transcribed Date/Time: 02/26/25 9:48 am * Exam Date Time Procedure Performing Provider Status 02/26/25 12:30 AM Chest 2 Views Frontal and Lat Maurisio Rao; Auth (Verified) Notes: (Chest 2 Views Frontal and Lat) Reason For Exam: Shortness of Breath RESULT: Chest 2 Views Frontal and Lat Chest 2 Views Frontal and Lat COMPARISON: 12/12/2024 most recent INDICATION / CLINICAL QUESTION: Dizziness, shortness of breath FINDINGS: LINES AND TUBES: None. LUNGS AND PLEURA: Bilateral moderate pleural effusions and bibasilar consolidation, right slightly worse than left. Clear upper lungs without Palma B lines. No pneumothorax. HEART, MEDIASTINUM AND RENETTA: Partially obscured. Probably enlarged heart. BONES AND SOFT TISSUES: No acute abnormality. IMPRESSION: Moderate bilateral pleural effusions and adjacent basilar opacity could be due to CHF or pneumonia. WSN: [id number] Ordering Physician: Jennifer Gil Dictated By: Fawad Sosa MD Dictated Date/Time: 02/26/25 7:22 am Reviewed By: Fawad Sosa MD Signed By: Fawad Sosa MD Signed Date/Time: 02/26/25 7:22 am Transcribed By: DONATO Transcribed Date/Time: 02/26/25 7:19 am * Exam Date Time Procedure Performing Provider Status 02/26/25 3:[address] Head/Brain W/O Contrast Stupak , Ole g; Auth (Verified) Notes: (CT Head/Brain W/O Contrast) Reason For Exam: Neuro deficit, acute, stroke suspected;Other: RESULT: CT Head/Brain W/O Contrast CT Head/Brain W/O Contrast Hx of Present Illness: Dizziness x 1 day and feels like the room is spinning. Pt is on blood thinners for hx of valve replacement. Denies any trauma, falls or headstrikes. Pt also wants to get burn checked out to [facility] Reason: Other:; Neuro deficit, acute, stroke suspected; Clinical Question(s):Other:; Hematoma Infarction. TECHNIQUE: Noncontrast head CT using axial technique and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 Metapneumovirus by PCR?NEGATIVE () ??02/26/2025 05:56 Influenza A by PCR?NEGATIVE ()?02/26/2025 05:56 Influenza B by PCR?NEGATIVE ()?02/26/2025 05:56 Influenza A PCR?NEGATIVE ()?02/26/2025 05:56 Influenza B PCR?NEGATIVE ()?02/26/2025 05:56 Mycoplasma Pneumoniae by PCR?NEGATIVE () ??02/26/2025 05:56 Parainfluenza 1 by PCR?NEGATIVE ()?02/26/2025 05:56 Parainfluenza 2 by PCR?NEGATIVE ()?02/26/2025 05:56 Parainfluenza 3 by PCR?NEGATIVE ()?02/26/2025 05:56 Parainfluenza 4 by PCR?NEGATIVE ()?02/26/2025 05:56 RSV PCR?NEGATIVE ()?02/26/2025 05:56 RSV by PCR?NEGATIVE ()?02/26/2025 05:56 Rhinovirus/Enterovirus by PCR?NEGATIVE ()?02/26/2025 05:56 ?? Note: Critical results are displayed in red. ? Blood Glucose Trend Glucose Level:??124 mg/dL??High (02/26/25 10:31:00) Glucose Level:??138 mg/dL??High (02/25/25 22:31:00) Glucose, POC:??210 mg/dL??High (02/26/25 11:17:00) Glucose, POC:??137 mg/dL??High (02/25/25 22:35:00) ? Coagulation Profile INR:??3.5??High (10:30) Protime (PT):??32.8 seconds??High (10:30) ?? LFT Protime (PT):??32.8 seconds??High (10:30) ?? Urinalysis Est Creatinine Clearance: 45.65 mL/min (11:25) Est Creatinine Clearance: 37.31 mL/min (23:20) ?? Microbiology ?? Respiratory Pathogen PCR with COVID-19?? Collected?? Source: Nasal Body Site: Nose Collected Dt/Tm: 02/26/2025 07:33 Last Updated Dt/Tm: 02/26/2025 07:33 ?? COVID-19, RSV, and Flu A/B, Rapid PCR?? Completed?? Source: Nasal Body Site: Nose Collected Dt/Tm: 02/26/2025 05:33 Last Updated Dt/Tm: 02/26/2025 06:54 ? Cardiology Labs Nt-Probnp:??96714 pg/mL??High (02/26/25 10:31:00) High Sensitivity Troponin (HSTnT):??44 ng/L??High (02/26/25 10:31:00) High Sensitivity Troponin (HSTnT):??44 ng/L??High (02/26/25 02:22:00) High Sensitivity Troponin (HSTnT):??48 ng/L??High (02/25/25 22:31:00) ?? Blood Gases?? No qualifying data available. ? EKG study * Event Display: EKG Authored Date: * Event Display: EKG Authored Date: * Event Display: ECG 12-Lead Authored Date: Please click on pdf link to open report * Event Display: ECG 12-Lead Authored Date: Ventricular Rate: 76 BPM Atrial Rate: 76 BPM P-R Interval: 162 ms QRS Duration: 106 ms Q-T Interval: 422 ms QTC Calculation(Bazett): 474 ms P [place]: 77 degrees R [place]: -64 degrees T [place]: 147 degrees Normal sinus rhythm Left axis deviation Left ventricular hypertrophy ( Amish product , Romhilt-Pina ) Anteroseptal infarct , age undetermined ST and T wave abnormality, consider lateral ischemia Abnormal ECG When compared with ECG of 28-Feb-2025 10:42, No significant change Confirmed by ANDI JACKSON MD ([id number]) on 03/01/2025 9:56:07 AM [place]: ANDI JACKSON MD * Event Display: ECG 12-Lead Authored Date: Please click on pdf link to open report * Event Display: ECG 12-Lead Authored Date: Ventricular Rate: 68 BPM Atrial Rate: 68 BPM P-R Interval: 164 ms QRS Duration: 106 ms Q-T Interval: 452 ms QTC Calculation(Bazett): 480 ms P [place]: 67 degrees R [place]: -74 degrees T [place]: 130 degrees Normal sinus rhythm Left axis deviation Left ventricular hypertrophy ( Disney product , Romhilt-Pina ) Anteroseptal infarct , age undetermined ST and T wave abnormality, consider lateral ischemia Abnormal ECG When compared with ECG of 27-Feb-2025 09:57, No significant change was found Confirmed by SHANDA GRAJEDA MD ([id number]) on 03/01/2025 8:58:02 AM [place]: SHANDA GRAJEDA MD * Event Display: ECG 12-Lead Authored Date: Please click on pdf link to open report * Event Display: ECG 12-Lead Authored Date: Ventricular Rate: 73 BPM Atrial Rate: 73 BPM P-R Interval: 150 ms QRS Duration: 110 ms Q-T Interval: 450 ms QTC Calculation(Bazett): 495 ms P [place]: 86 degrees R [place]: -71 degrees T [place]: 142 degrees Normal sinus rhythm Left axis deviation Minimal voltage criteria for LVH, may be normal variant ( Amish product ) Anteroseptal infarct (cited on or before 28-Oct-2024) ST and T wave abnormality, consider lateral ischemia Abnormal ECG When compared with ECG of 26-Feb-2025 11:17, Nonspecific T wave abnormality no longer evident in Inferior leads QT has shortened Confirmed by Carlos Bradley ([id number]) on 03/01/2025 8:10:32 AM [place]: Carlos Bradley Heart * Event Display: Echocardiogram - Complete Authored Date: Transthoracic Echocardiography Report (TTE) Patient Demographics Patient Name OCTAVIA RODRIGUEZ Date of Study 02/28/2025 Corporate Gender Female Facility Race .[id number] Ethnicity or Date of 1950 Height: 62.2 inches Age 74 year(s) Weight: 141.32 pounds Accession Number [id number] BSA: 1.65 m2 Room Number [id number] BMI: 25.68 kg/m2 Referring Manuel Dasilva MD Interpreting Rene Silverio MD Physician Physician Supervisor Contact Lens Kamala GUERRERO Rick Indications Heart failure. Clinical History Congestive heart failure. H/O MVR AF. HTN. T2DM. STEMI. Study Data Type of Study TTE procedure:Echo Complete-(Doppler, Colorflow) with Contrast. Procedure Information:Definity was administered by Hog Dropper . Study Date02/28/2025 Start Time: 10:01 AM Study Location: [facility] [place] Study Status: Bedside Patient Status: Routine Technical Quality: Adequate Blood Pressure:145/76 mmHg HR: 71 bpm Contrast Medium: Definity. Amount - 2 ml 2D Measurements LV Diastolic Dimension: 4.4 cm LV Systolic Dimension: 2.8 cm LV Septum Diastolic: 0.9 cm LV PW Diastolic: 0.8 cm AO Root Dimension: 3.1 cm LVOT Stroke Volume: 43.41 ml LVOT: 1.6 cm Stroke Volume Index26.31 ml/m2 Cardiac Index:1.87 l/min/m2 Doppler Measurements LVOT Peak Velocity: 101 cm/s MV Mean Gradient: 6 mmHg LVOT VTI21.6 cm MV Area (continuity): 0.95 cm2 Cardiac Anatomy Left Ventricle/Interventricular Septum Normal left ventricular wall thickness. Moderately increased left ventricular size (LVEDVi 78 mL/m2 using echo enhancement agent). Mildly reduced left ventricular systolic function. Left ventricular ejection fraction is 51 % by biplane Walker's estimation. There is mild global hypokinesis without regional wall motion abnormalities. There is paradoxical septal motion consistent with prior cardiac surgery . Unable to assess diastolic function due to mitral valve prosthesis . Left Atrium/Interatrial Septum The left atrium could not be accurately measured but appears dilated. Aortic Valve The aortic valve is poorly visualized. There is an unidentifiable number of aortic valve leaflets. No aortic stenosis or regurgitation. Mitral Valve There is a normally functioning bioprosthetic valve in the mitral position. No intravalvular or paravalvular regurgitation. The peak and mean diastolic gradients are 17 and 6 mmHg, respectively, at 73 bpm. Aorta The aortic root is normal in size. The ascending aorta is not well visualized. Right Ventricle Right ventricular systolic function is normal. Right ventricular systolic function is reduced. Right Atrium The right atrium is normal in size. Pulmonic Valve The pulmonic valve is poorly visualized. There is trace pulmonic regurgitation. Tricuspid Valve The tricuspid valve is not well visualized. There is trace tricuspid valve regurgitation. Pumonary Artery The tricuspid regurgitation jet is inadequate to assess the PASP. Venous Structures The inferior vena cava size is normal (<= 2.1 cm) with normal inspiratory collapse (>50%), consistent with a right atrial pressure of approximately 3 mmHg. Pericardium/Extracardiac There is no significant pericardial effusion. Summary 1. Normal left ventricular wall thickness. Moderately increased left ventricular size (LVEDVi 78 mL/m2 using echo enhancement agent). Mildly reduced left ventricular systolic function. Left ventricular ejection fraction is 51 % by biplane Walker's estimation. There is mild global hypokinesis without regional wall motion abnormalities. There is paradoxical septal motion consistent with prior cardiac surgery . Unable to assess diastolic function due to mitral valve prosthesis . 2. Right ventricular systolic function is normal. Right ventricular systolic function is reduced. 3. The atria are suboptimally visualized. THe left atrium appears dilated. 4. There is a normally functioning bioprosthetic valve in the mitral position. No intravalvular or paravalvular regurgitation. The peak and mean diastolic gradients are 17 and 6 mmHg, respectively, at 73 bpm. 5. No other significant valvular abnormalities. 6. The inferior vena cava size is normal (<= 2.1 cm) with normal inspiratory collapse (>50%), consistent with a right atrial pressure of approximately 3 mmHg. 7. There is no significant pericardial effusion. 8. The aortic root is normal in size. The ascending aorta is not well visualized. Comparison Comparison is made to the external study of November 25, 2024. Study quality limitations preclude direct comparisons. The previously observed left pleural effusion is not well seen on this exam. Signature * Event Display: Echocardiogram - Complete Authored Date: Cardiology * Event Display: Cardiac Rhythm Strips Authored Date: Hospital Progress note * Lillian BOURGEOIS, Carrie: PERFORM, SIGN, VERIFY Event Display: Progress Note Hospital Authored Date: Patient: OCTAVIA RODRIGUEZ Age: 74 years Sex: Female : 1950 Associated Diagnoses: None Author: Lillian BOURGEOIS, Carrie Findings Problem Related to Alteration in Cardiac Function (new) : Alteration in Cardiac Function/new 03/04/2025 1:00 EDT Alteration in Cardiac Status Related to Heart failure Goals & Outcomes, Cardiac Status Pt will resume/maintain adequate cardiac output, Pt will resume/maintain adequate hemodynamic status, Pt will resume/maintain adequate respiratory function, Pt will resume/maintain intact neuro function, Pt will maintain adequate GI/ function appropriate for pt, Pt will maintain adequate nutrition status, Pt/caregiver will state understanding of diagnosis, Pt/caregiver will state strategies to reduce risk factors Cardiac Interventions Implemented Assess/monitor cardiac status, Assess/monitor neuro status, Assess/monitor respiratory status BH Goals/Interventions, Cardiac Yes Cardiac, Problem Start 02/26/2025 18:48 Reviewed Plan with, Cardiac Status Patient Patient Progression, Cardiac Status Patient progressing according to plan . Narrative/Incidental patient alert and orientedx4 stratus used for translation. no tele. sating wnl on ra respirations even and unlabored. on Lovenox. bm 14th. voiding in bathroom. independent in room with a steady gait.educated on plan of care and Lovenox to warfarin bridge with director of state. patient declined wound care as wound dressing chested late yesterday evening. vs stable call [place] in reach able to ring appropriately.... Discharge Information Case Management Discharge Plan : Case Management Discharge Plan Data 03/02/2025 14:59 EDT Discharge Level of Care at Discharge Homehealth/VNA Discharge VNA/Hospice/Home Care [facility] [phone] Name of Agency #1 [facility] Research Physicist #1 intake Service Categories #1 Physical Therapy, Retirement Service Comments #1 you are being discharged home with [facility] and [facility]- if you do not hear from them within 24 hours of discharge please reach out to agency * Melyssa Partida MD: PERFORM Event Display: Progress Note Hospital Authored Date: Patient: ??OCTAVIA RODRIGUEZ ? Age:??74 Years?Sex:??Female?:??1950?? Subjective ?? Prior notes reviewed Was planned for discharge yesterday however patient and family did not feel comfortable with the Lovenox at discharge was held ?? Patient seen with interpreter translator???no new complaint, ambulating in the floor however says thatshe is not comfortable with??Lovenox injection. ??Does not have any family was able to??do it for her Discussed with heel caser and at this time VNA can do daily and hopefully will not??need too long ?? At this time change therapeutic Lovenox to daily dosing???increase dose of??warfarin to 5 mg ?? Review of Systems Rest of the review of system negative Objective Measurements?? Height: 158 cm (03/03/25) Weight: 57.1 kg (03/03/25) Dry Weight: 63.5 kg (02/26/25) Body Mass Index: 24.76 kg/m2 (02/26/25) ? Vital Signs?? Temperature: 98 DegF (03/03/25 13:30:00) Temperature Route: Oral (03/03/25 13:30:00) Pulse Rate: 79 bpm (03/03/25 13:30:00) Respiratory Rate: 17 br/min (03/03/25 13:30:00) Systolic Blood Pressure: 114 mm Hg (03/03/25 13:30:00) Diastolic Blood Pressure: 61 mm Hg (03/03/25 13:30:00) Blood pressure sites: Arm, left (03/03/25 13:30:00) Mean Arterial Pressure: 79 mm Hg (03/03/25 13:30:00) Pulse Pressure: 53 mm Hg (03/03/25 13:30:00) Oxygen Saturation: 99 % (03/03/25 13:30:00) Mode of Delivery (Oxygen): Room air (03/03/25 13:30:00) Early Warning Score: 0 (03/03/25 16:35:50) ? Physical Exam Results Abnormal Labs ?? CHEM GENERAL Glucose, POC?179 mg/dL (High)?03/03/2025 16:32 ?? COAG INR?1.5 (High)?03/03/2025 03:12 Protime (PT)?15.6 seconds (High)?03/03/2025 03:12 ?? Note: Critical results are displayed in red. ? Assessment/Plan ?? 74 years female with a past medical history significant for asthma, A-fib on Coumadin, type 2 diabetes mellitus, heart failure, GERD, hyperlipidemia, hypertension, presented??to our hospital with a chief complaint of shortness of breath and dizziness. ?? Acute on chronic diastolic heart failure ??(I50.33) Hx of mitral valve replacement ??(Z95.2) ST elevation (STEMI) myocardial infarction ??(I21.3) ruled out Paroxysmal atrial fibrillation Troponin mildly elevated at 40s, flat EKG was concerning for ST elevation and T wave depression - Per ??Kash from cardiology who initially??read the??EKG, reviewed previous and current EKG.There was concern for worsening ??ST depression. ??Repeat EKG was obtained??next day??morning,??ST depression seems worse.?However patient denied any??chest pain??throughout this.?? And her troponin??has been??mildly elevated but??flat mostly.Also reviewed her echocardiogram from November of this year,??it was a limited??study and??did not have??much information. Seen by Cardiology - PVC - no plan for cath Updated echocardiogram showed low normal LVEF 51%, mild global hypokinesis without wall motion abnormalities, paradoxical septal motion consistent with prior cardiac surgery dilated left atrium normally functioning bioprosthetic MVR with mean gradient of 6 at 73 bpm, normal RV size though RV function is reduced Given prolonged QTc??? Dofetilide??was discontinued and started on amiodarone Plan Amiodarone Lasix 20 mg daily Continue with warfarin???goal INR between 2-3. ??Currently being bridged with Lovenox ?? YIMI on CKD (chronic kidney disease), stage III (N18.30): Baseline 0.8???0.9, cr down to 1.2 and downtrending Was seen by renal team Plan Continue to hold lisinopril until repeat labs with??creatinine??improving close to baseline Labs in 1 week ?? Dizziness Patient underwent CT head and CT angio head and neck,??no any??acute findings PT recs home ?? Hypokalemia Hypomagnesemia Resolved. ?? Asthma Cont home meds. ?? Left superficial burn open Apply silver sulphadizene cream ?? Type 2 diabetes mellitus (E11.9):??cont home??meds??A1c 6.3 ?? Hypertension (I10):??amlodipine. ??Lisinopril??on hold ?? Hx of mitral valve replacement (Z95.2):??on Coumadin and Lovenox.? VTE prophylaxis as planned anticoagulation ?? Plan is for discharge home tomorrow??with VNA * Saima Jane RN: PERFORM, SIGN, VERIFY Event Display: Progress Note Hospital Authored Date: [id number] Patient: OCTAVIA RODRIGUEZ Age: 74 years Sex: Female : 1950 Associated Diagnoses: None Author: Saima Jane RN Findings Nursing Data Vital Signs : VITAL SIGNS SECTION 03/03/2025 7:28 EDT Early Warning Score 2.00 03/03/2025 7:28 EDT Temperature 97.8 DegF Temperature Route Oral Pulse Rate 83 bpm Respiratory Rate 17 br/min Systolic Blood Pressure 127 mm Hg Diastolic Blood Pressure 59 mm Hg Blood pressure sites Arm, right Mean Arterial Pressure 82 mm Hg Pulse Pressure 68 mm Hg Oxygen Saturation 96 % Mode of Delivery (Oxygen) Room air . Narrative/Incidental Patient on RA, ambulating independenly, states no chest pain or SOB. PRN tylenol given for left legwound pain and dressing re-applied. Discharge cancelled yesterday due to daughter/patient unable toadminister lovenox injection. Per Dr. White, possible discharge with VNA nursing to assist with lovenox-warfarin bridging. Pending heel caser VNA set up. no futher concerns at this time, call light within reach. . Discharge Information Case Management Discharge Plan : Case Management Discharge Plan Data 03/02/2025 14:59 EDT Discharge Level of Care at Discharge Homehealth/VNA Discharge VNA/Hospice/Home Care [facility] [phone] Name of Agency #1 [facility] Research Physicist #1 intake Service Categories #1 Physical Therapy, Retirement Service Comments #1 you are being discharged [facility] with [facility] and [facility]- if you do not hear from them within 24 hours of discharge please reach out to agency Rehabilitation Discharge : Rehab Discharge Index 03/01/2025 16:00 EDT Comments on treatment indicated pt demo good safety awareness, good balance, good functional mobility, good ambulation. No inptient PT needed at this time. Walker: distance 100ft no AD Full chart review completed Yes Note * Event Display: Provider Clarification Note Please click on pdf link to open report * Kim Villanueva RN: PERFORM Event Display: Discharge/Transfer Note Hospital Authored Date: [id number] Nursing Discharge Note Entered On: 03/04/2025 12:30 EDT Performed On: 03/04/2025 12:30 EDT by Kim Villanueva RN Nursing Discharge Note 2 Discharge Time : 03/04/2025 12:30 EDT Discharge Level of Care at Discharge : Homehealth/VNA Discharge VNA/Hospice/Home Care([id number]) : [facility] Patient Left Unit Via : Wheelchair Patient Accompanied Off Unit with : Responsible adult DC Instructions Provided & Signed by Pt : Yes Patient Understands D/C Instructions : Yes Patient Instructions Discharge Signed : Yes Did Pt have Specialty Bed or Wound Vac : No Kim Villanueva RN - 03/04/2025 12:30 EDT * Melyssa Partida MD: PERFORM Event Display: Discharge/Transfer Note Hospital Authored Date: [id number] Patient: ??OCTAVIA RODRIGUEZ ? Age:??74 Years?Sex:??Female?:??1950?? Patient Information Discharge Location: Primary Care Physician: Gayathri Cannon MD Admit Date/Time: 02/26/2025 05:44 Discharge Disposition Discharge Disposition: Home with Home Health Discharge Diagnosis General medical ([id number]) Dizziness (R42) Shortness of breath (R06.02) Asthma (J45.909) Pleural effusion (J90) Pneumonia (J18.9) AF (paroxysmal atrial fibrillation) (I48.0) CKD (chronic kidney disease), stage III (N18.30) Hx of mitral valve replacement (Z95.2) Hypertension (I10) Type 2 diabetes mellitus (E11.9) ST elevation (STEMI) myocardial infarction (I21.3) Acute on chronic diastolic heart failure (I50.33) _ Discharge Medications ?? Acetaminophen (acetaminophen 325 mg oral tablet)??650 Milligram 2 tablet By Mouth 3 times a day Albuterol (Ventolin HFA 108 mcg/inh inhalation aerosol with adapter)??2 puff(s) Inhalation 4 times a day as needed for wheezing LABEL IN RWANDAN amiODARONE (amiodarone 200 mg oral tablet)??See Instructions Take 400 mg By Mouth 2 times a day x 7days then 400 mg daily x 7 days then 200 mg daily thereafter Amlodipine (amLODIPine 10 mg oral tablet)??10 Milligram 1 tablet By Mouth Daily Atorvastatin (atorvastatin 40 mg oral tablet)??1 tab(s) By Mouth Daily LABEL IN [place]AN Budesonide-Formoterol (budesonide-formoterol 80 mcg-4.5 mcg/inh inhalation aerosol with adapter)??2inhalation Inhalation 2 times a day in the morning and the evening Durable Medical Equipment (Home Blood Pressure Monitor with Cuff)??See Instructions Directions: Useas needed to monitor BP at home.Dx: [id number] Lifetime Emollients, Topical (Vashe Topical Solution)??475 Milliliter Topically Every 12 hours Enoxaparin (enoxaparin 100 mg/mL injectable solution)??100 Milligram Subcutaneous Injection Every 24 hours for 2 Days to discontinue once INR > 2 Furosemide (furosemide 20 mg oral tablet)??20 Milligram 1 tablet By Mouth Daily Loratadine (loratadine 10 mg oral capsule)??1 capsule 10 Milligram By Mouth Daily LABEL IN [place]AN Magnesium Oxide (magnesium oxide 400 mg oral capsule)??1 capsule 400 Milligram By Mouth Daily for 3Days Magnesium Oxide (magnesium oxide 400 mg oral tablet)??1 tab(s) 400 Milligram By Mouth 2 times a dayFOR LEG CRAMPS AND LOW MAGNESIUM Melatonin (melatonin 3 mg oral tablet)??3 Milligram By Mouth Daily at bedtime as needed Insomnia for 90 Days Metformin (metFORMIN 500 mg oral tablet)??1 tab(s) 500 Milligram By Mouth Daily with meals Metoprolol (Metoprolol Tartrate 50 mg oral tablet)??1 tab(s) By Mouth 2 times a day LABELINSPANISH. Miscellaneous Rx (ONE TOUCH DELICA PLUS 30G LANCETS)??CHECK BLOOD GLUCOSE DAILY AND NEEDED IF NEEDED FOR SWEATS/DIZZINESS/CONFUSION Miscellaneous Rx (ONE TOUCH ULTRA 2 KIT)??TEST BLOOD SUGAR DAILY AND NEEDED SWEATS/DIZZINESS/CONFUSION Miscellaneous Rx (ONE TOUCH ULTRA BLUE TESTST(NEW)100)??TEST EVERY DAY AND NEEDED FOR SWEATS/DIZZINESS/CONFUSION Pantoprazole (pantoprazole 40 mg oral delayed release tablet)??1 tab(s) 40 Milligram By Mouth 2 times a day Senna (senna 187 mg oral tablet)??1 tab(s) 8.6 Milligram By Mouth 2 times a day as needed Constipation Warfarin (warfarin 1 mg oral tablet)??See Instructions 2.5 tablet ( 2.5mg ) - tonight and then 2 tabs daily - to be adjusted based on INR ?? Medications Started Amiodarone?? Lovenox for bridging Medications Discontinued Dofetilide Doses Changed Warfarin Allergies Allergies ?(Active and Proposed Allergies Only) furosemide? (Severity: Unknown severity, Onset: Unknown) ?Reactions: hypomagnesemia ? PCP Follow-Up/Heads-Up ?? INR follow-up???currently on Lovenox bridge ?? Outpatient cardiology follow-up ?? Labs to check CBC and??basic metabolic panel in 1 week Hospital Course ?? 74 years female with a past medical history significant for asthma, A-fib on Coumadin, type 2 diabetes mellitus, heart failure, GERD, hyperlipidemia, hypertension, presented??to our hospital with a chief complaint of shortness of breath and dizziness. ?? Acute on chronic diastolic heart failure ??(I50.33) Hx of mitral valve replacement ??(Z95.2) ST elevation (STEMI) myocardial infarction ??(I21.3) ruled out Paroxysmal atrial fibrillation Remained hemodynamically stable EKG was concerning for ST elevation and T wave depression - Per .??Kash from cardiology who initially??read the??EKG, reviewed previous and current EKG.There was concern for worsening ??ST depression. ??Repeat EKG was obtained??next day??morning,??ST depression seems worse.?However patient denied any??chest pain??throughout this.?? And her troponin??has been??mildly elevated but??flat mostly Seen by Cardiology - PVC - ACS less likely and no plan for cath Updated echocardiogram showed low normal LVEF 51%, mild global hypokinesis without wall motion abnormalities, paradoxical septal motion consistent with prior cardiac surgery dilated left atrium normally functioning bioprosthetic MVR with mean gradient of 6 at 73 bpm, normal RV size though RV function is reduced Given prolonged QTc??? Dofetilide??was discontinued and started on amiodarone INR was supratherapeutic initially so Coumadin was held however later was subtherapeutic??even after the Coumadin was started.?? Was bridged with Lovenox INR??1.7 on discharge Plan Amiodarone??400 mg 2 times a day until 03/06 then 400 mg daily for a week then 200 mg daily Lasix 20 mg daily Continue with warfarin???2.5 mg tonight and then to continue with 2 mg daily Lovenox 100 mg daily for bridging???check INR tomorrow??and can be discontinued??if INR more than 2 ?? YIMI on CKD (chronic kidney disease), stage III (N18.30): Baseline 0.8???0.9, cr down to 1.2 and downtrending Was seen by renal team Plan Continue to hold lisinopril until repeat labs with??creatinine??improving close to baseline Labs in 1 week ?? Dizziness Patient underwent CT head and CT angio head and neck,??no any??acute findings PT recs home ?? Hypokalemia Hypomagnesemia Resolved. ?? Asthma Cont home meds. ?? Left superficial burn open Apply silver sulphadizene cream ?? Type 2 diabetes mellitus (E11.9):??cont home??meds??A1c 6.3 ?? Hypertension (I10):??amlodipine. ??Lisinopril??on hold ?? Hx of mitral valve replacement (Z95.2):??on Coumadin and Lovenox.? Objective ?? No significant overnight event Vitals has been stable Patient ambulating in the room Denies chest pain shortness of breath ?? INR today 1.7.?? Follows at Coumadin clinic. Spoke to patient's daughter??to verify dosing. ??She is given 1 mg tablet and says??recently she has been taking 2 and half tablets daily for 6 days and 1 and half tablet on??Saturday ?? INR being subtherapeutic at this time is likely in the setting of holding Coumadin (this INR was slightly supratherapeutic??on presentation) INR is uptrending now. ??Received 5 mg Coumadin last night anticipated to be more than 2 in next 1 to 2 days so should not need Lovenox bridging for too long ?? Reviewed regarding warfarin dosing???to take 2.5 mg tonight??and to continue with 2 mg daily. ??Will need to check INR tomorrow in the next week ? Vital Signs?? Temperature: 97.6 DegF (03/04/25 07:23:00) Temperature Route: Temporal (03/04/25 07:23:00) Pulse Rate: 80 bpm (03/04/25 07:23:00) Respiratory Rate: 18 br/min (03/04/25 07:23:00) Systolic Blood Pressure: 131 mm Hg (03/04/25 08:43:00) Diastolic Blood Pressure: 62 mm Hg (03/04/25 08:43:00) Blood pressure sites: Arm, right (03/04/25 07:23:00) Mean Arterial Pressure: 85 mm Hg (03/04/25 07:23:00) Pulse Pressure: 69 mm Hg (03/04/25 07:23:00) Oxygen Saturation: 97 % (03/04/25 07:23:00) Mode of Delivery (Oxygen): Room air (03/04/25 07:23:00) Early Warning Score: 2 (03/04/25 08:46:02) ? . Physical Exam ?? Awake oriented x 3 Chest is clear to auscultation [facility] cardiology Pending Results Add On Lab Order ordered on 02/26/2025 Add On Lab Order ordered on 02/26/2025 Add On Lab Order ordered on 02/26/2025 Basic Metabolic Panel ordered on 03/02/2025 Magnesium Level ordered on 03/02/2025 Respiratory Pathogen PCR with COVID-19 ordered on 02/26/2025 Patient Education Titles WebMD Ignite Patient Education -?? WebMD Ignite Patient Education -?? Follow-Up Appointments Added Follow Up ?Time Frame ?Comments Julius ENVIRONMENTAL TEST TECHNICIAN, Melony M?Office will call with FU appt?? Gayathri Cannon MD?1 to 2 weeks Patient Instructions ?? Needs to take Lovenox injection for bridging??until INR is more than 2. ??INR 1.7 on??time of discharge. Check INR tomorrow and reach out to PCP re: need for further lovenox injection.? Regarding Coumadin (?? 1mg )???takes 2 and half tablets ( 2.5 mg ) tonight??and then continue with 2 tablets?( 2 mg ) tablet from tomorrow.? Re: Amiodarone - take 400mg BID until 03/06. Then take 400mg daily from 03/07 - 03/13 - then take 200mg daily Post Discharge Care Diet: ??Cardiac diet ?? Activity: ??as tolerated ?? Discharge Prescriptions ?ePrescribed, 03/02/25 13:40:00 EDT ?Order Comment:?? Home Health Face to Face *Denotes mandatory high ?? *I certify that this patient is under my care and that I or an allowed non- physician working with me had a face to face encounter with the patient on this date:??03/04/2025 09:49 ?? *The encounter with the patient was in whole, or in part, for the following medical condition, which is the primary diagnosis(es) for home health care:??General medical ([id number]) Dizziness (R42) Shortness of breath (R06.02) Asthma (J45.909) Pleural effusion (J90) Pneumonia (J18.9) AF (paroxysmal atrial fibrillation) (I48.0) CKD (chronic kidney disease), stage III (N18.30) Hx of mitral valve replacement (Z95.2) Hypertension (I10) Type 2 diabetes mellitus (E11.9) ST elevation (STEMI) myocardial infarction (I21.3) Acute on chronic diastolic heart failure (I50.33) ?? *Select the indications for the discipline/s that are being arranged for this patient. Nursing (select all that apply): [_] None [X] Medication management (reconciliation, teaching)?? [X] Chronic disease management?? [_] Wound care and treatment?? [_] Home safety evaluation [X] Administer SQ/IM/IV medications?? [_] Cath care?? [_] Drain care?? [_] Trach or GT care?? Other?? Labs to check INR tomorrow - If INR > 2 can discontinue lovenox BMP / CBC in 1 week_ Occupation Therapy (select all that apply): [_] None [_] ADL Management [_] Fall prevention training [_] Energy conservation [_] Cognitive training Other _ Physical Therapy (select all that apply): [_] None [_] Functional mobility training [X] Home exercise program to strengthen [_] Increase ROM?? [_] Falls prevention training [_] Home maintenance program for chronic disease Other _ Speech Therapy (select all that apply): [_] None [_] Swallow evaluation and training [_] Speech and language training [_] Cognitive training to process, organize, and/or recall information Other _ ? *Homebound due to (select all that apply): [_] Inability to leave home without assistance/supervision [_] Inability to ambulate without assistance [_] Pain [X] Decreased strength and endurance [_] Unsteady gait [_] Severe SOB and fatigue [_] Impaired transfers [_] Inability to negotiate stairs [_] Limited weight bearing [_] Mental status change? *Physician Signature:?? Melyssa Partida_ ?? *By signing this, I certify that I have personally evaluated the patient and agree with the findings and recommendations as documented above. ? Results Discharge Labs BLOOD COUNT & DIFF WBC 6.1 k/mm3 ()?? 02/27/2025 02:23 RBC 3.77 m/mm3 (Low)?? 02/27/2025 02:23 Hgb 9.2 Gm/dL (Low)?? 02/27/2025 02:23 Hct 29.6 % (Low)?? 02/27/2025 02:23 MCV 78.5 femtoliters (Low)?? 02/27/2025 02:23 MCH 24.4 pg (Low)?? 02/27/2025 02:23 MCHC 31.1 Gm/dL (Low)?? 02/27/2025 02:23 Platelet Count 302 k/mm3 ()?? 02/27/2025 02:23 RDW-SD 58.4 femtoliters (High)?? 02/27/2025 02:23 MPV 9.8 femtoliters ()?? 02/27/2025 02:23 Nucleated RBC (Automated) 0.3 #/100 WBC'S ()?? 02/27/2025 02:23 Abs. NRBC 0.0 k/mm3 ()?? 02/27/2025 02:23 Abs. Neut 5.8 k/mm3 ()?? 02/25/2025 22:31 Abs. Lymph 1.8 k/mm3 ()?? 02/25/2025 22:31 Abs. Wells 0.6 k/mm3 ()?? 02/25/2025 22:31 Abs. Eo 0.1 k/mm3 ()?? 02/25/2025 22:31 Abs. Baso 0.0 k/mm3 ()?? 02/25/2025 22:31 Neut % 68.9 % ()?? 02/25/2025 22:31 Lymph % 21.9 % ()?? 02/25/2025 22:31 Wells % 7.3 % ()?? 02/25/2025 22:31 Eos % 1.0 % ()?? 02/25/2025 22:31 Baso % 0.5 % ()?? 02/25/2025 22:31 Imm Gran 0.4 % ()?? 02/25/2025 22:31 Abs. Imm Gran 0.0 k/mm3 ()?? 02/25/2025 22:31 ?? CARDIAC Nt-Probnp 18618 pg/mL (High)?? 02/26/2025 10:31 High Sensitivity Troponin (HSTnT) 44 ng/L (High)?? 02/26/2025 10:31 ?? CHEM GENERAL Sodium 138 mmol/L ()?? 03/02/2025 08:03 Potassium 4.6 mmol/L ()?? 03/02/2025 08:03 Chloride 104 mmol/L ()?? 03/02/2025 08:03 Bicarbonate Level 25 mmol/L ()?? 03/02/2025 08:03 Anion Gap 9 mmol/L ()?? 03/02/2025 08:03 Glucose Level 114 mg/dL (High)?? 03/02/2025 08:03 Glucose, POC 146 mg/dL (High)?? 03/04/2025 07:25 Hemoglobin A1C (Monitoring) 6.3 % (High)?? 02/26/2025 10:30 BUN 19 mg/dL ()?? 03/02/2025 08:03 Creatinine-Blood 1.12 mg/dL (High)?? 03/02/2025 08:03 Estimated GFR Creatinine 51 ML/MIN/1.73 M2 ()?? 03/02/2025 08:03 Calcium 9.2 mg/dL ()?? 03/02/2025 08:03 Magnesium 1.7 mg/dL ()?? 03/02/2025 08:03 ? COAG INR 1.7 (High)?? 03/04/2025 02:36 Protime (PT) 17.0 seconds (High)?? 03/04/2025 02:36 ?? HEME OTHER Hold Lavender Top SPECIMEN DISCARDED AFTER 24 HOURS. ()?? 03/04/2025 02:36 Hold Blue Top SPECIMEN DISCARDED AFTER 4 HOURS. ()?? 02/25/2025 22:31 ?? MISC. CHEMISTRY Hold Green Top SPECIMEN DISCARDED AFTER 1 WEEK ()?? 03/04/2025 02:36 Procalcitonin 0.17 ng/mL ()?? 02/26/2025 10:31 ?? UA/URINALYSIS Appear/Color, Urine LIGHT YELLOW ()?? 03/01/2025 16:07 Specific Matthews, Urine 1.013 ()?? 03/01/2025 16:07 pH, Urine 6.0 ()?? 03/01/2025 16:07 Albumin, Urine NEGATIVE ()?? 03/01/2025 16:07 Glucose, Urine NEGATIVE ()?? 03/01/2025 16:07 Ketones, Urine NEGATIVE ()?? 03/01/2025 16:07 Bilirubin, Urine NEGATIVE ()?? 03/01/2025 16:07 Hemoglobin, Urine NEGATIVE ()?? 03/01/2025 16:07 Nitrite, Urine NEGATIVE ()?? 03/01/2025 16:07 Leukocyte, Urine 2+ (Abnormal)?? 03/01/2025 16:07 Urobilinogen NORMAL mg/dL ()?? 03/01/2025 16:07 WBC's, Urine 10 /HPF (High)?? 03/01/2025 16:07 RBC's, Urine 2 /HPF ()?? 03/01/2025 16:07 Squamous Epith <1 /HPF ()?? 03/01/2025 16:07 Hold Urine Culture Testing available 48 hours from time of collection. ()?? 03/01/2025 16:07 ? URINE OTHER Creatinine, Urine Random 66.9 mg/dL ()?? 03/01/2025 16:07 Sodium, Urine Random 60 mmol/L ()?? 03/01/2025 16:07 Chloride, Urine Random 83 mmol/L ()?? 03/01/2025 16:07 Urea Nitrogen, Urine Random 409.1 mg/dL ()?? 03/01/2025 16:07 Osmolality, Urine Random 413 mOsm/kg ()?? 03/01/2025 16:07 Protein, Total Urine Random 13 mg/dL ()?? 03/01/2025 16:07 TP/Cr Ratio 0.19 ()?? 03/01/2025 16:07 Creatinine, Urine 66.9 mg/dL ()?? 03/01/2025 16:07 Malb/Creat Ratio Unable to calculate mg/Gm ()?? 03/01/2025 16:07 Urine Creat For Micro Alb 66.9 mg/dL ()?? 03/01/2025 16:07 Micro-Albumin <12.0 mg/L ()?? 03/01/2025 16:07 Est Creatinine Clearance 34.65 mL/min ()?? 03/02/2025 09:14 ?? VIROLOGY Influenza A PCR NEGATIVE ()?? 02/26/2025 05:56 Influenza B PCR NEGATIVE ()?? 02/26/2025 05:56 RSV PCR NEGATIVE ()?? 02/26/2025 05:56 Adenovirus by PCR NEGATIVE ()?? 02/26/2025 05:56 Coronavirus 229E by PCR (not COVID-19) NEGATIVE ()?? 02/26/2025 05:56 Coronavirus HKU1 by PCR (not COVID-19) NEGATIVE ()?? 02/26/2025 05:56 Coronavirus NL63 by PCR (not COVID-19) NEGATIVE ()?? 02/26/2025 05:56 Coronavirus OC43 by PCR (not COVID-19) NEGATIVE ()?? 02/26/2025 05:56 Human Metapneumovirus by PCR NEGATIVE ()?? 02/26/2025 05:56 Rhinovirus/Enterovirus by PCR NEGATIVE ()?? 02/26/2025 05:56 Influenza A by PCR NEGATIVE ()?? 02/26/2025 05:56 Influenza B by PCR NEGATIVE ()?? 02/26/2025 05:56 Parainfluenza 1 by PCR NEGATIVE ()?? 02/26/2025 05:56 Parainfluenza 2 by PCR NEGATIVE ()?? 02/26/2025 05:56 Parainfluenza 3 by PCR NEGATIVE ()?? 02/26/2025 05:56 Parainfluenza 4 by PCR NEGATIVE ()?? 02/26/2025 05:56 RSV by PCR NEGATIVE ()?? 02/26/2025 05:56 Bordetella Pertussis by PCR NEGATIVE ()?? 02/26/2025 05:56 Chlamydophila Pneumoniae by PCR NEGATIVE ()?? 02/26/2025 05:56 Mycoplasma Pneumoniae by PCR NEGATIVE ()?? 02/26/2025 05:56 COVID-19 PCR Specimen Source NASAL ()?? 02/26/2025 05:56 COVID-19 PCR Result NEGATIVE ()?? 02/26/2025 05:56 COVID-19 (SARS-CoV-2) by PCR NEGATIVE ()?? 02/26/2025 05:56 Bordetella Parapertussis by PCR NEGATIVE ()?? 02/26/2025 05:56 ? 35_ minutes spent on discharge * Melisa Walsh RN: PERFORM, SIGN, VERIFY Event Display: Case Management Discharge Plan Authored Date: Patient: OCTAVIA RODRIGUEZ Age: 74 years Sex: Female : 1950 Associated Diagnoses: None Author: Melisa Walsh RN Discharge Plan Case Management Discharge Plan : Case Management Discharge Plan Data 03/04/2025 10:51 EDT Discharge Level of Care at Discharge Homehealth/VNA Discharge VNA/Hospice/Home Care [facility] [phone] Name of Agency #1 [facility] Service Categories #1 Physical Therapy, Retirement Service Comments #1 The VNA will call you 1-2 days after d/c to setup your appointment. If you do no not hear from them, please call them. * Kim Villanueva RN: PERFORM Event Display: Patient Education/Instruction Authored Date: [id number] Inpatient Adult Discharge Instructions. [address] [address] Name: OCTAVIA RODRIGUEZ : 1950?? Visit: 02/26/2025 05:44?? Current Date: 03/04/2025 10:19 ?? Account: [id number]?? Inpatient Adult Discharge Instructions We would like [...] and their families. Surveys are administered by [employer] ?? If further treatment with your primary care physician or another doctor is recommended, it is important for you to keep the appointment. Call your primary care physician or return to the Emergency Department immediately if your condition worsens, fails to improve, or new symptoms develop. If you need to find a doctor, you can call [facility] for a referral at [phone] or toll free at [phone] or log in to [email or web address].. ?? [facility], in keeping with [facility] guidance, no longer requires face masks for [...] a health care skip of your choosing. [employer] is a website that allows you to securely view your medical information including your hospital discharge summary, office visit summaries, medications and follow-up visits. You can also request appointments, renew medications, and request access to your medical information using a health care skip of your choosing, or just ask a question. You are entitled to know the individuals who participated in your treatment. This information is available within your medical record and will be provided upon your request. You can enroll at [email or web address] or register d uring your next office visit. You have been discharged from [facility], Patient Care Unit: S15??. If you have any questions regarding these instructions, including results of studies pending, afteryou leave, please call us and we will be happy to assist you 13/05. [facility] Your Care Team Attending Physician Melyssa Partida MD?? Consulting Providers Melyssa Partida MD?? Discharging Providers Melyssa Partida MD Reason for Your Visit pneumonia, dizziness, CVA r/o?? Your Diagnosis Acute on chronic diastolic heart failure AF (paroxysmal atrial fibrillation) CKD (chronic kidney disease), stage III General medical Hx of mitral valve replacement Hypertension ST elevation (STEMI) myocardial infarction Type 2 diabetes mellitus Tests Performed Below is a partial list of the tests performed during your hospitalization. You may have had other tests and procedures not included in this list. Please discuss all test results with your provider. Basic Metabolic Panel?-- Results Pending -- CBC CBC w/ Differential Chloride Urine Complete Urinalysis COVID-19, RSV, and Flu A/B, Rapid PCR Creatinine Urine GLUCOSE POC HEMOGLOBIN A1C High Sensitivity Troponin T Hold Blue Top Tube HOLD GREEN TUBE HOLD LAVENDER TUBE HOLD URINE CULTURE INR Magnesium Level?-- Results Pending -- Mg Level Microalbumin Urine Osmolality Urine Potassium Level PROBNP PROCALCITONIN Protein/Creatinine Ratio Urine Respiratory Pathogen PCR with COVID-19?-- Results Pending -- Sodium Urine Troponin T, High Sensitivity Urea Nitrogen Urine Chest CT W/O Contrast CT Angio Head CT Angio Neck CT Head/Brain W/O Contrast XR Chest 2 Views Frontal and Lat Add On Lab Order?? B Type Natriuretic Peptide (NT-proBNP) (PROBNP)?? Basic Metabolic Panel?? CBC?? CBC w/ Differential?? COVID-19, RSV, and Flu A/B, Rapid PCR?? CT Angio Head?? CT Angio Neck?? CT Chest W/O Contrast (Chest CT W/O Contrast)?? CT Head/Brain W/O Contrast?? Chloride Urine?? Complete Urinalysis?? Creatinine Urine?? Glucose POC?? Hemoglobin A1C (Monitoring) (HEMOGLOBIN A1C)?? High??Sensitivity??Troponin T (High Sensitivity Troponin T)?? Hold Blue Top Tube?? Hold Green Top Tube (HOLD GREEN TUBE)?? Hold Lavender Top Tube (HOLD LAVENDER TUBE)?? Hold Urine Culture?? INR?? Magnesium Level?? Microalbumin Urine?? Osmolality Urine?? Potassium Level?? Procalcitonin Level (PROCALCITONIN)?? Protein/Creatinine Ratio Urine?? Respiratory Pathogen PCR with COVID-19 (RESP PATH PANEL W/COVID-19)?? Sodium Urine?? Urea Nitrogen Urine?? Chest 2 Views Frontal and Lat (XR Chest 2 Views Frontal and Lat)?? Primary Care Provider Davis SIEGEL, Gayathri Damian? Advance Directive Health Care Proxy on File Yes - Health Care Proxy Discharge Vitals Temperature: 97.6 DegF Height: 158 cm Pulse Rate: 80 bpm Weight: 60.3 kg Respiratory Rate: 18 br/min Body Mass Index: 24.76 kg/m2 Systolic Blood Pressure: 131 mm Hg Body surface area: 1.65 Diastolic Blood Pressure: 62 mm Hg ?? Oxygen Saturation: 97 % ?? Studies Pending All studies ordered during this hospital stay have been completed unless listed below. Please discuss all pending results with your provider listed above in these instructions. ?? Add On Lab Order?? Basic Metabolic Panel?? Magnesium Level?? Respiratory Pathogen PCR with COVID-19?? What to do next Instructions From Your Doctor ?? Needs to take Lovenox injection for bridging??until INR is more than 2. ??INR 1.7 on??time of discharge. Check INR tomorrow and reach out to PCP re: need for further lovenox injection.? Regarding Coumadin (?? 1mg )???takes 2 and half tablets ( 2.5 mg ) tonight??and then continue with 2 tablets?( 2 mg ) tablet from tomorrow.? Re: Amiodarone - take 400mg BID until 03/06. Then take 400mg daily from 03/07 - 03/13 - then take 200mg daily ?? Orders??:Cardiac diet :as tolerated? 03/04/25 9:51:00 EDT?? Prescriptions??, ??03/04/25 9:51:00 EDT , ??03/02/25 13:40:00 EDT?? You Need to Schedule the Following Appointments Follow Up with??Julius MONTOYA, Melony Cherry Why: Office will call with FU appt?? Where: [address] [facility] [place] [address]- Follow Up with??Davis SIEGEL, Gayathri Damian When:??Within 1 to 2 weeks Where: [address] [facility] [place] [address]- Discharge Medications MICHAELOCTAVIA :1950 Visit Date:02/26/2025 Medications: Please continue your medications until treatment is completed or stopped by your provider. Medications not listed below should be discontinued. Discuss any questions related to medications with your provider. What How Much When Instructions Next Dose New amiODARONE (amiodarone 200 mg oral tablet) See instructions Take 400 mg By Mouth 2 times a day x 7 days then 400 mg daily x 7 days then 200 mg daily thereafter ?? Pickup at [facility] 3 400 Mg 2 times a day until 03/07 400mg daily until 03/14 then 200mg Daily New Enoxaparin (enoxaparin 100 mg/ mL injectable solution) 100 Milligram Subcutaneous Injection Every 24 hours Duration: 2 Days to discontinue once INR > 2 ?? Pickup at [facility] 3 03/05 AM Changed Magnesium Oxide (magnesium oxide 400 mg oral capsule) 1 capsule Oral Daily Duration: 3 Days Pickup at [facility] 3 03/05 AM Changed Magnesium Oxide (magnesium oxide 400 mg oral tablet) 1 tab(s) Oral Twice a day FOR LEG CRAMPS AND LOW MAGNESIUM ?? 03/04 PM Changed Warfarin (warfarin 1 mg oral tablet) See instructions 2.5 tablet ( 2.5mg ) - tonight and then 2 tabs daily - to be adjusted based on INR ?? 03/04 PM Unchanged Acetaminophen (acetaminophen 325 mg oral tablet) 2 tab(s) Oral 3 times a day as needed Unchanged Albuterol (Ventolin HFA 108 mcg/ inh inhalation aerosol with adapter) 2 puff(s) Inhalation 4 times a day as needed for for wheezing LABEL IN RWANDAN ?? as needed Unchanged Amlodipine (amLODIPine 10 mg oral tablet) 1 tab(s) Oral Daily 03/05 AM Unchanged Atorvastatin (atorvastatin 40 mg oral tablet) 1 tab(s) Oral Daily LABEL IN RWANDAN ?? 03/05 AM Unchanged Budesonide-Formoterol (budesonide-formoterol 80 mcg-4.5 mcg/ inh inhalation aerosol with adapter) 2 inhalation Inhalation Twice a day in the morning and the evening ?? 03/04 PM Unchanged Emollients, Topical (Vashe Topical Solution) 475 Milliliter Topically Every 12 hours 03/04 PM Unchanged Furosemide (furosemide 20 mg oral tablet) 1 tab(s) Oral Daily 03/05 AM Unchanged Loratadine (loratadine 10 mg oral capsule) 1 capsule Oral Daily LABEL IN RWANDAN ?? 03/05 Unchanged Melatonin (melatonin 3 mg oral tablet) 3 Milligram Oral Daily at Bedtime as needed for Insomnia Duration: 90 Days as needed Unchanged Metformin (metFORMIN 500 mg oral tablet) 1 tab(s) Oral Daily with meals ?? 03/05 Unchanged Metoprolol (Metoprolol Tartrate 50 mg oral tablet) 1 tab(s) Oral Twice a day LABELINSPANISH. ?? 03/04 PM Unchanged Pantoprazole (pantoprazole 40 mg oral delayed release tablet) 1 tab(s) Oral Twice a day 03/04 PM Unchanged Senna (senna 187 mg oral tablet) 1 tab(s) Oral Twice a day as needed for Constipation as needed Pharmacy Information [facility] 3: [address], [place] [id number] [phone] ?? What How Much When Comments Stop Taking Dofetilide (dofetilide 250 mcg oral capsule) 1 capsule Oral Twice a day Stop Taking Lisinopril (lisinopril 20 mg oral tablet) 1 tab(s) Oral Daily Prescription Given During Visit Enoxaparin (enoxaparin 100 mg/mL injectable solution) - 100 mg, Subcutaneous Injection, Every 24 hours, # 2 each, 0 Refills, to discontinue once INR > 2, [place] [address] [phone]?? Magnesium Oxide (magnesium oxide 400 mg oral capsule) - 1 capsule = 400 mg, By Mouth, Daily, # 3 capsule, 0 Refills, [place] [address] [phone]?? amiODARONE (amiodarone 200 mg oral tablet) - , # 60 tablet, 0 Refills, Take 400 mg By Mouth 2 timesa day x 7 days then 400 mg daily x 7 days then 200 mg daily thereafter, [place] [address] [phone]?? Laboratory Results Below is a partial list of the most recent Laboratory test results done prior to this discharge. You may have had other tests and procedures not included in this list. Please discuss all test resultswith your provider. Est Creatinine Clearance - 34.65 mL/min (03/02/2025) CBC (02/27/2025) ???WBC - 6.1 k/mm3???RBC - 3.77 m/mm3???Hgb - 9.2 Gm/dL???Hct - 29.6 %???MCV - 78.5 femtoliters???MCH - 24.4 pg???MCHC - 31.1 Gm/dL???Platelet Count - 302 k/mm3???RDW-SD - 58.4 femtoliters???MPV - 9.8 femtoliters???Nucleated RBC (Automated) - 0.3 #/100 WBC'S???Abs. NRBC - 0.0 k/mm3 CBC w/ Differential (02/25/2025) ???WBC - 8.3 k/mm3???RBC - 3.92 m/mm3???Hgb - 9.8 Gm/dL???Hct - 31.8 %???MCV - 81.1 femtoliters???MCH - 25.0 pg???MCHC - 30.8 Gm/dL???Platelet Count - 325 k/mm3???RDW-SD - 61.0 femtoliters???MPV - 9.8 femtoliters???Nucleated RBC (Automated) - 0.0 #/100 WBC'S???Abs. NRBC - 0.0 k/mm3???Abs. Neut - 5.8 k/mm3???Abs. Lymph - 1.8 k/mm3???Abs. Wells - 0.6 k/mm3???Abs. Eo - 0.1 k/mm3???Abs. Baso - 0.0 k/mm3???Neut % - 68.9 %???Lymph % - 21.9 %???Wells % - 7.3 %???Eos % - 1.0 %???Baso % - 0.5 %???Imm Gran- 0.4 %???Abs. Imm Gran - 0.0 k/mm3 Chloride Urine (03/01/2025) ???Chloride, Urine Random - 83 mmol/L Complete Urinalysis (03/01/2025) ???Appear/Color, Urine - LIGHT YELLOW???Specific Matthews, Urine - 1.013???pH, Urine - 6.0???Albumin, Urine - NEGATIVE???Glucose, Urine - NEGATIVE???Ketones, Urine - NEGATIVE???Bilirubin, Urine - NEGATIVE???Hemoglobin, Urine - NEGATIVE???Nitrite, Urine - NEGATIVE???Leukocyte, Urine - 2+???Urobilinogen - NORMAL? ?WBC's, Urine - 10 /HPF? ?RBC's, Urine - 2 /HPF? ?Squamous Epith - <1 /HPF COVID-19, RSV, and Flu A/B, Rapid PCR (02/26/2025) ???Influenza A PCR - NEGATIVE???Influenza B PCR - NEGATIVE???RSV PCR - NEGATIVE???COVID-19 PCR Specimen Source - NASAL???COVID-19 PCR Result - NEGATIVE Creatinine Urine (03/01/2025) ???Creatinine, Urine Random - 66.9 mg/dL GLUCOSE POC (03/04/2025) ???Glucose, POC - 146 mg/dL HEMOGLOBIN A1C (02/26/2025) ???Hemoglobin A1C (Monitoring) - 6.3 % High Sensitivity Troponin T (02/26/2025) ???High Sensitivity Troponin (HSTnT) - 44 ng/L Hold Blue Top Tube (02/25/2025) ???Hold Blue Top - SPECIMEN DISCARDED AFTER 4 HOURS. HOLD GREEN TUBE (03/04/2025) ???Hold Green Top - SPECIMEN DISCARDED AFTER 1 WEEK HOLD LAVENDER TUBE (03/04/2025) ???Hold Lavender Top - SPECIMEN DISCARDED AFTER 24 HOURS. HOLD URINE CULTURE (03/01/2025) ???Hold Urine Culture - Testing available 48 hours from time of collection. INR (03/04/2025) ???INR - 1.7???Protime (PT) - 17.0 seconds Mg Level (02/28/2025) ???Magnesium - 1.6 mg/dL Microalbumin Urine (03/01/2025) ???Malb/Creat Ratio - Unable to calculate???Urine Creat For Micro Alb - 66.9 mg/dL???Micro-Albumin - <12.0 mg/L Osmolality Urine (03/01/2025) ???Osmolality, Urine Random - 413 mOsm/kg Potassium Level (03/01/2025) ???Potassium - 5.1 mmol/L PROBNP (02/26/2025) ???Nt-Probnp - 61749 pg/mL PROCALCITONIN (02/26/2025) ???Procalcitonin - 0.17 ng/mL Protein/Creatinine Ratio Urine (03/01/2025) ???Protein, Total Urine Random - 13 mg/dL???TP/Cr Ratio - 0.19???Creatinine, Urine - 66.9 mg/dL Sodium Urine (03/01/2025) ???Sodium, Urine Random - 60 mmol/L Troponin T, High Sensitivity (02/26/2025) ???High Sensitivity Troponin (HSTnT) - 44 ng/L Urea Nitrogen Urine (03/01/2025) ???Urea Nitrogen, Urine Random - 409.1 mg/dL You will be contacted within 72 hours with your results. Allergies (NKA means No Known Allergies) furosemide??(hypomagnesemia) Problems Active Problems??(28) (HFpEF) heart failure with preserved ejection fraction?? 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 Asthma/COPD - gold 2, PFT 12/2017?? Atopic dermatitis?? Atrial fibrillation on coumadin (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)?? Atypical chest pain - myoview normal 01/2019 - [facility]?? Bilateral primary osteoarthritis of knee?? Choking?? COVID-19 virus infection?? Diabetes?? Diastolic heart failure?? GERD (gastroesophageal reflux disease)?? Hearing loss?? Hip fracture, right; ORIF, 11/2024?? Hyperlipidemia?? Hypertension?? Hypomagnesemia?? Insomnia?? Leg cramps?? Mitral valve replaced?? Mitral valve stenosis rheumatologic - severe, dilated left atrium 01/2022 , [facility] [employer]?? On anticoagulant therapy with Coumadin?? Osteopenia?? S/P Maze operation for atrial fibrillation?? S/P MVR (mitral valve replacement)?? Supratherapeutic INR?? Trigger finger?? Tubular adenoma of colon - 2019 colon polyp x 2?? Education Materials Below is the list of Educational Leaflet Providered with your Discharge Instructions. WebMD Ignite Patient Education -?? WebMD Ignite Patient Education -?? Valuables and Belongings I fully understand and agree that [facility] accepts no responsibility for all my personal [...] Review of Valuable and Belonging List: With patient Date for Pt to Sign Valuables/Belongings: 03/02/25 15:30:00 ?? Other Discharge Information ? Case Management Discharge Plan?? Discharge Plan?? Discharge Agency Information?? Discharge Level of Care at Discharge: Homehealth/VNA Name of Agency #1: [facility] Discharge [facility]/Hospice/Home Care: [facility] Agency Research Physicist #1: intake ?? Service Categories #1: Physical Therapy, Retirement ?? Service Comments #1: you are being discharged home with long-term and physical therapy through [facility]- if you do not hear from them within 24 hours of discharge please reach out to agency ?? Pulmonary Rehab Status?? Pulmonary Rehab Discharge Status?? Respiratory Rate: 18 br/min ? Common Emergency Awareness Tips IS IT A [...] are strongly encouraged to quit. Please call [facility] at [phone] or [phone]) or log in to [email or web address] for referrals to smoking cessation programs. ?? 955 Suicide & Crisis Lifeline is available 13/05 if you or someone you know needs to find a reason to keep living. By calling 336 you'll be connected to a skilled, trained counselor at a crisis center in your area. INPATIENT DISCHARGE INSTRUCTIONS SIGNATURE MARIO OCTAVIA RODRIGUEZ Location:[facility] Registration Date and Time:02/26/2025 05:44 EDT Primary Care Physician: Gayathri Cannon MD, Attending Physician: Melyssa Partida MD, OCTAVIA PISANO, have received the above patient education materials/instructions and have verbalizedunderstanding. If ambulance or transport services are being used I further acknowledge being given a choice of service. ?? If you need to contact me, please call me at this number: . Patient/Parking Manager Name: Patient/Parking Manager Signature: Relationship to Patient: Witness Name/Signature: Date: * Kim Villanueva RN: PERFORM Event Display: Patient Education Leaflets Authored Date: [id number] [facility] ?? [address] [facility] ?? INR Blood draws twice weekly; Goal INR 2-3 and coumadin dose will need to be adjusted as appropriate. Lovenox needs to be discontinued once INR is in therapeutic range. Diagnosis: Results to: ? * Melyssa Partida MD: PERFORM Event Display: Patient Education Leaflets Authored Date: [id number] [facility] ?? [id number] Inyecci??n de enoxaparina Nombres comercial(es): Lovenox??; tambi??n disponibles gen??ricamente ?? ADVERTENCIA: Si le aplican anestesia epidural o raqu??sandra o le hacen maira punci??n lumbar mientras natalie un anticoagulante lino la enoxaparina, corre el riesgo de que se le forme un co??gulo de montez en o alrededor de la columna vertebral que podr??a provocarle maira par??lisis. Informe a tejada m??dico si est?? tomando otros anticoagulantes ('diluyentes de la montez') lino warfarina (Coumadin), anagrelida (Agrylin), aspirina o antiinflamatorios no esteroideos (ibuprofeno, naproxeno), cilostazol (Pletal), clopidogrel (Plavix), dipiridamol (Persantine), eptifibatida (Integrilin), prasugrel (Effient), sulfinpirazona (Anturane), ticlopidina (Ticlid) y tirofib??n (Aggrastat). Si experimenta alguno de los s??ntomas siguientes, llame a tejada m??dico inmediatamente: entumecimiento, hormigueo, debilidad o par??lisis de las piernas y p??rdida de control sobre la vejiga o los intestinos. Hable con tejada m??dico sobre los riesgos de robina enoxaparina. Asista a todas las citas con tejada m??dico. ??PARA CU? LES condiciones o enfermedades se prescribe cate medicamento? La enoxaparina se usa para prevenir la formaci??n de co??gulos sangu??neos en las piernas de los pacientes en reposo o que se someten a maira operaci??n de pr??tesis de cadera, rodilla o est??mikel. Se usa en combinaci??n con la aspirina para prevenir las complicaciones de la angina de pecho (dolor tor??cico) y los ataques card??acos. Tambi??n se usa en combinaci??n con warfarina para tratar los co??gulos sangu??neos en la pierna. La enoxaparina pertenece a maira clase de medicamentos denominados heparinas de bajo peso molecular. Tejada acci??n consiste en detener la formaci??n de sustancias que provocan co??gulos. ??C??MO se debe usar cate medicamento? La presentaci??n de la enoxaparina es en inyecci??n en maira jeringa que se administra winsome debajo de la piel (por v??a subcut??mile), joleen no en el m??sculo. Por lo general se administra dos veces al d??a. Es probable que empiece a utilizar el medicamento mientras est?? en el hospital y que lo utilice noemi un total de 10 a 14 d??as. Siga atentamente las instrucciones que se encuentran en la etiqueta de tejada medicamento, y pida a tejada m??dico o farmac??utico que le explique cualquier parte que no comprenda. Use la enoxaparina exactamente lino se lo indicaron. No inyecte maira cantidad mayor o gudelia del medicamento ni lo inyecte con m??s frecuencia de lo que indica la receta de tejada m??dico. Contin??e usando la enoxaparina incluso si se siente pretty, y no suspenda tejada uso sin consultarlo antes con tejada m??dico. Tejada profesional de shawna le ense??ar?? a inyectarse usted mismo, o se tamie??n los arreglos para que otra persona lo inyecte. La enoxaparina suele inyectarse en la jes del est??mikel. Usted deber?? usarun ??josefina diferente del est??mikel cada vez que administre el medicamento. Si tiene dudas sobre d??nde inyectarse, pregunte a tejada profesional de shawna. Cada jeringa contiene suficiente medicamento para u na inyecci??n. No use la jeringa y la aguja m??s de maira vez. Tejada m??dico, farmac??utico o profesional de shawna le indicar?? c??mo desechar las agujas y jeringas usadas para evitar lesiones accidentales. Mantenga las jeringas y agujas fuera del alcance de los ni??os. Para inyectarse enoxaparina, siga estas instrucciones: ??? L??vese las vickie y el ??josefina donde administrar?? la inyecci??n. ??? Iza la jeringa para tener la seguridad de que el medicamento es transparente e incoloro o amarillo p??lido. ??? Remueva la tapa de la aguja. No expulse el aire ni el medicamento de la jeringa antes de administrar la inyecci??n, a menos que tejada profesional de shawna se lo indique. ??? Acu??stese y pellizque un pliegue de la piel entre el dedo ??ndice y el pulgar. Introduzca toda la aguja en la piel y, luego, presione el ??mbolo de la jeringa para inyectar el medicamento. Sujete la piel noemi todo el tiempo que administre la inyecci??n. No frote la jes despu??s de poner la inyecci??n. ??Qu?? OTRO USO se le da a cate medicamento? A veces se receta cate medicamento para otros usos; p??sergey m??s informaci??n a tejada m??dico o a tejada farmac??utico. ??Cu??les son las PRECAUCIONES ESPECIALES que nick seguir? Antes de robina enoxaparina, ??? informe a tejada m??dico y a tejada farmac??utico si es al??rgico a la enoxaparina, a la heparina, a alg??n otro medicamento o a productos derivados del cerdo. ??? informe a tejada m??dico y farmac??utico qu?? medicamentos con y sin receta m??dica, vitaminas, suplementos nutricionales y productos a base deplantas natalie o tiene planeado robina mientras est?? recibiendo enoxaparina. Es posible que tejada m??dico deba cambiar la dosis de josephine medicamentos o mantenerlo bajo maira cuidadosa supervisi??n en belen de que presente efectos secundarios. ??? los siguientes productos de venta rosie pueden interactuar conla enoxaparina: aspirina y antiinflamatorios no esteroideos (CHRISTINA) lnio ibuprofeno (Advil, Motrin, otros) y naproxeno (Aleve, Naprosyn, otros). Aseg??rese de informar a tejada m??dico y farmac??utico queest?? tomando estos medicamentos antes de empezar a recibir la enoxaparina. No empiece a robina estos medicamentos mientras recibe la enoxaparina sin consultarlo antes con tejada m??dico. ??? informe a sum??dico si tiene maira v??lvula card??tanya artificial y si tiene o herzog tenido alguna vez maira enfermedadrenal, maira infecci??n en el coraz??n, un accidente cerebrovascular, un trastorno hemorr??gico, ??lceras o un recuento bajo de plaquetas. ??? informe a tejada m??dico si est?? embarazada, planea quedar embarazada o est?? amamantando. Llame a tejada m??dico si queda embarazada mientras natalie enoxaparina. ??? si se someter?? a maira cirug??a, incluso maira cirug??a dental, informe a tejada m??dico o dentista que natalie actualmente enoxaparina. ??Qu?? tengo que hacer SI ME OLVIDO de robina maira dosis? Inyecte la dosis que olvid?? hirsch pronto lino lo recuerde. Sin embargo, si ya robert es hora de la dosis siguiente, omita la que olvid?? y contin??e con tejada horario de medicaci??n habitual. No se inyecteuna dosis doble para compensar la que omiti??. ??Cu??les son los EFECTOS SECUNDARIOS que podr??a provocar cate medicamento? Si experimenta cualesquiera de los siguientes s??ntomas, o de los que se mencionan en la secci??n ADVERTENCIA IMPORTANTE, llame a tejada m??dico inmediatamente: ??? sangrado o moretones inusuales ??? deposiciones negras o con montez ??? montez en la orina ??? tobillos y/o pies hinchados Si desarrolla un efecto secundario grave, usted o tejada doctor puede enviar un informe al programa de divulgaci??n de efectos adversos 'MedWatch' de la Administraci??n de Alimentos y Medicamentos (FDA, por tejada sigla en ingl??s) en la p??janel de Internet (https://www.fda.gov/Safety/MedWatch) o por tel??fono al . ??C??mo nick ALMACENAR o DISPONER de cate medicamento? Mantenga cate medicamento fuera del alcance de los ni??os. Guarde las jeringas a temperatura ambiente y lejos del exceso de calor y humedad (no en el cuarto de ba??o). No use la jeringa si tiene fugas o si el l??quido es oscuro o contiene part??culas. Los medicamentos que ya no son necesarios [...] y lejos de tejada vista y alcance. [email or web address] ??Qu?? nick hacer en belen de maira SOBREDOSIS? En belen de sobredosis, llame a la l??mile de ayuda de control de envenenamiento al . La informaci??n tambi??n est?? disponible en l??mile en https://www.poisonhelp.org/help. Si la v??ctima se herzog derrumbado, herzog tenido maira convulsi??n, tiene dificultad para respirar, o no puede despertarse, llame inmediamente a los servicios de emergencia al 911. ??Qu?? OTRA INFORMACI??N de importancia deber??a saber? Asista a todas las citas con tejada m??dico y a las de laboratorio. Tejada m??dico le pedir?? determinadas pruebas de laboratorio para controlar tejada tratamiento con enoxaparina. La enoxaparina hope que la montez se coagule normalmente, por lo que puede tardar m??s de lo habitual en detener el sangrado si se corta o se lesiona. Evite las actividades que tengan un alto riesgode causar lesiones. Llame a tejada m??dico si el sangrado es inusual. No deje que nadie m??s use tejada medicamento. Es probable que no pueda volver a surtir tejada receta m??dica. Es [...] de asistencia, y en conformidad con el roberto profesional. La Sociedad Americana de Farmac??uticos Institucionales, [...] ?? Derechos reservados, 2023. Documento actualizado 15 2022, [place] [employer]-System Pharmacists?? [address] [facility], [facility] [address], [address] Todos los derechos reservados. La duplicaci??n de cate documento para tejada uso comercial, deber?? ser autorizada por ASHP. AHFS?? Patient Medication Information???. ?? Copyright, 2024 ?? * Melyssa Partida MD: PERFORM Event Display: Patient Education Leaflets Authored Date: [id number] [facility] ?? [id number] Amiodarona Nombres comercial(es): Cordarone??, Pacerone??; tambi??n disponibles gen??ricamente ?? ADVERTENCIA: La amiodarona puede causar da??os pulmonares graves e incluso mortales. D??gale a tejada m??dico si tiene o herzog tenido alg??n tipo de enfermedad pulmonar, o si se presentan da??os en los pulmones o problemas respiratorios mientras est?? en terapia con amiodarona. Si presenta alguno de estos s??ntomas, llame a tejada m??dico de inmediato: fiebre, falta de aire, sibilancia (jadeo), otros problemas respiratorios, tos o expectoraci??n de montez. La amiodarona tambi??n puede da??ar el h??gado. D??gale a tejada m??dico si tiene o herzog tenido alguna enfermedad del h??gado.Si presenta cualquiera de estos s??ntomas, llame a tejada m??dico de inmediato: n??useas, v??mitos, orina de color oscuro, cansancio excesivo, coloraci??n amarillenta en la piel o losojos, comez??n o dolor en la parte superior derecha del abdomen. La amiodarona puede provocar arritmia (irregularidad en el ritmo card??aco) o empeorarla si ya est?? presente. D??gale a tejada m??dico si alguna vez herzog sentido mareos o aturdimiento, si se herzog desmayado porque los latidos del coraz??n kimberly demasiado lentos o si tiene o herzog tenido bajas concentraciones de potasio o magnesio en la montez; alguna enfermedad del coraz??n o la tiroides; o cualquier problema con el ritmo card??aco distinto de la arritmia que le est??n tratando. D??lisa tambi??n a tejada m??dico y a tejada farmac??utico si est?? tomando cualquiera de estos medicamentos: antimic??ticos lino fluconazol (Diflucan), ketoconazol (Nizoral) e itraconazol (Onmel, Sporanox); azitromicina (Zithromax, Zmax); bloqueadores beta lino propranolol (Hemangeol, Inderal, Innopran); bloqueadores de los canalesde calcio lino diltiazem (Cardizem, Cartia, Diltzac, Tiazac, otros), y verapamilo (Calan, Covera, Verelan, en Tarka); cisaprida (Propulsid) (no est?? disponible en los EE.[place].); claritromicina (Biaxin); clonidina (Catapres, Kapvay); diur??ticos ('p??ldoras del agua'); dofetilida (Tikosyn); eritromicina (E.E.S., E-Mycin, Erythrocin); antibi??ticos derivados de fluoroquinolonas, lino ciprofloxacina (Cipro), levofloxacina (Levaquin), lomefloxacina (no est?? disponible en los EE.[place].), moxifloxacina (Avelox), norfloxacina (no est?? disponible en los EE.UU.), ofloxacina, y esparfloxacina (no est?? disponible en los EE.[place].); otros medicamentos para la irregularidad del ritmo card??aco, lino digoxina (Lanoxin), disopiramida (Norpace), flecainida, ivabradine (Corlanor), fenito??na (Dilantin, Phenytek), procainamida, quinidina (en Nuedexta), y sotalol (Betapace, Sorine, Sotylize); y tioridazina. Si tiene alguno de estos s??ntomas, llame a tejada m??dico de inmediato: aturdimiento; desmayo, latidos del coraz??n r??pidos, lentos o retumbantes; sensaci??n de que el coraz??n nain?? de latir por un momento. Es probable que le hospitalicen noemi maira semana o m??s al iniciar tejada tratamiento con amiodarona.Noemi la hospitalizaci??n y mientras est?? en terapia con amiodarona, tejada m??dico le vigilar?? muyde cerca. Es probable que el m??dico le recete al principio maira dosis helio de amiodarona y que luego la disminuya en forma gradual conforme el medicamento vaya surtiendo efecto. Tambi??n es posible que el m??dico le disminuya la dosis noemi tejada tratamiento si se presentan efectos secundarios. Sigaal pie de la letra las instrucciones de tejada m??dico. No deje de robina la amiodarona sin consultar a tejada m??dico. Es posible que tenga que ser estrechamente monitoreados o incluso hospitalizado cuando deje de robina la amiodarona. La amiodarona puede permanecer en tejada cuerpo por cierto tiempo despu??s de dejar de tomarla, as?? que el m??dico le vigilar??de cerca noemi michelle tiempo. No falte a ninguna ginny, ni con tejada m??dico ni con el laboratorio. Tejada m??dico ordenar?? ciertas pruebas, lino an??lisis de montez, radiograf??as y electrocardiogramas (EKG; prueba que registra la actividad el??ctrica del coraz??n) tanto antes lino noemi el tratamiento, para cerciorarse de que usted no corra riesgos al robina la amiodarona y para vigilar la respuesta de tejada organismo al medicamento. Tejada m??dico o tejada farmac??utico le entregar?? la hoja del fabricante con informaci??n para el paciente (Gu??a del medicamento) al iniciar el tratamiento con amiodarona y cada vez que vuelva a surtir lareceta. Lexi detenidamente aleksandar informaci??n y p??sergey a tejada m??dico o a tejada farmac??utico que le aclare todas las dudas. Tambi??n puede conseguir la Gu??a del medicamento en el sitio de Internet de la Administraci??n de Drogas y Alimentos (FDA, por josephine siglas en ingl??s): https://www.fda.gov/Drugs/DrugSafety/vla541167.htm. Hable con tejada m??dico sobre los riesgos de la terapia con amiodarona. ??PARA CU? LES condiciones o enfermedades se prescribe cate medicamento? La amiodarona se usa para tratar y prevenir ciertos tipos graves y posiblemente mortales de arritmia ventricular (ritmo card??aco anormal) cuando otros medicamentos no dieron resultado o el paciente no los tolera. La amiodarona pertenece a maira clase de medicamentos llamados antiarr??tmicos. Act??a al relajar los m??sculos card??acos hiperactivos. ??C??MO se debe usar cate medicamento? La amiodarona se presenta en tabletas para administrarse por v??a oral. En general, se natalie maira o dos veces al d??a. Puede robina la amiodarona ya sea con o sin alimentos joleen cerci??rese de tomarla siempre a la misma hora. Siga atentamente las instrucciones de la receta y p??sergey a tejada m??dico o a tejada farmac??utico que le explique cualquier cosa que no entienda. [place] la amiodarona alessio lino se lo indiquen. No aumente ni disminuya la dosis, ni la tome con m??s frecuencia que la indicada por tejada m??dico. ??Qu?? OTRO USO se le da a cate medicamento? La amiodarona tambi??n se usa a veces para tratar otros tipos de arritmia. Consulte a tejada m??dico sobre los riesgos de recurrir a cate medicamento para tratar tejada afecci??n. A veces se receta cate medicamento para otros usos; p??sergey m??s informaci??n a tejada m??dico o a tejada farmac??utico. ??Cu??les son las PRECAUCIONES ESPECIALES que nick seguir? Antes de robina amiodarona, ??? d??lisa a tejada m??dico y a tejada farmac??utico si es al??rgico a la amiodarona, al yodo, a cualquier otro medicamentos, o a cualquier de los ingredientes de la amiodarona. P??sergey a tejada farmac??utico o revise la Gu??a del Medicamento para obtener maira lista de los ingredientes. ??? d??lisa a tejada m??dico y a tejada farmac??utico qu?? medicamentos con y sin receta, vitaminas y suplementos nutricionales est?? tomando o piensa robina. No olvide mencionar los medicamentos que aparecen en la secci??n ADVERTENCIA IMPORTANTE ni ninguno de los siguientes: antidepresivos (''elevadores del estado de ??monique''),lino trazodona (Oleptro); anticoagulantes (''diluyentes de la montez'') lino dabigatr??n (Pradaxa) y warfarina (Coumadin, Jantoven); ciertos medicamentos para bajar el colesterol, lino atorvastatina (Lipitor, en Caduet, en Liptruzet),), colestiramina (Prevalite), lovastatina (Altoprev, en Advicor),y simvastatina (Zocor, en Simcor, en Vytorin); cimetidina ; clopidogrel (Plavix); ciclosporina (Gengraf, Neoral, Sandimmune); dextrometorfano (presente en muchos productos para la tos); fentanilo (Actiq, Duragesic, Fentora, otros); inhibidores de la proteasa del VIH, lino indinavir (Crixivan) y ritonavir (Norvir, en Kaletra, en Viekira Bennett); ledipasvir y sofosbuvir (Harvoni); litio (Lithobid); loratadina (Claritin); medicamentos para la diabetes o anticonvulsivos; metotrexato (Otrexup, Rasuvo, Trexall); analg??sicos narc??ticos para el dolor; rifampicina (Rifadin, Rimactane, en Rifamate, en Rifater); y sofosbuvir (Solvaldi) con simeprevir (Olysio). Muchos otros medicamentos pueden interactuar tambi??n con la amiodarona, as?? que no olvide decirle a tejada m??dico todos los medicamentos que est?? tomando, incluso los que no aparecen en esta lista. Es posible que tejada m??dico deba cambiar la dosis de josephine medicamentos o vigilarle estrechamente por si presentara efectos secundarios. ??? d??galea teajda m??dico qu?? productos herbales est?? tomando, sobre todo la hierba de Bureau. ??? d??gale asu m??dico si tiene diarrea o tiene o herzog tenido alguna de las enfermedades que se mencionan en la secci??n ADVERTENCIA IMPORTANTE o si tiene problemas con tejada presi??n sangu??mile. ??? d??gale a tejada m??dico si est?? embarazada o si piensa embarazarse. Hable con tejada m??dico si piensa embarazarse o jordan el pecho noemi tejada terapia, pues la amiodarona puede permanecer en tejada cuerpo por alg??n tiempo despu??s de dejar de tomarla. Si se embaraza mientras est?? en tratamiento con amiodarona, llame a tejada m??dico de inmediato. La amiodarona puede causar da??o al feto. ??? d??gale a tejada m??dico si est?? dandoel pecho. No d?? el pecho mientras est?? usando amiodarona. ??? hable con tejada m??dico sobre los riesgos y beneficios de robina esta medicina si usted tiene 65 a??os de edad o m??s. Los adultos mayores deben recibir las dosis bajas de amiodarona debido a dosis m??s altas no puede funcionar mejor y puede causar efectos secundarios graves ??? si le van a hacer maira cirug??a, incluyendo maira cirug??a dental o maira cirug??a de ojos con l??ser, d??gale al m??dico o al dentista que est?? tomando amiodarona. ??? evite la exposici??n innecesaria o prolongada a la roxanne solar o a las l??mparas de bronceado, yprot??morenita mediante ropa, anteojos de yulia y protector solar. La amiodarona puede aumentar la sensibilidad de la piel a la roxanne tarah. La piel expuesta puede adquirir un color priyanka eki??ceo and co founder y permanecer as?? incluso despu??s de suspender la terapia con cate medicamento. ??? tenga presente que la amiodarona puede causar problemas de la visi??n, incluso ceguera permanente. Procure hacerse ex??menes sara??dicos de los ojos noemi el tratamiento, y llame al m??dico si los ojos se secan, se vuelven sensibles a la roxanne, si ve halos, si se le pone la vista borrosa o si tiene cualquier otro problemacon la visi??n. ??? tenga presente que la amiodarona puede permanecer en el cuerpo por varios mesesdespu??s de dejar de tomarla. Noemi michelle tiempo, es posible que siga sintiendo los efectos secundarios de la amiodarona. Noemi michelle tiempo, no olvide decirle a todos los profesionales de la shawna que le atiendan o le receten cualquier medicamento que nain?? de robina recientemente la amiodarona. ??Qu?? DIETA ESPECIAL nick seguir mientras martin cate medicamento? No heather jugo de toronja (pomelo) mientras est?? tomando cate medicamento. ??Qu?? tengo que hacer SI ME OLVIDO de robina maira dosis? Si olvida maira dosis, d??jela pasar y contin??e con tejada horario de medicaci??n normal. No tome maira dosis doble para compensar la que olvid??. ??Cu??les son los EFECTOS SECUNDARIOS que podr??a provocar cate medicamento? Algunos efectos secundarios pueden ser graves. Si presenta cualquiera de estos s??ntomas o de los mencionados en la secci??n ADVERTENCIA IMPORTANTE, llame a tejada m??dico de inmediato o busque tratamiento m??dico de emergencia: ??? sarpullido ??? aumento o p??rdida de peso ??? intranquilidad ??? debilidad ??? nerviosismo ??? irritabilidad ??? intolerancia al calor o al fr??o ??? adelgazamiento del yasmin ??? sudoraci??n excesiva ??? alteraciones del ciclo menstrual ??? inflamaci??n (hinchaz??n) de la parte delantera del lupe (bocio) ??? inflamaci??n de las vickie, los pies, los tobillos y/o las pantorrillas ??? estremecimiento incontrolable de alguna parte del cuerpo ??? disminuci??n de la concentraci??n ??? movimientos que no puede controlar ??? emily coordinaci??n o dificultad para caminar ??? entumecimiento u hormigueo en las vickie, las piernas y los pies ??? debilidad muscular La amiodarona puede provocar otros efectos secundarios. Llame a tejada m??dico si tiene alg??n problemainusual mientras usa cate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 1.22 mg/dL YIMI likely 2/2 contrast as Cr started to rise 48-hours post exposure while also on ОЛЕГ-i?? Patient does not appear overtly volume overloaded, near her new dry weight around 140 lbs (has lostsignificant weight recently), though does have dim breath sounds and pleural effusions with associated??dyspnea. IVC is normal on echo.?? UA is pending. Will order bladder scans,??concern for obstruction??low ?? 2. Hyperkalemia Iatrogenic from repletion (received 80 mEq when K was 4.7) ?? Recommendations: - OK for Lasix 20 mg x 1 dose - Hold lisinopril for now?? - UA and urine studies - Bladder scans ?? Will continue to follow ?? Amberly Matos PA-C [facility]?? Discussed with ??Mary? Histories Allergies Allergies ?(Active and Proposed Allergies Only) furosemide? (Severity: Unknown severity, Onset: Unknown) ?Reactions: hypomagnesemia ? 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 Gaby Mcdonnell Asthma/COPD - gold 2, PFT 12/2017 Atopic dermatitis Atrial fibrillation on coumadin (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) Atypical chest pain - myoview normal 01/2019 - [employer] cards Bilateral primary osteoarthritis of knee Choking COVID-19 virus infection Diabetes Diastolic heart failure GERD (gastroesophageal reflux disease) Hearing loss Hip fracture, right; ORIF, 11/2024 Hyperlipidemia Hypertension Hypomagnesemia Insomnia Leg cramps Mitral valve replaced Mitral valve stenosis rheumatologic - severe, dilated left atrium 01/2022 , [facility] Cards On anticoagulant therapy with Coumadin Osteopenia S/P Maze operation for atrial fibrillation S/P MVR (mitral valve replacement) Supratherapeutic INR Trigger finger Tubular adenoma of colon - 2018 colon polyp x 2 ? Past Surgical History MV replacement: 10/28/24 Left atrial maze: 10/28/24 Colonoscopy: 03/27/19 Colonoscopy, flexible, proximal to splenic flexure; diagnostic, with or without collection of specimen(s) by brushing or washing, with or without colon decompression (separate procedure): 04/09/16 ? Social History Alcohol Details:??Use: Never. Employment/School Details:??Status: Retired. 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 Exercise Details:??Self assessment: Good condition. ??Other: walking 30 min per day. Home/Environment Details:??Living situation: Home/Independent. ??Lives with: Alone. ??Other: daughter close by. Nutrition/Health Details:??Diet: Diabetic. Other Details:??Details: Grandchildren in [place], [place], [facility], [place]; [employer], [employer]. Sexual Details:??Other sexual concerns: and divorsed 1974. Substance Abuse Details:??Use: Never. Tobacco Details:??Never smoker, Tobacco user in household: No. ? Family History Mother: Liver cancer ? Medications Home Medications Acetaminophen (acetaminophen 325 mg oral tablet)??650 Milligram 2 tablet By Mouth 3 times a day Albuterol (Ventolin HFA 108 mcg/inh inhalation aerosol with adapter)??2 puff(s) Inhalation 4 times a day as needed for wheezing LABEL IN RWANDAN Amlodipine (amLODIPine 10 mg oral tablet)??10 Milligram 1 tablet By Mouth Daily Atorvastatin (atorvastatin 40 mg oral tablet)??1 tab(s) By Mouth Daily LABEL IN RWANDAN Budesonide-Formoterol (budesonide-formoterol 80 mcg-4.5 mcg/inh inhalation aerosol with adapter)??2inhalation Inhalation 2 times a day in the morning and the evening Dofetilide (dofetilide 250 mcg oral capsule)??1 capsule 250 Microgram By Mouth 2 times a day Durable Medical Equipment (Home Blood Pressure Monitor with Cuff)??See Instructions Directions: Useas needed to monitor BP at home.Dx: [id number] Lifetime Emollients, Topical (Vashe Topical Solution)??475 Milliliter Topically Every 12 hours Furosemide (furosemide 20 mg oral tablet)??20 Milligram 1 tablet By Mouth Daily Lisinopril (lisinopril 20 mg oral tablet)??20 Milligram 1 tablet By Mouth Daily Loratadine (loratadine 10 mg oral capsule)??1 capsule 10 Milligram By Mouth Daily LABEL IN RWANDAN Magnesium Oxide (magnesium oxide 400 mg oral tablet)??1 tab(s) 400 Milligram By Mouth 2 times a dayFOR LEG CRAMPS AND LOW MAGNESIUM Melatonin (melatonin 3 mg oral tablet)??3 Milligram By Mouth Daily at bedtime as needed Insomnia for 90 Days Metformin (metFORMIN 500 mg oral tablet)??1 tab(s) 500 Milligram By Mouth Daily with meals Metoprolol (Metoprolol Tartrate 50 mg oral tablet)??1 tab(s) By Mouth 2 times a day LABELINSPANISH. Miscellaneous Rx (ONE TOUCH DELICA PLUS 30G LANCETS)??CHECK BLOOD GLUCOSE DAILY AND NEEDED IF NEEDED FOR SWEATS/DIZZINESS/CONFUSION Miscellaneous Rx (ONE TOUCH ULTRA 2 KIT)??TEST BLOOD SUGAR DAILY AND NEEDED SWEATS/DIZZINESS/CONFUSION Miscellaneous Rx (ONE TOUCH ULTRA BLUE TESTST(NEW)100)??TEST EVERY DAY AND NEEDED FOR SWEATS/DIZZINESS/CONFUSION Pantoprazole (pantoprazole 40 mg oral delayed release tablet)??1 tab(s) 40 Milligram By Mouth 2 times a day Senna (senna 187 mg oral tablet)??1 tab(s) 8.6 Milligram By Mouth 2 times a day as needed Constipation Warfarin (warfarin 1 mg oral tablet)??See Instructions TAKE 1 TO 2 TABLETS BY MOUTH DAILY DIRECTED BY COUMADIN CLINIC ? Results Recent Labs CHEM GENERAL Sodium 136 mmol/L ()?? 03/01/2025 06:30 Potassium 5.1 mmol/L ()?? 03/01/2025 08:59 Chloride 103 mmol/L ()?? 03/01/2025 06:30 Bicarbonate Level 24 mmol/L ()?? 03/01/2025 06:30 Anion Gap 9 mmol/L ()?? 03/01/2025 06:30 Glucose Level 133 mg/dL (High)?? 03/01/2025 06:30 Glucose, POC 177 mg/dL (High)?? 03/01/2025 11:33 BUN 16 mg/dL ()?? 03/01/2025 06:30 Creatinine-Blood 1.22 mg/dL (High)?? 03/01/2025 06:30 Estimated GFR Creatinine 46 ML/MIN/1.73 M2 ()?? 03/01/2025 06:30 Calcium 9.1 mg/dL ()?? 03/01/2025 06:30 Magnesium 1.8 mg/dL ()?? 03/01/2025 06:30 ?? COAG INR 1.5 (High)?? 03/01/2025 06:30 Protime (PT) 15.4 seconds (High)?? 03/01/2025 06:30 ?? URINE OTHER Est Creatinine Clearance 31.81 mL/min ()?? 03/01/2025 08:04 ? * Tiffany Hernandez MD: PERFORM Event Display: Consultation Note Authored Date: Patient and charted reviewed. Management discussed with PA. ??Continue the current management as documented in PA's chart?? * Corrie Mahoney MD: PERFORM Event Display: Consultation Note Authored Date: [id number] Patient: ??MICHAEL, OCTAVIA ? Age:??74 Years?Sex:??Female?:??1950?? Indication for Consult Abnormal ecg History of Present Illness/Interval History 74-year-old lady with a past medical history significant for rheumatic mitral valve disease???status post bioprosthetic mitral valve replacement with left atrial maze and left atrial appendage ligation by Dr. Saab on 10/28/2024, prior atrial fibrillation now in sinus rhythm after her maze procedurewith questionable use of dofetilide for suppression (she had previously been on this but it had been discontinued after her surgery when she was discharged on a course of amiodarone), COPD/asthma, CKD, HFpEF.?? Of note, preprocedural cardiac cath performed at [facility] in April 2024 showed minor luminal irregularities of the coronaries only.?? She unfortunately never followed up with our office after her surgery.?? She was rehospitalized at [facility] (her last real pointof medical contact) in late November 2024 after suffering a mechanical fall leading to left femoralneck fracture.?? Unfortunately, the patient is primarily Chinese-speaking.?? I was unable to find [employer] interpreter translator on the floor.?? I paged an in person interpreter translator but did not hearher response until an hour later.?? Therefore, I relied on the patient's nurse who is fluent in Chinese.?? Ever since her surgery, she reports that she has had intermittent dizziness.?? She describesit as the room spinning.?? There is no rhyme or reason to these episodes???they can occur at rest or when she is walking.?? This is what caused her to have her mechanical fall.?? She was walking, gotdizzy, and then tripped on her rug and fell.?? She has been having increasing episodes of dizzinessover the past 3 days.?? She cannot really say if she is more short of breath???she is somewhat of atangential historian.?? She believes she has been more short of breath but denies any palpitations,chest pain, PND, orthopnea.?? She reports being short of breath even walking from her bed to the bathroom but I cannot tell if this is chronic or acute.?? After repeated questioning, this may be something that his only been occurring in the past couple of weeks.?? She also reports coughing and wheezing during this time course.?? She reports intermittent loose stools/diarrhea but has not had any recently.?? She denies any nausea, vomiting.?? She has been eating and drinking fairly normally.?? When we asked her about dofetilide, she reports that she may have been getting it at the rehab she wasdischarged to after her November admission.?? However she has been at home for quite some time now.?? She ambulates with the assistance of a walker or a cane at baseline.?? She has not had any further falls since November. ?? She presented to [facility] ER on 02/26/2025.?? She was in fact found to be somewhat bronchospastic and given DuoNebs.?? She was starting to feel better.?? Her blood pressures were quite high in the 190s on arrival.?? She had a CT head for the dizziness which did not show any acute findings.?? Chest x-ray was concerning for a possible pneumonia.?? The reason I was consulted is because her EKG was grossly abnormal.?? She was found to have biphasic T waves in the anteroseptal leads that were relatively new from previous.?? Interestingly, her prior ECG in November showed a left bundlebranch block with left axis deviation.?? The more recent EKG shows narrowing of the QRS interval but distinctly prolonged QT interval, biphasic T wave inversions in V1 through V3, deep T wave inversions in V4 through V6 and nonspecific ST-T wave changes in the inferior leads.?? There is a new inferior infarct pattern noted.?? The patient was having frequent APCs, LVH by voltage.?? Of note, her last echocardiogram on 11/25/2024 was of very poor quality and an EF/regional wall motion could not be assessed.?? Currently at the time of my exam, she reports her breathing is improved.?? In the ER, shehad a CT of the chest without contrast which showed small bilateral pleural effusions with adjacentpassive atelectasis of both lower lobes, ill-defined tree-in-bud opacities in the periphery of the right upper lobe that are unchanged and likely chronic.?? High- sensitivity troponins were unremarkable in the 40s where they plateaued.?? NT proBNP was quite elevated at 11,252. ?? Otherwise a 12 point review of systems was reviewed with the patient and is negative as dictated inHPI. ?? Temperature 98.3 ??F, pulse 77 bpm, blood pressure 140/66 mmHg, 97% on room air General: NAD, pleaseant cooperative, speaking in long sentences rapidly without any issue or shortness of breath HENT: AT/NC, MMM Neck: No JVD, supple CV: RRR, loud P2, 2 out of 6 systolic ejection murmur Lungs: CTAB, no accessory muscle use Abd: +BS, NTTP Ext: Warm, well perfused, No LE edema, 2+ radial and Dp/PT pulses bilaterally Neuro/Psych: a&o x 3, non-focal grossly, mood and affect appropriate, tangential in her history ?? Labs indicate hypokalemia with potassium of 3, and significant hypomagnesemia with magnesium of 1.3, she has stable baseline anemia with hemoglobin of 9.5, normal renal function ?? 74-year-old lady presenting with vague symptoms of dizziness which sound like vertigo and increasing dyspnea on exertion associated with coughing and wheezing.?? Lab work and CT scan of the chest indicate that she does have some fluid on board but on exam, she looks pretty euvolemic.?? What bothersme is how hypokalemic and hypomagnesemic she is.?? It is unclear why this would be since she was only supposed to be on 20 mg of Lasix daily orally.?? That said, this may account for severe EKG abnormalities seen to some degree.?? I am concerned however at the acute changes and therefore would recommend a repeat echocardiogram.?? Interestingly she is really not having any cardiac symptoms and hasruled out with serial cardiac enzymes.?? I agree that she probably needs to be diuresed a bit but Bhupinder concerned about doing this before we replete her potassium and magnesium given extensive QT prolongation.?? Also she has really had no cardiac follow-up since her bypass surgery which is concerning since we do not exactly know what medications she is supposed to be on.?? At this point given severe QT prolongation I would avoid all QT prolonging medications including dofetilide and amiodarone.?? When QT has normalized and electrolytes have been corrected, we can reassess the need for rhythm controlling agents after a few days of monitoring.?? She was also supposed to have been on magnesium supplementation at home which she reports having but that would not make sense with such a low magnesium.?? May need renal involvement for this if it does not improve with magnesium supplement. 1.?? Heart failure???repeat echo to reassess ejection fraction in light of EKG abnormalities, not overly volume overloaded so I would prefer to improve electrolytes and then consider slow trial of IVLasix, I have held the 40 mg IV dose as I see no urgency for it, can continue outpatient lisinopriland metoprolol 2.?? Paroxysmal atrial fibrillation???withhold all rhythm controlling agents at this point, resume outpatient metoprolol, continue Coumadin with INR goal 2-3 (patient has a bioprosthetic mitral valvereplacement) 3.?? QT prolongation???likely in the setting of hypomagnesemia???avoid all QT prolonging agents as above 4.?? Abnormal ECG???likely related in some part to electrolyte abnormalities, repeat EKG once electrolytes have been corrected, hold off on diuretics until electrolytes have been corrected, repeat echocardiogram, low suspicion for acute coronary syndrome given lack of symptoms, recent cath showing no significant coronary disease ?? Discussed with Dr. Jackson. Total Time Spent Activities performed in this time include chart review, obtaining / reviewing history, performing amedically necessary evaluation, documentation and ?? including medical decision making of Moderate Complexity (45-59 minutes for NEW patient) Allergies furosemide??(hypomagnesemia) Home Medications Acetaminophen: 650 mg = 2 tablet, By Mouth, 3 times a day Albuterol: 2 puffs, Inhalation, 4 times a day, PRN (for wheezing), LABEL IN RWANDAN Amlodipine: 10 mg = 1 tablet, By Mouth, Daily Atorvastatin: 1 tablet, By Mouth, Daily, LABEL IN RWANDAN Budesonide-Formoterol: 2 inhalation, Inhalation, 2 times a day, in the morning and the evening Dofetilide: 250 mcg = 1 capsule, By Mouth, 2 times a day Durable Medical Equipment (Home Blood Pressure Monitor with Cuff): See Instructions, Directions: Use as needed to monitor BP at home.Dx: [id number] Lifetime Emollients, Topical: 475 mL, Topically, Every 12 hours Furosemide: 20 mg = 1 tablet, By Mouth, Daily Lisinopril: 20 mg = 1 tablet, By Mouth, Daily Loratadine: 10 mg = 1 capsule, By Mouth, Daily, LABEL IN RWANDAN Magnesium Oxide: 400 mg = 1 tablet, By Mouth, 2 times a day, FOR LEG CRAMPS AND LOW MAGNESIUM Melatonin: 3 mg, By Mouth, Daily at bedtime, PRN (Insomnia) Metformin: 500 mg = 1 tablet, By Mouth, Daily, with meals Metoprolol: 1 tablet, By Mouth, 2 times a day, LABELINSPANISH. Miscellaneous Rx (ONE TOUCH DELICA PLUS 30G LANCETS): CHECK BLOOD GLUCOSE DAILY AND NEEDED IF NEEDED FOR SWEATS/DIZZINESS/CONFUSION Miscellaneous Rx (ONE TOUCH ULTRA BLUE TESTST(NEW)100): TEST EVERY DAY AND NEEDED FOR SWEATS/DIZZINESS/CONFUSION Miscellaneous Rx (ONE TOUCH ULTRA 2 KIT): TEST BLOOD SUGAR DAILY AND NEEDED SWEATS/DIZZINESS/CONFUSION Pantoprazole: 40 mg = 1 tablet, By Mouth, 2 times a day Senna: 8.6 mg = 1 tablet, By Mouth, 2 times a day, PRN (Constipation) Warfarin: See Instructions, TAKE 1 TO 2 TABLETS BY MOUTH DAILY DIRECTED BY COUMADIN CLINIC Hospital Medications Medications (25) Active SCHEDULED: (11) Albuterol/Ipratropium Inhalation Yulia 3mL (Duoneb Inhalation Solution) ??1 vials, BAND Nebulizer, 4 times a day Amlodipine 10 mg Tablet (amLODIPine 10 mg oral tablet) ??10 mg, By Mouth, Daily Atorvastatin 40 mg Tablet (atorvastatin 40 mg oral tablet) ??40 mg, By Mouth, Daily Insulin Lispro 100 units/mL Inj (Insulin LISPRO Sliding Scale) ??2-10 units, Subcutaneous Injection, 3 times a day before meals Lisinopril 20 mg Tablet (lisinopril 20 mg oral tablet) ??20 mg, By Mouth, Daily Loratadine 10 mg Tablet (loratadine 10 mg oral tablet) ??10 mg, By Mouth, Daily Metoprolol 50 mg Tablet (Lopressor 50 mg oral tablet) ??50 mg, By Mouth, 2 times a day NaCl 0.9% Flush 3ml (NaCL 0.9% Flush) ??3 mL, IV Push, Every 8 hours Pantoprazole 40 mg EC Tablet (pantoprazole 40 mg oral delayed release tablet) ??40 mg, By Mouth, 2 times a day Potassium Chloride 10mEq ER Tablet (potassium chloride 10 mEq oral tablet, extended release) ??40 mEq, By Mouth, Once Silver SulfADIAZINE 1% Cream (50 gm) (Silver SulfADIAZINE 50 Gm Topical) ??50 Gm 1 application, Topically, 2 times a day CONTINUOUS: (0) PRN: (14) Acetaminophen 325 mg Tablet (Acetaminophen Tablet) ??650 mg, By Mouth, Every 4 hours Albuterol/Ipratropium Inhalation Yulia 3mL (Duoneb Inhalation Solution) ??1 vials, BAND Nebulizer, 4 times a day Dextromethorphan-Guaifenesin 20 mg-200 mg/10 mL Liqu UD (Robitussin DM Liquid) ??10 mL, By Mouth, Every 4 hours Dextrose Inj Syringe (Dextrose 50% Inj Syringe (25Gm)) ??12.5 Gm, IV Push Slowly, Every 20 minutes Dextrose Inj Syringe (Dextrose 50% Inj Syringe (25Gm)) ??25 Gm, IV Push Slowly, Every 15 minutes Glucagon 1 mg Inj (Glucagon Inj) ??1 mg, Intramuscular, Once Glucose 40% Gel (15 Gm) (Glucose Gel) ??15 Gm, By Mouth, Every 20 minutes Glucose 40% Gel (15 Gm) (Glucose Gel) ??30 Gm, By Mouth, Every 20 minutes Melatonin 3 mg Tablet (Melatonin Tablet) ??3 mg, By Mouth, Daily at bedtime NaCl 0.9% Flush 3ml (NaCL 0.9% Flush) ??3 mL, IV Push, Every 8 hours Polyethylene Glycol 17 Gm Powder (MiraLax Powder) ??17 Gm 1 pack/packet, By Mouth, Daily Senna Tablet ??8.6 mg 1 tablet, By Mouth, 2 times a day Senna Tablet (Senna 8.6 mg oral tablet) ??8.6 mg 1 tablet, By Mouth, 2 times a day Simethicone 80 mg Chewable Tablet (Simethicone Tablet) ??80 mg, Chew, 3 times a day Lab Results Cardiology Labs Blood Count & Diff?? COAG?? General Chemistry?? Cardiac?? WBC: 8.2 k/mm3 (02/26/25) INR:??3.5??High (02/26/25) Sodium: 139 mmol/L (02/26/25) Bilirubin, Total: 0.4 mg/dL (12/10/24) RBC:??3.88 m/mm3??Low (02/26/25) Protime (PT):??32.8 seconds??High (02/26/25) Potassium:??3 mmol/L??Low (02/26/25) ?? Hgb:??9.5 Gm/dL??Low (02/26/25) APTT: 28.7 seconds (10/28/24) Chloride: 100 mmol/L (02/26/25) ?? Hct:??30.8 %??Low (02/26/25) ?? Bicarbonate Level: 26 mmol/L (02/26/25) ?? MCV:??79.4 femtoliters??Low (02/26/25) ?? Anion Gap: 13 mmol/L (02/26/25) ?? Platelet Count: 301 k/mm3 (02/26/25) ?? Glucose Level:??124 mg/dL??High (02/26/25) ? Hemoglobin A1C (Monitoring):??6.3 %??High (02/26/25) ? BUN: 12 mg/dL (02/26/25) ? BUN: 21 mg/dL (06/04/24) ? Creatinine-Blood: 0.85 mg/dL (02/26/25) ? Estimated GFR Creatinine: 71 ML/MIN/1.73 M2 (02/26/25) ? Calcium:??8.4 mg/dL??Low (02/26/25) ? Magnesium:??1.3 mg/dL??Low (02/26/25) ? Protein, Total: 7.4 Gm/dL (12/10/24) ? Albumin: 3.5 Gm/dL (12/10/24) ? Alkaline Phosphatase:??116 units/L??High (12/10/24) ? AST (SGOT): 20 units/L (12/10/24) ? ALT (SGPT): 16 units/L (12/10/24) ?? Diagnostic Impression ECG ECG 12-Lead ?? 11:17:06 Please click on pdf link to open report ?? Signed By: Harjinder Peres MD ?? ECG 12-Lead ?? 11:17:06 Ventricular Rate: 79 BPM QRS Duration: 118 ms Q-T Interval: 508 ms QTC Calculation(Bazett): 582 ms R [place]: -47 degrees T [place]: 174 degrees Sinus rhythm with Premature atrial complexes Left axis deviation Left ventricular hypertrophy with QRS widening ( Disney product , Romhilt-Pina ) Inferior infarct , new Anteroseptal infarct (cited on or before 28-Oct-2024) T wave abnormality, consider lateral ischemia Prolonged QT ACUTE [place] / STEMI Abnormal ECG Confirmed ?? Signed By: Harjinder Peres MD Stress Test No qualifying data available. Echo Echocardiogram - Complete ?? 13:32:12 Summary The left ventricle is poorly visualized. The left ventricular size is normal. Left ventricular wall thickness is normal. Unable to assess LV systolic function adequately on the available images; it is probably preserved. Cannot assess regional wall motion abnormalities. The left atrium is poorly visualized. The left atrium is dilated. The aortic valve is poorly visualized. The aortic valve appears thickened. There is no significant aortic regurgitation. The mitral valve is poorly visualized. There is a bioprosthetic valve in the mitral position. Mobile densities in the subvalvular region most likely representing surgically retained subvalvular apparatus. The mitral valve mean gradient is 5 mmHg at a heart rate of 75 bpm. Mitral regurgitation cannot be evaluated secondary to limited views and shadowing from the mitral valve sewing ring. The right ventricle is poorly visualized. Right ventricular systolic function appears preserved. An accurate pulmonary artery pressure could not be obtained. There is a large left-sided pleural effusion. ?? Comparison Comparison is made to the study of November 15, 2023. Limited study making direct comparison difficult. Interim placement of a bioprosthetic mitral valve is noted. Pleural effusion noted. ?? Signature ?? Signed By: Paco Humphries MD VL Studies VL Carotid Duplex Scan Bilat ?? 10:14:43 Summary: Right Side: 1-49% stenosis in the Internal Carotid Artery. Antegrade flow in the Vertebral Artery. turbulent/ disturbed flow is seen in the Subclavian Artery. ?? Left Side: 1-49% stenosis in the Internal Carotid Artery. Antegrade flow in the Vertebral Artery. Multiphasic flow is seen in the Subclavian Artery. ?? No prior study is available for comparison. ? 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 Gaby Mcdonnell Asthma/COPD - gold 2, PFT 12/2017 Atopic dermatitis Atrial fibrillation on coumadin (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) Atypical chest pain - myoview normal 01/2019 - [employer] cards Bilateral primary osteoarthritis of knee Choking COVID-19 virus infection Diabetes Diastolic heart failure GERD (gastroesophageal reflux disease) Hearing loss Hip fracture, right; ORIF, 11/2024 Hyperlipidemia Hypertension Hypomagnesemia Insomnia Leg cramps Mitral valve replaced Mitral valve stenosis rheumatologic - severe, dilated left atrium 01/2022 , [facility] Cards On anticoagulant therapy with Coumadin Osteopenia S/P Maze operation for atrial fibrillation S/P MVR (mitral valve replacement) Supratherapeutic INR Trigger finger Tubular adenoma of colon - 2019 colon polyp x 2 Procedure/Surgical History MV replacement: 10/28/24 Left atrial maze: 10/28/24 Colonoscopy: 03/27/19 Colonoscopy, flexible, proximal to splenic flexure; diagnostic, with or without collection of specimen(s) by brushing or washing, with or without colon decompression (separate procedure): 04/09/16 Social History Alcohol Use: Never. Employment/School Status: Retired. 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 Exercise Self assessment: Good condition. Other: walking 30 min per day. Home/Environment Living situation: Home/Independent. Lives with: Alone. Other: daughter close by. Nutrition/Health Diet: Diabetic. Other Details: Grandchildren in [place], [place], [place], [place]; Prayer, [place]. Sexual Other sexual concerns: and divorsed 1974. Substance Abuse Use: Never. Tobacco Never smoker, Tobacco user in household: No. Family History Mother: Liver cancer Patient Care team information Care Team Personnel Name: Alfreda Ferguson RN Position: [facility] RN Member Role: Primary Care Nurse Name: Stacy Bell RN Position: [facility] RN Member Role: Primary Care Nurse Name: Skylar Turner Position: [facility] Outreach Member Role: Lifetime Consulting Physician Name: Merle Clayton RN Position: [facility] RN Member Role: Primary Care Nurse Name: Francis Georges RN Position: [facility] RN Member Role: Primary Care Nurse Name: Donald Sierra RN Position: [facility] [...] Nurse Member Role: Lifetime Consulting Physician Name: Cammy Chowdhury RN Position: [facility] RN Member Role: Primary Care Nurse Name: Gayathri Cannon MD Position: [facility] Physician - Primary Care Member Role: PCP Address: [address] [facility] [place], [place] [address] Telecom: Name: Donald Jackson Jr, RN Position: [facility] JULIANE RN W/OE and Tasks Member Role: Primary Care Nurse Name: Jerry Rivera MD Position: [facility] Renal MD Member Role: Lifetime Consulting Physician Address: [address] [place] [address] [address] [facility] [place] [address]- Telecom: Name: Valery Tellez RN Position: [facility] RN Member Role: Primary Care Nurse Name: Alma Capps RN Position: [facility] RN Member Role: Primary Care Nurse Name: Massimo Glynn RN Position: [facility] ED RN W/OE and Tasks Member Role: Primary Care Nurse Name: Jarett Lopez Position: [facility] RN Member Role: Primary Care Nurse Name: Kathe White RN Position: [facility] [...] RODRIGUEZ Health Plan Information #: 1 Payer: [facility] Member Number: [id number] Policy Number: NA Group Number: [facility] Health Plan Information #: 2 Payer: [employer] Member Number: [id number] Policy Number: NA Group Number: NA
--- OUTSIDE RECORDS SUMMARY | 2025-03-08 15:07 | XMS_ITS | Encounter Summary ---
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 Social History Tobacco [...] Description 03/24/2025 2:10 PM EDT Office Visit [facility] - [address] [place] [phone] Abby Link NP [address] [place], [place] [phone] documented as of this encounter Visit Diagnoses Diagnosis Unspecified atrial fibrillation (CMS/HCC V24, CMS/HCC V28) 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 USP (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 Long-term (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 documented in this encounter Care Teams Principal Engineer Relationship Specialty Start Date End Date Gayathri Cannon MD PCP - General 01/04/15 documented as of this encounter
--- OUTSIDE RECORDS SUMMARY | 2025-03-08 15:07 | XMS_ITS | Encounter Summary ---
Author Organization [facility] Address [address] [place] [phone] Care Team Providers Care File Clerk Data Entry Name Role Phone Gayathri Cannon MD Primary Care Provider [phone] Encounter Details Date Type Department Care Team (Late st Contact Info) Description 12/19/2024 Lab Requisition [facility] - Main Lab 299 [facility] [place] [address] Jere Pollack PA PCCP [address] [facility] [address] [place] [address] Unspecified atrial fibrillation (CMS/HCC V24, CMS/HCC V28) [...] Description 03/24/2025 2:10 PM EDT Office Visit [facility] - [facility] [address] [facility] [address] [place] [phone] Abby Link NP [address] [place] [address] documented as of this encounter Procedures Procedure Name Priority Date/Time Associated Diagnosis Comments PROTHROMBIN TIME WITH INR Routine 12/19/2024 9:35 AM EST Unspecified atrial fibrillation (CMS/HCC) documented in this encounter Results * (ABNORMAL) Prothrombin time with INR (12/19/2024 9:35 AM EST) Protime 23.9(H) 10.6 - 13.9 sec LAB COAGULATION METHOD 12/19/2024 11:50 AM EST [facility] INR 1.9 LAB COAGULATION METHOD 12/19/2024 11:50 AM EST [facility] Blood Venous blood specimen / Unknown Venipuncture / Unknown 12/19/2024 9:35 AM EST 12/19/2024 10:29 AM EST us Jere GUDINO LAB BLOOD ORDERABLES Tata l Result [facility] [address] [place] [address], documented in this encounter Visit Diagnoses Diagnosis Unspecified atrial fibrillation (CMS/HCC V24, CMS/HCC V28) documented in this encounter Care Teams File Clerk Data Entry Relationship Specialty Start Date End Date Gayathri Cannon MD PCP - General 01/04/15 documented as of this encounter
--- OUTSIDE RECORDS SUMMARY | 2025-03-08 15:07 | XMS_ITS | Encounter Summary ---
Author Organization [facility] Address [address] [place] [phone] Care Team Providers Care Business Intelligence Etl Developer Name Role Phone Gayathri Cannon MD Primary Care Provider [phone] Encounter Details Date Type Department Care Team (Late st Contact Info) Description 11/20/2024 Lab Requisition [facility] - Main Lab 299 [facility] [place] [address] Alvaro Rojas MD [address] [place] [address] Unspecified atrial fibrillation (CMS/HCC V24, CMS/HCC V28); Chronic kidney disease, stage 3 unspecified (CMS/HCC V24, CMS/HCC V28); Chronic diastolic (congestive) heart failure (CMS/HCC V24, CMS/HCC V28); Essential (primary) hypertension; Longstanding persistent atrial fibrillation (CMS/HCC V24, CMS/HCC V28); Type 2 diabetes mellitus without complications ([facility] V24, [facility] V28) Social History Tobacco Use Types Packs/Day [...] 03/24/2025 2:10 PM EDT Office Visit [facility] - [address] [place] [address] Abby iLnk NP [address] [place] [phone] documented as of this encounter Visit Diagnoses Diagnosis Unspecified atrial fibrillation ([facility] V24, [facility] V28) Chronic kidney disease, stage 3 unspecified ([facility] V24, [facility] V28) Chronic diastolic (congestive) heart failure ([facility] V24, [facility] V28) Essential (primary) hypertension Unspecified essential hypertension Longstanding persistent atrial fibrillation ([facility] V24, [facility] V28) Type 2 diabetes mellitus without complications ([facility] V24, [facility] V28) documented in this encounter Care Teams Business Intelligence Etl Developer Relationship Specialty Start Date End Date Gayathri Cannon MD PCP - General 01/04/15 documented as of this encounter
--- OUTSIDE RECORDS SUMMARY | 2025-03-08 15:07 | XMS_ITS | Encounter Summary ---
Author Organization [facility] Address [address] [place] [phone] Care Team Providers Care Project Manager Process Development Name Role Phone Gayathri Cannon MD Primary Care Provider [phone] Encounter Details Date Type Department Care Team (Late st Contact Info) Description 12/20/2024 Lab Requisition [facility] - Main Lab 299 [facility] [place] [address] Alvaro Rojas MD [address] [place] [address] Unspecified atrial fibrillation (CMS/HCC V24, CMS/HCC V28) [...] 03/24/2025 2:10 PM EDT Office Visit [facility] - [address] [facility] [address] [place] [address] Abby Link NP [address] [place] [address] documented as of this encounter Procedures Procedure Name Priority Date/Time Associated Diagnosis Comments PROTHROMBIN TIME WITH INR Routine 12/20/2024 7:41 AM EST Unspecified atrial fibrillation (CMS/HCC) documented in this encounter Results * (ABNORMAL) Prothrombin time with INR (12/20/2024 7:41 AM EST) Protime 29.9(H) 10.6 - 13.9 sec LAB COAGULATION METHOD 12/20/2024 9:48 AM EST [facility] INR 2.4 LAB COAGULATION METHOD 12/20/2024 9:48 AM EST [facility] Blood Venous blood specimen / Unknown Venipuncture / Unknown 12/20/2024 7:41 AM EST 12/20/2024 8:31 AM EST us Alvaro Rojas MD LAB BLOOD ORDERABLES Final Resul t [facility] ([facility] [address] [place] [address], documented in this encounter Visit Diagnoses Diagnosis Unspecified atrial fibrillation (CMS/HCC V24, CMS/HCC V28) documented in this encounter Care Teams Project Manager Process Development Relationship Specialty Start Date End Date Gayathri Cannon MD PCP - General 01/04/15 documented as of this encounter
--- OUTSIDE RECORDS SUMMARY | 2025-03-08 15:07 | XMS_ITS | Encounter Summary ---
Author Organization [facility] Address [address] [place] [phone] Care Team Providers Care Senior Loan Processor Name Role Phone Gayathri Cannon MD Primary Care Provider [phone] Encounter Details Date Type Department Care Team (Late st Contact Info) Description 12/18/2024 Lab Requisition [facility] - Main Lab 299 [facility] [place] [address] Alvaro Rojas MD [address] [place] [address] Type 2 diabetes mellitus without complications (CMS/HCC V24, CMS/HCC V28); Heart failure, unspecified (CMS/HCC V24, CMS/HCC V28) Social History Tobacco [...] Description 03/24/2025 2:10 PM EDT Office Visit [facility] - [address] [facility] [address] [place] [phone] Abby Link NP [address] [place] [address] documented as of this encounter Procedures Procedure Name Priority Date/Time Associated Diagnosis Comments PROTHROMBIN TIME WITH INR Routine 12/18/2024 8:37 AM EST Type 2 diabetes mellitus without complications (CMS/HCC) Heart failure, unspecified (CMS/HCC) COMPLETE BLOOD COUNT Routine 12/18/2024 8:37 AM EST Type 2 diabetes mellitus without complications (CMS/HCC) Heart failure, unspecified (CMS/HCC) COMPREHENSIVE METABOLIC PANEL Routine 12/18/2024 8:37 AM EST Type 2 diabetes mellitus without complications (CMS/HCC) Heart failure, unspecified (CMS/HCC) documented in this encounter Results * (ABNORMAL) Prothrombin time with INR (12/18/2024 8:37 AM EST) Protime 19.2(H) 10.6 - 13.9 sec LAB COAGULATION METHOD 12/18/2024 10:57 AM EST [facility] INR 1.5 LAB COAGULATION METHOD 12/18/2024 10:57 AM EST [facility] Blood Venous blood specimen / Unknown Venipuncture / Unknown 12/18/2024 8:37 AM EST 12/18/2024 10:08 AM EST us Alvaro Rojas MD LAB BLOOD ORDERABLES Final Resul t [facility] [address] [place] [address], * (ABNORMAL) Comprehensive metabolic panel (12/18/2024 8:37 AM EST) Sodium 137 133 - 145 mmol/L LAB CHEMISTRY METHOD 12/18/2024 11:32 AM EST [facility] Potassium 4.3 3.5 - 5.5 mmol/L LAB CHEMISTRY METHOD 12/18/2024 11:32 AM EST [facility] Chloride 101 96 - 110 mmol/L LAB CHEMISTRY METHOD 12/18/2024 11:32 AM EST [facility] CO2 27 21 - 32 mmol/L LAB CHEMISTRY METHOD 12/18/2024 11:32 AM [facility] Anion Gap 9 3 - 11 LAB CHEMISTRY METHOD 12/18/2024 11:32 AM [facility] Glucose 134(H) 70 - 100 mg/dL LAB CHEMISTRY METHOD 12/18/2024 11:32 AM [facility] BUN 19 5 - 25 mg/dL LAB CHEMISTRY METHOD 12/18/2024 11:32 AM [facility] Creatinine 0.83 0.50 - 1.10 mg/dL LAB CHEMISTRY METHOD 12/18/2024 11:32 AM [facility] eGFR 74 >=60 mL/min/1. 73m2 LAB CHEMISTRY METHOD 12/18/2024 11:32 AM [facility] Comment:Calculation based on the??Chronic Kidney Disease Epidemiology Collaboration (CKD-EPI) equation refit??without adjustment for race. BUN/Creatinine Ratio 22.9 LAB CHEMISTRY METHOD 12/18/2024 11:32 AM [facility] Calcium 8.4(L) 8.5 - 10.5 mg/dL LAB CHEMISTRY METHOD 12/18/2024 11:32 AM [facility] AST (SGOT) 32 10 - 42 unit/L LAB CHEMISTRY METHOD 12/18/2024 11:32 AM [facility] ALT (SGPT) 14 10 - 60 unit/L LAB CHEMISTRY METHOD 12/18/2024 11:32 AM [facility] Alkaline Phosphatase 155(H) 42 - 121 unit/L LAB CHEMISTRY METHOD 12/18/2024 11:32 AM [facility] Total Protein 5.6(L) 6.0 - 8.0 g/dL LAB CHEMISTRY METHOD 12/18/2024 11:32 AM [facility] Albumin 1.9(L) 3.2 - 5.0 g/dL LAB CHEMISTRY METHOD 12/18/2024 11:32 AM [facility] Total Bilirubin 0.5 0.0 - 1.4 mg/dL LAB CHEMISTRY METHOD 12/18/2024 11:32 AM [facility] Blood Venous blood specimen / Unknown Venipuncture / Unknown 12/18/2024 8:37 AM EST 12/18/2024 10:08 AM EST us Alvaro Rojas MD LAB BLOOD ORDERABLES Final Resul t [facility] [address] [place] [address], [place] [phone] * (ABNORMAL) Complete blood count (12/18/2024 8:37 AM EST) WBC 9.5 4.8 - 10.8 K/mcL LAB HEMETOLOGY METHOD 12/18/2024 10:44 AM [facility] RBC 3.30(L) 3.80 - 4.80 M/mcL LAB HEMETOLOGY METHOD 12/18/2024 10:44 AM [facility] Hemoglobin 7.6(L) 11.5 - 16.0 g/dL LAB HEMETOLOGY METHOD 12/18/2024 10:44 AM [facility] Hematocrit 25.8(L) 35.0 - 47.0 % LAB HEMETOLOGY METHOD 12/18/2024 10:44 AM [facility] MCV 77.7(L) 79.0 - 98.0 FL LAB HEMETOLOGY METHOD 12/18/2024 10:44 AM [facility] MCH 22.9(L) 27.0 - 32.0 pcg LAB HEMETOLOGY METHOD 12/18/2024 10:44 AM [facility] MCHC 29.5(L) 32.0 - 37.0 g/dL LAB HEMETOLOGY METHOD 12/18/2024 10:44 AM [facility] RDW 22.6(H) 11.0 - 15.0 % LAB HEMETOLOGY METHOD 12/18/2024 10:44 AM EST [facility] Platelets 448(H) 130 - 400 K/mcL LAB HEMETOLOGY METHOD 12/18/2024 10:44 AM EST [facility] MPV 10.2 7.0 - 11.0 FL LAB HEMETOLOGY METHOD 12/18/2024 10:44 AM EST [facility] NRBC 0.3 <1.0 % LAB HEMETOLOGY METHOD 12/18/2024 10:44 AM EST [facility] NRBC Absolute 0.03 <0.10 K/mcL LAB HEMETOLOGY METHOD 12/18/2024 10:44 AM [facility] Blood Venous blood specimen / Unknown Venipuncture / Unknown 12/18/2024 8:37 AM EST 12/18/2024 10:08 AM EST us Alvrao Rojas MD LAB BLOOD ORDERABLES Final Resul t [facility] [address] [place] [address], documented in this encounter Visit Diagnoses Diagnosis Type 2 diabetes mellitus without complications (CMS/HCC V24, CMS/HCC V28) Heart failure, unspecified (CMS/HCC V24, CMS/HCC V28) Heart failure, unspecified documented in this encounter Care Teams Senior Loan Processor Relationship Specialty Start Date End Date Gayathri Cannon MD PCP - General 01/04/15 documented as of this encounter
--- OUTSIDE RECORDS SUMMARY | 2025-03-08 15:08 | XMS_ITS | Encounter Summary ---
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; 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 Social History Tobacco [...] Description 03/24/2025 2:10 PM EDT Office Visit [facility] - [address] [place] [phone] Abby Link NP [address] [place], [place] [phone] documented as of this encounter Procedures Procedure Name Priority Date/Time Associated Diagnosis Comments PROTHROMBIN TIME WITH INR Routine 01/04/2025 7:46 AM EDT Unspecified atrial fibrillation (CMS/HCC) 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 COMPLETE BLOOD COUNT Routine 01/04/2025 7:46 AM EDT Unspecified atrial fibrillation (CMS/HCC) 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 BASIC METABOLIC PANEL Routine 01/04/2025 7:46 AM EDT Unspecified atrial fibrillation (CMS/HCC) 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 longterm (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 documented in this encounter Results * Basic metabolic panel (01/04/2025 7:46 AM EDT) [facility] Sodium 138 133 - 145 mmol/L LAB CHEMISTRY METHOD 01/04/2025 11:17 AM [facility] Potassium 3.9 3.5 - 5.5 mmol/L LAB CHEMISTRY METHOD 01/04/2025 11:17 AM [facility] Chloride 104 96 - 110 mmol/L LAB CHEMISTRY METHOD 01/04/2025 11:17 AM [facility] CO2 27 21 - 32 mmol/L LAB CHEMISTRY METHOD 01/04/2025 11:17 AM [facility] Anion Gap 7 3 - 11 LAB CHEMISTRY METHOD 01/04/2025 11:17 AM [facility] Glucose 85 70 - 100 mg/dL LAB CHEMISTRY METHOD 01/04/2025 11:17 AM [facility] BUN 10 5 - 25 mg/dL LAB CHEMISTRY METHOD 01/04/2025 11:17 AM [facility] Creatinine 0.71 0.50 - 1.10 mg/dL LAB CHEMISTRY METHOD 01/04/2025 11:17 AM [facility] eGFR 89 >=60 mL/min/1. 73m2 LAB CHEMISTRY METHOD 01/04/2025 11:17 AM [facility] Comment:Calculation based on the??Chronic Kidney Disease Epidemiology Collaboration (CKD-EPI) equation refit??without adjustment for race. BUN/Creatinine Ratio 14.1 LAB CHEMISTRY METHOD 01/04/2025 11:17 AM [facility] Calcium 8.5 8.5 - 10.5 mg/dL LAB CHEMISTRY METHOD 01/04/2025 11:17 AM [facility] Blood Venous blood specimen / Unknown Venipuncture / Unknown 01/04/2025 7:46 AM EDT 01/04/2025 10:08 AM EDT us Alvaro Rojas MD LAB BLOOD ORDERABLES Final Resul t [facility] [address] [place] [address], * (ABNORMAL) Complete blood count (01/04/2025 7:46 AM EDT) WBC 5.4 4.8 - 10.8 K/mcL LAB HEMETOLOGY METHOD 01/04/2025 10:37 AM [facility] RBC 3.20(L) 3.80 - 4.80 M/mcL LAB HEMETOLOGY METHOD 01/04/2025 10:37 AM [facility] Hemoglobin 7.8(L) 11.5 - 16.0 g/dL LAB HEMETOLOGY METHOD 01/04/2025 10:37 AM [facility] Hematocrit 25.6(L) 35.0 - 47.0 % LAB HEMETOLOGY METHOD 01/04/2025 10:37 AM [facility] MCV 80.8 79.0 - 98.0 FL LAB HEMETOLOGY METHOD 01/04/2025 10:37 AM [facility] MCH 24.6(L) 27.0 - 32.0 pcg LAB HEMETOLOGY METHOD 01/04/2025 10:37 AM [facility] MCHC 30.5(L) 32.0 - 37.0 g/dL LAB HEMETOLOGY METHOD 01/04/2025 10:37 AM EDT [facility] RDW 23.9(H) 11.0 - 15.0 % LAB HEMETOLOGY METHOD 01/04/2025 10:37 AM EDT [facility] Platelets 418(H) 130 - 400 K/mcL LAB HEMETOLOGY METHOD 01/04/2025 10:37 AM EDT [facility] MPV 9.4 7.0 - 11.0 FL LAB HEMETOLOGY METHOD 01/04/2025 10:37 AM EDT [facility] NRBC 0.0 <1.0 % LAB HEMETOLOGY METHOD 01/04/2025 10:37 AM EDT [facility] NRBC Absolute 0.00 <0.10 K/mcL LAB HEMETOLOGY METHOD 01/04/2025 10:37 AM EDT [facility] Blood Venous blood specimen / Unknown Venipuncture / Unknown 01/04/2025 7:46 AM EDT 01/04/2025 10:13 AM EDT us Alvaro Rojas MD LAB BLOOD ORDERABLES Final Resul t [facility] [address] [place] [address], * (ABNORMAL) Prothrombin time with INR (01/04/2025 7:46 AM EDT) Protime 33.3(H) 10.6 - 13.9 sec LAB COAGULATION METHOD 01/04/2025 10:32 AM EDT [facility] INR 2.7 LAB COAGULATION METHOD 01/04/2025 10:32 AM EDT [facility] Blood Venous blood specimen / Unknown Venipuncture / Unknown 01/04/2025 7:46 AM EDT 01/04/2025 10:17 AM EDT us Alvaro Rojas MD LAB BLOOD ORDERABLES Final Resul t [facility] [address] [place] [address], documented in this encounter Visit Diagnoses Diagnosis Unspecified atrial fibrillation (CMS/HCC V24, CMS/HCC V28) 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 Long-term (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 documented in this encounter Care Teams Simulation Technician Relationship Specialty Start Date End Date Gayathri Cannon MD PCP - General 01/04/15 documented as of this encounter
--- OUTSIDE RECORDS SUMMARY | 2025-03-08 15:08 | XMS_ITS | Encounter Summary ---
Author Organization [facility] Address [address] [place] [phone] Care Team Providers Care Food Broker Name Role Phone Gayathri Cannon MD Primary Care Provider [phone] Encounter Details Date Type Department Care Team (Late st Contact Info) Description 12/30/2024 Lab Requisition [facility] - Main Lab [address] [facility] [place] [address] Alvaro Rojas MD [address] [place] [address] Unspecified atrial fibrillation (CMS/HCC V24, CMS/HCC V28) [...] Description 03/24/2025 2:10 PM EDT Office Visit [facility] [address] [facility] [address] [place] [address] Abby Link NP [address] [place] [address] documented as of this encounter Procedures Procedure Name Priority Date/Time Associated Diagnosis Comments PROTHROMBIN TIME WITH INR Routine 12/31/2024 6:37 AM EDT Unspecified atrial fibrillation (CMS/HCC) documented in this encounter Results * (ABNORMAL) Prothrombin time with INR (12/31/2024 6:37 AM EDT) Protime 21.4(H) 10.6 - 13.9 sec LAB COAGULATION METHOD 12/31/2024 9:25 AM EDT [facility] INR 1.7 LAB COAGULATION METHOD 12/31/2024 9:25 AM EDT [facility] Blood Venous blood specimen / Unknown Venipuncture / Unknown 12/31/2024 6:37 AM EDT 12/31/2024 8:46 AM EDT us Alvaro Rojas MD LAB BLOOD ORDERABLES Final Resul t [facility] [address] [place] [address], documented in this encounter Visit Diagnoses Diagnosis Unspecified atrial fibrillation (CMS/HCC V24, CMS/HCC V28) documented in this encounter Care Teams Food Broker Relationship Specialty Start Date End Date Gayathri Cannon MD PCP - General 01/04/15 documented as of this encounter
--- OUTSIDE RECORDS SUMMARY | 2025-03-08 15:08 | XMS_ITS | Clinical Summary ---
Author Organization [facility] Address [address] [place] [phone] Phone Care Team Providers Care Deli Bakery Clerk Name Role Phone Gayathri Cannon MD Primary Care Provider [phone] Allergies No known active allergies Medications acetaminophen [...] colonoscopy in 2021 repeat colonoscopy in 2019 Family History Medical History Relation Comments Cancer [...] 10/08/2019 1:51 PM EST Plan of Treatment Upcoming Encounters Date Type Department Care Team (Late st Contact Info) Description 04/02/2025 9:30 AM EDT Office Visit [facility] [address] [address] Jerry Rivera MD [address] [address] Health Maintenance Due Date Last Done Comments Breast Cancer Screening 1950 Colorectal Cancer Screening: Annual FOBT 1998 Colorectal Cancer Screening: Colonoscopy 1998 Colorectal Cancer Screening: Sigmoidoscopy 1998 Diabetes: Hemoglobin A1C 10/07/201912/11/ 019, 02/27/2018 Diabetes: Ophthalmology Exam 10/07/2019 Diabetes: Pedal Pulse Checked 10/07/2019 Diabetes: Sensory Foot Exam 10/07/2019 Diabetes: Visual Foot Exam 10/07/2019 Influenza Vaccine (Season Ended) 2025 07/22/2020, 12/08/2019, 07/05/2015 Pneumococcal Vaccine: 50+ Years Completed 03/06/2016, 11/25/2014 Pneumococcal Vaccine: Peds ( 0 to 5 Years) and At-Risk Patients (6 to 49 Years) Discontinued 03/06/2016, 11/25/2014 Hepatitis B Vaccine Aged Out No longe r eligible based on patient's age to complete this topic Procedures Procedure Name Priority Date/Time Associated Diagnosis Comments HEMOGLOBIN A1C Routine 12/11/2018 2:07 PM EST from Last 3 Months or Most Recently Relevant to Health Maintenance Results * (ABNORMAL) Hemoglobin A1c (12/11/2018 2:07 PM EST) Hemoglobin A1C 7.6(H) (4-6) % [place] [id number] Comment: HEMOGLOBIN A1C(%) ?? GLUCOSE CONTROL INDEX ?<6% ? EXCELLENT ?6-7% ?VERY GOOD ?7-8% ?GOOD ?8-10% ? FAIR ?>10% ?POOR Hemoglobin (Hb) A1c testing is performed by David Nilsa-quant immunoassay. Any cause of shortened erythrocyte survival will reduce exposure of erythrocytes to glucose with a consequent decrease in Hb A1c (%). Testing performed or reported by ~[facility], ~a Service of [facility], ~[address] [place] [id number]~ 12/11/2018 2:07 PM EST us John Spicer MD LAB BLOOD ORDERABLES Final Resul t [facility] from Last 3 Months or Most Recently Relevant to Health Maintenance [place] [address] SHAHAB ROSEN [phone] [facility] Care Teams Deli Bakery Clerk Relationship Specialty Start Date End Date Gayathri Cannon MD [address] [place] [id number] PCP - General Internal Medicine 06/17/24
--- OUTSIDE RECORDS SUMMARY | 2025-03-08 15:08 | XMS_ITS | Encounter Summary ---
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 Social History Tobacco [...] Description 03/24/2025 2:10 PM EDT Office Visit [facility] [address] [place] [phone] Abby Link NP 2 [place], [place] [phone] documented as of this encounter Procedures Procedure Name Priority Date/Time Associated Diagnosis Comments CBC WITH AUTO DIFFERENTIAL Routine 01/11/2025 6:57 AM EDT Unspecified atrial fibrillation (CMS/HCC) 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 alf (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 PROTHROMBIN TIME WITH INR Routine 01/11/2025 6:57 AM EDT Unspecified atrial fibrillation (CMS/HCC) 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 CBC AND DIFFERENTIAL Routine 01/11/2025 6:57 AM EDT Unspecified atrial fibrillation (CMS/HCC) 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 BASIC METABOLIC PANEL Routine 01/11/2025 6:57 AM EDT Unspecified atrial fibrillation (CMS/HCC) 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 alf (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 documented in this encounter Results * (ABNORMAL) CBC auto differential (01/11/2025 6:57 AM EDT) [facility] WBC 4.6(L) 4.8 - 10.8 K/mcL LAB HEMETOLOGY METHOD 01/11/2025 11:51 AM [facility] RBC 3.30(L) 3.80 - [...] LAB HEMETOLOGY METHOD 01/11/2025 11:51 AM EDT [facility] Monocytes Absolute 0.56 0.20 - 1.00 K/mcL LAB HEMETOLOGY METHOD 01/11/2025 11:51 AM EDT [facility] Eosinophils Absolute 0.11 0.00 - 0.50 K/mcL LAB HEMETOLOGY METHOD 01/11/2025 11:51 AM EDT [facility] Basophils Absolute 0.03 0.00 - 0.20 K/[facility] LAB HEMETOLOGY METHOD 01/11/2025 11:51 AM EDT [facility] Immature Granulocytes Absolute 0.01 0.00 - 0.03 K/mcL LAB HEMETOLOGY METHOD 01/11/2025 11:51 AM EDT [facility] Blood Venous blood specimen / Unknown Venipuncture / Unknown 01/11/2025 6:57 AM EDT 01/11/2025 10:41 AM EDT us Alvaro Rojas MD LAB BLOOD ORDERABLES Final Resul t [facility] [address] [place] [address], * (ABNORMAL) Basic metabolic panel (01/11/2025 6:57 AM EDT) Sodium 138 133 - 145 mmol/L LAB CHEMISTRY METHOD 01/11/2025 12:13 PM EDT [facility] Potassium 3.6 3.5 - 5.5 mmol/L LAB CHEMISTRY METHOD 01/11/2025 12:13 PM [facility] Chloride 103 96 - 110 mmol/L LAB CHEMISTRY METHOD 01/11/2025 12:13 PM T [facility] CO2 27 21 - 32 mmol/L LAB CHEMISTRY METHOD 01/11/2025 12:13 PM EDT [facility] Anion Gap 8 3 - 11 LAB CHEMISTRY METHOD 01/11/2025 12:13 PM EDT [facility] Glucose 90 70 - 100 mg/dL LAB CHEMISTRY METHOD 01/11/2025 12:13 PM EDT [facility] BUN 9 5 - 25 mg/dL LAB CHEMISTRY METHOD 01/11/2025 12:13 PM EDT [facility] Creatinine 0.69 0.50 - 1.10 mg/dL LAB CHEMISTRY METHOD 01/11/2025 12:13 PM EDT [facility] eGFR 91 >=60 mL/min/1. 73m2 LAB CHEMISTRY METHOD 01/11/2025 12:13 PM EDT [facility] Comment:Calculation based on the??Chronic Kidney Disease Epidemiology Collaboration (CKD-EPI) equation refit??without adjustment for race. BUN/Creatinine Ratio 13.0 LAB CHEMISTRY METHOD 01/11/2025 12:13 PM EDT [facility] Calcium 8.4(L) 8.5 - 10.5 mg/dL LAB CHEMISTRY METHOD 01/11/2025 12:13 PM EDT [facility] Blood Venous blood specimen / Unknown Venipuncture / Unknown 01/11/2025 6:57 AM EDT 01/11/2025 10:41 AM EDT us Alvaro Rojas MD LAB BLOOD ORDERABLES Final Resul t [facility] [address] [place] [address], * (ABNORMAL) Prothrombin time with INR (01/11/2025 6:57 AM EDT) Protime 20.8(H) 10.6 - 13.9 sec LAB COAGULATION METHOD 01/11/2025 11:25 AM EDT [facility] INR 1.7 LAB COAGULATION METHOD 01/11/2025 11:25 AM EDT [facility] Blood Venous blood specimen / Unknown Venipuncture / Unknown 01/11/2025 6:57 AM EDT 01/11/2025 10:41 AM EDT Alvaro Rojas MD LAB BLOOD ORDERABLES Final Resul t [facility] [address] [place] [address], documented in this encounter Visit Diagnoses Diagnosis Unspecified atrial fibrillation (CMS/HCC V24, CMS/HCC V28) 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
--- OUTSIDE RECORDS SUMMARY | 2025-03-08 15:08 | XMS_ITS | Encounter Summary ---
Author Organization [facility] Address [address] [place] [phone] Care Team Providers Care Room Service Associate Name Role Phone Gayathri Cannon MD Primary Care Provider [phone] Encounter Details Date Type Department Care Team (Late st Contact Info) Description 12/23/2024 Lab Requisition [facility] - Main Lab [address] [facility] [place] [address] Alvaro Rojas MD [address] [place] [address] Essential (primary) hypertension; group home (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 Social History Tobacco [...] Description 03/24/2025 2:10 PM EDT Office Visit [facility] - [facility] [address] [facility] [address] [place] [phone] Abby Link NP [address] [place] [address] documented as of this encounter Procedures Procedure Name Priority Date/Time Associated Diagnosis Comments PROTHROMBIN TIME WITH INR Routine 12/24/2024 6:27 AM EST Essential (primary) hypertension group home (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 COMPLETE BLOOD COUNT Routine 12/24/2024 6:27 AM EST 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 documented in this encounter Results * (ABNORMAL) Prothrombin time with INR (12/24/2024 6:27 AM EST) Protime 37.1(H) 10.6 - 13.9 sec LAB COAGULATION METHOD 12/24/2024 9:33 AM EST [facility] INR 3.0 LAB COAGULATION METHOD 12/24/2024 9:33 AM [facility] Blood Venous blood specimen / Unknown Venipuncture / Unknown 12/24/2024 6:27 AM EST 12/24/2024 9:12 AM EST us Alvaro Rojas MD LAB BLOOD ORDERABLES Final Resul t [facility] [address] [place] [address], * (ABNORMAL) Complete blood count (12/24/2024 6:27 AM EST) Pathologist [facility] WBC 11.8(H) 4.8 - 10.8 K/mcL LAB HEMETOLOGY METHOD 12/24/2024 9:37 AM [facility] RBC 3.30(L) 3.80 - 4.80 M/mcL LAB HEMETOLOGY METHOD 12/24/2024 9:37 AM [facility] Hemoglobin 7.6(L) 11.5 - 16.0 g/dL LAB HEMETOLOGY METHOD 12/24/2024 9:37 AM [facility] Hematocrit 25.6(L) 35.0 - 47.0 % LAB HEMETOLOGY METHOD 12/24/2024 9:37 AM [facility] MCV 78.0(L) 79.0 - 98.0 FL LAB HEMETOLOGY METHOD 12/24/2024 9:37 AM EST [facility] MCH 23.2(L) 27.0 - 32.0 pcg LAB HEMETOLOGY METHOD 12/24/2024 9:37 AM [facility] MCHC 29.7(L) 32.0 - 37.0 g/dL LAB HEMETOLOGY METHOD 12/24/2024 9:37 AM [facility] RDW 23.2(H) 11.0 - 15.0 % LAB HEMETOLOGY METHOD 12/24/2024 9:37 AM [facility] Platelets 621(H) 130 - 400 K/mcL LAB HEMETOLOGY METHOD 12/24/2024 9:37 AM [facility] MPV 9.3 7.0 - 11.0 FL LAB HEMETOLOGY METHOD 12/24/2024 9:37 AM [facility] NRBC 0.0 <1.0 % LAB HEMETOLOGY METHOD 12/24/2024 9:37 AM [facility] NRBC Absolute 0.00 <0.10 K/mcL LAB HEMETOLOGY METHOD 12/24/2024 9:37 AM [facility] Blood Venous blood specimen / Unknown Venipuncture / Unknown 12/24/2024 6:27 AM EST 12/24/2024 9:12 AM EST us Alvaro Rojas MD LAB BLOOD ORDERABLES Final Resul t [facility] [address] [place] [address], documented in this encounter Visit Diagnoses Diagnosis Essential (primary) hypertension Unspecified essential hypertension group home (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 Long-term (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 documented in this encounter Care Teams Room Service Associate Relationship Specialty Start Date End Date Gayathri Cannon MD PCP - General 01/04/15 documented as of this encounter
--- OUTSIDE RECORDS SUMMARY | 2025-03-08 15:08 | XMS_ITS | Encounter Summary ---
Author Organization [facility] Address [address] [place] [phone] Care Team Providers Care Biscuitware Brusher Name Role Phone Gayathri Cannon MD Primary Care Provider [phone] Encounter Details Date Type Department Care Team (Late st Contact Info) Description 12/23/2024 Lab Requisition [facility] - Main Lab 299 [facility] [place] [address] Social History Tobacco Use Types Packs/Day Years [...] Description 03/24/2025 2:10 PM EDT Office Visit [facility] - [facility] [address] [facility] [address] [place] [address] Abby Link NP [address] [place] [address] documented as of this encounter Visit Diagnoses Not on filedocumented in this encounter Care Teams Biscuitware Brusher Relationship Specialty Start Date End Date Gayathri Cannon MD PCP - General 01/04/15 documented as of this encounter
--- OUTSIDE RECORDS SUMMARY | 2025-03-08 15:08 | XMS_ITS | Encounter Summary ---
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 Social History Tobacco [...] Description 03/24/2025 2:10 PM EDT Office Visit [facility] - [address] [place] [address] Abby Link NP 2 [place], [place] [phone] documented as of this encounter Visit Diagnoses Diagnosis Unspecified atrial fibrillation (CMS/HCC V24, CMS/HCC V28) 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 long-term (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 Long-term (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 documented in this encounter Care Teams Hose Sprayer Relationship Specialty Start Date End Date Gayathri Cannon MD PCP - General 01/04/15 documented as of this encounter
--- OUTSIDE RECORDS SUMMARY | 2025-03-08 15:08 | XMS_ITS | Encounter Summary ---
Author Organization [facility] Address [address] [place] [phone] Care Team Providers Care Chief Sustainability Officer Name Role Phone Gayathri Cannon MD Primary Care Provider [phone] Encounter Details Date Type Department Care Team (Late st Contact Info) Description 01/06/2025 Lab Requisition [facility] - Main Lab 299 [facility] [place] [address] Alvaro Rojas MD [address] [place] [address] Unspecified atrial fibrillation (CMS/HCC V24, CMS/HCC V28) [...] Description 03/24/2025 2:10 PM EDT Office Visit [facility] - [facility] [address] [facility] [address] [place] [address] Abby Link NP [address] [place] [address] documented as of this encounter Procedures Procedure Name Priority Date/Time Associated Diagnosis Comments PROTHROMBIN TIME WITH INR Routine 01/07/2025 6:18 AM EDT Unspecified atrial fibrillation (CMS/HCC) documented in this encounter Results * (ABNORMAL) Prothrombin time with INR (01/07/2025 6:18 AM EDT) Protime 23.1(H) 10.6 - 13.9 sec LAB COAGULATION METHOD 01/07/2025 10:27 AM EDT [facility] INR 1.9 LAB COAGULATION METHOD 01/07/2025 10:27 AM EDT [facility] Blood Venous blood specimen / Unknown Venipuncture / Unknown 01/07/2025 6:18 AM EDT 01/07/2025 8:47 AM EDT us Alvaro Rojas MD LAB BLOOD ORDERABLES Final Resul t [facility] [address] [place] [address], documented in this encounter Visit Diagnoses Diagnosis Unspecified atrial fibrillation (CMS/HCC V24, CMS/HCC V28) documented in this encounter Care Teams Chief Sustainability Officer Relationship Specialty Start Date End Date Gayathri Cannon MD PCP - General 01/04/15 documented as of this encounter
--- OUTSIDE RECORDS SUMMARY | 2025-03-08 15:08 | XMS_ITS | Encounter Summary ---
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 Unspecified atrial fibrillation (CMS/HCC) COMPLETE BLOOD COUNT Routine 12/28/2024 7:34 AM EDT 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 residential (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 Unspecified atrial fibrillation (CMS/HCC) BASIC METABOLIC PANEL Routine 12/28/2024 7:34 AM EDT 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 Unspecified atrial fibrillation (CMS/HCC) documented in this encounter Results * (ABNORMAL) Prothrombin time with INR (12/28/2024 7:34 AM EDT) Pathologist [facility] Protime 41.6(H) 10.6 - 13.9 sec LAB COAGULATION METHOD 12/28/2024 9:40 AM EDT [facility] INR 3.4 LAB COAGULATION METHOD 12/28/2024 9:40 AM EDT [facility] Blood Venous blood specimen / Unknown Venipuncture / Unknown 12/28/2024 7:34 AM EDT 12/28/2024 9:31 AM EDT us Alvaro Rojas MD LAB BLOOD ORDERABLES Final Resul t [facility] [address] [place] [address], * (ABNORMAL) Basic metabolic panel (12/28/2024 7:34 AM EDT) [facility] Sodium 141 133 - 145 mmol/L LAB CHEMISTRY METHOD 12/28/2024 10:12 AM EDT [facility] Potassium 4.4 3.5 - 5.5 mmol/L LAB CHEMISTRY METHOD 12/28/2024 10:12 AM EDT [facility] Chloride 106 96 - 110 mmol/L LAB CHEMISTRY METHOD 12/28/2024 10:12 AM EDT [facility] CO2 26 21 - 32 mmol/L LAB CHEMISTRY METHOD 12/28/2024 10:12 AM [facility] Anion Gap 9 3 - 11 LAB CHEMISTRY METHOD 12/28/2024 10:12 AM [facility] Glucose 84 70 - 100 mg/dL LAB CHEMISTRY METHOD 12/28/2024 10:12 AM [facility] BUN 14 5 - 25 mg/dL LAB CHEMISTRY METHOD 12/28/2024 10:12 AM [facility] Creatinine 0.86 0.50 - 1.10 mg/dL LAB CHEMISTRY METHOD 12/28/2024 10:12 AM [facility] eGFR 71 >=60 mL/min/1. 73m2 LAB CHEMISTRY METHOD 12/28/2024 10:12 AM [facility] Comment:Calculation based on the??Chronic Kidney Disease Epidemiology Collaboration (CKD-EPI) equation refit??without adjustment for race. BUN/Creatinine Ratio 16.3 LAB CHEMISTRY METHOD 12/28/2024 10:12 AM [facility] Calcium 8.3(L) 8.5 - 10.5 mg/dL LAB CHEMISTRY METHOD 12/28/2024 10:12 AM [facility] Blood Venous blood specimen / Unknown Venipuncture / Unknown 12/28/2024 7:34 AM EDT 12/28/2024 9:16 AM EDT us Alvaro Rojas MD LAB BLOOD ORDERABLES Final Resul t [facility] [address] [place] [address], * (ABNORMAL) Complete blood count (12/28/2024 7:34 AM EDT) WBC 8.4 4.8 - 10.8 K/mcL LAB HEMETOLOGY METHOD 12/28/2024 9:41 AM T [facility] RBC 3.20(L) 3.80 - 4.80 M/mcL LAB HEMETOLOGY METHOD 12/28/2024 9:41 AM [facility] Hemoglobin 7.8(L) 11.5 - 16.0 g/dL LAB HEMETOLOGY METHOD 12/28/2024 9:41 AM [facility] Hematocrit 25.6(L) 35.0 - 47.0 % LAB HEMETOLOGY METHOD 12/28/2024 9:41 AM [facility] MCV 79.0 79.0 - 98.0 FL LAB HEMETOLOGY METHOD 12/28/2024 9:41 AM [facility] MCH 24.1(L) 27.0 - 32.0 pcg LAB HEMETOLOGY METHOD 12/28/2024 9:41 AM [facility] MCHC 30.5(L) 32.0 - 37.0 g/dL LAB HEMETOLOGY METHOD 12/28/2024 9:41 AM [facility] RDW 23.8(H) 11.0 - 15.0 % LAB HEMETOLOGY METHOD 12/28/2024 9:41 AM [facility] Platelets 601(H) 130 - 400 K/mcL LAB HEMETOLOGY METHOD 12/28/2024 9:41 AM [facility] MPV 9.1 7.0 - 11.0 FL LAB HEMETOLOGY METHOD 12/28/2024 9:41 AM [facility] NRBC 0.0 <1.0 % LAB HEMETOLOGY METHOD 12/28/2024 9:41 AM [facility] NRBC Absolute 0.00 <0.10 K/mcL LAB HEMETOLOGY METHOD 12/28/2024 9:41 AM [facility] Blood Venous blood specimen / Unknown Venipuncture / Unknown 12/28/2024 7:34 AM EDT 12/28/2024 9:28 AM EDT us Alvaro Rojas MD LAB BLOOD ORDERABLES Final Resul t [facility] [address] [place] [address], documented in this encounter Visit Diagnoses Diagnosis 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
--- OUTSIDE RECORDS SUMMARY | 2025-03-08 15:08 | XMS_ITS | Encounter Summary ---
Author Organization [facility] Address [id number] [place] [id number] Care Team Providers Care Public Affairs Officer Name Role Phone Gayathri Cannon MD Primary Care Provider [phone] Encounter Details Date Type Department Care Team (Late st Contact Info) Description 12/29/2024 Lab Requisition [facility] Lab [address] [facility] [place] [address] Alvaro Rojas MD [address] [place] [address] Unspecified atrial fibrillation (CMS/HCC V24, CMS/HCC V28) [...] Description 03/24/2025 2:10 PM EDT Office Visit [facility] [address] [facility] [address] [place] [address] Abby Link NP [address] [place] [address] documented as of this encounter Procedures Procedure Name Priority Date/Time Associated Diagnosis Comments PROTHROMBIN TIME WITH INR Routine 12/29/2024 5:49 AM EDT Unspecified atrial fibrillation (CMS/HCC) documented in this encounter Results * (ABNORMAL) Prothrombin time with INR (12/29/2024 5:49 AM EDT) Protime 33.0(H) 10.6 - 13.9 sec LAB COAGULATION METHOD 12/29/2024 9:32 AM EDT [facility] INR 2.7 LAB COAGULATION METHOD 12/29/2024 9:32 AM EDT [facility] Blood Venous blood specimen / Unknown Venipuncture / Unknown 12/29/2024 5:49 AM EDT 12/29/2024 9:06 AM EDT us Alvaro Rojas MD LAB BLOOD ORDERABLES Final Resul t [facility] [address] [place] [address], documented in this encounter Visit Diagnoses Diagnosis Unspecified atrial fibrillation (CMS/HCC V24, CMS/HCC V28) documented in this encounter Care Teams Public Affairs Officer Relationship Specialty Start Date End Date Gayathri Cannon MD PCP - General 01/04/15 documented as of this encounter
[2025-03-08 15:21] LABS: INTERNATIONAL NORM RATIO 4.8 (0.9-1.1); Prothrombin Time 55.6 SEC (10.9-12.4)
== END 2025-03-08 15:04 | disposition home or self-care (01) ==
LOC: HO.HVNA 15:03
PROVIDERS: Visit Provider Internal Medicine
DX: R79.1 Abnormal coagulation profile (principal)
CPT/HCPCS: 36415; 85610